=== PATIENT | female | born 1980 | race Caucasian/White ===

== ENCOUNTER 2022-05-17 13:57 | Outpatient (CLI) | payer OTHER, SELFPAY ==
--- OUTSIDE RECORDS SUMMARY | 2022-05-17 14:00 | XMS_ITS | Encounter Summary ---
:1980 Author Organization [facility] Address [address] [place] [address] Care Team Providers Name Role Phone Elsewhere, Pcp Primary Care Provider Unavailable Encounter Details Date Type Department Care Team Description 07/21/2020 Admin Visit Department of Family Medicine, [facility] [place] in [place], [place] [address] [place] [phone] Social History Tobacco Use Types Packs/Day Years Used Date Smoking Tobacco: Some Days Cigarettes 0.5 E-cigarettes Smokeless Tobacco: Never Alcohol Use Standard Drinks/Week Comments Not Currently 0 (1 standard drink = 0.6 oz pure alcoho l) Sex Assigned at Date Recorded Not on file documented as of this encounter Plan of Treatment Not on filedocumented as of this encounter Visit Diagnoses Not on filedocumented in this encounter Additional Health Concerns Infection Onset Date Last Indicated Resolved Time COVID19 Pending 07/21/2020 07/21/2020 07/21/2020 3:39 PM 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
--- OUTSIDE RECORDS SUMMARY | 2022-05-17 14:00 | XMS_ITS | Encounter Summary ---
:[address] [facility] Address [address] [place] [address] Care Team Providers Name Role Phone Elsewhere, Pcp Primary Care Provider Unavailable Reason for Visit Reason Onset Date Comments Outpatient COVID-19 Testing 07/21/2020 Encounter Details Date Type Department Care Team Description 07/21/2020 External Outreach Department of [facility] Destinee Celis Infection Upper Medicine, [place] Is[facility] Harvey Respiratory (Primary Clinic, in [place], [address]) [place], [place] [address] [place] [place] [address] [place], [place] [phone] (Work) [phone] Social History Tobacco Use Types Packs/Day Years Used Date Smoking Tobacco: Some Days Cigarettes 0.5 E-cigarettes Smokeless Tobacco: Never Alcohol Use Standard Drinks/Week Comments Not Currently 0 (1 standard drink = 0.6 oz pure alcoho l) Sex Assigned at Date Recorded Not on file documented as of this encounter Progress Notes Marie Esquivel RMarianne. - 07/21/2020 7:16 AM CST Encounter created for the drive-through COVID-19 testing. A ACCOUNT EXECUTIVE documented in this encounter Plan of Treatment Not on filedocumented as of this encounter Procedures Procedure Name Priority Date/Time Associated Comments Diagnosis SARS CORONAVIRUS 2 Routine 07/21/2020 8:02 AM Res ults for this PCR DETECT, V MEDIA ACCOUNT EXECUTIVE procedure are in the results section. documented in this encounter Results SARS Coronavirus 2 RNA Detection (07/21/2020 8:02 AM MEDIA ACCOUNT EXECUTIVE) [facility] Method Time Signature SARS-CoV-2 Nasopharynx 07/22/2020 [facility] Specimen 6:53 AM MEDIA ACCOUNT EXECUTIVE Source SARS-CoV-2 Undetected Undetected 07/22/2020 [facility] RNA by PCR 6:53 AM MEDIA ACCOUNT EXECUTIVE Comment: SARS-CoV-2 RNA absent. This result does not rule out COVID-19 in the patient, as the sensitivity of the test depends o n the timing of the specimen collection and the quality of the specim en. Result should be correlated with patient's history and clinical presentat ion. ----ADDITIONAL INFORMATION---- This PCR test was performed using the Refund Exchange SARS-CoV-2 assay ([employer] on the inessa Choozle0 System under emergency use authorization (EUA) by the U.S. Food and Drug Administ ration. Fact sheets for this assay can be found at the following links: For Healthcare Providers: https://www.[employer] a.gov/media/204864/download For Patients: https://www.fda.gov/media/ 860729/download Specimen Anatomical Collection Method Collection Time Receive d Time (Source) Location / / Volume Laterality Varies 07/21/2020 8:02 AM 0 3:39 MEDIA ACCOUNT EXECUTIVE PM MEDIA ACCOUNT EXECUTIVE Narrative [facility] - 07/22/2020 6:53 AM MEDIA ACCOUNT EXECUTIVE Specimen Information: Specimen ID: [id number] Specimen Type: Varies Specimen Collection Start Date: 020 ??8:02 AM Specimen Received Date: 07/21/2020 ??3: 39 PM Specimen ID: [id number] Specimen Type: Varies Specimen Collection Start Date: 020 ??8:02 AM Specimen Received Date: 07/21/2020 11:1 5 PM Dmitry Celis P.A.-C. LAB MICROBIOLOGY - GENERAL O RDERABLES Performing Organization Address City/State/ZIP Code Phon e Number [facility] [address] [place], [place] [address] [place] [address] Laboratory Medicine and Pathology [address] [place] [address] Dr. GRIFFITH documented in this encounter Visit Diagnoses Diagnosis Infection Upper Respiratory - Primary documented in this encounter Additional Health Concerns Infection Onset Date Last Indicated Resolved Time COVID19 Pending 07/21/2020 07/21/2020 07/21/2020 3:39 PM MEDIA ACCOUNT EXECUTIVE Assessment Noted Time PHQ-9 Depression Total Score: 16 11/25/2012 12:45 PM C DT documented as of this encounter Care Teams Video Rental Clerk Relationship Specialty Start Date End Date Elsewhere, Pcp PCP - General 09/28/19 documented as of this encounter
--- OUTSIDE RECORDS SUMMARY | 2022-05-17 14:00 | XMS_ITS | Encounter Summary ---
:1980 Author Organization [facility] Address [address] [place] [address] Care Team Providers Name Role Phone Elsewhere, Pcp Primary Care Provider Unavailable Reason for Visit Reason Onset Date Comments Outpatient COVID-19 Testing 07/29/2020 Encounter Details Date Type Department Care Team Description 07/29/2020 External Outreach Department of [facility] Destinee Celis Infection Upper Medicine, [place] [facility] Respiratory (Primary Clinic, in [place], [address] [facility] [address] [place], [place] [address] [facility] [address] [place], [place] [phone] [address] (Work) [phone] Social History Tobacco Use Types Packs/Day Years Used Date Smoking Tobacco: Some Days Cigarettes 0.5 E-cigarettes Smokeless Tobacco: Never Alcohol Use Standard Drinks/Week Comments Not Currently 0 (1 standard drink = 0.6 oz pure alcoho l) Sex Assigned at Date Recorded Not on file documented as of this encounter Progress Notes Nancy Mcnamara - 07/29/2020 12:48 PM CST Encounter created for the drive-through COVID-19 testing. OME HOSTESS documented in this encounter Miscellaneous Notes Result Encounter Note - Jayesh Smith M.D. - 07/31/2020 3:59 PM WELCOME HOSTESS PCR positive for SARS-CoV-2, the virus that causes COVID-19 infection. Based on chart review patientdoes not have high risk factors for complications. Will not be enrolled in CFCT. CFCT MAA, please send CFCTLOWRISKLETTER and portal message (if patient has the portal). Please also alert the patient's [facility] PCP (if applicable). You recently tested positive for SARS-CoV-2 by nasopharyngeal PCR, the gold standard test for diagnosing COVID-19 infection. This letter contains clinical and isolation recommendations for patients with COVID-19. If you have questions about the recommendations, please contact your local primary care physician or local health department. If you have a serious underlying medical condition (such as heart disease, lung disease or decreased functioning of your immune system) please respond to us so that we can assess your risk of COVID complications. If you have upcoming on-campus appointments, we recommend delaying non-urgent appointments until youhave recovered from your COVID infection. Our team will reach out to the area you are scheduled to be seen in. Please do not come to campus until given the ok to do so by a [facility] personal banking representative. Please continue to monitor your symptoms. If you develop any of the following symptoms, please call your primary care physician or go to the Emergency Department for evaluation Worsened shortness of breath New or worsening cough New productive cough or cough with blood New chest pain or pain with breathing Fevers, chills, sweats Vomiting or diarrhea Lightheadedness New temperature > 38.3 ??C Fast heart rate Fast breathing rate If you need to go into the Emergency Room or other healthcare facility, please: Inform EMS of positive COVID result and wear a mask prior to EMS arrival if available. If well enough to transport yourself to the emergency room, you should use a private vehicle (not use taxi, ride-share or public transport). We strongly recommend continuing self-isolation until the following criteria are met and you are released by your local public health department if applicable: Minimum of 10 days since onset of symptoms OR from positive PCR test if asymptomatic AND At least 3 days (72 hours) have passed since recovery defined as resolution of fever without the useof fever-reducing medications AND Improvement in symptoms (e.g., cough, shortness of breath, diarrhea) The above isolation recommendation may need to be adjusted based on the clinical course. Https://www.[employer].com/watch?time_continue=6&v=DqDL1uKlQXx&feature=emb_logo Testing prior to release from isolation is NOT recommended by CDC or [facility] Infection Prevention and Control for clinical purposes except in extremely rare cases. The patient was also advised to follow final recommendations as per local public health department/occupational health if relevant. Please contact your employer's occupational health division to notify them of positive test If the patient and/or their employer have questions about return to work best practices, they shouldcontact [facility] Occupational Medicine at [email or web address]. The patient should receive approval from their employer's occupational health division before returning to work. Recommend self isolation for all household members/close contacts. If any of these individuals are immunocompromised or have serious chronic medical conditions, pleasehave them contact their primary care physician to let them know they have been exposed to close contact with COVID-19 If unwell, recommend contacting their health care provider. Presenting directly to of the ED can be considered in the case of severe symptoms. These individuals should call ahead to minimize wait times. The [facility] COVID Triage Line can bereached at [phone]. COVID-19 is a notifiable disease and you will be contacted by public health for contact tracing. Please review the links below for additional education. [facility] recommendations on isolation https://www.[facility].org/patient-education?VID=VID-51337314 Additional information about COVID-19 https://www.cdc.gov/coronavirus/2019-ncov/ Cognitive Behavior Therapy-Insomnia to help improve sleep https://[facility]/PatientEducation/PatientLearning/index.html#/ Building Resiliency During the COVID-19 Pandemic https://[facility]/2020/PatientEducation/content/index.html#/ Consider donating convalescent plasma once you have recovered from your illness (14 days after symptoms have resolved) Survey to assess eligibility: https://redcap2.[place].edu/redcap/surveys/?s=9FBA2CXH5V and/ or contact guillermo garg@[place] More information is available at https://www.uscovidplasma.org/ https://ccpp19.org/ https://covidplasma.org/ COVID-19 Frontline Care Team [facility] OME HOSTESS documented in this encounter Plan of Treatment Not on filedocumented as of this encounter Procedures Procedure Name Priority Date/Time Associated Diagnosis Comme nts SARS CORONAVIRUS-2 Routine 07/30/2020 7:31 AM Infection Upper Results for this RNA, V WELCOME HOSTESS Respiratory procedure are i n the results section. documented in this encounter Results (ABNORMAL) SARS Coronavirus-2 RNA, V Symptomatic (07/30/2020 7:31 AM WELCOME HOSTESS) [facility] Method Time Signature SARS-CoV-2 Swab, 07/31/2020 [facility] Specimen Nasopharynx 3:03 PM WELCOME HOSTESS Source SARS CoV-2 Detected (C) Undetected 07/31/2020 [facility] RNA, TMA 3:03 PM WELCOME HOSTESS Comment: SARS-CoV-2 RNA present. ----ADDITIONAL INFORMATION---- This test is performed using the Aptima SARS-CoV-2 assay ([employer] which has received Emergency Use Authori zation (EUA) by the U.S. Food and Drug Administration. Fact sheets for this Emergency Use Autho rization (EUA) assay can be found at the following links: For Healthcare Providers: https://www.fd a.gov/media/082912/download For Patients: https://www.fda.gov/media/ 479494/download Specimen Anatomical Collection Method Collection Time Receive d Time (Source) Location / / Volume Laterality Varies 07/30/2020 7:31 AM 0 4:45 (Nasopharynx) WELCOME HOSTESS PM WELCOME HOSTESS Dmitry Celis P.A.-C. LAB MICROBIOLOGY - GENERAL O RDERABLES Performing Organization Address City/State/ZIP Code Phon e Number [facility]- [address] [place] [address] [phone] [facility] [place] [address] System [address] documented in this encounter Visit Diagnoses Diagnosis Infection Upper Respiratory - Primary documented in this encounter Additional Health Concerns Infection Onset Date Last Indicated Resolved Time COVID19 Pending 07/29/2020 07/30/2020 07/31/2020 3:03 PM WELCOME HOSTESS Assessment Noted Time PHQ-9 Depression Total Score: 16 11/25/2012 12:45 PM C DT documented as of this encounter Care Teams Restaurant Shift Leader Relationship Specialty Start Date End Date Elsewhere, Pcp PCP - General 09/28/19 documented as of this encounter
--- OUTSIDE RECORDS SUMMARY | 2022-05-17 14:00 | XMS_ITS | Encounter Summary ---
:1980 Author Organization [facility] Address [address] [place] [address] Care Team Providers Name Role Phone Elsewhere, Pcp Primary Care Provider Unavailable Reason for Visit Reason Comments Communication triage-ORS Encounter Details Date Type Department Care Team Description 08/07/2021 Clinical Communication Department of Soraya Christine Orthopedic Surgery Erwin Potter (triage-ORS) in [place], [facility] [address] [facility] [address] [place] [phone] Social History Tobacco Use Types Packs/Day Years Used Date Smoking Tobacco: Some Days Cigarettes 0.5 E-cigarettes Smokeless Tobacco: Never Alcohol Use Standard Drinks/Week Comments Not Currently 0 (1 standard drink = 0.6 oz pure alcoho l) Sex Assigned at Date Recorded Not on file documented as of this encounter Miscellaneous Notes Telephone Encounter - Soraya Christine RInessa - 08/07/2021 10:38 AM CST Specialty Surgical Services Triage Call Reason for call/visit Carpal tunnel consult request Right wrist Call Note: Assessment Patient request to have appointment with Dr. Salinas. She states that she had carpal tunnel surgery about 8 years ago and at the time only had 1 side done, did not want to miss too much work so did not do the right side. She states that in the last couple weeks the right side has been bad with flare ups, being numb/tingly, red, swollen and painful. Intervention Patient was offered apt with Dr. Salinas team tomorrow. Warm transfer to [facility] was completed. Has patient called or presented with the same symptom previously yes - 8 years ago, carpal tunnel Is patient experiencing other symptoms: no The following references were used: nursing clinical judgement Education provided: patient/caller able to teach back Disposition/Recommendation: as above Caller agreeable to plan of care: yes The following individuals participated in today???s interaction: patient Diabetes Specialist used: no Additional concerns addressed: none ATIENT PSYCHIATRIST documented in this encounter Plan of Treatment Not on filedocumented as of this encounter Visit Diagnoses Not on filedocumented in this encounter Additional Health Concerns Assessment Noted Time PHQ-9 Depression Total Score: 16 11/25/2012 12:45 PM C DT documented as of this encounter Care Teams Cleaning Machine Operator Relationship Specialty Start Date End Date Elsewhere, Pcp PCP - General 09/28/19 documented as of this encounter
--- OUTSIDE RECORDS SUMMARY | 2022-05-17 14:00 | XMS_ITS | Encounter Summary ---
:1980 Author Organization [facility] Address [address] [place] [address] Care Team Providers Name Role Phone Elsewhere, Pcp Primary Care Provider Unavailable Reason for Referral Outpatient (Routine) - Authorized Specialty Diagnoses / Procedures Referred By Contact Refer red To Contact Diagnoses Drug Screen Inés Honeycutt M.D. [facility] Procedures OCC Drug screening [address] [place] [phone] Referral ID Status Reason Start Date Expiration Date Visits V isits Requested Authorized [id number] Authorized 02/09/2022 02/09/2023 1 1 Reason for Visit Reason Comments Pre-placement Drug Screen SB Foot Encounter Details Date Type Department Care Team Description 02/09/2022 Clinical Support Department of Inés Honeycutt Drug Scre en (Primary Occupational Medicine Mikey Alexander Dx) in [facility] [address] [facility] [address] [place] [phone] Social History Tobacco Use Types Packs/Day Years Used Date Smoking Tobacco: Some Days Cigarettes 0.5 E-cigarettes Smokeless Tobacco: Never Alcohol Use Standard Drinks/Week Comments Not Currently 0 (1 standard drink = 0.6 oz pure alcoho l) Sex Assigned at Date Recorded Not on file documented as of this encounter Progress Notes Rubi Quarles - 02/09/2022 8:15 AM CDT Pre employment UDS for SB Foot, uneventful collection documented in this encounter Plan of Treatment Scheduled Orders Name Type Priority Associated Diagnoses Order S chedule [facility] Drug screening Procedures Routine Drug Screen Ordered: 02/09/2022 documented as of this encounter Visit Diagnoses Diagnosis Drug Screen - Primary documented in this encounter Additional Health Concerns Assessment Noted Time PHQ-9 Depression Total Score: 16 11/25/2012 12:45 PM C DT documented as of this encounter Care Teams Picker Packer Relationship Specialty Start Date End Date Elsewhere, Pcp PCP - General 09/28/19 documented as of this encounter
--- OUTSIDE RECORDS SUMMARY | 2022-05-17 14:00 | XMS_ITS | Encounter Summary ---
:1980 Author Organization [facility] Address [address] [place] [address] Care Team Providers Name Role Phone Elsewhere, Pcp Primary Care Provider Unavailable Encounter Details Date Type Department Care Team Description 08/03/2020 Hospital Encounter Department of Laboratory Dmitry Celis, Medicine in [place], P.A.-[address] [phone] (Wo rk) Social History Tobacco Use Types Packs/Day Years Used Date Smoking Tobacco: Some Days Cigarettes 0.5 E-cigarettes Smokeless Tobacco: Never Alcohol Use Standard Drinks/Week Comments Not Currently 0 (1 standard drink = 0.6 oz pure alcoho l) Sex Assigned at Date Recorded Not on file documented as of this encounter Medications at Time of Discharge Medication Sig Dispensed Refills Start Date End Date acetaminophen (TYLENOL) 500 Take 1,000 mg by 0 mg tablet mouth every 6 (six) hours as needed for pain. aspirin 81 mg chewable Chew 1 tablet (81 mg 90 tablet 0 tablet total) daily. atorvastatin (LIPITOR) 40 Take 1 tablet (40 mg 90 tablet 0 06/29/2018 mg tablet total) by mouth at bedtime. ibuprofen (ADVIL,MOTRIN) Take 600 mg by mouth 0 200 mg capsule every 6 (six) hours as needed for pain. documented as of this encounter Plan of Treatment Not on filedocumented as of this encounter Visit Diagnoses Not on filedocumented in this encounter Additional Health Concerns Infection Onset Date Last Indicated Resolved Time COVID19 07/30/2020 08/03/2020 08/23/2020 4:45 AM SENIOR ELECTRICAL DESIGNER Assessment Noted Time PHQ-9 Depression Total Score: 16 11/25/2012 12:45 PM C DT documented as of this encounter Care Teams Lead Radiation Therapist Relationship Specialty Start Date End Date Elsewhere, Pcp PCP - General 09/28/19 documented as of this encounter
--- OUTSIDE RECORDS SUMMARY | 2022-05-17 14:00 | XMS_ITS | Encounter Summary ---
:1980 Author Organization [facility] Address [address] [place] [address] Care Team Providers Name Role Phone Elsewhere, Pcp Primary Care Provider Unavailable Encounter Details Date Type Department Care Team Description 08/03/2020 Admin Visit Department of Family Medicine, [facility] [place] in [place], [place] [address] [place] [phone] Social History Tobacco Use Types Packs/Day [...] Time COVID19 07/30/2020 08/03/2020 08/23/2020 4:45 AM CYLINDER DYER Assessment Noted Time PHQ-9 Depression Total Score: 16 11/25/2012 12:45 PM C DT documented as of this encounter Care Teams Wash Crew Person Relationship Specialty Start Date End Date Elsewhere, Pcp PCP - General 09/28/19 documented as of this encounter
--- OUTSIDE RECORDS SUMMARY | 2022-05-17 14:00 | XMS_ITS | Encounter Summary ---
:1980 Author Organization [facility] Address [address] [place] [address] Care Team Providers Name Role Phone Elsewhere, Pcp Primary Care Provider Unavailable Encounter Details Date Type Department Care Team Description 07/30/2020 Hospital Encounter Department of Laboratory Dmitry Celis, Medicine in [place], P.A.-[address] [phone] (Wo rk) Social History Tobacco Use Types [...] COVID19 Pending 07/29/2020 07/30/2020 07/31/2020 3:03 PM COW TESTER Assessment Noted Time PHQ-9 Depression Total Score: 16 11/25/2012 12:45 PM C DT documented as of this encounter Care Teams Business Control Specialist Relationship Specialty Start Date End Date Elsewhere, Pcp PCP - General 09/28/19 documented as of this encounter
--- OUTSIDE RECORDS SUMMARY | 2022-05-17 14:00 | XMS_ITS | Clinical Summary ---
:1980 Author Organization [facility] Address [address] [place] [address] Care Team Providers Name Role Phone Elsewhere, Pcp Primary Care Provider Unavailable Source Comments Patient records contain information from all sites at [facility]. For routine questions regarding patient records, call [phone] during business hours, M-F 8:00 AM - 5:00 PM Central Time. Record requests for emergency care only can be directed to [phone] at any time.[facility] Allergies Active Allergy Reactions Severity Noted Date Comments Sulfamethoxazole-Trimethopr Hives Medium 01/10/2017 morbilliform, macular, im papular eruptio n Medications Medication Sig Dispensed Refills Start Date End Date Status acetaminophen (TYLENOL) Take 1,000 mg by 0 Active 500 mg tablet mouth every 6 (six) hours as needed for pain. atorvastatin (LIPITOR) Take 1 tablet 90 tablet 0 06/29/2018 Active 40 mg tablet (40 mg total) by mouth at bedtime. aspirin 81 mg chewable Chew 1 tablet 90 tablet 0 06/30/2018 Active tablet (81 mg total) daily. Additional Information Patient not taking. Reported on 04/13/2022 ibuprofen (ADVIL,MOTRIN) 200 mg Take 600 mg by mouth 0 Active capsule every 6 (six) hours as needed for pain. lisinopril-hydroCHLOROthiazide 0 2 Active (PRINZIDE,ZESTORETIC) 10-12.5 mg per tablet triamcinolone (KENALOG) 0.1 % Apply 1 application 30 g 0 02/27/2022 Active cream topically 2 (two) times a day for 10 days. Apply to affected areas of skin BID. hydroCHLOROthiazide (HYDRODIURIL) 0 2021 Active 12.5 mg tablet lisinopriL (PRINIVIL,ZESTRIL) 10 0 022 Active mg tablet ofloxacin (OCUFLOX) 0.3 % Administer 1 drop into 5 mL 0 0 04/10/2022 Active ophthalmic solution both eyes 4 (four) times a day. 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 06/29/2018 Slurred Speech 06/27/2018 Tobacco Use 01/22/2018 Gastroesophageal Reflux Disease 01/20/2018 Colic Biliary 01/06/2018 Overview: Added automatically from request for blanca thao [id number] Pain Right Upper Quadrant 12/31/2017 Overview: Added automatically from request for blanca thao [id number] Dysthymia 11/05/2011 Overview: Dysthymic Disorder Migraine Headache 11/05/2011 Dependence Polysubstance 10/13/2010 Overview: Polysubstance dependence, unspecified Major Depressive Disorder Single Episode Unspecified 0 04/28/2008 Supervision Of Other High Risk Pregnancies Unspecified Trimester 11/18/2007 Encounters Date Type Specialty Care Team Description 04/20/2022 Office Visit Occupational Danii Huber Leg (Prima ry Dx) Medicine Annamaria Adams APRN 04/13/2022 Comprehensive Visit Occupational Danii Huber Leg (Primary Dx) Medicine Annamaria Adams APRN 04/10/2022 Emergency Emergency Medicine Danii Rushing (Colleen shields Dx) Jamari Cordon, P.A.-C. 03/13/2022 Emergency Emergency Medicine Devante Coon Acute AUREA Christianson, Bilateral (Colleen shields C.N.P. Dx) 02/27/2022 Emergency Emergency Medicine Kateryna Calderon Dermatiti s Contact A, P.A.-C., (Primary Dx) M.S. from Last 3 Months Immunizations Name Administration Dates Next Due Tdap 02/22/2010 Family History Medical History Relation Name Comments Hypertension Brother Heart disease Father Hypertension Father Diabetes Maternal Grandfather Relation Name Status Comments Brother Father Maternal Grandfather Social History Tobacco Use Types Packs/Day Years Used Date Smoking Tobacco: Some Days Cigarettes 0.5 E-cigarettes Smokeless Tobacco: Never Tobacco Cessation: Ready to Quit: Not As ked; Counseling Given: Not Answered Alcohol Use Standard Drinks/Week Comments Not Currently 0 (1 standard drink = 0.6 oz pure alcoho l) Sex Assigned at Date Recorded Not on file Last Filed Vital Signs Vital Sign Reading Time Taken Comments Blood Pressure 118/70 04/20/2022 1:22 PM CDT Pulse 105 04/20/2022 1:22 PM CDT Temperature 36.7 ??C (98.1 ??F) 04/20/2022 1:22 PM CDT Respiratory Rate 18 04/13/2022 2:39 PM CDT Oxygen Saturation 98% 04/10/2022 7:15 PM CDT Inhaled Oxygen Concentration - - Weight 98.6 kg (217 lb 6 oz) 04/13/2022 2:39 PM CDT Height 160 cm (5' 2.99) 04/13/2022 2:39 PM CDT Body Mass Index 38.52 04/13/2022 2:39 PM CDT Plan of Treatment Health Maintenance Due Date Last Done Comments Depression Monitoring (PHQ-9) 1980 HIV Screening 1980 Hepatitis B Vaccines (1 of 3 - 1980 3-dose series) Hepatitis C Screening 1982 COVID-19 Vaccine (#1) 01/11/1983 Pneumococcal vaccine (0-64 years) 1988 (1 - PCV) Tobacco Cessation counseling 12/31/2018 12/31/2017 DTaP,Tdap,and Td Vaccines (2 - Td 02/23/2020 02/22/2010 or Tdap) Creatinine Level 12/28/2020 12/29/2019, 06/28/2018, 06/27/2018, Additional history exists Potassium Level 12/28/2020 12/29/2019, 06/28/2018, 06/27/2018, Additional history exists Sodium Level 12/28/2020 12/29/2019, 06/28/2018, 06/27/2018, Additional history exists Influenza Vaccine (#1) 2022 Office Visit for Blood Pressure 04/20/2023 04/20/2022 Check / Re-check Lipid (Cholesterol) Screening 12/28/2024 12/29/2019, 2017, 06/28/2018, Additional history exists Insurance Payer Benefit Plan / Subscriber ID Effective Phone Address T ype Group Dates SENTRY SENTRY 2022-Pre [address] Indemnity [place] [address] [facility] [id number] 2020-Pres [address] [place] Medicaid [facility] ent [address] GAYLE [address] [place] [id number] Advance Directives For more information, please contact: [phone] Latest Code Status on File Code Status Date Activated Date Inactivated Comments Full Code 06/27/2018 8:51 PM 06/30/2018 4:46 PM Full Code: Not Discussed Due to: Patient not available Full Code 01/01/2018 2:30 PM 01/01/2018 4:37 PM Full Code: Discussed Care Teams Rib Knitter Relationship Specialty Start Date End Date Elsewhere, Pcp PCP - General 09/28/19
--- OUTSIDE RECORDS SUMMARY | 2022-05-17 14:00 | XMS_ITS | Encounter Summary ---
:1980 Author Organization [facility] Address [address] [place] [address] Care Team Providers Name Role Phone Elsewhere, Pcp Primary Care Provider Unavailable Reason for Visit Reason Comments Earache Encounter Details Date Type Department Care Team Description 02/16/2020 Emergency [facility] Lucia Stone Otitis Externa Acute Department Blank SERRATO M.D. Bilateral (Primary Dx) [id number] [place] [phone] (Wo rk) Social History Tobacco Use Types Packs/Day Years Used Date Smoking Tobacco: Some Days Cigarettes 0.5 E-cigarettes Smokeless Tobacco: Never Alcohol Use Standard Drinks/Week Comments Not Currently 0 (1 standard drink = 0.6 oz pure alcoho l) Sex Assigned at Date Recorded Not on file documented as of this encounter Last Filed Vital Signs Vital Sign Reading Time Taken Comments Blood Pressure 133/90 02/16/2020 5:00 PM CDT Pulse 76 02/16/2020 5:07 PM CDT Temperature 36.9 ??C (98.4 ??F) 02/16/2020 5:07 PM CDT Respiratory Rate 18 02/16/2020 5:07 PM CDT Oxygen Saturation 95% 02/16/2020 5:07 PM CDT Inhaled Oxygen Concentration - - Weight 92.4 kg (203 lb 11.3 oz) 02/16/2020 4:38 PM CDT Height - - Body Mass Index 37.26 06/27/2018 8:39 PM CDT documented in this encounter Discharge Instructions AttachmentsThe following attachments cannot be sent through Care Everywhere. Acute Otitis Externa (Swimmer???s Ear) (Congolese)documented in this encounter Medications at Time of Discharge Medication Sig Dispensed Refills Start Date End Date acetaminophen (TYLENOL) Take 1,000 mg by 0 500 mg tablet mouth every 6 (six) hours as needed for pain. aspirin 81 mg chewable Chew 1 tablet (81 mg 90 tablet 0 tablet total) daily. atorvastatin (LIPITOR) Take 1 tablet (40 mg 90 tablet 0 40 mg tablet total) by mouth at bedtime. ibuprofen (ADVIL,MOTRIN) Take 600 mg by mouth 0 200 mg capsule every 6 (six) hours as needed for pain. ciprofloxacin-dexamethas Administer 4 drops 7.5 mL 0 05/202002/26/2020 one (CIPRODEX) 0.3-0.1 % into each ear 2 (two) otic suspension times a day for 10 days. documented as of this encounter ED Notes Maria Isabel Morris R.N. - 02/16/2020 5:02 PM CDT Pt stated she was playing with her kids yesterday [place], did not hit her head. This am she noticed her ear felt plugged and when she put a q-tipp in there she noticed blood on 5 q-tips. rating pain 10/10 without medication. Maria Isabel Morris R.N. 02/16/20 1705 Peter Stone III, M.D. - 02/16/2020 5:00 PM CDT SUBJECTIVE CHIEF COMPLAINT/REASON FOR VISIT Earache HISTORY OF PRESENT ILLNESS History provided by: Patient Earache Location: Left Behind ear: No abnormality Quality: Aching and burning Severity: Moderate Onset quality: Sudden Timing: Constant Progression: Unchanged Chronicity: New Context: water in ear (The patient was swimming yesterday.) Relieved by: Nothing Worsened by: Palpation Ineffective treatments: OTC medications Associated symptoms: no fever Associated symptoms comment: Blood on Q-tip when placed in the left ear by patient at home. REVIEW OF SYSTEMS Constitutional: Negative. Negative for chills and fever. HENT: Positive for ear pain. Respiratory: Negative. Cardiovascular: Negative. All other systems reviewed and are negative. OBJECTIVE Initial Vitals Temperature Pulse Heart Rate Resp Rate Blood Pressure SpO2 02/16/20 1637 -- 02/16/20 1637 02/16/20 1637 02/16/20 1637 02/16/20 1637 36.9 ??C 80 18 (!) 162/99 95 % Pain Score 02/16/20 1638 7 PHYSICAL EXAMINATION Constitutional: Nursing note and vitals reviewed. HENT: Right Ear: Hearing and tympanic membrane normal. There is tenderness. No drainage or swelling. No mastoid tenderness. Left Ear: Hearing and tympanic membrane normal. There is tenderness. No drainage or swelling. No mastoid tenderness. No middle ear effusion. Abrasions present left external ear canal. Bilateral external ear canal erythema. Neck: Normal range of motion. Neck supple. Cardiovascular: Normal rate, regular rhythm, S1 normal, S2 normal and normal heart sounds. Pulses are strong and palpable. Capillary refill: takes less than 3 seconds, Pulmonary/Chest: Effort normal and breath sounds normal. There is normal air entry. ASSESSMENT/PLAN Impression and Plan Probable swimmer's ear. Given a history of prediabetes the patient was given Ciprodex 2 drops each ear twice daily. Reasons return to the emergency department discussed. Recommend follow-up with primary medical provider if not improving within the next 3-5 days. Differential Diagnoses Differential diagnosis includes otitis externa, otitis media, tympanic membrane rupture, cerumen impaction, eustachian tube dysfunction or foreign object. I reviewed previous medical records including lab results and documentation from previous visits. Final Diagnoses: as of Feb 15 1700 Otitis Externa Acute Bilateral Peter Stone III, M.D. 02/16/20 1857 documented in this encounter Plan of Treatment Not on filedocumented as of this encounter Visit Diagnoses Diagnosis Otitis Externa Acute Bilateral - Primary documented in this encounter Additional Health Concerns Assessment Noted Time PHQ-9 Depression Total Score: 16 11/25/2012 12:45 PM C DT documented as of this encounter Care Teams Hearing Instrument Specialist Relationship Specialty Start Date End Date Elsewhere, Pcp PCP - General 09/28/19 documented as of this encounter
--- OUTSIDE RECORDS SUMMARY | 2022-05-17 14:00 | XMS_ITS | Encounter Summary ---
:1980 Author Organization [facility] Address [address] [place] [address] Care Team Providers Name Role Phone Elsewhere, Pcp Primary Care Provider Unavailable Reason for Referral Outpatient (Routine) - Authorized Specialty Diagnoses / Procedures Referred By Contact Refer red To Contact Diagnoses Preplacement Exam Inés Honeycutt M.D. [facility] Procedures PVM OCC Hearing screen [address] [place] [phone] Referral ID Status Reason Start Date Expiration Date Visits V isits Requested Authorized [id number] Authorized 02/09/2022 02/09/2023 1 1 Reason for Visit Reason Comments Pre-placement [employer] Encounter Details Date Type Department Care Team Description 02/09/2022 Comprehensive Visit Department of Inés Honeycutt Prepla cement Exam Clarke Alexander M.D. (Primary Dx) Medicine in [facility] [address] [place] [phone] Social History Tobacco Use Types Packs/Day Years Used Date Smoking Tobacco: Some Days Cigarettes 0.5 E-cigarettes Smokeless Tobacco: Never Alcohol Use Standard Drinks/Week Comments Not Currently 0 (1 standard drink = 0.6 oz pure alcoho l) Sex Assigned at Date Recorded Not on file documented as of this encounter Last Filed Vital Signs Vital Sign Reading Time Taken Comments Blood Pressure 140/84 02/09/2022 8:24 AM CDT Pulse 110 02/09/2022 8:24 AM CDT Temperature 36.2 ??C (97.2 ??F) 02/09/2022 8:24 AM CDT Respiratory Rate - - Oxygen Saturation - - Inhaled Oxygen Concentration - - Weight 103 kg (226 lb 3.1 oz) 02/09/2022 8:24 AM CDT Height 160.1 cm (5' 3.03) 02/09/2022 8:24 AM CDT Body Mass Index 40.03 02/09/2022 8:24 AM CDT documented in this encounter Progress Notes Andreas Daniels L.P.N. - 02/09/2022 8:45 AM CDT Pre employment physical, vision, audiogram for [employer]. See scanned results. Inés Honeycutt M.D., M.P.H. 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 female presenting today for a pre-placement physical. She has not established with a local primary care provider. The patient does not have any current complaints. H/o rain bleed 3 years with no functional deficit.No residual symptoms. Now taking BP pills and cholesterol pills. No symptoms reported. Patient completed Pre-Employment History Evaluation Questionnaire, this is reviewed in detail. The following portions of the patient's medical history were reviewed and updated as appropriate: allergies, current medications, medical history, social history, surgical history and problem list Review of Systems ROS negative, as documented on the Pre-Employment History Evaluation Questionnaire completed on 02/09/22 Vitals: 02/09/22 0824 BP: 140/84 Pulse: 110 Temp: 36.2 ??C GENERAL: Alert, relaxed female, under no acute distress. NEUROLOGICAL: Thought processes coherent, oriented to person, place and time. SKIN: Warm, moist, no lesions or ecchymosis. HEENT: Normocephalic, atraumatic. PERRLA. EOMs intact. HEART: S1, S2. Regular rate and rhythm. No murmurs, gallops or rubs. LUNGS: Clear to auscultation bilaterally. ABDOMEN: Soft, non tender to palpation. No hepatosplenomegaly. EXTREMITIES: Warm and well perfused, no joint pain or deformities. GENITALIA: Not examined ASSESSMENT / PLAN Encounter Diagnosis Name Primary? Preplacement Exam Yes The job description, Pre-Employment Questionnaire, and diagnostic testing have been reviewed. May proceed with employment without restrictions. Appropriate forms filled out for the employer, see scanned documents for details. Thank you for letting me be involved in your care. documented in this encounter Plan of Treatment Scheduled Orders Name Type Priority Associated Diagnoses Order S chedule PVM OCC Hearing screen Procedures Routine Preplacement Exam Ordered: 02/09/2022 documented as of this encounter Visit Diagnoses Diagnosis Preplacement Exam - Primary documented in this encounter Additional Health Concerns Assessment Noted Time PHQ-9 Depression Total Score: 16 11/25/2012 12:45 PM C DT documented as of this encounter Care Teams Building Maintenance Custodian Relationship Specialty Start Date End Date Elsewhere, Pcp PCP - General 09/28/19 documented as of this encounter
--- OUTSIDE RECORDS SUMMARY | 2022-05-17 14:00 | XMS_ITS | Encounter Summary ---
:1980 Author Organization [facility] Address [address] [place] [address] Care Team Providers Name Role Phone Elsewhere, Pcp Primary Care Provider Unavailable Reason for Referral Outpatient (Routine) - Closed Specialty Diagnoses / Procedures Referred By Contact Refer red To Contact Diagnoses [facility]aresthesias Hand [facility] Procedures EMG C.N.P., D.N.P. [address] [place] [phone] Referral ID Status Reason Start Date Expiration Date Visits Requ ested Visits Authorized [id number] Closed 08/08/2021 08/08/2022 1 1 GOODS INSPECTOR Reason for Visit Outpatient (Routine) - Closed Specialty Diagnoses / Procedures Referred By Contact Refer red To Contact Diagnoses Paresthesias Hand [facility] Procedures EMG C.N.P., D.N.P. [address] [place] [phone] Referral ID Status Reason Start Date Expiration Date Visits Requ ested Visits Authorized [id number] Closed 08/08/2021 08/08/2022 1 1 Encounter Details Date Type Department Care Team Description 10/20/2021 Hospital Encounter Department of Soraya Toney Hand Neurology renetta Benjamin APRN, C.N.PChristian, [place], [place] D.N.P. [address] [facility] [address] [place] [phone] Social History Tobacco Use Types Packs/Day Years [...] Name Priority Date/Time Associated Diagnosis Comme nts EMG Routine 10/20/2021 9:01 AM Paresthesias Hand Resu lts for this DRY GOODS INSPECTOR procedure are i n the results section . documented in this encounter Results EMG (10/20/2021 9:01 AM DRY GOODS INSPECTOR) Specimen (Source) Anatomical Collection Method Collection Time Re ceived Time Location / / Volume Laterality 10/20/2021 9:15 AM DRY GOODS INSPECTOR Narrative EMG - 10/20/2021 10:20 AM DRY GOODS INSPECTOR 20-Oct-2021 ? Electromyography ? Final Report Study Number: 1 EMG Mortgage Protection Specialist: Navneet Keys 127 or [phone] Referred by: SORAYA TONEY () Referred for: Referral Code: ?037 RX: 211 SUMMARY: Prior to starting the procedure , the patient's identity was verified, pertinent available records were reviewed, the nature of the procedure was explained, the appropriate sites of the exam were confirmed directly with the pa tient, and a pre-procedure pause was performed for final verification of all of the above. ??Nerv e conduction study showed a prolonged right median sensory distal latency that was 0.8 milliseconds longer than the right ulnar sensory distal latency conducted over the same distance. ??The rest of the nerve conduction studies were normal. ??Needle examination of the right upper limb was normal. 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 ??These find ings are in keeping with clinical diagnosis of carpal tunnel syndrome. ??This study shows no e vidence of a right cervical radiculopathy. Wilmar Keys (127 or [phone])/[facility] NERVE CONDUCTIONS ??Record Rep ?? Normal ??Normal Distal Normal F-Wave F-Wave Temp Nerve Type Site Stim Side Amp Amp CV CV Lat Lat Lat Est (??C) Median Motor APB ??R 9.1 (> 4.0) 54 (> 4 8) 3.8 (< 4.5) ?? 32.2 Ulnar Motor ADM ??R 11.6 (> 6.0) 68 (> 5 1) 2.2 (< 3.6) ?? 32.7 Median Sensory Wrist ??L 157 (> 50.0) ?? (> 56) 1.9 (< 2.3) ?? 32.3 Median Sensory Wrist ??R 113 (> 50.0) 65 (> 56) 2.3 (< 2.3) ?? 32.3 Ulnar Sensory Wrist ??L 50 (> 15.0) ??(> 55) 1.6 (< 2.3) ?? 32.0 Ulnar Sensory Wrist ??R 48 (> 15.0) 67 ( > 55) 1.5 (< 2.3) ?? 32.1 NEEDLE EMG ??Ins Spont ??MUP ??Recruitment ??Durat ion ??Amplitude ??Phases ?? Muscle Side Act Fib Fasc Normal Activ Re duced Rapid Long Short High Low % Turns Abductor pollicis brevis R NL 0 0 NL ? First dorsal interosseous R NL 0 0 NL - - - - - - - - - Pronator teres R NL 0 0 NL ? Biceps brachii R NL 0 0 NL ? Triceps brachii R NL 0 0 NL ? This interpretation has been electron ically signed: Navneet Keys MD at 10/20/2021 10:18:45 AM DRY GOODS INSPECTOR Procedure Note Wilmar Keys M.D. - 10/20/2021Form atting of this note is different from the original. 20-Oct-2021 Electromyography Final Repor t Study Number: 1 EMG Mortgage Protection Specialist: Navneet Keys 127 or [phone] Referred by: SORAYA TONEY () Referred for: Referral Code: 037 RX: 211 SUMMARY: Prior to starting the procedure , the patient's identity was verified, pertinent available records were reviewed, the nature of the procedure was explained, the appropriate sites of the exam were confirmed directly with the pa tient, and a pre-procedure pause was performed for final verification of all of the above. Nerve conduction study showed a prolonged right median sensory distal latency that was 0.8 milliseconds longer than the right ulnar sensory distal latency conducted over the same distance. The re st of the nerve conduction studies were normal. Needle examination of the right upper limb was normal. 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 These findin gs are in keeping with clinical diagnosis of carpal tunnel syndrome. This study shows no nori dence of a right cervical radiculopathy. Wilmar Keys (127 or [phone])/[facility] NERVE CONDUCTIONS Record Rep Normal Normal Distal Normal F-Wave F-Wave Temp Nerve Type Site Stim Side Amp Amp CV CV Lat Lat Lat Est (??C) Median Motor APB R 9.1 (> 4.0) 54 (> 48) 3.8 (< 4.5) 32.2 Ulnar Motor ADM R 11.6 (> 6.0) 68 (> 51) 2.2 (< 3.6) 32.7 Median Sensory Wrist L 157 (> 50.0) (> 5 6) 1.9 (< 2.3) 32.3 Median Sensory Wrist R 113 (> 50.0) 65 ( > 56) 2.3 (< 2.3) 32.3 Ulnar Sensory Wrist L 50 (> 15.0) (> 55) 1.6 (< 2.3) 32.0 Ulnar Sensory Wrist R 48 (> 15.0) 67 (> 55) 1.5 (< 2.3) 32.1 NEEDLE EMG Ins Spont MUP Recruitment Duration Ampl itude Phases Muscle Side Act Fib Fasc Normal Activ Re duced Rapid Long Short High Low % Turns Abductor pollicis brevis R NL 0 0 NL First dorsal interosseous R NL 0 0 NL - - - - - - - - - Pronator teres R NL 0 0 NL Biceps brachii R NL 0 0 NL Triceps brachii R NL 0 0 NL This interpretation has been electron ically signed: Navneet Keys MD at 10/20/2021 10:18:45 AM DRY GOODS INSPECTOR Soraya Toney APRN, C.N.P., D.N.P. NEUROLOGY ORDERAB LES Performing Organization Address City/State/ZIP Code Phon e Number [facility] documented in this encounter Visit Diagnoses Diagnosis Paresthesias Hand documented in this encounter Additional Health Concerns Assessment Noted Time PHQ-9 Depression Total Score: 16 11/25/2012 12:45 PM C DT documented as of this encounter Care Teams Biology Professor Relationship Specialty Start Date End Date Elsewhere, Pcp PCP - General 09/28/19 documented as of this encounter
--- OUTSIDE RECORDS SUMMARY | 2022-05-17 14:00 | XMS_ITS | Encounter Summary ---
:1980 Author Organization [facility] Address [address] [place] [address] Care Team Providers Name Role Phone Elsewhere, Pcp Primary Care Provider Unavailable Reason for Visit Reason Comments Danii NewburgWing Petersen doi 04/12/22 Encounter Details Date Type Department Care Team Description 04/13/2022 Comprehensive Visit Department of Danii Huber (Primary Occupational Medicine Angie Mendez PRN Dx) in [address] [id number] Social History Tobacco Use Types Packs/Day Years [...] Sign Reading Time Taken Comments Blood Pressure 136/86 04/13/2022 2:39 PM CDT Pulse 112 04/13/2022 2:39 PM CDT Temperature 36.8 ??C (98.2 ??F) 04/13/2022 2:39 PM CDT Respiratory Rate 18 04/13/2022 2:39 PM CDT Oxygen Saturation - - Inhaled Oxygen Concentration - - Weight 98.6 kg (217 lb 6 oz) 04/13/2022 2:39 PM CDT Height 160 cm (5' 2.99) 04/13/2022 2:39 PM CDT Body Mass Index 38.52 04/13/2022 2:39 PM CDT documented in this encounter Consult Notes Annamaria Huber, HIGH LIGHTER - 04/13/2022 3:00 PM CDT DATE OF VISIT: 04/13/22 EMPLOYER: [employer] DATE OF INJURY/ILLESS/EXPOSURE: 04/10/2022 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 female who presents today for evaluation of a rash on her bilateral lower extremities. Onset was noted 04/10/22. While working, she felt a burning discomfort in her legs, she pulled up her pants legs and pulled down her long socks and noted a circumferential red rash. It caused burning discomfort but no pruritis. She sought ED evaluation, and they prescribed oral prednisone. She is on day 3 of a 5 day course and does note improvement. She was also advised to remain off of work. Today, she does feel it is starting to improve. Burning quality is gone. It has remained without pruritis. She is tolerating the prednisone. This rash has occurred once before, roughly 1 week into her current job; it was the same distribution, but she feels it was not as severe. She sought ED evaluation at that time; it is noted in her record that she had just worn a new pair of work boots the day that the rash initially began. Appearance of the rash at that time was reportedly most congruent with contact dermatitis. Oral prednisone was prescribed and she had gradual resolution of symptoms. Shruthi has worked for this employer since February 20, 2022. There are two areas of the plant that she has worked in; most commonly, she is in the upper plant. This is where she was working when this rash was noted now on both instances. She reports that her lower extremities are fully covered while atwork; she wears work boots, with long socks underneath. Her pant legs come to boot level, and she pulls the socks up over the pant leg. She has had no rash on any exposed skin, chest, arms or face. Emerald had a conjunctival issue while employed here as well; noted sudden onset drainage and redness when she entered the lower part of the facility. She had been treating this will OTC lubricating eyesdrop and ocular antihistamine; feels the symptoms quickly resolved when she began the oral prednisone two days ago. Of note, she does struggle with peripheral edema; is on hydrochlorothiazide. 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 Would often use compression stockings to knee level to combat edema. Social and Occupational History: See above Constitutional: - Negative for fatigue, fever and night sweats. Skin: Positive for skin rash. Eyes: - Negative for visual problems. ENT: - Negative for sinus congestion. Respiratory: - Negative for dry cough and shortness of breath. Cardiovascular: - Negative for chest pain, pressure or tightness. The following portions of the patient's history were reviewed and updated as appropriate: allergies,current medications, medical history, social history, surgical history, and problem list BP 136/86 (BP Location: Right arm) Pulse (!) 112 Temp 36.8 ??C Resp 18 Ht 160 cm Wt 98.6 kg BMI 38.52 kg/m?? Vitals reviewed. Constitutional General: She is not in acute distress. Cardiovascular Rate and Rhythm: Normal rate and regular rhythm. Pulmonary Effort: Pulmonary effort is normal. Skin General: Skin is warm and dry. Findings: Rash present. Rash is macular. Rash is not nodular, papular, pustular, scaling, urticarial or vesicular. Comments: Bilateral lower extremities with macular erythematous linear lesion. Borders are sharply demarcated. On the RLE, it is circumferential, distributed almost in a horizontal ring-like pattern. The LLE rash sits at a nearly symmetric level, anteriorly based only. It is less erythematous. Bothareas jon with pressure. Neurological Mental Status: She is alert and oriented to person, place, and time. Psychiatric Behavior: Behavior normal. Thought Content: Thought content normal. ASSESSMENT / PLAN 1. Rash Leg MMI: no PPD: undetermined Work Related: Yes - probable Rash on the lower extremities, it is non papular, non raised. It is very linear and well demarcated.It is occurring on an area of the body that is covered while working. This doesn't fit the picture of a contact dermatitis, despite her and her supervisors initial thoughts. Differential include an allergic dermatitis or a vasculitis. The rash does appear to sit just above the level of her work boots,and from pictures, it does look like she develops some pitting edema just above the boots. Advise she complete the steroid. 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 Recheck next week, sooner if concerns arise. Discussed worsening symptoms that will bring the patient back sooner for further evaluation. Work status: modified duty with restrictions as follows:no work in areas of the production setting where leather, chemicals or wet solutions handled . See attached Report of Injury and Illness for full details. The patient indicates understanding of these issues and agrees with the plan. Patient has been instructed to discuss their work status with their compensation supervisor. 48 total face to face, plus non face to face time, spent today reviewing medical history, performingevaluation, discussing the plan, coordinating future care, and explaining return to work procedures.Spent an additional 5 minutes spent completing documentation for the medical record. Thank you for letting me be involved in your care. documented in this encounter Plan of Treatment Not on filedocumented as of this encounter Visit Diagnoses Diagnosis Rash Leg - Primary documented in this encounter Additional Health Concerns Assessment Noted Time PHQ-9 Depression Total Score: 16 11/25/2012 12:45 PM C DT documented as of this encounter Care Teams Exhibit Carpenter Relationship Specialty Start Date End Date Elsewhere, Pcp PCP - General 09/28/19 documented as of this encounter
--- OUTSIDE RECORDS SUMMARY | 2022-05-17 14:00 | XMS_ITS | Encounter Summary ---
:1980 Author Organization [facility] Address [address] [place] [address] Care Team Providers Name Role Phone Elsewhere, Pcp Primary Care Provider Unavailable Reason for Visit Reason Comments Rash Encounter Details Date Type Department Care Team Description 02/27/2022 Emergency [facility] Kateryna Calderon Dermat itis Contact Department PMarni., M.S. (Primary Dx) [address] [place] [address] [place], [place] [phone] Social History Tobacco Use Types Packs/Day Years Used Date Smoking Tobacco: Some Days Cigarettes 0.5 E-cigarettes Smokeless Tobacco: Never Alcohol Use Standard Drinks/Week Comments Not Currently 0 (1 standard drink = 0.6 oz pure alcoho l) Sex Assigned at Date Recorded Not on file documented as of this encounter Last Filed Vital Signs Vital Sign Reading Time Taken Comments Blood Pressure 132/82 02/27/2022 2:02 PM CDT Pulse 107 02/27/2022 2:02 PM CDT Temperature 36.9 ??C (98.5 ??F) 02/27/2022 2:02 PM CDT Respiratory Rate 16 02/27/2022 2:02 PM CDT Oxygen Saturation 99% 02/27/2022 2:02 PM CDT Inhaled Oxygen Concentration - - Weight 99.8 kg (220 lb) 02/27/2022 2:05 PM CDT Height 158.8 cm (5' 2.5) 02/27/2022 2:05 PM CDT Body Mass Index 39.6 02/27/2022 2:05 PM CDT documented in this encounter Discharge Instructions AttachmentsThe following attachments cannot be sent through Care Everywhere. Contact Dermatitis (Citizen Of [place])documented in this encounter Medications at Time of [...] 6 (six) hours as needed for pain. lisinopril-hydroCHLOROth 0 02/02/2022 iazide (PRINZIDE,ZESTORETIC) 10-12.5 mg per tablet triamcinolone (KENALOG) Apply 1 application 30 g 0 0.1 % cream topically 2 (two) times a day for 10 days. Apply to affected areas of skin BID. predniSONE (DELTASONE) Take 2 tablets (40 mg 10 tablet 0 03/04/2022 20 mg tablet total) by mouth daily for 5 days. documented as of this encounter ED Notes Kateryna Calderon P.A.-C., M.S. - 02/27/2022 2:40 PM CDT SUBJECTIVE CHIEF COMPLAINT/REASON FOR VISIT Rash HISTORY OF PRESENT ILLNESS Shruthi Jones is a 41 y.o. female presenting for evaluation of a rash to bilateral lower legs.Patient notes that earlier today while at work she noticed some aching in her lower legs. She lookedand noticed a rash to bilateral lower legs. She denies any significant pain or itching. She denies any fever or chills. She does note that she started a new job recently where she is exposed to animal hides and leather, but she is exposed on her arms as well and there is no rash in her arms. She denies any recent travel. She denies any tick bites or exposures. She does note that she is wearing new boots today. She denies any new medications, lotions, soaps, or detergents. REVIEW OF SYSTEMS Constitutional: Negative for fever. Cardiovascular: Negative for leg swelling. Musculoskeletal: Positive for extremity pain (Aching in bilateral lower legs). Skin: Positive for rash ( to bilateral lower legs). Negative for itching. OBJECTIVE Initial Vitals [02/27/22 1402] Temperature Pulse Rate Heart Rate Resp Rate Blood Pressure SpO2 36.9 ??C 107 -- 16 132/82 99 % Pain Score -- PHYSICAL EXAMINATION Constitutional: No distress. HENT: Head: Normocephalic and atraumatic. Eyes: Conjunctivae are normal. Cardiovascular: Normal rate and regular rhythm. Pulmonary/Chest: Effort normal and breath sounds normal. No respiratory distress. Musculoskeletal: General: No deformity. Normal range of motion. Cervical back: Normal range of motion. Neurological: Alert and oriented to person, place, and time. Normal speech. Skin: Skin is warm and dry. Rash noted. She is not diaphoretic. Erythematous maculopapular rash to bilateral lower legs to the ankles. No urticaria. No nodules noted. No obvious petechiae or purpura. Psychiatric: She has a normal mood and affect. Behavior is normal. ASSESSMENT/PLAN Differential diagnosis includes allergic reaction, contact dermatitis, less likely vasculitis or erythema nodosum. 41-year-old female presenting with rash to bilateral lower legs. She is afebrile and well appearing on arrival. This rash does appear most likely to be a contact dermatitis. This does not appear to be consistent with a vasculitis or erythema nodosum. This is not appear to be cellulitis or soft tissue infection. At this point I think it is reasonable to treat her with triamcinolone cream and oral prednisone. She was instructed to follow up with primary care if not improving. Instructed to return to the emergency department for any new or worsening symptoms, including worsening rash, increased pain, or other concerning symptoms. Final Diagnoses: as of 02/27/222026 Dermatitis Contact Kateryna Calderon P.A.-C., M.S. 02/27/222027 Nelda Grant R.N. - 02/27/2022 2:03 PM CDT Pt states her legs were aching; she looked down and noted rash on lower legs. Josefs was concerned pt has leather rash on legs. Pt unsure what was on the hides she has been moving. Pt denies pain or itchon lower legs. Nelda Grant R.N. 02/27/22 1406 documented in this encounter Plan of Treatment Not on filedocumented as of this encounter Visit Diagnoses Diagnosis Dermatitis Contact - Primary documented in this encounter Additional Health Concerns Assessment Noted Time PHQ-9 Depression Total Score: 16 11/25/2012 12:45 PM C DT documented as of this encounter Care Teams Wet Sander Relationship Specialty Start Date End Date Elsewhere, Pcp PCP - General 09/28/19 documented as of this encounter
--- OUTSIDE RECORDS SUMMARY | 2022-05-17 14:00 | XMS_ITS | Encounter Summary ---
:1980 Author Organization [facility] Address [address] [place] [address] Care Team Providers Name Role Phone Elsewhere, Pcp Primary Care Provider Unavailable Reason for Visit Reason Comments Outpatient COVID-19 Testing Needs Covid test prior to residential booking Encounter Details Date Type Department Care Team Description 03/19/2021 Emergency [place] [facility] Bang Campos, Admin istrative Purpose Department M.D. Exam (Primary Dx) [address] [facility] [address] [place] [phone] Social History Tobacco Use Types Packs/Day Years Used Date Smoking Tobacco: Some Days Cigarettes 0.5 E-cigarettes Smokeless Tobacco: Never Alcohol Use Standard Drinks/Week Comments Not Currently 0 (1 standard drink = 0.6 oz pure alcoho l) Sex Assigned at Date Recorded Not on file documented as of this encounter Last Filed Vital Signs Vital Sign Reading Time Taken Comments Blood Pressure 123/81 03/19/2021 5:30 PM CDT Pulse 116 03/19/2021 5:30 PM CDT Temperature 36.7 ??C (98.1 ??F) 03/19/2021 5:15 PM CDT Respiratory Rate - - Oxygen Saturation 100% 03/19/2021 5:30 PM CDT Inhaled Oxygen Concentration - - Weight - - Height - - Body Mass Index - - documented in this encounter Discharge Instructions Discharge InstructionsBang Campos M.D. - 03/19/2021 5:50 PM CDT COVID testing is negative. Patient is cleared for incarceration. Follow-up as needed. documented in this encounter Medications at Time of [...] for pain. documented as of this encounter ED Notes Bang Campos M.D. 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 Upon being taken into residential she stated that she had COVID therefore is here for testing. However here she denies a cough and no fever or chills reports she has been having right upper quadrant and epigastric discomfort for the last week. She has not sought out medical treatment for this. She did have 1 episodeof emesis that resulted in a trace of bright red blood consistent with Bryanna-Cross. Otherwise no change in bowel habits. She appears in no acute distress REVIEW OF SYSTEMS Constitutional: Negative for chills and fever. HENT: Negative for congestion, rhinorrhea and sore throat. Eyes: Negative for discharge and redness. Respiratory: Negative for cough and shortness of breath. Cardiovascular: Negative for chest pain, palpitations and leg swelling. Gastrointestinal: Positive for abdominal pain (Epigastric and right upper quadrant), nausea and vomiting. Genitourinary: Negative. Musculoskeletal: Negative. Skin: Negative for color change and rash. Allergic/Immunologic: Negative. Neurological: Negative. Hematological: Negative. Psychiatric/Behavioral: Negative. OBJECTIVE Initial Vitals [03/19/21 1715] Temperature Pulse Rate Heart Rate Resp Blood Pressure SpO2 36.7 ??C (!) 112 -- -- (!) 133/91 98 % Pain Score -- PHYSICAL EXAMINATION Constitutional: Nursing note and vitals reviewed. She appears not lethargic. No distress. HENT: Head: Normocephalic and atraumatic. Mouth/Throat: Mucous membranes are moist. Eyes: Conjunctivae and EOM are normal. Pupils are equal, round, and reactive to light. Neck: Neck supple. Cardiovascular: Normal rate, regular rhythm, S1 normal, S2 normal and normal heart sounds. Pulmonary/Chest: Effort normal and breath sounds normal. There is normal air entry. Abdominal: Soft. Bowel sounds are normal. There is no hepatosplenomegaly. There is abdominal tenderness (Epigastric). There is no rebound and no guarding. Musculoskeletal: General: No tenderness, deformity or edema. Normal range of motion. Cervical back: Normal range of motion and neck supple. Neurological: Alert and oriented to person, place, and time. Skin: Skin is warm, dry and normal color. She is not diaphoretic. Psychiatric: She has a normal mood and affect. Behavior is normal. ASSESSMENT/PLAN IMPRESSION AND PLAN Patient presents for COVID testing prior to incarceration as above. At test is negative. She did endorse that she has been experiencing epigastric and right upper quadrant pain last week has not soughtany medical treatment for this. Did have discussion with officer at this time will hold her to take her onto residential and have the nurses there continue to observe for any side as she might need to return.Therefore she is cleared for incarceration ED Course as of Mar 19 1753 [place] Mar 19, 2021 1744 SARS CoV-2, PCR, Rapid, V: Undetected Final Diagnoses: as of Mar 19 1753 Administrative Purpose Exam Bang Campos M.D. 03/19/211752 documented in this encounter Plan of Treatment Not on filedocumented as of this encounter Procedures Procedure Name Priority Date/Time Associated Comments Diagnosis SARS CORONAVIRUS 2, STAT 03/19/2021 5:17 PM Re sults for this PCR RAPID, V CDT procedure are i n the results section. documented in this encounter Results SARS Coronavirus 2, PCR Rapid, V Symptomatic (03/19/2021 5:17 PM CDT) [facility] Method Time Signature SARS CoV-2, Undetected Undetected 03/19/2021 [facility] PCR, Rapid, V 5:43 PM CDT Comment: ----ADDITIONAL INFORMATION---- This RT-PCR test was performed using the Maykel SARS-CoV-2 and Influenza A/B Reagent assay from [employer], which has received Emergency Use Authori zation(EUA) by the U.S. Food and Drug Administration . Fact sheets for this Emergency Use Autho rization (EUA) assay can be found at the following link s: For Healthcare Providers: https://www.fda.gov/media/818677/downloa d For Patients: https://www.fda.gov/media/590003/downloa d SARS Coronavirus 2, Source, Rapid Swab, Nasopharynx 03/19/2021 5:20 PM CDT [facility] Specimen Anatomical Collection Method Collection Time Receive d Time (Source) Location / / Volume Laterality Varies 03/19/2021 5:17 PM 5:20 (Nasopharynx) CDT PM CDT Bang Campos M.D. LAB MICROBIOLOGY - GENERAL O RDERABLES Performing Organization Address City/State/ZIP Code Phon e Number [facility]- [address] [place] [phone] [place] [address] System in [address] documented in this encounter Visit Diagnoses Diagnosis Administrative Purpose Exam - Primary documented in this encounter Additional Health Concerns Infection Onset Date Last Indicated Resolved Time COVID19 Pending 03/19/2021 03/19/2021 03/19/2021 5:44 PM CDT Assessment Noted Time PHQ-9 Depression Total Score: 16 11/25/2012 12:45 PM C DT documented as of this encounter Care Teams Garland Maker Relationship Specialty Start Date End Date Elsewhere, Pcp PCP - General 09/28/19 documented as of this encounter
--- OUTSIDE RECORDS SUMMARY | 2022-05-17 14:00 | XMS_ITS | Encounter Summary ---
:1980 Author Organization [facility] Address [address] [place] [id number] Care Team Providers Name Role Phone Unassigned, Pcp Primary Care Provider Unavailable Reason for Visit Reason Comments Post hosp f/u 06/27 Appointment Request (Routine) - Closed Specialty Diagnoses / Procedures Referred By Contact Refer red To Contact Family Medicine Referral ID Status Reason Start Date Expiration Date Visits Requ ested Visits Authorized [id number] Closed 06/30/2018 06/30/2019 1 1 Encounter Details Date Type Department Care Team Description 07/02/2018 Office Visit Department of Family Magda Sandoval 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 Slurred Speech; [facility] [address] Dependence Polysubstance (HCC) [facility] [id number] [place] [address] [place], [place] (Work) [phone] Social History Tobacco Use Types Packs/Day Years Used Date Smoking Tobacco: Some Days Cigarettes E-cigarettes Smokeless Tobacco: Never Alcohol Use Standard Drinks/Week Comments Yes 0 (1 standard drink = 0.6 oz pure alcoho l) Sex Assigned at Date Recorded Not on file documented as of this encounter Last Filed Vital Signs Vital Sign Reading Time Taken Comments Blood Pressure 145/97 07/02/2018 10:12 AM CDT Pulse 110 07/02/2018 10:12 AM CDT Temperature - - Respiratory Rate 20 07/02/2018 10:09 AM CDT Oxygen Saturation 100% 07/02/2018 10:09 AM CDT Inhaled Oxygen Concentration - - Weight - - Height - - Body Mass Index - - documented in this encounter Progress Notes Magda Sandoval P.A.-C. - 07/02/2018 10:15 AM CDT SUBJECTIVE CHIEF COMPLAINT / REASON FOR VISIT Shruthi Jones is a 37 y.o. female who presents for evaluation of Post hosp f/u (06/27 ). HISTORY OF PRESENT ILLNESS Shruthi is a 37-year-old female who presents today for follow-up from hospitalization. The patient wasadmitted on 06/27/2018 for evaluation of slurred speech and stroke. The patient has a known history of polysubstance abuse including methamphetamine. She presented to the ER with confusion and right fac ial droop as well as difficulty finding words and slurred speech. Her symptoms were starting to resolve when she arrived at the ER. Patient was started on aspirin and it was recommended she start physical therapy, speech therapy and occupational therapy. MRI of the brain showed ischemic stroke of leftcaudate nucleus. Patient was started on atorvastatin 40 mg daily as well as aspirin. The patient smokes 2 cigarettes daily. She has not been drinking any alcohol since discharge; she notes she used to drink 1-2 drinks several times a week. The patient notes she has had chemical dependence treatment about 12 years ago. The patient is currently living in [place] with her parents. She has been more stressed recently as she is going through a divorce. She is unable to to see her children; she has 3 kids 17, 13 and 10 years old. The following portions of the patient's history were reviewed and updated as appropriate: allergies,current medications, medical history, social history and problem list. Brief Review of Systems: A brief review of systems was negative except for that mentioned in the history of present of illness. Current Outpatient Medications Medication Sig ??? acetaminophen (TYLENOL) 500 mg tablet Take 1,000 mg by mouth every 6 (six) hours as needed for pain. ??? aspirin 81 mg chewable tablet Chew 1 tablet (81 mg total) daily. ??? atorvastatin (LIPITOR) 40 mg tablet Take 1 tablet (40 mg total) by mouth at bedtime. Allergies Allergen Reactions ??? Sulfamethoxazole-Trimethoprim Hives morbilliform, macular, papular eruption OBJECTIVE PHYSICAL EXAM BP (!) 145/97 (BP Location: Left arm, Cuff Size: Large) Pulse 110 Resp 20 SpO2 100% GENERAL: Patient is in no distress. HEENT: Normocephalic. NEURO: Alert and nonfocal, moving all 4 extremities. Mild weakness in the cranial nerves on the right side. Weakness with smile, puffing out cheeks and raising eyebrows. 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 Speech therapywas ordered for patient to help her recover from the stroke. I discussed with her at length the importance of getting into a substance abuse program. The patienthas looked into this and would like to move forward with outpatient treatment at [facility] in [place]. We did contact [facility] and the patient was given information on how to present to the hospital for admissions screening. She has been through treatment before. The patient is also looking in to AA and NA meetings. Currently she is staying with her parents however she does not have reliable transportation as her soon to be ex- has taken the car. She is hoping to get the car back soon. #2 Slurred Speech As noted above. #3 Dependence Polysubstance (HCC) As noted above. Magda Sandoval P.A.-C. documented in this encounter Plan of Treatment Not on filedocumented as of this encounter Visit Diagnoses Diagnosis Cerebral Infarction Due To Thrombosis Ri ght Middle Cerebral Artery (HCC) Slurred Speech Dependence Polysubstance (HCC) documented in this encounter Additional Health Concerns Assessment Noted Time PHQ-9 Depression Total Score: 16 11/25/2012 12:45 PM C DT documented as of this encounter Care Teams Principal Military Analyst Relationship Specialty Start Date End Date Unassigned, Pcp PCP - General Family Medicine 01/06/18 09/27/19 documented as of this encounter
--- OUTSIDE RECORDS SUMMARY | 2022-05-17 14:00 | XMS_ITS | Encounter Summary ---
:1980 Author Organization [facility] Address [address] [place] [id number] Care Team Providers Name Role Phone Elsewhere, Pcp Primary Care Provider Unavailable Reason for Visit Reason Comments Rash Eye Problem Encounter Details Date Type Department Care Team Description 04/10/2022 Emergency [place] [facility] Jamari Rushing Rash (Primary Dx) Department P.A.-C. [address] [place] [phone] (Wo rk) Social History Tobacco Use Types Packs/Day Years Used Date Smoking Tobacco: Some Days Cigarettes 0.5 E-cigarettes Smokeless Tobacco: Never Alcohol Use Standard Drinks/Week Comments Not Currently 0 (1 standard drink = 0.6 oz pure alcoho l) Sex Assigned at Date Recorded Not on file documented as of this encounter Last Filed Vital Signs Vital Sign Reading Time Taken Comments Blood Pressure 138/81 04/10/2022 7:15 PM CDT Pulse 110 04/10/2022 7:15 PM CDT Temperature 36.2 ??C (97.2 ??F) 04/10/2022 7:15 PM CDT Respiratory Rate 18 04/10/2022 7:15 PM CDT Oxygen Saturation 98% 04/10/2022 7:15 PM CDT Inhaled Oxygen Concentration - - Weight 99.8 kg (220 lb 0.3 oz) 04/10/2022 7:15 PM CDT Height - - Body Mass Index 39.6 02/27/2022 2:05 PM CDT documented in this encounter Discharge Instructions AttachmentsThe following attachments cannot be sent through Care Everywhere. Contact Dermatitis ([place])documented in this encounter Medications at Time of Discharge Medication Sig Dispensed Refills Start Date End Date acetaminophen (TYLENOL) 500 Take 1,000 mg by 0 mg tablet mouth every 6 (six) hours as needed for pain. aspirin 81 mg chewable Chew 1 tablet (81 90 tablet 0 2017 tablet mg total) daily. atorvastatin (LIPITOR) 40 Take 1 tablet (40 90 tablet 0 mg tablet mg total) by mouth at bedtime. hydroCHLOROthiazide 0 03/13/2022 (HYDRODIURIL) 12.5 mg tablet ibuprofen (ADVIL,MOTRIN) Take 600 mg by 0 200 mg capsule mouth every 6 (six) hours as needed for pain. lisinopriL 0 03/13/2022 (PRINIVIL,ZESTRIL) 10 mg tablet lisinopril-hydroCHLOROthiaz 0 02/03/20 22 chandler (PRINZIDE,ZESTORETIC) 10-12.5 mg per tablet ofloxacin (OCUFLOX) 0.3 % Administer 1 drop 5 mL 0 10/2021 ophthalmic solution into both eyes 4 (four) times a day. triamcinolone (KENALOG) 0.1 Apply 1 30 g 0 02/28/20 22 % cream application topically 2 (two) times a day for 10 days. Apply to affected areas of skin BID. predniSONE (DELTASONE) 20 Take 2 tablets (40 10 tablet 0 04/15/2022 mg tablet mg total) by mouth daily for 5 days. documented as of this encounter ED Notes Jamari Rushing P.A.-C. - 04/10/2022 7:43 PM CDT Images from the original note were not included. SUBJECTIVE CHIEF COMPLAINT/REASON FOR VISIT Rash and Eye Problem HISTORY OF PRESENT ILLNESS 41-year-old female presents ER with complaints of rash to her bilateral lower extremities that beganwhile she was at work. She states that she has experienced the same rash at work previously and was told she had contact dermatitis at that time. She denies new or changes symptoms compared to previousepisodes. She denies shortness of breath, oropharyngeal swelling or symptoms, or cough. She states that prednisone quite helpful for her rash last time and request prescription for the same. REVIEW OF SYSTEMS Skin: Positive for rash. OBJECTIVE Initial Vitals Temperature Pulse Rate Heart Rate Resp Rate Blood Pressure SpO2 04/10/22191404/10/221914 -- 04/10/22191404/10/22191404/10/221914 36.2 ??C 110 18 138/81 98 % Pain Score 04/10/221918 0 - No pain PHYSICAL EXAMINATION Constitutional: Nursing note and vitals reviewed. HENT: Head: Normocephalic and atraumatic. Nose: Nose normal. Mouth/Throat: Oropharynx is clear and moist. Mucous membranes are moist. Neck: Neck supple. Cardiovascular: Normal rate, regular rhythm, S1 normal, S2 normal and normal heart sounds. Pulmonary/Chest: Effort normal and breath sounds normal. Abdominal: Soft. Bowel sounds are normal. There is no abdominal tenderness. Musculoskeletal: Cervical back: Neck supple. Neurological: Alert and oriented to person, place, and time. Skin: Skin is warm. ASSESSMENT/PLAN IMPRESSION AND PLAN Patient appears well. The rash seems to be isolated to her bilateral lower extremities along the distribution of her sock line. No apparent airway involvement. Patient states that prednisone has been helpful before she request prescription for the same. Based on history and physical exam I do not suspect anaphylaxis. She is well established with PCP and should follow up with the same for further investigation. Return ER warnings given. Patient discharged good condition. I reviewed previous medical records including documentation from previous visits. Final Diagnoses: as of 04/11/222136 Rash Jamari Rushing, Tana. 04/11/222136 Makenna Galvan RChristianN. - 04/10/2022 7:20 PM CDT Pt presents to ED with c/o bilateral leg rash that started at work this evening. Pt works in a building with no air conditioning. Describes rash as burning. Pt reports a similar incident 1 month ago. Pt also requesting steroid or antibiotic drops for her left eye. Pt was seen for this but unfortunately lost her eyedrops she was prescribed. She has been using over the counter drops but they are minimally effective. Makenna Galvan R.N. 04/10/221921 documented in this encounter Plan of Treatment Not on filedocumented as of this encounter Visit Diagnoses Diagnosis Rash - Primary documented in this encounter Additional Health Concerns Assessment Noted Time PHQ-9 Depression Total Score: 16 11/25/2012 12:45 PM C DT documented as of this encounter Care Teams Pst Supervisor Relationship Specialty Start Date End Date Elsewhere, Pcp PCP - General 09/28/19 documented as of this encounter
--- OUTSIDE RECORDS SUMMARY | 2022-05-17 14:00 | XMS_ITS | Encounter Summary ---
:1980 Author Organization [facility] Address [address] [place] [id number] Care Team Providers Name Role Phone Elsewhere, Pcp Primary Care Provider Unavailable Reason for Visit Reason Comments Eye Pain Encounter Details Date Type Department Care Team Description 03/13/2022 Emergency [place] Meghan Coon Conjunctivi tis Acute Emergency Department CONSUMER STUDIES PROFESSOR, C.N.P. Bilateral (Primary Dx) [id number] [place], [place] [phone] (Wo rk) Social History Tobacco Use Types Packs/Day Years Used Date Smoking Tobacco: Some Days Cigarettes 0.5 E-cigarettes Smokeless Tobacco: Never Alcohol Use Standard Drinks/Week Comments Not Currently 0 (1 standard drink = 0.6 oz pure alcoho l) Sex Assigned at Date Recorded Not on file documented as of this encounter Last Filed Vital Signs Vital Sign Reading Time Taken Comments Blood Pressure 131/71 03/13/2022 7:49 PM CDT Pulse 112 03/13/2022 7:49 PM CDT Temperature 36.7 ??C (98.1 ??F) 03/13/2022 7:49 PM CDT Respiratory Rate - - Oxygen Saturation 95% 03/13/2022 7:49 PM CDT Inhaled Oxygen Concentration - - Weight 99.8 kg (220 lb 0.3 oz) 03/13/2022 7:57 PM CDT Height - - Body Mass Index 39.6 02/27/2022 2:05 PM CDT documented in this encounter Discharge Instructions AttachmentsThe following attachments cannot be sent through Care Everywhere. Bacterial Conjunctivitis Adult Dkeu-ae-Modm ([place])documented in this encounter Medications at Time of [...] 22 chandler (PRINZIDE,ZESTORETIC) 10-12.5 mg per tablet triamcinolone (KENALOG) 0.1 Apply 1 30 g 0 02/28/20 22 % cream application topically 2 (two) times a day for 10 days. Apply to affected areas of skin BID. ofloxacin (OCUFLOX) 0.3 % Administer 1 drop 5 mL 0 01/202203/20/2022 ophthalmic solution into both eyes 4 (four) times a day for 7 days. documented as of this encounter ED Notes Meghan Coon APRN, C.N.P. - 03/13/2022 7:57 PM CDT SUBJECTIVE: CHIEF COMPLAINT/REASON FOR VISIT: Eye Pain HISTORY OF PRESENT ILLNESS: This is a well appearing 41 year old female who presents with concerns of left eye redness and drainage. 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 She wears goggles but thinks they do not fit well. She notes some redness and discomfort as well. She denies any vision change. She denies fever or chills. She denies touching the leather and rubbing her eyes. She did wash her eyes out this evening in the shower but noted someyellow discharge from the eyes and is concerned with infection. The left eye is worse but she has noted some discharge from the right eye as well. She denies history of eye surgery. She does not wear contacts or glasses. REVIEW OF SYSTEMS: All other systems reviewed and are negative. ALLERGIES/MEDICATIONS: Reviewed in medical record PAST MEDICAL/FAMILY/SOCIAL HISTORY: Medical History: Past Medical History: Diagnosis Date ??? Abuse Substance Episodic ([facility]) ??? Gastroesophageal Reflux Disease NOS ??? Pain Abdominal NOS ??? Sickness Motion Personal History Patient Active Problem List Diagnosis Date Noted ??? Anxiety Disorder Unspecified 12/23/2019 ??? Hyperlipidemia Mixed 12/23/2019 ??? Hypertension Essential Primary 12/23/2019 ??? Headache Unspecified 05/11/2019 ??? 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 Other Symptoms And Signs Involving The Musculoskeletal System 05/11/2019 ??? Cerebral Infarction Due To Thrombosis Right Middle Cerebral Artery ([facility]) 06/29/2018 ??? Slurred Speech 06/27/2018 ??? Tobacco Use 01/22/2018 ??? Gastroesophageal Reflux Disease 01/20/2018 ??? Colic Biliary 01/06/2018 ??? Pain Right Upper Quadrant 12/31/2017 ??? Dysthymia 11/05/2011 ??? Migraine Headache 11/05/2011 ??? Dependence Polysubstance ([facility]) 10/13/2010 ??? Major Depressive Disorder Single Episode Unspecified 04/28/2008 ??? Supervision Of Other High Risk Pregnancies Unspecified Trimester ([facility]) 11/18/2007 Surgical History: Past Surgical History: Procedure Laterality Date ??? APPENDECTOMY N/A Appendectomy;.. ??? DECOMPRESSION OF MEDIAN NERVE N/A 06/17/2012 Carpal tunnel release ??? DENTAL SURGERY 2010 all teeth removed ??? ESOPHAGOGASTRODUODENOSCOPY N/A 01/01/2018 Procedure: ESOPHAGOGASTRODUODENOSCOPY; Surgeon: Compa Urbina M.D.; Location: [facility] ??? EXPLORATORY LAPAROTOMY 01/06/2015 ??? HYSTERECTOMY 12/31/2014 ??? MYOMECTOMY N/A 10/15/2011 >1. Operative laparoscopy. 2. Myomectomy. ??? OTHER SURGICAL HISTORY N/A 10/13/2011 Myomectomy, excision of fibroid tumor(s) of uterus, 1 to 4 intramural myoma(s) with total weight of250 g or less and/or removal of surface myomas; abdominal approach.. Family History: Reviewed in chart Social History: Social History Socioeconomic History ??? Marital status: Tobacco Use ??? Smoking status: Current Some Day Smoker Packs/day: 0.50 Types: Cigarettes, E-cigarettes ??? Smokeless tobacco: Never Used Vaping Use ??? Vaping Use: current every day use Substance and Sexual Activity ??? Alcohol use: Not Currently ??? Drug use: No ??? Sexual activity: Defer Social History Substance and Sexual Activity Alcohol Use Not Currently Social History Substance and Sexual Activity Drug Use No OBJECTIVE: INITIAL VITAL SIGNS: Initial Vitals Temperature Pulse Rate Heart Rate Resp Blood Pressure SpO2 03/13/22194803/13/221948 -- -- 03/13/22194803/13/221948 36.7 ??C (!) 112 131/71 95 % Pain Score 03/13/22 1950 6 PHYSICAL EXAMINATION: Constitutional: Nursing note and vitals reviewed. She appears not lethargic. No distress. HENT: Head: Normocephalic and atraumatic. No signs of injury. Right Ear: Tympanic membrane normal. Left Ear: Tympanic membrane normal. Nose: Nose normal. Mouth/Throat: Oropharynx is clear and moist. Mucous membranes are moist. Dental: Good dentition. Eyes: EOM are normal. Pupils are equal, round, and reactive to light. Right eye exhibits discharge. Left eye exhibits discharge. Bilateral conjunctiva with mild erythema. There is some yellow discharge noted in the corner of the left eye. Some watery yellow discharge in the right eye. No surrounding swelling. No tenderness of the orbit. Neck: Neck supple. No JVD present. Cardiovascular: Tachycardia present. Pulses are palpable. Capillary refill: takes less than 3 seconds, Pulse rechecked after patient sitting and is 88 beats per minute. Pulmonary/Chest: Effort normal and breath sounds normal. There is normal air entry. Abdominal: Soft. Musculoskeletal: General: No tenderness, deformity or edema. Normal range of motion. Cervical back: Normal range of motion and neck supple. Neurological: Alert and oriented to person, place, and time. Skin: Skin is warm, dry, intact and normal color. She is not diaphoretic. Psychiatric: She has a normal mood and affect. Behavior is normal. Judgment and thought content normal. ED COURSE: Final Diagnoses: as of 03/13/222048 Conjunctivitis Acute Bilateral ASSESSMENT AND PLAN: The patient has conjunctivitis of both eyes. I suspect she may have irritation from some work exposure, however this could also be viral or bacterial. Will treat with antibiotics, and have also advisedher to wash her eyes out 4X a day while at work and see occupational health to have her fit with goggles that are better secured to her face. She needs to be see an eye care provider in 2 days if her symptoms are not improved for a more thorough exam. The patient should return to the ED if she notes sudden change in vision, significant increase in drainage, swelling around the eye, severe headache, or other acute concerns. The patient verbalizes understanding of the plan and has no further questionsor concerns. DIAGNOSIS: Final diagnoses: [H10.33] Conjunctivitis Acute Bilateral ED DISCHARGE MEDS: ED Prescriptions Medication Sig Dispense Start Date End Date Auth. Provider ofloxacin (OCUFLOX) 0.3 % ophthalmic solution Administer 1 drop into both eyes 4 (four) times a dayfor 7 days. 5 mL 03/13/2022 03/20/2022 Meghan Coon APRN, C.N.P. DISPOSITION: Home or Self Skilled Nursing or Self Care FOLLOW UP: Eye care provider if not improved in 2 days. Return to ED if symptoms worsen as discussed above. Meghan Coon [facility] Emergency Medicine Meghan Coon APRN, C.N.P. 03/13/222049 documented in this encounter Plan of Treatment Not on filedocumented as of this encounter Visit Diagnoses Diagnosis Conjunctivitis Acute Bilateral - Primary documented in this encounter Additional Health Concerns Assessment Noted Time PHQ-9 Depression Total Score: 16 11/25/2012 12:45 PM C DT documented as of this encounter Care Teams Lpc Relationship Specialty Start Date End Date Elsewhere, Pcp PCP - General 09/28/19 documented as of this encounter
--- OUTSIDE RECORDS SUMMARY | 2022-05-17 14:00 | XMS_ITS | Encounter Summary ---
:1980 Author Organization [facility] Address [address] [place] [address] Care Team Providers Name Role Phone Elsewhere, Pcp Primary Care Provider Unavailable Reason for Visit Reason Onset Date Comments Outpatient COVID-19 Testing 08/02/2020 Encounter Details Date Type Department Care Team Description 08/02/2020 External Outreach Department of [facility] Destinee Celis Infection Upper Medicine, [place] [facility] (Primary Clinic, in [place], [address] [place] [address] Dx) [place], [place] [address] [facility] [address] [place], [place] [phone] (Work) [phone] Social History Tobacco Use Types Packs/Day Years Used Date Smoking Tobacco: Some Days Cigarettes 0.5 E-cigarettes Smokeless Tobacco: Never Alcohol Use Standard Drinks/Week Comments Not Currently 0 (1 standard drink = 0.6 oz pure alcoho l) Sex Assigned at Date Recorded Not on file documented as of this encounter Progress Notes Nancy Mcnamara R.N. - 08/02/2020 4:23 PM CST Encounter created for the drive-through COVID-19 testing. ORK CABLE INSTALLER documented in this encounter Miscellaneous Notes Result Encounter Note - Wander Manzano M.B.B.S., MMelodie - 08/04/2020 9:36 AM CST PCR positive for SARS-CoV-2, the virus that causes COVID-19 infection. Based on chart review, patient does not have high risk factors for complications/severe COVID disease. Portal message and letter sent on isolation and car e instructions. CFCT MAA: please send [email or web address] by portal and mail. Please cc [place] PCP as available. ORK CABLE INSTALLER documented in this encounter Plan of Treatment Not on filedocumented as of this encounter Procedures Procedure Name Priority Date/Time Associated Comments Diagnosis SARS CORONAVIRUS 2 Routine 08/03/2020 7:17 AM Res ults for this PCR DETECT, V NETWORK CABLE INSTALLER procedure are in the results section. documented in this encounter Results (ABNORMAL) SARS Coronavirus 2 RNA Detection (08/03/2020 7:17 AM NETWORK CABLE INSTALLER) [facility] Method Time Signature SARS-CoV-2 Nasopharynx 08/04/2020 [facility] Specimen 4:46 AM NETWORK CABLE INSTALLER Source SARS-CoV-2 Detected (C) Undetected 08/04/2020 [facility] RNA by PCR 4:46 AM NETWORK CABLE INSTALLER Comment: SARS-CoV-2 RNA present. ----ADDITIONAL INFORMATION---- This PCR test was performed using the co [employer] SARS-CoV-2 assay ([employer] on the inessa 6800 System under emergency use authorization (EUA) by the U.S. Food and Drug Administ ration. Fact sheets for this assay can be found at the following links: For Healthcare Providers: https://www.fd a.gov/media/923799/download For Patients: https://www.fda.gov/media/ 493865/download Specimen (Source) Anatomical Collection Method Collection Time Re ceived Time Location / / Volume Laterality Varies 08/03/2020 7:17 AM NETWORK CABLE INSTALLER Narrative [facility] SUPPORT KIM R - 08/04/2020 4:46 AM NETWORK CABLE INSTALLER Specimen Information: Specimen ID: [id number] Specimen Type: Varies Specimen Collection Start Date: ??7:17 AM Specimen ID: [id number] Specimen Type: Varies Specimen Collection Start Date: 020 ??7:17 AM Specimen Received Date: 08/03/2020 ??9: 48 PM Dmitry T Vimal P.A.-C. LAB MICROBIOLOGY - GENERAL O RDERABLES Performing Organization Address City/State/ZIP Code Phon e Number [facility] [address] [place] [address] [place] [address] Laboratory Medicine and Pathology [address] [place] documented in this encounter Visit Diagnoses Diagnosis Infection Upper Respiratory - Primary documented in this encounter Additional Health Concerns Infection Onset Date Last Indicated Resolved Time COVID19 07/30/2020 08/03/2020 08/23/2020 4:45 AM NETWORK CABLE INSTALLER Assessment Noted Time PHQ-9 Depression Total Score: 16 11/25/2012 12:45 PM C DT documented as of this encounter Care Teams Supervisor Coffee Relationship Specialty Start Date End Date Elsewhere, Pcp PCP - General 09/28/19 documented as of this encounter
--- OUTSIDE RECORDS SUMMARY | 2022-05-17 14:00 | XMS_ITS | Encounter Summary ---
:1980 Author Organization [facility] Address [address] [place] [address] Care Team Providers Name Role Phone Elsewhere, Pcp Primary Care Provider Unavailable Encounter Details Date Type Department Care Team Description 07/30/2020 Admin Visit Department of Family Medicine, 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
--- OUTSIDE RECORDS SUMMARY | 2022-05-17 14:00 | XMS_ITS | Encounter Summary ---
:[address] [facility] Address [address] [place] [address] Care Team Providers Name Role Phone Elsewhere, Pcp Primary Care Provider Unavailable Encounter Details Date Type Department Care Team Description 01/03/2021 Orders Only [facility] PCP [facility] Sa all Rangel M.D. 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
--- OUTSIDE RECORDS SUMMARY | 2022-05-17 14:00 | XMS_ITS | Encounter Summary ---
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 An appointment will be scheduled for you. More information i s listed below. Reason for Visit Auth/Cert Specialty Diagnoses / Procedures Referred By Contact Refer red To Contact Diagnoses Slurred Speech right facial droop/speech difficulty Procedures x Referral ID Status Reason Start Date Expiration Date Visits Requ ested Visits Authorized [id number] 1 1 Encounter Details Date Type Department Care Team Description 06/27/2018 - Hospital Encounter [facility] Gareth Garcia M.B.BChristianSChristian Slurred Speech (Primary Dx); 06/30/2018 [facility] Arsalan Hutton M.D. [address] [place] [id number] Cerebral Infarction Due To Thrombosis Ri ght Middle Cerebral Artery (HCC); [facility], [facility] Dependence Polysubstance (HCC) Floor [address] [place] [address] Social History Tobacco Use Types Packs/Day Years Used Date Smoking Tobacco: Some Days Cigarettes E-cigarettes Smokeless Tobacco: Never Alcohol Use Standard Drinks/Week Comments Yes 0 (1 standard drink = 0.6 oz pure alcoho l) Sex Assigned at Date Recorded Not on file documented as of this encounter Last Filed Vital Signs Vital Sign Reading Time Taken Comments Blood Pressure 133/89 06/30/2018 11:09 AM CDT Pulse 83 06/30/2018 11:09 AM CDT Temperature 36.8 ??C (98.2 ??F) 06/30/2018 11:09 AM CDT Respiratory Rate 16 06/30/2018 11:09 AM CDT Oxygen Saturation 97% 06/30/2018 11:09 AM CDT Inhaled Oxygen Concentration - - Weight 83.3 kg (183 lb 10.3 oz) 06/27/2018 8:39 PM CDT Height 157.5 cm (5' 2) 06/27/2018 8:39 PM CDT Body Mass Index 33.59 06/27/2018 8:39 PM CDT documented in this encounter Discharge Summaries Arsalan Hutton M.D. - 06/30/2018 11:09 AM CDT Date of Admission: 06/27/2018 Date of Discharge: 06/30/2018 Primary care Physician: Primary Care Physician Discharge Diagnosis 1. Large acute ischemic stroke involving the posterior outer left basal ganglia 2. Polysubstance abuse, methamphetamine, consumption 2 days back, strongly advised about substance rehabilitation, necessary resource information was provided by the CD consult 3 gastroesophageal reflux disease Follow-up with Primary Care Physician One week Patient is advised to schedule appointment with [facility] for financial assistance for substance abuse rehabilitation Consults: Neurology Chemical dependency Disposition: home Discharge Condition Improving Medications Discharge Medications TAKE these medications acetaminophen 500 mg tablet Commonly known as: TYLENOL Take 1,000 mg by mouth every 6 (six) hours as needed for pain. aspirin 81 mg chewable tablet Chew 1 tablet (81 mg total) daily. atorvastatin 40 mg tablet Commonly known as: LIPITOR Take 1 tablet (40 mg total) by mouth at bedtime. raNITIdine 75 mg tablet Commonly known as: ZANTAC Take 75 mg by mouth daily. Hospital Course 37-year-old female with known history of polysubstance abuse, recent times abusing methamphetamine, consumed methamphetamine 2 days before hospitalization presented with confusion, right facial droop, confabulation, difficulty in finding words and slurred speech. CT scan of the head without contrast was negative for any acute intracranial pathology. Her symptoms were resolving when she arrived to theemergency department. Telestroke was performed and did not recommend tPA. Patient was started on aspirin. Speech therapy, physical therapy, occupation therapy consultations were obtained. Her facial deviation has significantly improved speech has returned to baseline. Neurology consultation was obtained. Patient underwent MRI of the brain along with MRA of the brain and neck which revealed ischemic stroke in the left caudate nucleus explaining her symptoms. She also had LDL elevated up to 120 and requires atorvastatin 40 mg daily. She is not willing to take high-dose atorvastatin. Aspirin will be used for antiplatelet activity. Her ischemic event is clearly triggered by the patient drug abuse. We discussed in length with her about quitting her habit. She has achieved good functional recovery but to continue to have a good recovery and to prevent further attacks she should stop abusing drugs. CD c onsultation was obtained. Information about all the resources for effective drug rehabilitation is provided to her by the social media manager. Patient is willing to undergo CD treatment in future. Imaging: MR Neck Angiogram without and with IV Contrast Final Result IMPRESSION: Within normal limits. MR Brain without IV Contrast Final Result IMPRESSION: 1.3 cm focus of acute ischemia, posterior outer left basal ganglion. Echo Transthoracic (TTE) (Results Pending) Labs Results from last 7 days Lab Units 06/28/18 0739 06/27/18 1629 WBC x10(9)/L 5.5 8.8 HEMOGLOBIN g/dL 13.7 15.0 HEMATOCRIT % 40.1 42.3 PLATELETS AUTO x10(9)/L 268 314 Results from last 7 days Lab Units 06/27/18 1629 APTT sec 25.2 INR 1.0 Results from last 7 days Lab Units 06/28/18 0739 06/27/18 1629 SODIUM P mmol/L -- 142 SODIUM mmol/L 141 -- POTASSIUM P mmol/L -- 3.8 POTASSIUM mmol/L 3.9 -- CHLORIDE P mmol/L -- 103 CHLORIDE mmol/L 107 -- BUN P mg/dL -- 18 BUN mg/dL 12 -- CREATININE mg/dL 0.68 -- CREATININE P mg/dL -- 0.68 CALCIUM mg/dL 8.4* 9.4 ALBUMIN P g/dL -- 4.1 PROTEIN TOTAL P g/dL -- 6.9 BILIRUBIN TOTAL P mg/dL -- 0.3 ALK PHOS P U/L -- 89 ALT P U/L -- 60* AST P U/L -- 33 Vitals BP 127/81 (BP Location: Left arm, Patient Position: Lying) Pulse 83 Temp 36 ??C (Temporal) Resp 16 Ht 157.5 cm Wt 83.3 kg SpO2 99% BMI 33.59 kg/m?? Physical Exam Gen - alert and oriented, no acute distress Neck- No swelling noted Cardiovascular - normal S1/S2, no murmurs Lungs - Clear to auscultation bilaterally Abdomen - Soft, NT, ND, +BS, Extremities - No BLE edema, Neurological - Grossly intact Arsalan Hutton M.D. Discharge plan and workup done in the hospital discussed in detail with the patient, all the questions and concerns were addressed. Total time spent 30 minutes, 20 minutes of that was spent in counseling and coordination of the care. documented in this encounter Discharge Instructions AttachmentsThe following attachments cannot be sent through Care Everywhere. Stroke (Guyanese)The Disease of Addiction: Self-Care in Recovery (Guyanese) documented in this encounter Medications at Time [...] tablet mg total) by mouth at bedtime. raNITIdine (ZANTAC) 75 mg Take 75 mg by mouth 0 07/02/2018 tablet daily. documented as of this encounter Progress Notes Cheyenne Marie, [facility] [employer] - 06/30/2018 1:45 PM CDT Patient was followed by speech therapy during hospital stay. A bedside swallow evaluation was completed on 10/20 with recommendations of regular textures and thin liquids. Patient continues to present with facial weakness and dysarthric speech. Plan is for patient to discharge today. Recommend outpatient speech therapy to address the aforementioned areas. Arsalan Hutton M.D. - 06/29/2018 10:56 AM CDT Internal Medicine Progress Note Date of Admission: 06/27/2018 Subjective She is admitted last night with complaints of a right-sided facial droop and right pronator drift difficulty in swallowing with features concerning for acute ischemic stroke. CT of the head negative for intracranial hemorrhage. Patient was tested positive for amphetamines in the urine drug screen. Shereports that she did not use amphetamines until very recently about 1 week ago precipitated by homelessness. She claims that she did not use drugs for more than 1 year. Slurred speech recovering. Facial droop improving. Objective BP (!) 142/92 (BP Location: Right arm;Upper) Pulse 82 Temp 36.3 ??C (Temporal) Resp 16 Ht 157.5 cm Wt 83.3 kg SpO2 97% BMI 33.59 kg/m?? PHYSICAL EXAM GENERAL: Alert awake oriented to time place and person.Does not appear to be in acute distress HEENT: Right sided facial droop is better. Tongue still deviated mildly towards left.NECK: Supple topalpation, no thyromegaly no jugular venous distention. CHEST: Clear to auscultation bilaterally. No wheezing, no crackles. CARDIOVASCULAR: Regular rate and rhythm, no murmurs rubs or gallops. ABDOMEN: Soft, nontender, nondistended. Bowel sounds are normally present. EXTREMITIES: No pedal edema. Intake/Output Summary (Last 24 hours) at 06/29/18 1056 Last data filed at 06/29/18 0458 Gross per 24 hour Intake 560 ml Output 0 ml Net 560 ml Labs and Imaging Results: Results from last 7 days Lab Units 06/28/18 0739 06/27/18 1629 WBC x10(9)/L 5.5 8.8 HEMOGLOBIN g/dL 13.7 15.0 HEMATOCRIT % 40.1 42.3 PLATELETS AUTO x10(9)/L 268 314 Results from last 7 days Lab Units 06/28/18 0739 06/27/18 1629 SODIUM P mmol/L -- 142 SODIUM mmol/L 141 -- POTASSIUM P mmol/L -- 3.8 POTASSIUM mmol/L 3.9 -- CHLORIDE P mmol/L -- 103 CHLORIDE mmol/L 107 -- BUN P mg/dL -- 18 BUN mg/dL 12 -- CREATININE mg/dL 0.68 -- CREATININE P mg/dL -- 0.68 CALCIUM mg/dL 8.4* 9.4 Results from last 7 days Lab Units 06/27/18 1629 INR 1.0 Results from last 7 days Lab Units 06/27/18 1629 ALBUMIN P g/dL 4.1 PROTEIN TOTAL P g/dL 6.9 AST P U/L 33 ALT P U/L 60* ALK PHOS P U/L 89 BILIRUBIN TOTAL P mg/dL 0.3 Micro: Radio: MR Neck Angiogram without and with IV Contrast Final Result IMPRESSION: Within normal limits. MR Brain without IV Contrast Final Result IMPRESSION: 1.3 cm focus of acute ischemia, posterior outer left basal ganglion. Echo Transthoracic (TTE) (Results Pending) Medications: Scheduled Meds: aspirin 81 mg oral Daily atorvastatin 40 mg oral At bedtime heparin (porcine) 5,000 Units subcutaneous Q8H DENISE sodium chloride 3 mL intravenous Q12H DENISE Continuous Infusions: PRN Meds: ??? acetaminophen ??? albuterol ??? calcium carbonate ??? ondansetron ??? polyethylene glycol ??? sodium chloride ??? sodium chloride Assessment and Plan: Shruthi Jones is a 37 y.o. female 1. Large acute ischemic stroke involving posterior outer left basal ganglion 2. Polysubstance abuse, last use of methamphetamine 2 days ago 3. Gastroesophageal reflux disease Physical therapy occupation therapy sleep the he consultations were placed. Neurology consultation is obtained. MRI of the brain has revealed new 1.3 cm large acute ischemic stroke involving the posterior outer left basal ganglia explaining her symptoms. She has passed swallow evaluation by speech therapy and is cleared for regular consistency food withthin liquids but suggested to have upright sitting position while eating. Cardiovascular diet is started. Aspirin 81 mg will continue. CD consultation is requested. She would benefit from drug rehabilitation program. construction project coordinator consultation is placed. Echocardiogram with sent studies ordered for Saturday. Telemetry will be continued to capture for any cardiac arrhythmias specially atrial fibrillation. # Code status: Full code # Anticipated discharge: tomorrow T Kourtney Meek M.D., Ph.D. - 06/29/2018 10:51 AM CDT SUBJECTIVE Interval History: none I have reviewed the current medication list. OBJECTIVE VITAL SIGNS Temperature: [36.2 ??C-36.5 ??C] 36.3 ??C Heart Rate: [80-92] 92 Resp Rate: [16] 16 Blood Pressure: (134-150)/(91-103) 142/92 SpO2: [97 %-99 %] 97 % Pulse Rate: [73-90] 82 NIH Stroke Scale Level of Consciousness (1a.): Alert, keenly responsive LOC Questions (1b.): Answers both questions correctly LOC Commands (1c.): Performs both tasks correctly Best Gaze (2.): Normal Visual (3.): No visual loss Facial Palsy (4.): Minor paralysis Motor Arm, Left (5a.): No drift Motor Arm, Right (5b.): Drift Motor Leg, Left (6a.): No drift Motor Leg, Right (6b.): No drift Limb Ataxia (7.): Absent Sensory (8.): Normal, no sensory loss Best Language (9.): No aphasia Dysarthria (10.): [id number]-ja-[id number] dysarthria, patient slurs at least some words and, at worst, can be understood with some difficulty Extinction and Inattention (11.) (Formerly Neglect): No abnormality NIHSS Total: 3 I/O 06/27 0701 - 06/28 0700 06/28 07 - 06/29 0700 06/29 07 - 06/30 0700 P.O. 560 Maintenance IV 1014.6 Total Intake(mL/kg) 1014.6 (12.2) 560 (6.7) Net +1014.6 +560 Unmeasured Urine Occurrence 1 x 5 x 1 x PHYSICAL EXAM For details of the neurologic examination, please see the neurologic examination form. The patient speech is much clearer today. She still has a pretty significant right pronator drift however her strength in the right upper extremity appears to be improving. The right facial weakness is stable. DIAGNOSTICS No new results found. ASSESSMENT / PLAN #1 Slurred Speech #2 Ischemic stroke The ischemic event in this case was clearly triggered by the patient drug abuse. That has been discussed at length with her by my colleagues and she is fully aware of what she is supposed to be doing. I would anticipate she will have a good functional recovery but obviously we will need to make sure that she does not continue on her habits. Discharge Information: Expected Discharge Date: 06/30/2018 .NIH Stroke Scale Level of Consciousness (1a.): Alert, keenly responsive LOC Questions (1b.): Answers both questions correctly LOC Commands (1c.): Performs both tasks correctly Best Gaze (2.): Normal Visual (3.): No visual loss Facial Palsy (4.): Minor paralysis Motor Arm, Left (5a.): No drift Motor Arm, Right (5b.): Drift Motor Leg, Left (6a.): No drift Motor Leg, Right (6b.): No drift Limb Ataxia (7.): Absent Sensory (8.): Normal, no sensory loss Best Language (9.): No aphasia Dysarthria (10.): [id number] dysarthria, patient slurs at least some words and, at worst, can be understood with some difficulty Extinction and Inattention (11.) (Formerly Neglect): No abnormality NIHSS Total: 3 Sheila Tam O.T. - 06/28/2018 3:39 PM CDT Spoke with pt in room. Pt and family state that she has been ambulating in room independently and completing ADLs. Pt plans to dc to parents home initially until she feels back to baseline to return home independently. OT screen. Trinidad Balderas PTolu., D.P.T. - 06/28/2018 3:30 PM CDT PT order received, screen completed. Per OT, patient is up in her room independently. She has no acute PT needs at this time and PT will sign off. She is will DC home with her parents once medically stable. Arsalan Hutton M.D. - 06/28/2018 11:47 AM CDT Internal Medicine Progress Note Date of Admission: 06/27/2018 Subjective She is admitted last night with complaints of a right-sided facial droop and right pronator drift difficulty in swallowing with features concerning for acute ischemic stroke. CT of the head negative for intracranial hemorrhage. Patient was tested positive for amphetamines in the urine drug screen. Shereports that she did not use amphetamines until very recently about 1 week ago precipitated by homelessness. She claims that she did not use drugs for more than 1 year. Objective BP (!) 158/114 (BP Location: Right arm;Upper) Pulse 98 Temp 36.5 ??C (Temporal) Resp 18 Ht 157.5 cm Wt 83.3 kg SpO2 99% BMI 33.59 kg/m?? PHYSICAL EXAM GENERAL: Alert awake oriented to time place and person.Does not appear to be in acute distress HEENT: PERRLA, mucous membranes moist. NECK: Supple to palpation, no thyromegaly no jugular venous distention. CHEST: Clear to auscultation bilaterally. No wheezing, no crackles. CARDIOVASCULAR: Regular rate and rhythm, no murmurs rubs or gallops. ABDOMEN: Soft, nontender, nondistended. Bowel sounds are normally present. EXTREMITIES: No pedal edema. Intake/Output Summary (Last 24 hours) at 06/28/18 1147 Last data filed at 06/28/18 0600 Gross per 24 hour Intake 1014.58 ml Output 0 ml Net 1014.58 ml Labs and Imaging Results: Results from last 7 days Lab Units 06/28/18 0739 06/27/18 1629 WBC x10(9)/L 5.5 8.8 HEMOGLOBIN g/dL 13.7 15.0 HEMATOCRIT % 40.1 42.3 PLATELETS AUTO x10(9)/L 268 314 Results from last 7 days Lab Units 06/28/18 0739 06/27/18 1629 SODIUM P mmol/L -- 142 SODIUM mmol/L 141 -- POTASSIUM P mmol/L -- 3.8 POTASSIUM mmol/L 3.9 -- CHLORIDE P mmol/L -- 103 CHLORIDE mmol/L 107 -- BUN P mg/dL -- 18 BUN mg/dL 12 -- CREATININE mg/dL 0.68 -- CREATININE P mg/dL -- 0.68 CALCIUM mg/dL 8.4* 9.4 Results from last 7 days Lab Units 06/27/18 1629 INR 1.0 Results from last 7 days Lab Units 06/27/18 1629 ALBUMIN P g/dL 4.1 PROTEIN TOTAL P g/dL 6.9 AST P U/L 33 ALT P U/L 60* ALK PHOS P U/L 89 BILIRUBIN TOTAL P mg/dL 0.3 Micro: Radio: MR Neck Angiogram without and with IV Contrast Final Result IMPRESSION: Within normal limits. MR Brain without IV Contrast Final Result IMPRESSION: 1.3 cm focus of acute ischemia, posterior outer left basal ganglion. Medications: Scheduled Meds: heparin (porcine) 5,000 Units subcutaneous Q8H DENISE sodium chloride 3 mL intravenous Q12H DENISE Continuous Infusions: NaCl 0.9% infusion 125 mL/hr Last Rate: 125 mL/hr (06/28/18 1005) PRN Meds: ??? acetaminophen ??? albuterol ??? calcium carbonate ??? ondansetron ??? polyethylene glycol ??? sodium chloride ??? sodium chloride Assessment and Plan: Shruthi Jones is a 37 y.o. female 1. Large acute ischemic stroke involving posterior outer left basal ganglion 2. Polysubstance abuse, last use of methamphetamine 2 days ago 3. Gastroesophageal reflux disease Physical therapy occupation therapy sleep the he consultations were placed. Neurology consultation is obtained. MRI of the brain has revealed new 1.3 cm large acute ischemic stroke involving the posterior outer left basal ganglia explaining her symptoms. She has passed swallow evaluation by speech therapy and is cleared for regular consistency food with thin liquids but suggested to have upright sitting position while eating. Cardiovascular diet is started. Fasting liver panel is ordered for the morning. Aspirin 81 mg will continue. Patient was very emotional and does not want to talk about her substance use today. Once she settles down I would talk to her in length about her substance use and impo rtance of getting over her habit. CD consultation is requested. She would benefit from drug rehabilitation program. I assume she would the qualify for acute neurologic rehabilitation. construction project coordinator consultation is placed. Echocardiogram with sent studies ordered for Saturday. Telemetry will be continued to capture for any cardiac arrhythmias specially atrial fibrillation. # Code status: Full code # Anticipated discharge: 2-3 days. documented in this encounter H&P Notes Camille Gan M.D. - 06/27/2018 10:07 PM CDT PRIMARY CARE PHYSICIAN: Primary Care Physician SUBJECTIVE CHIEF COMPLAINT/REASON FOR ADMISSION Slurred speech HISTORY OF PRESENT ILLNESS Shruthi Jones is a 37 y.o. year old female with a history of polysubstance abuse, last use of methamphetamine of days ago who presents with slurred speech. Patient reports at around 2:00 a.m. she developed slurred speech. 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 She later noticed when she tried texting she had difficulty using her right arm. She went to bed and woke around 1:00 p.m. and continued to notice the same. She also developed headache which she describes as throbbing at the back of her head. She decided to come into the ED. Inthe ED her U tox was positive from amphetamine, her CT head was negative. She was noted to have mild right tongue deviation mild right-sided facial droop and right pronator drift she was thus transferred to [place]. She reports to me her symptoms have remained about the same she felt a little bit better earlier but still feels like her speech is slurred and that her arms are heavy. She denies having s imilar symptoms before. She reports she has been sober but had a relapse a couple of days ago with methamphetamine. She otherwise denies any vision changes, trouble swallowing, chest pain, palpitation,nausea, vomiting, abdominal pain, dysuria, hematuria, blood in stool, diarrhea, constipation. She denies any tinnitus. She has been under some undue stress, she reports she is undergoing divorce at the moment and was quite tearful talking about this. MEDICAL HISTORY Past Medical History: Diagnosis Date ??? Abuse Substance Episodic (HCC) ??? Gastroesophageal Reflux Disease NOS ??? Pain Abdominal NOS ??? Sickness Motion Personal History SURGICAL HISTORY Past Surgical History: Procedure Laterality Date ??? APPENDECTOMY N/A Appendectomy;.. ??? DECOMPRESSION OF MEDIAN NERVE N/A 06/17/2012 Carpal tunnel release ??? DENTAL SURGERY 2010 all teeth removed ??? ESOPHAGOGASTRODUODENOSCOPY N/A 01/01/2018 Procedure: ESOPHAGOGASTRODUODENOSCOPY; Surgeon: Compa Urbina M.D.; Location: [facility] ??? EXPLORATORY LAPAROTOMY 01/06/2015 ??? HYSTERECTOMY 12/31/2014 ??? MYOMECTOMY N/A 10/15/2011 >1. Operative laparoscopy. 2. Myomectomy. ??? OTHER SURGICAL HISTORY N/A 10/13/2011 Myomectomy, excision of fibroid tumor(s) of uterus, 1 to 4 intramural myoma(s) with total weight of250 g or less and/or removal of surface myomas; abdominal approach.. ALLERGIES / CONTRAINDICATIONS Allergies Allergen Reactions ??? Sulfamethoxazole-Trimethoprim Hives morbilliform, macular, papular eruption OUTPATIENT MEDICATIONS Medications the Patient Reported Taking ibuprofen (ADVIL,MOTRIN) 200 mg tablet acetaminophen (TYLENOL) 500 mg tablet raNITIdine (ZANTAC) 75 mg tablet SOCIAL HISTORY Social History Social History ??? Marital status: Spouse name: N/A ??? Number of children: N/A ??? Years of education: N/A Social History Main Topics ??? Smoking status: Current Some Day Smoker Types: Cigarettes, E-cigarettes ??? Smokeless tobacco: Never Used ??? Alcohol use Yes ??? Drug use: No ??? Sexual activity: Defer Other Topics Concern ??? None Social History Narrative ??? None FAMILY HISTORY Family History Problem Relation Age of Onset ??? Heart disease Father ??? Hypertension Father ??? Hypertension Brother ??? Diabetes Maternal Grandfather REVIEW OF SYSTEMS REVIEW OF SYSTEMS As noted in HPI OBJECTIVE VITAL SIGNS Temperature: [36.4 ??C-37.3 ??C] 36.5 ??C Heart Rate: [78-114] 88 Resp Rate: [8-22] 16 Blood Pressure: (136-175)/(80-107) 143/97 SpO2: [96 %-100 %] 100 % Height: [157.5 cm-162.6 cm] 157.5 cm Weight: [83.3 kg-83.6 kg] 83.3 kg BSA (Calculated - sq m): [1.91 sq meters-1.94 sq meters] 1.91 sq meters BMI (Calculated): [31.6 kg/m??-33.6 kg/m??] 33.6 kg/m?? Pulse Rate: [79-115] 95 PHYSICAL EXAMINATION Constitutional: She is oriented to person, place, and time. She appears well- nourished. She appears distressed. HENT: Head: Normocephalic and atraumatic. Eyes: Pupils are equal, round, and reactive to light. No scleral icterus. Patient was having a difficult time keeping her eyes open, she with some redirection she was able tofollow my finger and appears her extraocular movement is intact Neck: Neck supple. Cardiovascular: Normal rate and regular rhythm. She exhibits no edema. No murmur heard. Pulmonary/Chest: Breath sounds normal. No respiratory distress. She has no wheezes. She has no rales. Abdominal: Soft. Bowel sounds are normal. She exhibits no distension. There is no tenderness. There is no guarding. Lymphadenopathy: She has no cervical adenopathy. Neurological: She is alert and oriented to person, place, and time. She does have a mild deviated smile, slight deviation of her tongue to the right. I did not notice aright-sided pronator drift. Her squeeze on her upper extremity as well as her flexion and extension appeared to be symmetric. Skin: Skin is warm and dry. Capillary refill takes 2 to 3 seconds. She is not diaphoretic. No erythema. DIAGNOSTIC DATA LABORATORY DATA: Recent Results (from the past 24 hour(s)) CBC with Differential Collection Time: 06/27/18 4:29 PM Result Value Hemoglobin 15.0 Hematocrit 42.3 Erythrocytes 4.83 MCV 87.6 RBC Distrib Width 12.6 Platelet Count 314 Leukocytes 8.8 Neutrophils 5.23 Lymphocytes 2.57 Monocytes 0.88 (H) Eosinophils 0.12 Basophils 0.03 Comprehensive Metabolic Panel Collection Time: 06/27/18 4:29 PM Result Value Potassium, P 3.8 Sodium, P 142 Chloride, P 103 Bicarbonate, P 22 Anion Gap, P 17 (H) BUN, P 18 Creatinine, P 0.68 eGFR Black >90 eGFR Non-Black >90 Calcium, Total 9.4 Glucose, P 105 Protein, Total, P 6.9 Albumin, P 4.1 Aspartate Aminotransferase (AST), P 33 Alkaline Phosphatase, P 89 Alanine Aminotransferase (ALT), P 60 (H) Bilirubin, Total, P 0.3 Ethanol Level, Serum Collection Time: 06/27/18 4:29 PM Result Value Ethanol, S <10 PT (Prothrombin Time) with INR Collection Time: 06/27/18 4:29 PM Result Value Prothrombin Time, P 9.8 INR 1.0 APTT (Activated Partial Thromboplastin Time) Collection Time: 06/27/18 4:29 PM Result Value APTT, P 25.2 Glucose, POCT Collection Time: 06/27/18 4:35 PM Result Value Glucose, POCT, B 100 Drug Screen Urine Collection Time: 06/27/18 4:50 PM Result Value Amphetamines, Screen, U Unconfirmed Positive (A) Barbiturates Negative Benzodiazepines Negative Buprenorphine Negative Cocaine U Negative Methadone Negative Methamphetamines Negative Opiates Negative Oxycodone Negative Phencyclidine Negative Propoxyphene, U Negative Tetrahydrocannabinol, Screen, U Negative Tricyclic Antidepressants, U Negative Test, POCT, Urine (lab) Collection Time: 06/27/18 4:50 PM Result Value Test, POCT, U Negative Urinalysis with Microscopic (catheter) Collection Time: 06/27/18 4:50 PM Result Value Source Midstream Clarity Turbid (A) Color Yellow Blood Large (A) Nitrite Negative Leukocyte Esterase Moderate (A) Protein Trace Glucose Negative Ketones, QI(U) Negative Bilirubin Negative pH 5.5 Specific [place] >=1.030 Urobilinogen 0.2 White Blood Cells >100 (A) Red Blood Cells >100 (A) Dysmorphic Red Blood Cells <=25 Crystals Amorphous (A) Squamous Cells Occ-3 Bacteria Present (A) IMAGING DATA: Ct Head Without Iv Contrast Result Date: 06/27/2018 Impression: IMPRESSION: Normal noncontrast CT scan of the brain. ASSESSMENT / PLAN Shruthi Jones is a 37 y.o. female with history of substance abuse presents with slurred speech and R sided weakness #1 Slurred Speech She noted to have somewhat mumbling speech, and R tongue deviation, with mild facial droop noted with smile. On my exam she did not have R pronator drift but this was noted in outside ED. Her CT head is normal. -neuro check q4h -swallow eval -MRI brain and neck angio ordered -neurology consult in the AM 2. Substance use SW consult placed Fluids: NS 125ml/hr Nutrition: NPO until swallow eval Consults: Neurology Deep vein thrombosis prophylaxis: heparin Code status: Full code Anticipated discharge date and Disposition:likely in the next 1-2 days ADMINISTRATIVE BILLING Total time spent 50 minutes, 35 minutes spent in counseling and coordination of care. documented in this encounter Consult Notes Stephanie Schmid L.S.W. - 06/29/2018 1:53 PM CDTAssociated Order(s): IP CONSULT TO CARE MANAGEMENT SUBJECTIVE Care Management received a consult for Substance Abuse and Coping and Adjustment. This worker approached the patient in her room to complete an assessment. Patient was noted to be lying in bed in a dark room. This worker shared with the patient that I have been asked to speak to her about her drug use. This worker shared that I am not a licensed during and alcohol counselor so am not here to make recommendations regarding how to address her use, rather I am here to provide any education or resourcesshe may need. Patient declined to speak with this worker about her use stating that she had one relapse in the last year. Patient denies the need for any education or resources. This worker did leave with the patient the educational brochure, Understanding Substance Addiction and Substance Abuse. This worker shared with the patient that I also noticed that she had been living in a hotel and inquired if she has any needs or concerns in regards to her housing. Patient states that she has been living in a hotel as she goes thorough a divorce. She reports that she plans to stay with her parents following her hospitalization. Patient denies any need for housing resources for this worker. OBJECTIVE Shruthi Jones is a 37 year old female admitted due to Slurred Speech [R47.81]. ASSESSMENT / PLAN ASSESSMENT Patient offered very little conversation to this worker. She lay in bed with her eyes closed throughout the majority of my time in the room. Patient appeared alert and orientated during our limited interaction. PLAN Patient declines the need for social work support and resources in regards to substance use and housing. Social work will continue to follow and assist as needed or requested. Dorian Olivo 06/29/2018 Ara Cheney, AL-SUPERVISOR [employer]ER - 06/28/2018 11:41 AM CDT Speech Pathology Clinical Swallow Evaluation Plan of Care note certification: Physician cosignature of note indicates agreement with therapy planof care. Session Type: Evaluation SUBJECTIVE Reason for consult: The following portions of the patient's history were reviewed: medical history and surgical history OBJECTIVE Baseline Dysphagia: Within Normal Limits (WNL) Patient Positioning: Upright in bed Volitional Swallow: Within Normal Limits (WNL) Pain Pain Assessment Pain Score: 0 - No pain Oral / Motor Labial ROM: Impaired Labial Retraction Left: Within Normal Limits (WNL) Labial Retraction Right: Mild Labial Symmetry: Right, Mild Labial Strength: Impaired Labial Strength Left: Within Normal Limits (WNL) Labial Strength Right: Mild Lingual ROM: Impaired Lingual Lateralization Right: (-1) Mild Facial Symmetry: (-1) Mild Facial Sensation: Numbness per patient Speaking Valve Motor Speech Dysphagia: Within Normal Limits (WNL) Cognition Arousal/Alertness: Appropriate responses to stimuli Measures - Tools Assessment POSITIONING & CONSISTENCIES: Patient was given thin liquids via spoon, cup and straw, pudding and jello via spoon, and a bite size piece of a Delbert cracker. ORAL STAGE: Within functional limits. Appropriate anticipation of all presentations. Lip seal was adequate with the ability to drink from the cup and clear the spoon. No anterior spillage was observed.Manipulation and anterior- posterior movement was appropriate. Oral stage swallow trigger was timely. Mastication was functional. No oral residue remained after the swallows. PHARYNGEAL STAGE: Within functional limits. The pharyngeal swallow trigger appeared timely. Laryngeal elevation was judged to be adequate. There were no signs or symptoms of aspiration. IMPRESSIONS: Patient presents with functional oral and pharyngeal stages of the swallow within functional limits. RECOMMENDATIONS: Regular diet with thin liquids. GOALS: Patient will maintain optimal nutrition with no signs or symptoms of aspiration on any consistency. Consistencies Assessed Thin Presentation: Cup Oral: Within Normal Limits (WNL) Pharyngeal: Within Normal Limits (WNL) Puree Presentation: Spoon Oral: WIthin Normal Limits (WNL) Pharyngeal: Within Normal Limits (WNL) Solid Presentation: Self Fed Oral: Within Normal Limits (WNL) Pharyngeal: Within Normal Limits (WNL) Impressions Impression: Patient presents with functional oral and pharyngeal swallow phases. Dysphagia impairment characterized by: Within Normal Limits (WNL) Plan Follow up treatment plan: Diet tolerance monitoring Diet Solids Recommendations: Regular Diet Liquids Recommendations: Thin Positioning Recommendations: Upright as possible for all oral intake Dysphagia Haunted History Tour Guide Goal 1: To eat and drink safely. Length of session: 20 minutes Time Spent with Patient Functional G-code Worksheet Functional Limitations: Swallowing Swallow Current Status (G8996): 0 percent impaired, limited or restricted Swallow Goal Status (G8997): 0 percent impaired, limited or restricted Swallow Discharge Status (G8998): 0 percent impaired, limited or restricted Kourtney Meek M.D., Ph.D. - 06/28/2018 9:29 AM CDT SUBJECTIVE Consults REASON FOR CONSULT Shruthi Jones is a 37 y.o. female who presents with slurred speech. Consult requested by Dr. Hutton HISTORY OF PRESENT ILLNESS I reviewed the admission note and visited with the patient as well. Briefly the patient is a 37-year-old lady with history significant for polysubstance abuse and recent use of methamphetamine who presents with slurring of her speech. The onset was around to in the morning and as noted in the admission note she reported being unable to speak clearly to her friend. Later she also noticed difficulty using the right arm and reported development of a headache. In the emergency department CT scan was negative but the drug screen was positive for amphetamines. She was noted at the local hospital to have right pronator drift and question of facial droop and was transferred to [place]. This morning the patient reports also difficulty with balance. She denies any other inter current symptoms or illness, sensory changes, involuntary movement or else. The following portions of the patient's history were reviewed and updated as appropriate: allergies,current medications, family history, medical history, social history, surgical history and problem list. Prescriptions Prior to Admission Medication Sig Last Dose ??? acetaminophen (TYLENOL) 500 mg tablet Take 1,000 mg by mouth every 6 (six) hours as needed for pain. Past Week at Unknown time ??? ibuprofen (ADVIL,MOTRIN) 200 mg tablet Take 5 tablets by mouth every 6 (six) hours. 06/26/2018 at Unknown time ??? raNITIdine (ZANTAC) 75 mg tablet Take 75 mg by mouth daily. Past Week at Unknown time Medications Scheduled Medication Dose/Rate, Route, Frequency Last Action heparin (porcine) injection 5,000 Units 5,000 Units, SC, Q8H DENISE Given: 06/28 0600 sodium chloride injection 3 mL 3 mL, IV, Q12H DENISE Ordered Continuous Medication Dose/Rate, Route, Frequency Last Action NaCl 0.9% infusion 0 mL/hr, IV, Continuous Stopped: 06/28 0847 PRN Medication Dose/Rate, Route, Frequency Last Action acetaminophen tablet 500 mg (TYLENOL) 500 mg, oral, Q6H PRN Ordered albuterol nebulizer solution 2.5 mg (ACCUNEB) 2.5 mg, nebu, Q6H PRN Ordered calcium carbonate chewable tablet 400 mg of calcium (TUMS) 400 mg of calcium, oral, Q2H PRN Ordered gadobutrol injection 10 mL (GADAVIST) 10 mL, IV, Once in imaging Ordered ondansetron (PF) injection 4 mg (ZOFRAN) 4 mg, IV, Q6H PRN Ordered polyethylene glycol powder packet 1 packet (MIRALAX) 1 packet, oral, Daily PRN Ordered sodium chloride injection 10 mL 10 mL, IV, PRN Ordered sodium chloride injection 3 mL 3 mL, IV, PRN Ordered REVIEW OF SYSTEMS Pertinent items are noted in HPI; all other review of systems was negative. OBJECTIVE VITAL SIGNS Temperature: [36.3 ??C-37.3 ??C] 36.3 ??C Heart Rate: [78-114] 98 Resp Rate: [8-22] 18 Blood Pressure: (135-175)/(80-107) 135/88 SpO2: [96 %-100 %] 98 % Height: [157.5 cm-162.6 cm] 157.5 cm Weight: [83.3 kg-83.6 kg] 83.3 kg BSA (Calculated - sq m): [1.91 sq meters-1.94 sq meters] 1.91 sq meters BMI (Calculated): [31.6 kg/m??-33.6 kg/m??] 33.6 kg/m?? Pulse Rate: [76-115] 76 NIH Stroke Scale Level of Consciousness (1a.): Not alert, but arousable by minor stimulation to obey, answer, or respond LOC Questions (1b.): Answers both questions correctly LOC Commands (1c.): Performs both tasks correctly Best Gaze (2.): Normal Visual (3.): No visual loss Facial Palsy (4.): Normal symmetrical movements Motor Arm, Left (5a.): No drift Motor Arm, Right (5b.): No drift Motor Leg, Left (6a.): No drift Motor Leg, Right (6b.): No drift Limb Ataxia (7.): Absent Sensory (8.): Normal, no sensory loss Best Language (9.): No aphasia Dysarthria (10.): [id number] dysarthria, patient slurs at least some words and, at worst, can be understood with some difficulty Extinction and Inattention (11.) (Formerly Neglect): No abnormality NIHSS Total: 2 PHYSICAL EXAM Neuro Exam: The patient was quite sleepy when I examine her but she appeared overall cooperative. She had a right-sided facial weakness in the lower motor neuron distribution to degree of -2 there wereno other cranial nerve findings that I could detect. On focal motor testing there were some inconsistencies but she appeared to have a slight weakness of the right upper extremity with a very mild pronator drift and a -1 weakness in an upper motor neuron distribution. I found no deficits in the lower extremity, no sensory deficits and no asymmetry is in reflexes however. DIAGNOSTICS MRI is pending ASSESSMENT / PLAN #1 Slurred Speech Although the CT was negative I really need to see the MRI. The patient has some inconsistency on exam but she definitely has weakness on the right side of the face although the pattern would be more consistent with a peripheral nerve facial palsy rather than a central process. However there were some i nconsistency on exam and I cannot really exclude that there is also a little bit of the right upper extremity weakness. Considering her polysubstance abuse she is definitely at risk of ischemic event and that will need to see what the MRI shows. Thank you for the opportunity to participate in the care for this patient Indeed the patient just completed the MRI which showed an infarction in the left basal ganglia whichcan explain her deficits. I see that my colleagues have already outlined a management plan for this lady. It will be obviously critical for her to discontinue her substance abuse to minimize the risk of additional events in the future. Today, I personally spent 45 minutes with the patient, of which greater than 50% of the time was spent in patient education, counseling, and coordination of care as described above. documented in this encounter Nursing Notes Arlene Dockery R.N. - 06/30/2018 2:41 PM CDT Goals: Stable neuro checks. Complete Echo. Identify possible barriers to meeting goals/advancing plan of care: none Stability of the patient: Moderately Stable - Low risk of patient condition declining or worsening End of Shift Summary: Neuro checks remain the same. Echo completed this shift. OK to DC home per . Will review Echo results at f/u appt with PCP in [place]. Arlene Dockery R.N. - 06/30/2018 2:41 PM CDT INPATIENT DISCHARGE SUMMARY Discharge Provider: Dr. Hutton Admission Date: 06/27/2018 Discharge Date: 06/30/2018 DISCHARGE DISPOSITION Home/Self Care CONDITION AT DISCHARGE stable TREATMENTS None DEVICES/EQUIPMENT None PROFESSIONAL SKILLED SERVICES Speech/Language Pathology MODE OF DISCHARGE Wheelchair TRANSPORTATION Private Vehicle ACCOMPANIED BY BASKET FILLER and Family: mom All belongings sent home with patient. Kaylin Gonzales R.N. - 06/30/2018 4:55 AM CDT Goals: Clinical Goals for the Shift: Pt will rest comfortably through the night. Monitor neurological status. Identify possible barriers to meeting goals/advancing plan of care: None noted Stability of the patient: Moderately Stable - Low risk of patient condition declining or worsening End of Shift Summary: Pt continues to have slurred speech, right facial droop and right upper extremity drift with neuro checks. Pt irritable with vital sign and neuro checks. Plan is for pt to have TTE completed today. Continue to monitor. Kiara Cobian R.N. - 06/29/2018 9:46 PM CDT Goals: Clinical Goals for the Shift: Pt will rest comfortably through the night. Monitor neurological status. Identify possible barriers to meeting goals/advancing plan of care: Stability of the patient: Moderately Stable - Low risk of patient condition declining or worsening End of Shift Summary: Neurologic status unchanged. Denies pain. Arlene Dockery R.N. - 06/29/2018 2:29 PM CDT Goals: Stable neuro checks Identify possible barriers to meeting goals/advancing plan of care: none Stability of the patient: Moderately Stable - Low risk of patient condition declining or worsening End of Shift Summary: Pt slept most of the day. Easily arousable. Continues to have right sided facial droop, slurred speech, and occasional drift of right upper extremity. Jenny Quarles RChristianNChristian - 06/29/2018 7:00 AM CDT Goals: Clinical Goals for the Shift: Pt will rest comfortably through the night. Monitor neurological status. Identify possible barriers to meeting goals/advancing plan of care: acuity of illness (ischemic stroke) Stability of the patient: Moderately Stable - Low risk of patient condition declining or worsening End of Shift Summary: Pt was a little bit drowsy and slept most of through the night. No new changesin her neurological status. Still has mild slurred speech and right facial droop. Pt denies any pain. Bed alarm is activated for safety. T Arlene Dockery R.N. - 06/28/2018 6:59 PM CDT Goals: Stable neuro checks. Identify possible barriers to meeting goals/advancing plan of care: none Stability of the patient: Moderately Stable - Low risk of patient condition declining or worsening End of Shift Summary: Pt continues to have slightly weaker left hand grasp. Rt sided facial droop present with right sided tongue deviation and mildly slurred speech. This afternoon pt had mild right arm drift. Reports that bottom lip is numb on right side and tingly on the left. Pt has been very emotional this shift. Ambulating with SBA. Megan Faustin R.N. - 06/28/2018 6:21 AM CDT Goals: Identify possible barriers to meeting goals/advancing plan of care: Stability of the patient: Moderately Stable - Low risk of patient condition declining or worsening End of Shift Summary: pt drowsy throughout the shift. arouses easily and is able to carry on a conversation with nurse appropriately. Pt is A&O. Slight weakness remains to left hand and arm. Petar lower extremities are equal. Pt irritable with assessments and questions. T Thu Connelly R.N. - 06/27/2018 10:56 PM CDT Goals: Patient will use call light for help, free of pain/incident, and symptoms resolve Identify possible barriers to meeting goals/advancing plan of care: Stability of the patient: Moderately Unstable - Medium risk of patient condition declining or worsening End of Shift Summary: Patient admitted for r/o stroke d/t R sided weakness, slurred speech, facial droop and tongue deviation. VS stable. Did not pass bedside swallow at this time. Placed bed alarm on for pt safety. Very drowsy since admission. Denies pain. Placed on telemetry. Started IV fluids NS at125. Patient tearful when talking about kids being worried about her. Did admit to relapse with meth a few days ago. She states she is currently homeless living in a motel. 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 ADULT OXYGEN Routine 06/29/2018 8:00 THERAPY AM CDT LIPID PANEL, S Routine 06/29/2018 6:40 Results fo r this AM CDT procedure are i n the results section. ADULT OXYGEN Routine 06/28/2018 8:00 THERAPY PM CDT MR NECK ANGIOGRAM RAD - Routine 06/28/2018 10:00 Resul ts for this WITHOUT AND WITH (most inpatients AM CDT procedu re are in IV CONTRAST and all the results outpatients) section. MR BRAIN WITHOUT RAD - Routine 06/28/2018 9:28 Results for this IV CONTRAST (most inpatients AM CDT procedure a re in and all the results outpatients) section. ADULT OXYGEN Routine 06/28/2018 8:00 THERAPY AM CDT LIPID PANEL, S Routine 06/28/2018 7:39 Results fo r this AM CDT procedure are i n the results section. CBC WITH Routine 06/28/2018 7:39 Results for this DIFFERENTIAL, B AM CDT procedure ar e in the results section. HEMOGLOBIN A1C, B Routine 06/28/2018 7:39 Results for this AM CDT procedure are i n the results section. BASIC METABOLIC Routine 06/28/2018 7:39 Results f or this PANEL, S/P AM CDT procedure are i n the results section. ADULT OXYGEN Routine 06/27/2018 8:51 THERAPY PM CDT ADULT OXYGEN Routine 06/27/2018 8:51 THERAPY PM CDT ADULT OXYGEN Routine 06/27/2018 8:51 THERAPY PM CDT documented in this encounter Results (TTE) 2D ECHO DOPPLER COLOR AND CONTRAST (06/30/2018 2:03 PM CDT) [facility] Method Time Signature Ejection Fraction 60 MC CV EIMS Mid-Ascending Aorta 30 MC CV EIMS LV Mass Index 105 MC CV EIMS LV End-Diastolic 41 MC CV EIMS Diameter LV End-Systolic 26 MC CV EIMS Diameter MV E Velocity 0.5 MC CV EIMS MV A Velocity 0.6 MC CV EIMS MV E/A 0.83 MC CV EIMS MV e' Velocity 0.08 MC CV EIMS Medial MV e' Velocity 0.12 MC CV EIMS Lateral MV E/e' Medial 6.3 MC CV EIMS MV E/e' Lateral 4.2 MC CV EIMS Left ventricular 41 MC CV EIMS stroke volume index Cardiac Output 5.24 MC CV EIMS Cardiac Index 2.85 MC CV EIMS LV Interventricular 13 MC CV EIMS Septal Wall Thickness LV Posterior Wall 13 MC CV EIMS Thickness LV Relative Wall 63 MC CV EIMS Thickness RV 4-Chamber Basal 24 MC CV EIMS Diameter RV 4-Chamber Mid 21 MC CV EIMS Diameter RV 4-Chamber Length 68 MC CV EIMS TAPSE 21 MC CV EIMS Tricuspid Annular S? 0.14 MC CV EIMS RA Pressure 5 MC CV EIMS AV mean gradient 2 MC CV EIMS Aortic valve area 3.78 MC CV EIMS Aortic Valve 0.91 MC CV EIMS Dimensionless Index LA Volume Index 24 MC CV EIMS Anatomical Region Laterality Modality Echocardiography Specimen (Source) Anatomical Collection Method Collection Time Re ceived Time Location / / Volume Laterality 06/30/2018 11:30 AM CDT Narrative 06/30/2018 2:38 PM CDT This result has an attachment that is no t available. See PDF For Result Procedure Note Emanuel Bellamy M.D. - 06/30/2018For matting of this note might be different from the original. See PDF For Result Arsalan Hutton M.D. CV ECHO PROCEDURES Lipid Panel (06/29/2018 6:40 AM CDT) P athologist Signature Cholesterol, 192 mg/dL 06/29/2018 [facility] Total 7:30 AM CDT [facility] Comment: ----REFERENCE VALUE---- Desirable: < 200 Borderline high: 200 - 239 High: > or = 240 Triglycerides 130 mg/dL 06/29/2018 7:30 AM CDT [facility] Comment: ----REFERENCE VALUE---- Normal: <150 Borderline high: 150-199 High: 200-499 Very high: > or =500 Cholesterol, HDL, S 50 >=50 mg/dL 06/29/2018 7:30 AM CDT [facility] Calculated LDL 116 mg/dL 06/29/2018 7:30 AM CDT [facility] Comment: ----REFERENCE VALUE---- Desirable: <100 Above Desirable: 100-129 Borderline high: 130-159 High: 160-189 Very high: > or =190 Cholesterol, Non-HDL, 142 mg/dL 06/29/2018 7:30 AM CDT [facility] Comment: ----REFERENCE VALUE---- Desirable: <130 Above Desirable: 130-159 Borderline high: 160-189 High: 190-219 Very high: > or =220 Specimen Anatomical Collection Method Collection Time Receive d Time (Source) Location / / Volume Laterality Blood (Blood, 06/29/2018 6:40 AM 06/29/20 18 6:44 Venous) CDT AM CDT Arsalan Hutton M.D. LAB BLOOD ADD-ON Performing Organization Address City/State/ZIP Code Phon e Number [facility] [address] [place] [address] LAB MR Neck Angiogram without and with IV Contrast (06/28/2018 10:00 AM CDT) Anatomical Region Laterality Modality Neck, Neuroradiology RST LOS, Neuroradiology ARZ LOS, N/A Magnetic Resonance Neuroradiology FLA LOS Specimen (Source) Anatomical Collection Method Collection Time Re ceived Time Location / / Volume Laterality 06/28/2018 11:13 AM CDT Impressions 06/28/2018 11:15 AM CDT IMPRESSION: Within normal limits. Narrative 06/28/2018 11:15 AM CDT EXAM: MR NECK ANGIOGRAM WITHOUT AND WITH IV CONTRAST COMPARISON:None FINDINGS: The carotid bifurcations are n ormal in appearance bilaterally. 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 There are no aneurysms or significant strictures. Procedure Note Roc Salas M.D. - 06/28/2018Format ting of this note might be different from the original. EXAM: MR NECK ANGIOGRAM WITHOUT AND WITH IV CONTRAST COMPARISON:None FINDINGS: The carotid bifurcations are n ormal in appearance bilaterally. 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 There are no aneurysms or significant strictures. IMPRESSION: Within normal limits. Camille HERNANDEZ MRI PROCEDURES MR Brain without IV Contrast (06/28/2018 9:28 AM CDT) Anatomical Region Laterality Modality Head, Brain, Neuroradiology RST LOS, Neuroradiology ARZ N/A Magnetic Resonance LOS, Neuroradiology FLA LOS Specimen (Source) Anatomical Collection Method Collection Time Re ceived Time Location / / Volume Laterality 06/28/2018 9:46 AM CDT Impressions 06/28/2018 9:48 AM CDT IMPRESSION: 1.3 cm focus of acute ischemia, posterio r outer left basal ganglion. Narrative 06/28/2018 9:48 AM CDT EXAM: MR BRAIN WITHOUT IV CONTRAST COMPARISON: Head CT performed yesterday FINDINGS: There is a focus of abnormal i ncreased signal intensity involving the posterior outer left basal ganglia, diff usion-weighted images, with associated decreased signal intensity involving thi s area on ADP map images, consistent with an acute infarct, measuring 1.3 cm in greatest diameter. There are no additional areas of acute ischemia. Ther e is no associated hemorrhage. The ventricles are normal in size, shape and position for the patient's age, with no midline shift or other mass effe ct. There are normal flow-voids within the internal carotid and vertebrobasilar arterial systems bilaterally. The visualized aspects of the orbits appear normal. Procedure Note Roc Salas M.D. - 06/28/2018Format ting of this note might be different from the original. EXAM: MR BRAIN WITHOUT IV CONTRAST COMPARISON: Head CT performed yesterday FINDINGS: There is a focus of abnormal i ncreased signal intensity involving the posterior outer left basal ganglia, diff usion-weighted images, with associated decreased signal intensity involving thi s area on ADP map images, consistent with an acute infarct, measuring 1.3 cm in greatest diameter. There are no additional areas of acute ischemia. Ther e is no associated hemorrhage. The ventricles are normal in size, shape and position for the patient's age, with no midline shift or other mass effe ct. There are normal flow-voids within the internal carotid and vertebrobasilar arterial systems bilaterally. The visualized aspects of the orbits appear normal. IMPRESSION: 1.3 cm focus of acute ischemia, posterio r outer left basal ganglion. Camille Gan M.D. IMG MRI PROCEDURES Hemoglobin A1c (06/28/2018 7:39 AM CDT) athologist Signature Hemoglobin A1c, 4.7 4.2 - 5.6 06/28/2018 [facility] B % 8:05 AM CDT [facility] LAB Specimen Anatomical Collection Method Collection Time Receive d Time (Source) Location / / Volume Laterality Blood (Blood, 06/28/2018 7:39 AM 06/28/20 18 7:44 Venous) CDT AM CDT Camille Gan M.D. LAB BLOOD ADD-ON Performing Organization Address City/State/ZIP Code Phon e Number [place] [id number] [place] [address] LAB (ABNORMAL) Lipid Panel (06/28/2018 7:39 AM CDT) athologist Signature Cholesterol, 171 mg/dL 06/28/2018 [facility] Total 8:46 AM CDT [facility] LAB Comment: ----REFERENCE VALUE---- Desirable: < 200 Borderline high: 200 - 239 High: > or = 240 Triglycerides 145 mg/dL 06/28/2018 8:46 AM CDT [facility] LAB Comment: ----REFERENCE VALUE---- Normal: <150 Borderline high: 150-199 High: 200-499 Very high: > or =500 Cholesterol, HDL, S 40 (L) >=50 mg/dL 06/28/2018 8:46 AM CDT [facility] LAB Calculated LDL 102 mg/dL 06/28/2018 8:46 AM CDT [facility] LAB Comment: ----REFERENCE VALUE---- Desirable: <100 Above Desirable: 100-129 Borderline high: 130-159 High: 160-189 Very high: > or =190 Cholesterol, Non-HDL, 131 mg/dL 06/28/2018 8:46 AM CDT [facility] LAB Comment: ----REFERENCE VALUE---- Desirable: <130 Above Desirable: 130-159 Borderline high: 160-189 High: 190-219 Very high: > or =220 Specimen Anatomical Collection Method Collection Time Receive d Time (Source) Location / / Volume Laterality Blood (Blood, 06/28/2018 7:39 AM 06/28/20 18 7:44 Venous) CDT AM CDT Camille Gan M.D. LAB BLOOD ADD-ON Performing Organization Address City/State/ZIP Code Phon e Number [place] [id number] [place] [address] LAB CBC with Differential (06/28/2018 7:39 AM CDT) P athologist Signature Hemoglobin 13.7 11.6 - 06/28/2018 [facility] 15.0 g/dL 7:49 AM CDT [facility] Hematocrit 40.1 35.5 - 06/28/2018 [facility] 44.9 % 7:49 AM T [facility] Erythrocytes 4.52 3.92 - 06/28/2018 [facility] 5.13 7:49 AM CDT HEALTH x10(12)/L [facility] LAB MCV 88.7 78.2 - 06/28/2018 [facility] 97.9 fL 7:49 AM CDT [facility] RBC Distrib Width 12.6 12.2 - 06/28/2018 [facility] 16.1 % 7:49 AM T [facility] Platelet Count 268 157 - 371 06/28/2018 [facility] x10(9)/L 7:49 AM CDT [facility] Leukocytes 5.5 3.4 - 9.6 06/28/2018 [facility] x10(9)/L 7:49 AM CDT [facility] Neutrophils 2.76 1.56 - 06/28/2018 [facility] 6.45 7:49 AM CDT HEALTH x10(9)/L [facility] LAB Lymphocytes 2.24 0.95 - 06/28/2018 [facility] 3.07 7:49 AM CDT HEALTH x10(9)/L [facility] Monocytes 0.36 0.26 - 06/28/2018 [facility] 0.81 7:49 AM CDT HEALTH x10(9)/L [facility] LAB Eosinophils 0.14 0.03 - 06/28/2018 [facility] 0.48 7:49 AM CDT HEALTH x10(9)/L [facility] LAB Basophils 0.02 0.01 - 06/28/2018 [facility] 0.08 7:49 AM CDT [facility] x10(9)/L [facility] LAB Specimen Anatomical Collection Method Collection Time Receive d Time (Source) Location / / Volume Laterality Blood (Blood, 06/28/2018 7:39 AM 06/28/20 18 7:44 Venous) CDT AM CDT Camille Gan M.D. LAB BLOOD ADD-ON Performing Organization Address City/State/ZIP Code Phon e Number [facility] [address] [place] [address] LAB (ABNORMAL) BMP (Basic Metabolic Panel) (06/28/2018 7:39 AM CDT) P athologist Signature Potassium, S 3.9 3.6 - 5.2 06/28/2018 [facility] mmol/L 8:46 AM CDT [facility] Sodium, S 141 135 - 145 06/28/2018 [facility] mmol/L 8:46 AM CDT [facility] Chloride, S 107 98 - 107 06/28/2018 [facility] mmol/L 8:46 AM CDT [facility] Bicarbonate, S 26 22 - 29 06/28/2018 [facility] mmol/L 8:46 AM [facility] Anion Gap 8 7 - 15 06/28/2018 [facility] 8:46 AM [facility] LAB BUN (Blood Urea 12 6 - 21 06/28/2018 [facility] Nitrogen), S mg/dL 8:46 AM [facility] LAB Creatinine 0.68 0.59 - 06/28/2018 [facility] 1.04 mg/dL 8:46 AM [facility] LAB eGFR-Non >90 >=60 06/28/2018 [facility] Black/ mL/min/BSA 8:46 AM [facility] LAB Comment: ----ADDITIONAL INFORMATION---- Estimated GFR calculated using the 2009 CKD_EPI creatinine equation. eGFR-Black/ >90 >=60 mL/min/BSA 2017 8:46 AM [facility] LAB Comment: ----ADDITIONAL INFORMATION---- Estimated GFR calculated using the 2009 CKD_EPI creatinine equation. Calcium, Total, S 8.4 (L) 8.6 - 10.0 mg/dL 06/28/2018 8 :46 AM [facility] Glucose, S 91 70 - 140 mg/dL 06/28/2018 8:46 AM [facility] Specimen Anatomical Collection Method Collection Time Receive d Time (Source) Location / / Volume Laterality Blood (Blood, 06/28/2018 7:39 AM 06/28/20 18 7:44 Venous) CDT AM CDT Camille Gan M.D. 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 Polysubstance (HCC) documented in this encounter Admitting Diagnoses Diagnosis Slurred Speech documented in this encounter Administered Medications Inactive Administered Medications - up to 3 most recent administrations Medication Order MAR Action Action Date Dose Rate Site acetaminophen tablet 500 mg (TYLENOL) 500 mg, oral, Every 6 hours PRN, mild pain or score 1- 3 of 10, Starting on Sat06/27/18 at 2051 albuterol nebulizer solution 2.5 mg (ACC UNEB) 2.5 mg, nebulization, Every 6 hours PRN, wheezing, shortness of breath, Starting on Sat06/27/18 at 2050 aspirin chewable tablet 81 mg Given 06/30/2018 9:00 AM CDT 81 mg 81 mg, oral, Daily, First dose on 06/29/18 at 0900 Given 06/29/2018 9:16 AM CDT 81 mg aspirin suppository 300 mg Given 06/28/2018 8:44 AM CDT 300 mg 300 mg, rectal, Once, On 06/28/18 at 0730, For 1 dose atorvastatin tablet 40 mg (LIPITOR) Given 06/29/2018 9:35 PM CDT 40 mg 40 mg, oral, Daily at bedtime, First dose on 06/28/18 at 2100 Given 06/28/2018 10:13 PM CDT 40 mg calcium carbonate chewable tablet 400 mg of calcium (TUMS) 400 mg of calcium, oral, Every 2 hour IA N, heartburn, indigestion, Starting on Sat06/27/18 at 2050, Doses listed are in mg of elemental calcium. Take with food. 500 mg calcium carbonate contains 200 mg of elemental calc ium. gadobutrol injection 10 mL (GADAVIST) Given 06/28/2018 9:46 AM CDT 10 mL Left Hand 10 mL, intravenous, Once in imaging, contrast, Starting on 06/28/18 at 0917, For 1 dose heparin (porcine) Given 06/30/2018 6:17 AM CDT 5,000 Units Left Lower Abdomen injection 5,000 Units 5,000 Units, subcutaneous, Every 8 hours scheduled, First dose on Sat06/27/18 at 2200 Given 06/29/2018 9:35 PM CDT 5,000 Units Left Lower Abdomen Given 06/29/2018 1:29 PM CDT 5,000 Units Left Lower Abdomen NaCl 0.9% infusion Restarted 06/28/2018 10:05 AM CDT 125 mL/hr 125 mL/hr 125 mL/hr, intravenous, Continuous, Starting on Sat06/27/18 at 2100 Rate/Dose Verify 06/28/2018 6:00 AM CDT 125 mL/hr 125 mL/hr New Bag 06/28/2018 3:56 AM CDT 125 mL/hr 125 mL/hr ondansetron (PF) injection 4 mg (ZOFRAN) 4 mg, intravenous, Every 6 hours PRN, na usea, vomiting, Starting on Sat06/27/18 at 2050 polyethylene glycol powder packet 1 pack et (MIRALAX) 1 packet, oral, Daily PRN, constipation, Starting on Sat06/27/18 at 2050, Ordered sequence of administration: polyethylene glycol, then bisacodyl until BM achieved. Avoid mixing with starch-based thickened liquids. sodium chloride injection 10 mL 10 mL, intravenous, As needed, line care, Starting on Sat06/27/18 at 0, Peripheral Intravenous Catheter and Rapid Infusion Cat heter, prior to blood sampling, post blood transfusion or post blood samplin g sodium chloride injection 3 mL 3 mL, intravenous, As needed, line care, Starting on Sat06/27/18 at 0, Prior to and following infusion and between multi ple consecutive infusions: sodium chloride 0.9 % injection sodium chloride injection 3 mL Given 06/30/2018 9:00 AM CDT 3 mL 3 mL, intravenous, Every 12 hours scheduled, First dose on Sat06/27/18 at 2100, Peripheral Intravenous Catheter and Rapid Infusion Catheter, when no infusion to maintain patency Given 06/29/2018 9:35 PM CDT 3 mL Given 06/29/2018 9:18 AM CDT 3 mL documented in this encounter Active and Recently Administered Medications Times are shown in CDT. Scheduled Medication Order 06/28/2018 06/29/2018 06/30/2018 aspirin chewable tablet 81 mg 0916 (Given - Prov ider: Arlene Dockery R.N.) 0900 (Given - Provider: Arlene Dockery R.N.) 81 mg, oral, Daily, First dose on 06/29/18 at 0900 aspirin suppository 300 mg (COMPLETED) 0844 (Given - P rovider: Arlene Dockery RInessa) 300 mg, rectal, Once, 06/28/18 at 0730, For 1 dose atorvastatin tablet 40 mg (LIPITOR) 2210 (Given - Prov ider: Kala Rivero R.N.) 2133 (Given - Provider: Kiara Cobian RChristianNChristian) 40 mg, oral, Daily at bedtime, First dose on 06/28/18 at 210 0 heparin (porcine) injection 5,000 Units 0600 (Given - Provider: Megan Faustin R.N.)1444 (Given - Provider: Arlene Dockery R.N.)2213 (Given - Provider: Kala Rivero R.N.) 0508 (Given - Provider: Jenny Quarles R.NChristian)1329 (Given - Provider: Liliya VelazcoNChristian)2135 (Given - Provider: Kiara Cobian R.NChristian) 0617 (Given - Provider: Kaylin hough R.NChristian)1400 (Due) 5,000 Units, subcutaneous, Every 8 hours scheduled, First dose on Sat06/27/18 at 2200 sodium chloride injection 3 mL 1005 (Given - Provider: Arlene Dockery R.N.)2214 (Given - Provider: Kala Rivero R.N.) 0918 (Given - Provider: Arlene Dockery R.N.)2135 (Given - Provider: Kiara Cobian RChristianNChristian) 0900 (Given - Provider: Arlene Dockery R.N.) 3 mL, intravenous, Every 12 hours schedu led, First dose on Sat06/27/18 at 2100, Peripheral Intravenous Catheter and Rapid Infusion Catheter, when no infusion to maintain patency Continuous Medication Order 06/28/2018 06/29/2018 06/30/2018 NaCl 0.9% infusion (CANCELED) 0356 (New Bag - Provider : Megan Faustin R.N.)0600 (Rate/Dose Verify - Provider: Megan Faustin R.N.)0847 (Stopped - Provider: Arlene Dockery R.N.)1005 (Restarted - Provider: Arlene Dockery R.N.) 125 mL/hr, intravenous, at 125 mL/hr, Continuous, Star ting Sat06/27/18 at 2100 1334 (Stopped - Provider: Arlene Dockery R.N.) PRN Medication Order 06/28/2018 06/29/2018 06/30/2018 acetaminophen tablet 500 mg (TYLENOL) 500 mg, oral, Every 6 hours PRN, mild pa in or score 1-3 of 10, Starting Sat06/27/18 at 2050 albuterol nebulizer solution 2.5 mg (ACCUNEB) 2.5 mg, nebulization, Every 6 hours PRN, wheezing, shortness of breath, Starting Sat06/27/18 at 2049 calcium carbonate chewable tablet 400 mg of calcium (TUMS) 400 mg of calcium, oral, Every 2 hour IA N, heartburn, indigestion, Starting Sat06/27/18 at 2050, Doses listed are in mg of elemental calcium. Take with food. 500 mg calcium carbonate contains 200 mg of elemental calcium. gadobutrol injection 10 mL (GADAVIST) (COMPLETED) 09 (Given - Provider: Lupe Fernandez(R), Lupe(R)(MR)) 10 mL, intravenous, Once in imaging, con trast, Starting 06/28/18 at 0917, For 1 dose ondansetron (PF) injection 4 mg (ZOFRAN) 4 mg, intravenous, Every 6 hours PRN, na usea, vomiting, Starting Sat06/27/18 at 2050 polyethylene glycol powder packet 1 packet (MIRALAX) 1 packet, oral, Daily PRN, constipation, Starting Sat06/27/18 at 2050, Ordered sequence of administration: polyethylene glycol, then bisacodyl until BM achieved. Avoid mixing with starch-based thickened liquids. sodium chloride injection 10 mL 10 mL, intravenous, As needed, line care , Starting Sat06/27/18 at 2049, Peripheral Intravenous Catheter and Rapid Infusion Catheter, prior to blood sampling, post blood transfusion or post blood sampling sodium chloride injection 3 mL 3 mL, intravenous, As needed, line care, Starting Sat06/27/18 at 2049, Prior to and following infusion and between multiple consecutive infusions: sodium chloride 0.9 % injection documented in this encounter Additional Health Concerns Assessment Noted Time PHQ-9 Depression Total Score: 16 11/25/2012 12:45 PM C DT documented as of this encounter Care Teams Mushroom Picker Relationship Specialty Start Date End Date Unassigned, Pcp PCP - General Family Medicine 01/06/18 09/27/19 documented as of this encounter
--- OUTSIDE RECORDS SUMMARY | 2022-05-17 14:00 | XMS_ITS | Encounter Summary ---
:1980 Author Organization [facility] Address [address] [place] [id number] Care Team Providers Name Role Phone Elsewhere, Pcp Primary Care Provider Unavailable Reason for Referral Outpatient (Routine) - Closed Specialty Diagnoses / Procedures Referred By Contact Refer red To Contact Orthopedic Surgery Soraya Toney APRN, [facility] Region C.N.P., D.N.P. [address] [place] [address] Referral ID Status Reason Start Date Expiration Date Visits Requ ested Visits Authorized [id number] Closed 08/08/2021 08/08/2022 1 1 utpatient (Routine) - Closed Specialty Diagnoses / Procedures Referred By Contact Refer red To Contact Diagnoses [facility]aresthesias [facility] Procedures EMG C.N.P., D.N.P. [address] [place] [address] Referral ID Status Reason Start Date Expiration Date Visits Requ ested Visits Authorized [id number] Closed 08/08/2021 08/08/2022 1 1 AL CHIEF EXPERIENCE OFFICER Reason for Visit Appointment Request (Routine) - Closed Specialty Diagnoses / Procedures Referred By Contact Refer red To Contact Orthopedic Surgery Referral ID Status Reason Start Date Expiration Date Visits Requ ested Visits Authorized [id number] Closed 08/07/2021 08/07/2022 1 1 Encounter Details Date Type Department Care Team Description 08/08/2021 Office Visit Department of Soraya Toney Paresthes ias Hand Orthopedic Surgery in [place], (Prim gia Dx) [facility] D.N.P. [address] [place] [phone] Social History Tobacco Use Types Packs/Day Years Used Date Smoking Tobacco: Some Days Cigarettes 0.5 E-cigarettes Smokeless Tobacco: Never Alcohol Use Standard Drinks/Week Comments Not Currently 0 (1 standard drink = 0.6 oz pure alcoho l) Sex Assigned at Date Recorded Not on file documented as of this encounter Progress Notes Soraya Toney, [place], D.N.P. - 08/08/2021 2:00 PM CST SUBJECTIVE CHIEF COMPLAINT / REASON FOR VISIT Shruthi Jones is a 41 y.o. female who presents for evaluation of No chief complaint on file.. HISTORY OF PRESENT ILLNESS Shruthi is a 41 y.o. female who presents to the clinic today for evaluation of right hand numbness. She is status post left carpal tunnel release several years ago so does not recall initial symptoms. She reports pain around her thumb as well as numbness in her whole hand that will radiate up to her shoulder. She reports that when driving, her hands will fall asleep. 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 She has tried [id number] analgesics as well as night splints for the past couple days. She denies any significant improvement using these remedies. OBJECTIVE PHYSICAL EXAMINATION General: Patient is in no distress. Capable of full communication without difficulty. Patient is polite and cooperative. Extremities: Focused exam, no significant swelling or obvious deformity noted in the right hand or wrist. She is exquisitely tender to palpation at the base of her right thumb, soft tissue only. No increased redness, warmth, or puncture sites noted. No catching/popping/locking appreciated with movement. Compressive Phalen's test inconclusive. Neuro: Alert and oriented x3. DIAGNOSTICS EMG ordered. ASSESSMENT / PLAN #1 Paresthesias Hand Shruthi is a 41-year-old female who is here today for evaluation of her right hand. We discussed carpal tunnel syndrome as a possible cause to her thumb pain and hand numbness however her symptoms involve a few different nerve distributions. Because of this, we discussed obtaining an EMG for further diag nostic clarity. We also discussed the possibility of trigger thumb, for which we could consider a diagnostic injection at some point in the future. She will obtain an EMG and plan to see is back to discuss results and next steps. All questions were answered. Electronically signed by Soraya Toney, ANALYST COMP[employer]ITIVE INTELLIGENCE, C.N.P., D.N.P. at 08/08/2021 3:59 PM GLOBAL CHIEF EXPERIENCE OFFICER documented in this encounter Plan of Treatment Scheduled Referrals Name Type Priority Associated Order Schedule Diagnoses Orthopedic Surgery Outpatient Referral Routine Ex pected: office visit 08/08/2021 (clinic) (Approximate), Expires: 11/06/2022 documented as of this encounter Results EMG (10/20/2021 9:01 AM GLOBAL CHIEF EXPERIENCE OFFICER) Specimen (Source) Anatomical Collection Method Collection Time Re ceived Time Location / / Volume Laterality 10/20/2021 9:15 AM GLOBAL CHIEF EXPERIENCE OFFICER Narrative [facility] - 10/20/2021 10:20 AM GLOBAL CHIEF EXPERIENCE OFFICER 20-Oct-2021 ? Electromyography ? Final Report Study Number: 1 EMG Lead Trainer: Navneet Keys 127 or [phone] Referred by: SORAYA TONEY () Referred for: Referral Code: ?037 RX: 211 SUMMARY: Prior to starting the procedure , the patient's identity was verified, pertinent available records were reviewed, the nature of the procedure was explained, the appropriate sites of the exam were confirmed directly with the susan tienata, and a pre-procedure pause was performed for [...] right cervical radiculopathy. Wilmar Keys (127 or [phone])/[facility] NERVE CONDUCTIONS ??Record Rep ?? Normal ??Normal [...] Navneet Keys MD at 10/20/2021 10:18:45 AM GLOBAL CHIEF EXPERIENCE OFFICER Procedure Note Wilmar Keys M.D. - 10/20/2021Form atting of this note is different from the original. 20-Oct-2021 Electromyography Final Repor t Study Number: 1 EMG Lead Trainer: Navneet Keys 127 or [phone] Referred by: SORAYA TONEY () Referred for: [...] right cervical radiculopathy. Wilmar Keys (127 or [phone])/[facility] NERVE CONDUCTIONS Record Rep Normal [...] Navneet Keys MD at 10/20/2021 10:18:45 AM GLOBAL CHIEF EXPERIENCE OFFICER Soraya Toney APRN, C.N.P., D.N.P. NEUROLOGY ORDERAB LES Performing Organization Address City/State/ZIP Code Phon e Number [facility] documented in this encounter Visit Diagnoses Diagnosis Paresthesias Hand - Primary Paresthesias Hand documented in this encounter Additional Health Concerns Assessment Noted Time PHQ-9 Depression Total Score: 16 11/25/2012 12:45 PM C DT documented as of this encounter Care Teams Assistant Tennis Coach Relationship Specialty Start Date End Date Elsewhere, Pcp PCP - General 09/28/19 documented as of this encounter
--- OUTSIDE RECORDS SUMMARY | 2022-05-17 14:00 | XMS_ITS | Encounter Summary ---
:1980 Author Organization [facility] Address [address] [place] [address] Care Team Providers Name Role Phone Elsewhere, Pcp Primary Care Provider Unavailable Reason for Visit Reason Onset Date Comments Outpatient COVID-19 Testing 06/25/2020 Encounter Details Date Type Department Care Team Description 06/25/2020 External Outreach Department of [facility] Destinee Celis Infection Upper Medicine, [place] [facility] (Primary Clinic, in [place], [address]) [place], [place] [address] [place] [address] [place], [place] [phone] (Work) [phone] Social History Tobacco Use Types Packs/Day Years Used Date Smoking Tobacco: Some Days Cigarettes 0.5 E-cigarettes Smokeless Tobacco: Never Alcohol Use Standard Drinks/Week Comments Not Currently 0 (1 standard drink = 0.6 oz pure alcoho l) Sex Assigned at Date Recorded Not on file documented as of this encounter Progress Notes Corin Cool, L.P.N. - 06/25/2020 11:25 AM CDT Encounter created for the drive-through COVID-19 testing. documented in this encounter Plan of Treatment Not on filedocumented as of this encounter Procedures Procedure Name Priority Date/Time Associated Diagnosis Comme nts SARS CORONAVIRUS-2 Routine 06/25/2020 11:26 AM Infection Upper Results for this RNA, V CDT Respiratory procedure are i n the results section. documented in this encounter Results SARS Coronavirus-2 RNA, V Symptomatic (06/25/2020 11:26 AM CDT) [facility] Method Time Signature SARS-CoV-2 Swab, 06/26/2020 ECLR Specimen Nasopharynx 1:12 AM CDT Source SARS CoV-2 Undetected Undetected 06/26/2020 ECLR RNA, TMA 1:12 AM CDT Comment: SARS-CoV-2 RNA absent. This result does not rule out COVID-19 in the patient, as the sensitivity of the test depends o n the timing of the specimen collection and the quality of the specim en. Result should be correlated with patient's history and clinical presentat ion. ----ADDITIONAL INFORMATION---- This test is performed using the Aptima SARS-CoV-2 assay ([employer] which has received Emergency Use Authori zation (EUA) by the U.S. Food and Drug Administration. Fact sheets for this Emergency Use Autho rization (EUA) assay can be found at the following links: For Healthcare Providers: https://www.fd a.gov/media/509054/download For Patients: https://www.fda.gov/media/ 951078/download Specimen Anatomical Collection Method Collection Time Receive d Time (Source) Location / / Volume Laterality Varies 06/25/2020 11:26 06/25/2020 3:11 (Nasopharynx) AM CDT PM CDT Dmitry Celis P.A.-C. LAB MICROBIOLOGY - GENERAL O EVANS Performing Organization Address City/State/ZIP Code Phon e Number [facility] [address] [place] [phone] [facility] [place] [address] [address] documented in this encounter Visit Diagnoses Diagnosis Infection Upper Respiratory - Primary documented in this encounter Additional Health Concerns Infection Onset Date Last Indicated Resolved Time COVID19 Pending 06/25/2020 06/25/2020 06/26/2020 1:12 AM CDT Assessment Noted Time PHQ-9 Depression Total Score: 16 11/25/2012 12:45 PM C DT documented as of this encounter Care Teams Manager Maritime Relationship Specialty Start Date End Date Elsewhere, Pcp PCP - General 09/28/19 documented as of this encounter
--- OUTSIDE RECORDS SUMMARY | 2022-05-17 14:00 | XMS_ITS | Encounter Summary ---
:1980 Author Organization [facility] Address [address] [place] [address] Care Team Providers Name Role Phone Elsewhere, Pcp Primary Care Provider Unavailable Reason for Visit Reason Comments Work Related Injury [place] [employer] Appointment Request (Routine) - Closed Specialty Diagnoses / Procedures Referred By Contact Refer red To Contact Family Medicine Annamaria Huber A PRElina [address] [place] [address] Referral ID Status Reason Start Date Expiration Date Visits Requ ested Visits Authorized [id number] Closed 04/13/2022 04/13/2023 1 Encounter Details Date Type Department Care Team Description 04/20/2022 Office Visit Department of Annamaria Huber Leg (P rimary Dx) Occupational Medicine AUREA [facility] in [facility] ta [address] [facility] [address] [place] [phone] Social History Tobacco Use Types Packs/Day Years [...] ??F) 04/20/2022 1:22 PM CDT Respiratory Rate - - Oxygen Saturation - - Inhaled Oxygen Concentration - - Weight - - Height - - Body Mass Index - - documented in this encounter Progress Notes CecileAnnamaria, CHAIN MAKER - 04/20/2022 1:30 PM CDT EMPLOYER: ASAEL Dodd DATE OF INJURY/ILLESS/EXPOSURE: 04/10/2022 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 female who [...] sought ED evaluation, and they prescribed oral prednisone and advised she remain off of work. She experienced a rash similar to this about 1.5 months ago, same distribution, 1 week in to her new job but it was reportedly less severe. It was assumed that she may be allergic to something in the facility. At her initial consultation here 1 week ago, her symptoms were quickly responding to the oral steroid and time-off of work. Interestingly, she had been dealing with eye redness and discharge that also responded quickly to the oral steroid. Upon further interview, it was noted that she does deal with lower extremity edema, and does develop worsened edema at the level of the rash, just above the line of her work boots. Also noted was that her work boots were brand new on the date she first developed skin rash. Today, she reports complete resolution of both her rash as well as any discomfort or localized edema. She did have an evaluation with her PCP yesterday, and it sounds like there was higher suspicion that the rash may be more related to edema/fluid stasis, such as a stasis dermatitis. She is having further work-up through her PCP due to the fluid retention. She has not donned her work boots in the past week. She also reports today that her left eye injection and chemosis has returned, despite not being at the workplace. She did use her eye-makeup yesterday for the first time in several days. Wonders if sheshould've discarded the make-up after the first diagnosis of conjunctivitis. The following portions of the patient's history were reviewed and updated as appropriate: allergies,current medications, medical history, social history, surgical history, and problem list Vitals: 04/20/22 1322 BP: 118/70 Pulse: 105 Temp: 36.7 ??C Vitals reviewed. Constitutional General: She is not in acute distress. Eyes General: Left eye: Discharge (watery chemosis) present. Conjunctiva/sclera: Left eye: Left conjunctiva is injected. Pupils: Pupils are equal, round, and reactive to light. Cardiovascular Rate and Rhythm: Normal rate and regular rhythm. Pulmonary Effort: Pulmonary effort is normal. Skin General: Skin is warm and dry. Comments: Small area of hyperpigmentation on the right lower extremity, overlying a portion of the skin that was previously affected by the rash of concern Neurological Mental Status: She is alert and oriented to person, place, and time. Psychiatric Behavior: Behavior normal. Thought Content: Thought content normal. ASSESSMENT / PLAN 1. Rash Leg MMI: no PPD: undetermined Work Related: Unknown Shruthi developed a rash on her bilateral lower extremities, in a linear and symmetric distribution that raises concern for a contact dermatitis or possibly rash due to localized edema. The area of concern is superior to the top of her work-boots. The skin is not typically directly in contact with her new footwear, but did begin the day she donned these work-boots for the first time. She does struggle with dependent edema and these boots are much tighter than any footwear she has worn in the recent past. Given the distribution of the rash, it seems most likely this is a stasis dermatitis. She has already started discussing evaluation and treatment of the lower extremity edema with her PCP. Advised she plan to utilize compression stockings on the lower extremities, knee high, when she return to work. This will add an extra barrier as well, if this does happen to be a contact dermatitis. Remain in her home-base of the facility for now. If rash remains absent for the next month, she can be re-introduced to the lower plan as well, if needed. Discussed worsening symptoms that will bring the patient back sooner for further evaluation. Work status: full duty. See attached Report of Injury and Illness for full details. The patient indicates understanding of these issues and agrees with the plan. 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 No orders of the defined types were placed in this encounter. 36 total face to face, plus non face to face time, spent today reviewing medical history, performingevaluation, discussing the plan, coordinating future care, and explaining return to work procedures.Spent an additional 5 minutes completing documentation for the medical record. Thank [...] documented as of this encounter Care Teams Rim Roller Operator Relationship Specialty Start Date End Date Elsewhere, Pcp PCP - General 09/28/19 documented as of this encounter
--- OUTSIDE RECORDS SUMMARY | 2022-05-17 14:01 | XMS_ITS | Encounter Summary ---
:1980 Author Organization [facility] Address [address] [place] [address] Care Team Providers Name Role Phone Unavailable Primary Care Provider Unavailable Encounter Details Date Type Department Care Team Description 09/27/2014 Hospital Encounter HX RST EMERGENCY Provider, Historic al TRAUMA UNI Social History Tobacco Use Types Packs/Day Years Used Date Smoking Tobacco: Never Assessed Sex Assigned at Date Recorded Not on file documented as of this encounter Last Filed Vital Signs Vital Sign Reading Time Taken Comments Blood Pressure 151/92 09/27/2014 10:42 AM LEAN MANAGER Vital sign result from Clinical Notes. Pulse 102 09/27/2014 10:42 AM LEAN MANAGER Vital sign result from Clinical Notes. Temperature - - Respiratory Rate 16 09/27/2014 10:42 AM LEAN MANAGER Yun l sign result from Clinical Notes. Oxygen Saturation - - Inhaled Oxygen Concentration - - Weight - - Height - - Body Mass Index - - documented in this encounter Plan of Treatment Not on filedocumented as of this encounter Procedures Procedure Name Priority Date/Time Associated Comments Diagnosis ETHANOL, S Routine 09/27/2014 11:34 Results for this AM LEAN MANAGER procedure are i n the results section. CBC WITH DIFFERENTIAL, Routine 09/27/2014 11:34 R esults for this B AM LEAN MANAGER procedure are i n the results section. TEST (HCG), Routine 09/27/2014 11:34 Re sults for this S AM LEAN MANAGER procedure are i n the results section. THYROID-STIMULATING Routine 09/27/2014 11:34 Resu lts for this HORMONE-SENSITIVE AM LEAN MANAGER procedure are in (S-TSH) the results section. ACETAMINOPHEN LEVEL, S Routine 09/27/2014 11:34 R esults for this AM LEAN MANAGER procedure are i n the results section. SALICYLATE LEVEL, S Routine 09/27/2014 11:34 Resu lts for this AM LEAN MANAGER procedure are i n the results section. BASIC METABOLIC PANEL, Routine 09/27/2014 11:34 R esults for this S/P AM LEAN MANAGER procedure are i n the results section. GLUCOSE POCT, B Routine 09/27/2014 11:32 Results for this AM LEAN MANAGER procedure are i n the results section. documented in this encounter Results Acetaminophen Level (09/27/2014 11:34 AM LEAN MANAGER) athologist Signature Acetaminophen, <10 <50 (Toxic [facility] S >=120) LABORATORIES - MCG/ML [facility] Specimen Anatomical Collection Method Collection Time Receive d Time (Source) Location / / Volume Laterality 09/27/2014 11:34 09/27/2014 AM LEAN MANAGER 11:34 AM LEAN MANAGER Candido Brandon M.D. LAB BLOOD ADD-ON Performing Organization Address City/State/ZIP Code Phon e Number [facility] LABORATORIES - [address] [place], [place] [address] [facility] BMP (Basic Metabolic Panel) (09/27/2014 11:34 AM LEAN MANAGER) Analysis Performed At Patho logist Time Signature Sodium, P 138 135 - 145 [facility] MMOL/L LABORATORIES - [facility] Potassium, P 3.7 3.6 - 5.2 [facility] MMOL/L LABORATORIES - [facility] BUN (Blood Urea 11 6 - 21 [facility] Nitrogen), S MG/DL LABORATORIES - [facility] HX Bicarbonate, 26 22 - 29 [facility] P/S MMOL/L LABORATORIES - [facility] Chloride, S 103 98 - 107 [facility] MMOL/L LABORATORIES - [facility] Creatinine 0.7 0.6 - 1.1 [facility] MG/DL LABORATORIES - [facility] eGFR >60 >60 [facility] Non-Black/Afric ML/MIN/BSA LABORATORIES - an Lithuanian [facility] eGFR-Black/Afri >60 >60 [facility] can Lithuanian ML/MIN/BSA LABORATORIES - [facility] Glucose, S 103 70 - 140 [facility] MG/DL LABORATORIES - [facility] Anion Gap 9 7 - 15 [facility] LABORATORIES - [facility] Specimen Anatomical Collection Method Collection Time Receive d Time (Source) Location / / Volume Laterality 09/27/2014 11:34 09/27/2014 AM LEAN MANAGER 11:34 AM LEAN MANAGER Candido Brandon M.D. LAB BLOOD ADD-ON Performing Organization Address City/State/ZIP Code Phon e Number [facility] LABORATORIES - [address] [place] [address] [facility] Test, Qualitative (09/27/2014 11:34 AM LEAN MANAGER) [facility] Time Signature Negative [facility] Test, S LABORATORIES - [facility] Specimen Anatomical Collection Method Collection Time Receive d Time (Source) Location / / Volume Laterality 09/27/2014 11:34 09/27/2014 AM LEAN MANAGER 11:34 AM LEAN MANAGER Candido Brandon M.D. LAB BLOOD ADD-ON Performing Organization Address City/State/ZIP Code Phon e Number [facility] LABORATORIES - [address] [place] [address] [facility] Ethanol Level, Serum (09/27/2014 11:34 AM LEAN MANAGER) [facility] Signature Ethanol, S Negative Not applicable [facility] MG/DL [facility] - [facility] Specimen Anatomical Collection Method Collection Time Receive d Time (Source) Location / / Volume Laterality 09/27/2014 11:34 09/27/2014 AM LEAN MANAGER 11:34 AM LEAN MANAGER Candido Brandon M.D. LAB BLOOD NON ADD-ON Performing Organization Address City/State/ZIP Code Phon e Number [facility] LABORATORIES - [address] S-TSH (Thyroid-Stimulating Hormone - Sensitive) (09/27/2014 11:34 AM LEAN MANAGER) P athologist Signature TSH, Sensitive 1.3 0.3 - 4.2 [facility] MIU/L [facility] Specimen Anatomical Collection Method Collection Time Receive d Time (Source) Location / / Volume Laterality 09/27/2014 11:34 09/27/2014 AM LEAN MANAGER 11:34 AM LEAN MANAGER Candido Brandon M.D. LAB BLOOD ADD-ON Performing Organization Address City/[facility]/ZIP Code Phon e Number [facility] LABORATORIES - [address] CBC with Differential (09/27/2014 11:34 AM LEAN MANAGER) [facility] Method Time Signature Hemoglobin 14.6 12.0 - [facility] 15.5 G/DL [facility] Hematocrit 41.2 34.9 - [facility] 44.5 % [facility] RBC Distrib Width 12.8 11.9 - [facility] 15.5 % LABORATORIES - [facility] Platelet Count 317 150 - 450 [facility] X10(9)/L LABORATORIES - [facility] Lymphocytes 2.29 0.90 - [facility] 2.90 LABORATORIES - X10(9)/L [facility] Monocytes 0.61 0.30 - [facility] 0.90 LABORATORIES - X10(9)/L [facility] Erythrocytes 4.97 3.90 - [facility] 5.03 LABORATORIES - X10(12)/L [facility] MCV 82.9 81.6 - [facility] 98.3 FL LABORATORIES - [facility] Leukocytes 8.1 3.5 - [facility] 10.5 LABORATORIES - X10(9)/L [facility] Neutrophils 5.11 1.70 - [facility] 7.00 LABORATORIES - X10(9)/L [facility] Eosinophils 0.06 0.05 - [facility] 0.50 LABORATORIES - X10(9)/L [facility] Basophils 0.03 0.00 - [facility] 0.30 LABORATORIES - X10(9)/L [facility] Specimen Anatomical Collection Method Collection Time Receive d Time (Source) Location / / Volume Laterality 09/27/2014 11:34 09/27/2014 AM LEAN MANAGER 11:34 AM LEAN MANAGER Candido Brandon M.D. LAB BLOOD ADD-ON Performing Organization Address City/State/ZIP Code Phon e Number [facility] LABORATORIES - [address] [place], [place] [address] [facility] Salicylate Level (09/27/2014 11:34 AM LEAN MANAGER) [facility] Method Time Signature Salicylate, S <5.0 SeeComment [facility] MG/DL LABORATORIES - [facility] Comment: ? REFERENCE VALUE------ ? 2 - 20 (Adult therapeutic concentration) , > or = 50 ? (Toxic concentration) ? Specimen Anatomical Collection Method Collection Time Receive d Time (Source) Location / / Volume Laterality 09/27/2014 11:34 09/27/2014 AM LEAN MANAGER 11:34 AM LEAN MANAGER Candido Brandon M.D. LAB BLOOD ADD-ON Performing Organization Address City/State/ZIP Code Phon e Number [facility] LABORATORIES - [address] [place], [place] [address] [facility] Glucose, POCT (09/27/2014 11:32 AM LEAN MANAGER) [facility] gist Method Time Signature Glucose, POCT, 100 70 - 140 [facility] B MG/DL LABORATORIES - [facility] Sample Site, Venstick [facility] Blood Gas, LABORATORIES - POCT [facility] Specimen Anatomical Collection Method Collection Time Receive d Time (Source) Location / / Volume Laterality 09/27/2014 11:32 09/27/2014 AM LEAN MANAGER 11:32 AM LEAN MANAGER Historical Provider LAB POCT ORDERABLES-MANUAL Performing Organization Address City/State/ZIP Code Phon e Number [facility] LABORATORIES - [address] [place], [place] [address] [facility] documented in this encounter Visit Diagnoses Not on filedocumented in this encounter Additional Health Concerns Assessment Noted Time PHQ-9 Depression Total Score: 16 11/25/2012 12:45 PM C DT documented as of this encounter
--- OUTSIDE RECORDS SUMMARY | 2022-05-17 14:01 | XMS_ITS | Encounter Summary ---
:1980 Author Organization [facility] Address [address] [place] [address] Care Team Providers Name Role Phone Unassigned, Pcp Primary Care Provider Unavailable Reason for Visit Auth/Cert Specialty Diagnoses / Procedures Referred By Contact Refer red To Contact Diagnoses Pain Right Upper Quadrant R10.11 Procedures ME EGD TRANSORAL DX ESOPHAGOGASTRODUODENOSCOPY Referral ID Status Reason Start Date Expiration Date Visits Requ ested Visits Authorized [id number] 1 1 Encounter Details Date Type Department Care Team Description 01/28/2018 Hospital Encounter Department of [facility] Obstruction [address] [place] [phone] Social History Tobacco Use Types Packs/Day Years [...] 6 (six) hours as needed for pain. ibuprofen (ADVIL,MOTRIN) Take 5 tablets by 0 05/0 12/201606/30/2018 200 mg tablet mouth every 6 (six) hours. raNITIdine (ZANTAC) 75 mg Take 75 mg by mouth 0 07/02/2018 tablet daily. documented as of this encounter Plan of Treatment Not on filedocumented as of this encounter Visit Diagnoses Diagnosis Cholelithiasis Acute Cholecystitis Obstr uction documented in this encounter Additional Health Concerns Assessment Noted Time PHQ-9 Depression Total Score: 16 11/25/2012 12:45 PM C DT documented as of this encounter Care Teams Integrity Assessor Relationship Specialty Start Date End Date Unassigned, Pcp PCP - General Family Medicine 01/06/18 09/27/19 documented as of this encounter
--- OUTSIDE RECORDS SUMMARY | 2022-05-17 14:01 | XMS_ITS | Encounter Summary ---
:1980 Author Organization [facility] Address [address] [place] [address] Care Team Providers Name Role Phone Unavailable Primary Care Provider Unavailable Encounter Details Date Type Department Care Team Description 02/17/2013 Hospital Encounter HX [facility] OBGYN Ann Vargas, L.P.N. [address] [place], [place] [phone] Social History Tobacco Use Types Packs/Day Years Used Date Smoking Tobacco: Never Assessed Sex Assigned at Date Recorded Not on file documented as of this encounter Miscellaneous Notes Miscellaneous - Mary Vargas, L.P.N. - 02/17/2013 12:00 AM CDT [id number] [address] [place] [address] SURGERY SCHEDULING CHECKLIST - UNIT SUPERVISOR* Patient Name: Shruthi Diop Date of : 1980 Gender: female Patient Phone numbers: [phone] (home) Best Phone # to be contacted at: [phone]. BMI: Estimated Body mass index is 28.06 kg/(m Height as of 03/17/02: 5' 3.5(1.613 m). Weight as of an earlier encounter on 02/17/13: 160 lb 14.4 oz(72.984 kg). SURGERY DATE: Cancelled due to no insurance. JF 02/24/13 Surgeon: Other - Dr Ahuja Anesthesia: General Procedure as on Consent: laparoscopic assisted vaginal hysterectomy, possible laparotomy with total abdominal hysterectomy PROCEDURE: LAVH, possible laparotomy KARIME Surgeon Time: 2 1/2 hours Diagnosis: leimyomotous uterus, pelvic pain Pre-Op MD: Dr Dillard Latex Allergy: No Work Comp: NO SPECIAL EQUIPMENT/SPECIAL INSTRUCTION Special Equipment needed: none Special Instructions/Prep: none Rn Transfer Needed: MD Only Laparoscopic Cases: Mao needed: Yes Surgery Brochure given: No Patient needs a 30 minute appt for paperwork: Yes Post-Op appointment (Length & # of days) 1 week Clinic section complete - Please send this to the appropriate group(s). 30 minutes paperwork appt made: {YES NO:[id number]} Duralumin Mechanic requested: {HOSPITAL SECRETARY YES/NO:070631} DISCHARGE PLANNING ASSESSMENT: Plan after Discharge: {[facility] DISCHARGE PLAN:883142} How are you getting home upon discharge from medical center? Social Service concerns: {Yes /No default.:107208::No} PATIENT NAME: Shruthi Diop DATE: February 17, 2013 DATE OF :1980 BMI: Estimated Body mass index is 28.06 kg/(mr on 02/17/13: 160 lb 14.4 oz(72.984 kg). ANESTHESIA Any possibility you could be ? {YES NO:367066} LMP: Do you have a diagnosis of sleep apnea?{YES NO:222333} If yes, do you use a CPAP or BiPAP machine? {YES NO:367476} Do you have a history of snoring? {YES NO:672836} Do you have a history of ceasing breathing while sleeping? {YES NO:411481} Have you been told that it is difficult to place a breathing tube in your airway (intubate)? { PATNEVER HAD SURGERY:796266} Do you or a family member have a history of high fever after anesthesia (malignant hyperthermia)? {RW PAT NEVER HAD SURGERY:456458} Do you have a history of severe nausea and vomiting after anesthesia? {RW PAT NEVER HAD SURGERY:405093} Do you have motion sickness? {YES NO:722492} Do you have a history of severe reaction to anesthesia? {RW PAT NEVER HAD SURGERY:275295} Do you have druze or other objections to blood transfusion? {YES NO PAT:106778} {Press delete if not required - [facility] LIST:353767} Completed by: [facility] Document Id: [id number] Electronically signed by Elsy [facility] [employer] Manager [id number] at 02/04/2017 6:03 PM CDT documented in this encounter Plan of Treatment Not on filedocumented as of this encounter Visit Diagnoses Not on filedocumented in this encounter Additional Health Concerns Assessment Noted Time PHQ-9 Depression Total Score: 16 11/25/2012 12:45 PM C DT documented as of this encounter
--- OUTSIDE RECORDS SUMMARY | 2022-05-17 14:01 | XMS_ITS | Encounter Summary ---
:1980 Author Organization [facility] Address [address] [place] [address] Care Team Providers Name Role Phone Unassigned, Pcp Primary Care Provider Unavailable Reason for Referral Outpatient (Routine) - Closed Specialty Diagnoses / Procedures Referred By Contact Refer ramon To Contact Diagnoses Colic Biliary par review Compa Urbina M.D. [facility] [place] [facility] Procedures KILLIAN CONS NURSE [address] [place] [address] Referral ID Status Reason Start Date Expiration Date Visits Requ ested Visits Authorized [id number] Closed 01/06/2018 07/05/2018 1 1 utpatient (Routine) - Closed Specialty Diagnoses / Procedures Referred By Contact Daniel ugarte To Contact Family Medicine Diagnoses Colic Biliary Colic Biliary Compa Urbina M.D. [facility] [place] [facility] Procedures FAM KILLIAN [address] [place] [address] Referral ID Status Reason Start Date Expiration Date Visits Requ ested Visits Authorized [id number] Closed 01/06/2018 07/05/2018 1 1 Reason for Visit Reason Comments Results EGD Outpatient (Routine) - Closed Specialty Diagnoses / Procedures Referred By Contact Daniel ugarte To Contact General Surgery Diagnoses par review Compa Urbina M.D. [facility] [place] [facility] Procedures GNS EST [address] [place] [address] Referral ID Status Reason Start Date Expiration Date Visits Requ ested Visits Authorized [id number] Closed 12/31/2017 06/29/2018 1 1 Encounter Details Date Type Department Care Team Description 01/06/2018 Office Visit Department of General Compa Urbina Col ic Biliary (Primary Surgery in Ramon [place] M.D. Dx) [address] [place], [place] [phone] Social History Tobacco Use Types Packs/Day Years Used Date Smoking Tobacco: Some Days Cigarettes E-cigarettes Smokeless Tobacco: Never Alcohol Use Standard Drinks/Week Comments Yes 0 (1 standard drink = 0.6 oz pure alcoho l) Sex Assigned at Date Recorded Not on file documented as of this encounter Last Filed Vital Signs Vital Sign Reading Time Taken Comments Blood Pressure 132/88 01/06/2018 9:25 AM CDT Pulse 98 01/06/2018 9:23 AM CDT Temperature 36.5 ??C (97.7 ??F) 01/06/2018 9:23 AM CDT Respiratory Rate - - Oxygen Saturation - - Inhaled Oxygen Concentration - - Weight - - Height - - Body Mass Index - - documented in this encounter Progress Notes Compa Urbina M.D. - 01/06/2018 9:30 AM CDT SUBJECTIVE Ms. Shruthi Jones is a 37 y.o. female who presents with Chief Complaint Patient presents with ??? Results EGD this patient reports no new issues after her EGD. She reports she is doing better from the standpoint of upper abdominal pain. She is working on avoiding E cigarettes. She is aware that alcohol an anti-inflammatory medications may have led to some of the gastritis seen on imaging. She is interested in proceeding laparoscopic cholecystectomy at this time. No family history on file. Social History Social History ??? Marital status: Spouse name: N/A ??? Number of children: N/A ??? Years of education: N/A Social History Main Topics ??? Smoking status: Current Some Day Smoker Types: Cigarettes, E-cigarettes ??? Smokeless tobacco: Never Used ??? Alcohol use Yes ??? Drug use: No ??? Sexual activity: Not Asked Other Topics Concern ??? None Social History Narrative ??? None Past Medical History: Diagnosis Date ??? Pain Abdominal NOS Past Surgical History: Procedure Laterality Date ??? APPENDECTOMY N/A Appendectomy;.. ??? DECOMPRESSION OF MEDIAN NERVE N/A 06/17/2012 Carpal tunnel release ??? ESOPHAGOGASTRODUODENOSCOPY N/A 01/01/2018 Procedure: ESOPHAGOGASTRODUODENOSCOPY; Surgeon: Compa Urbina M.D.; Location: [facility] GI LAB ??? OTHER CONVERTED SHX (SEE COMMENT) N/A 10/15/2011 >1. Operative laparoscopy. 2. Myomectomy. ??? OTHER SURGICAL HISTORY N/A 10/13/2011 Myomectomy, excision of fibroid tumor(s) of uterus, 1 to 4 intramural myoma(s) with total weight of250 g or less and/or removal of surface myomas; abdominal approach.. Allergies Allergen Reactions ??? Sulfamethoxazole-Trimethoprim Hives morbilliform, macular, papular eruption Prior to Admission medications Medication Sig Start Date End Date Taking? Authorizing Provider acetaminophen (TYLENOL) 500 mg tablet Take 1,000 mg by mouth every 6 (six) hours as needed for pain.Yes Historical ProviderMikey ibuprofen (ADVIL,MOTRIN) 200 mg tablet Take 5 tablets by mouth every 6 (six) hours. 01/10/17 Yes Historical ProviderMikey raNITIdine (ZANTAC) 75 mg tablet Take 75 mg by mouth daily. Yes Historical ProviderMikey Review of Systems Review of systems negative except as listed in HPI OBJECTIVE Vital Signs Temperature: [36.5 ??C] 36.5 ??C Blood Pressure: (132-149)/(88-94) 132/88 Pulse Rate: [98] 98 Physical Exam BP 132/88 Pulse 98 Temp 36.5 ??C (Temporal) General: NAD, conversant Eyes: Anicteric sclerae, moist conjunctiva;no lid-lag; PERRLA HENT: Atraumatic; oropharynx clear with moist mucous membranes; no mucosal ulcerations Neck: Trachea midline; grossly normal range of motion, supple, no thyromegaly or lymphadenopathy Lungs: CTA, with normal respiratory effort and no intercostal retractions CV: RRR, no murmurs, rubs, nor gallops Abd: Soft, non-tender; no masses or HSM Ext: No peripheral edema or extremity lymphadenopathy Skin: Normal temperature, turgor and texture; no rash, ulcers or subcutaneous nodules Psych: Appropriate affect, alert and oriented to person, place and time Assessment/Plan #1 Colic Biliary We are still awaiting the previous reports so as to allow us to summarize those concerning previous experience with ???infection?? in the abdomen among others. She evidently was in the ICU for number of days would like to understand with that was all about so we can properly characterize her risks. However at this time with what I believed to be the case we are confident with at least going over the plan for surgery. We are planning laparoscopic cholecystectomy. I do believe I can enter the left upper quadrant Veress needle technique. I explained this is higher risk given her previous infection and there are potential he is in this area this could not go away we want in terms of a vascular or intestinal issue or injury. Regardless of were able to enter safely we will plan a a total 5 trocar laparoscopic cholecystectomy. I explained to her risk of bile duct injury and particular has could be higher is result of her previous surgery how we would try to perform a cholangiogram and that occasion that fails and even then bile duct injury risk can occur. Other risks of surgery including bleeding scarring pain infection and hernia were discussed. Bile leak was discussed. Hepaticojejunostomy reconstructive techniques were also discussed which expect there. She is aware she is at higher her risk as result of this previous s urgical difficulties encountered. She did note that she classically is a difficult patient in this regard. I did discuss with her our pain management strategy including a transverse abdominis plane block, schedule Tylenol, scheduled Aleve, Ultram. I explained narcotics would not be given at time of surgery. She is aware and will proceed accordingly. documented in this encounter Plan of Treatment Scheduled Referrals Name Type Priority Associated Order Schedule Diagnoses Primary Care - KILLIAN Outpatient Referral Routine Colic Biliary E xpected: consult (clinic) 01/19/2018 (Approximate), Expires: 01/06/2021 Pre Operative Outpatient Referral Routine Colic Biliary Expect ed: Evaluation KILLIAN nurse 018 consult (clinic) (Approximat e), Expires: 01/06/2021 documented as of this encounter Visit Diagnoses Diagnosis Colic Biliary - Primary documented in this encounter Additional Health Concerns Assessment Noted Time PHQ-9 Depression Total Score: 16 11/25/2012 12:45 PM C DT documented as of this encounter Care Teams Final Armature Tester Relationship Specialty Start Date End Date Unassigned, Pcp PCP - General Family Medicine 01/06/18 09/27/19 documented as of this encounter
--- OUTSIDE RECORDS SUMMARY | 2022-05-17 14:01 | XMS_ITS | Encounter Summary ---
:1980 Author Organization [facility] Address [address] [place] [address] Care Team Providers Name Role Phone Unassigned, Pcp Primary Care Provider Unavailable Encounter Details Date Type Department Care Team Description 01/23/2018 Abstract Department of Family Medicine, Provider, [facility], in [place], [place] [address] [place] [address] Social History Tobacco Use Types Packs/Day Years [...] Name Priority Date/Time Associated Diagnosis Comme nts CBC WITH DIFFERENTIAL, Routine 12/19/2017 Resul ts for this B procedure are i n the results section . HEPATIC FUNCTION PANEL Routine 12/19/2017 Resul ts for this procedure are i n the results section . documented in this encounter Results (ABNORMAL) Hepatic function panel (12/19/2017) Patholo gist Method Time Signature Alkaline 81 25 - 125 EXTERNAL Phosphatase, S NON-INTERFACE D LAB Alanine 39 (A) 7 - 35 EXTERNAL Amniotransferase, LD NON-INTER FACE D LAB Aspartate 29 13 - 35 EXTERNAL Aminotransferase NON-INTERFACE (AST), S D LAB Specimen (Source) Anatomical Location Collection Method / Collectio n Time Received Time / Laterality Volume Blood (Blood, Venous) Ordering Provider External M.D. LAB BLOOD ADD-ON Performing Organization Address City/State/ZIP Code Phon e Number EXTERNAL NON-INTERFACED LAB [address] [place], [place] [address] CBC with Differential, Blood (12/19/2017) P athologist Signature Hemoglobin 13.8 12.0 - EXTERNAL 16.0 NON-INTERFACED LAB Hematocrit 40 36 - 46 % EXTERNAL NON-INTERFACED LAB Platelet Count 321 150 - 399 EXTERNAL NON-INTERFACED LAB Specimen (Source) Anatomical Location Collection Method / Collectio n Time Received Time / Laterality Volume Blood (Blood, Venous) Ordering Provider External M.D. LAB BLOOD ADD-ON Performing Organization Address City/State/ZIP Code Phon e Number EXTERNAL NON-INTERFACED LAB [address] [place], [place] [address] documented in this encounter Visit Diagnoses Not on filedocumented in this encounter Additional Health Concerns Assessment Noted Time PHQ-9 Depression Total Score: 16 11/25/2012 12:45 PM C DT documented as of this encounter Care Teams Landfill Gas Technician Relationship Specialty Start Date End Date Unassigned, Pcp PCP - General Family Medicine 01/06/18 09/27/19 documented as of this encounter
--- OUTSIDE RECORDS SUMMARY | 2022-05-17 14:01 | XMS_ITS | Encounter Summary ---
:1980 Author Organization [facility] Address [address] [place] [address] Care Team Providers Name Role Phone Unavailable Primary Care Provider Unavailable Encounter Details Date Type Department Care Team Description 02/11/2013 Hospital Encounter HX NO MAPPING Neil Barrett M.D. [address] [phone] (Wo rk) Social History Tobacco Use Types [...]
--- OUTSIDE RECORDS SUMMARY | 2022-05-17 14:01 | XMS_ITS | Encounter Summary ---
:1980 Author Organization [facility] Address [address] [place] [address] Care Team Providers Name Role Phone Unavailable Primary Care Provider Unavailable Encounter Details Date Type Department Care Team Description 02/11/2013 Hospital Encounter HX NO MAPPING Neil Barrett M.D. [address] [phone] (Wo rk) Social History Tobacco Use Types [...]
--- OUTSIDE RECORDS SUMMARY | 2022-05-17 14:01 | XMS_ITS | Encounter Summary ---
:1980 Author Organization [facility] Address [address] [place] [address] Care Team Providers Name Role Phone Unavailable Primary Care Provider Unavailable Encounter Details Date Type Department Care Team Description 01/10/2017 - Hospital Encounter HX RST Don Garber, 01/12/[address] [place] [phone] Social History Tobacco Use Types Packs/Day Years Used Date Smoking Tobacco: Every Day Sex Assigned at Date Recorded Not on file documented as of this encounter Last Filed Vital Signs Vital Sign Reading Time Taken Comments Blood Pressure 115/75 01/12/2017 12:03 NIBP - Value fr om PM CDT Chart[facility]. Pulse 83 01/12/2017 12:03 Value from Nicoel tplus. PM CDT Temperature - - Respiratory Rate 128 01/12/2017 9:10 AM Value from Valeria bal. CDT Oxygen Saturation - - Inhaled Oxygen - - Concentration Weight 79.3 kg (174 lb 13.2 01/10/2017 5:41 PM oz) CDT Height 160 cm (5' 2.99) 01/10/2017 5:41 PM CDT Body Mass Index 30.98 01/10/2017 5:41 PM CDT documented in this encounter Medications at Time of Discharge Medication Sig Dispensed Refills Start Date End Date ibuprofen (ADVIL,MOTRIN) Take 5 tablets by 0 12/201606/30/2018 200 mg tablet mouth every 6 (six) hours. documented as of this encounter Plan of Treatment Not on filedocumented as of this encounter Procedures Procedure Name Priority Date/Time Associated Comments Diagnosis ELPN WITH CREATININE Routine 01/12/2017 5:33 Resu lts for this DMITRI, P AM CDT procedure are i n the results section. CBC WITH DIFFERENTIAL, B Routine 01/12/2017 5:33 Results for this AM CDT procedure are i n the results section. ALANINE AMINOTRANSFERASE Routine 01/12/2017 5:33 Results for this (ALT), S/P AM CDT procedure are i n the results section. ASPARTATE Routine 01/12/2017 5:33 Results for this AMINOTRANSFERASE (AST), AM CDT proc edure are in S/P the results section. DERMATOPATHOLOGY Routine 01/11/2017 12:51 Results for this PM CDT procedure are i n the results section. ELPN WITH CREATININE Routine 01/11/2017 10:50 Res ults for this DMITRI, P AM CDT procedure are i n the results section. CBC WITH DIFFERENTIAL, B Routine 01/11/2017 10:50 Results for this AM CDT procedure are i n the results section. documented in this encounter Results Electrolyte Panel with Creatinine Dmitri (01/12/2017 5:33 AM CDT) athologist Signature Sodium, P 141 135 - 145 [facility] MMOL/L LABORATORIES - [facility] Potassium, P 4.3 3.6 - 5.2 [facility] MMOL/L LABORATORIES - [facility] HX 23 22 - 29 [facility] Bicarbonate, MMOL/L LABORATORIES - P/S [facility] Creatinine, 0.5 0.5 - 0.9 [facility] Dmitri MG/DL [facility] - [facility] Chloride, S 107 98 - 107 [facility] MMOL/L LABORATORIES - [facility] BUN (Blood 11 6 - 21 [facility] Urea MG/DL LABORATORIES - Nitrogen), S [facility] Glucose, S 98 70 - 140 [facility] MG/DL LABORATORIES - [facility] Anion Gap 11 7 - 15 [facility] LABORATORIES - [facility] Specimen Anatomical Collection Method Collection Time Receive d Time (Source) Location / / Volume Laterality 01/12/2017 5:33 AM 7 5:33 CDT AM CDT Chrissy Castro M.D. LAB BLOOD ADD-ON Performing Organization Address City/State/ZIP Code Phon e Number [facility] LABORATORIES - [address] [place], [place] [address] [facility] (ABNORMAL) ALT (Alanine Aminotransferase) (01/12/2017 5:33 AM CDT) [facility] gist Method Time Signature Alanine 86 (H) 7 - 45 [facility] Aminotransferase U/L LABORATORIES - (ALT), S [facility] Specimen Anatomical Collection Method Collection Time Receive d Time (Source) Location / / Volume Laterality 01/12/2017 5:33 AM 7 5:33 CDT AM CDT Chrissy Castro M.D. LAB BLOOD ADD-ON Performing Organization Address City/State/[facility] Code Phon e Number [facility] LABORATORIES - [address] [place], [place] [address] [facility] (ABNORMAL) CBC with Differential (01/12/2017 5:33 AM CDT) [facility] Method Time Signature Hemoglobin 12.6 12.0 - [facility] 15.5 G/DL LABORATORIES [facility] Hematocrit 36.2 34.9 - [facility] 44.5 % LABORATORIES [facility] RBC Distrib 13.2 11.9 - [facility] Width 15.5 % LABORATORIES - [facility] Platelet Count 135 (L) 150 - 450 [facility] X10(9)/L LABORATORIES [facility] Leukocytes 5.3 3.5 - [facility] 10.5 LABORATORIES - X10(9)/L [facility] Neutrophils 3.39 1.70 - [facility] 7.00 LABORATORIES - X10(9)/L [facility] Lymphocytes 1.46 0.90 - [facility] 2.90 LABORATORIES - X10(9)/L [facility] Monocytes 0.26 (L) 0.30 - [facility] 0.90 LABORATORIES - X10(9)/L [facility] Eosinophils 0.16 0.05 - [facility] 0.50 LABORATORIES - X10(9)/L [facility] Basophils 0.02 0.00 - [facility] 0.30 LABORATORIES - X10(9)/L [facility] Erythrocytes 4.31 3.90 - [facility] 5.03 LABORATORIES - X10(12)/L [facility] MCV 84.0 81.6 - [facility] 98.3 [place] LABORATORIES - [facility] Specimen Anatomical Collection Method Collection Time Receive d Time (Source) Location / / Volume Laterality 01/12/2017 5:33 AM 7 5:33 CDT AM CDT Chrissy Castro M.D. LAB BLOOD ADD-ON Performing Organization Address City/State/[facility] Code Phon e Number [facility]ORATORIES - [address] [place], [place] [address] [facility] (ABNORMAL) AST (Aspartate Aminotransferase) (01/12/2017 5:33 AM CDT) Analysis Performed At Patho logist Time Signature AST, Total, S 55 (H) 8 - 43 U/L [facility] Specimen Anatomical Collection Method Collection Time Receive d Time (Source) Location / / Volume Laterality 01/12/2017 5:33 AM 7 5:33 CDT AM CDT Chrissy Castro M.D. LAB BLOOD ADD-ON Performing Organization Address City/State/ZIP Code Phon e Number [facility] - [address] [place], [place] [address] [facility] Dermatopathology (01/11/2017 12:51 PM CDT) Specimen Anatomical Collection Method Collection Time Receive d Time (Source) Location / / Volume Laterality 01/11/2017 12:51 01/11/2017 PM CDT 12:51 PM CDT Narrative [facility] - 01/11/2017 12:51 PM CDT ??01/11/2017 Dermatopathology Report (D [id number]) ? Requested By:Sultan Sakshi Mann M.D. ??[phone] ?DIAGNOSIS: A. ??Right flank, Skin punch biopsy: ?? Vacuolar interface dermatitis with scattered dyskeratotic keratinocyt es, consistent with the clinical impression of drug reaction ?? Comment: ??Clinical photos and clinical notes reviewed. ? 01/14/2017 11:30 ??Interpreted by: Bridget Orellana [id number] Report electronically signed by Bridget Orellana M.D. Transcribed by: [email or web address] 01/11/2017 15:30:32 ?? SPECIMEN DESCRIPTION: ?A. ??Received in formalin label ed with the patient's name and and la beled as right flank is a 0.5 cm in average diameter pale alvarez ski n punch biopsy excised to a depth of 0.5 cm. No discrete lesion is grossly identified on the skin surface. ??The specimen is bisecte d and submitted entirely in cassette A1. ?? TISSUE DESCRIPTION: ?? [id number] ??A1 ? Procedure Note 11/30/2017 01/11/2017 Dermatopathology Report ([id number]) Requested By:Sultan Sakshi Mann M.D. [id number] DIAGNOSIS: A. Right flank, Skin punch biopsy: Vacu olar interface dermatitis with scattered dyskeratotic keratinocyt es, consistent with the clinical impression of drug reaction Comment: Clinical photos and clinical n otes reviewed. 01/14/2017 11:30 Interpreted by: Bridget Orellana [id number] Report electronically signed by Bridget Orellana M.D. Transcribed by: [email or web address] 01/11/2017 15:30:32 SPECIMEN DESCRIPTION: A. Received in formalin labeled with th e patient's name and and la beled as right flank is a 0.5 cm in average diameter pale alvarez ski n punch biopsy excised to a depth of 0.5 cm. No discrete lesion is grossly identified on the skin surface. The specimen is bisected and submitted entirely in cassette A1. TISSUE DESCRIPTION: [id number] A1 Sultan Angie Mann M.D. LAB PATH DERM ORDERABLES Performing Organization Address City/State/ZIP Code Phon e Number [facility] LABORATORIES - [address] [place] [address] [facility] Electrolyte Panel with Creatinine Dmitri (01/11/2017 10:50 AM CDT) P athologist Signature Sodium, P 142 135 - 145 [facility] MMOL/L LABORATORIES - [facility] Potassium, P 4.2 3.6 - 5.2 [facility] MMOL/L LABORATORIES - [facility] HX 23 22 - 29 [facility] Bicarbonate, MMOL/L LABORATORIES - P/S [facility] Creatinine, 0.5 0.5 - 0.9 [facility] Dmitri MG/DL LABORATORIES - [facility] Chloride, S 107 98 - 107 [facility] MMOL/L LABORATORIES - [facility] BUN (Blood 8 6 - 21 [facility] Urea MG/DL LABORATORIES - Nitrogen), S [facility] Glucose, S 125 70 - 140 [facility] MG/DL LAB[facility]ATORIES - [facility] Anion Gap 12 7 - 15 [facility] LABORATORIES - [facility] Specimen Anatomical Collection Method Collection Time Receive d Time (Source) Location / / Volume Laterality 01/11/2017 10:50 01/11/2017 AM CDT 10:50 AM CDT Kedar España M.D. LAB BLOOD ADD-ON Performing Organization Address City/State/ZIP Code Phon e Number [facility] LABORATORIES - [address] [place], [place] [address] [facility] (ABNORMAL) CBC with Differential (01/11/2017 10:50 AM CDT) [facility] gist Method Time Signature Erythrocytes 4.38 3.90 - [facility] 5.03 LABORATORIES - X10(12)/L [facility] MCV 83.6 81.6 - [facility] 98.3 [place] LABORATORIES - [facility] RBC Distrib 13.1 11.9 - [facility] Width 15.5 % LABORATORIES - [facility] Platelet Count 111 (L) 150 - 450 [facility] X10(9)/L LABORATORIES [facility] Leukocytes 5.3 3.5 - [facility] 10.5 LABORATORIES - X10(9)/L [facility] Neutrophils 4.72 1.70 - [facility] 7.00 LABORATORIES - X10(9)/L [facility] Lymphocytes 0.44 (L) 0.90 - [facility] 2.90 LABORATORIES - X10(9)/L [facility] Monocytes 0.13 (L) 0.30 - [facility] 0.90 LABORATORIES - X10(9)/L [facility] Eosinophils 0.00 (L) 0.05 - [facility] 0.50 LABORATORIES - X10(9)/L [facility] Basophils 0.01 0.00 - [facility] 0.30 LABORATORIES - X10(9)/L [facility] Hemoglobin 13.1 12.0 - [facility] 15.5 G/DL LABORATORIES - [facility] Hematocrit 36.6 34.9 - [facility] 44.5 % LABORATORIES - [facility] Specimen Anatomical Collection Method Collection Time Receive d Time (Source) Location / / Volume Laterality 01/11/2017 10:50 01/11/2017 AM CDT 10:50 AM CDT Kedar España M.D. LAB BLOOD ADD-ON Performing Organization Address City/State/ZIP Code Phon e Number [facility] LAB[facility]ATORIES - [address] [place], [place] [address] [facility] documented in this encounter Visit Diagnoses Not on filedocumented in this encounter Additional Health Concerns Assessment Noted Time PHQ-9 Depression Total Score: 16 11/25/2012 12:45 PM C DT documented as of this encounter
--- OUTSIDE RECORDS SUMMARY | 2022-05-17 14:01 | XMS_ITS | Encounter Summary ---
:1980 Author Organization [facility] Address [address] [place] [address] Care Team Providers Name Role Phone Unassigned, Pcp Primary Care Provider Unavailable Reason for Visit Reason Comments Pre-op Exam DOS 01-28-18 / Laproscopic Ch olecystectomy/ Dr Urbina Outpatient (Routine) - Closed Specialty Diagnoses / Procedures Referred By Contact Refer red To Contact Family Medicine Diagnoses Colic Biliary Colic Biliary Compa rUbina M.D. [facility] Region Procedures FAM [facility] [address] [place] [phone] Referral ID Status Reason Start Date Expiration Date Visits Requ ested Visits Authorized [id number] Closed 01/06/2018 07/05/2018 1 1 Encounter Details Date Type Department Care Team Description 01/20/2018 Office Visit Department of Family Carlitos, Eve Alexander M.D. [address] [place] [phone] Preoperative Exam (Primary Dx); Medicine, [place] Dmitry Diggs M.D. [address] [place] [phone] Colic Biliary; Clinic, in [place], [facility] sophageal Reflux Disease [address] [phone] Social History Tobacco Use Types Packs/Day Years Used Date Smoking Tobacco: Some Days Cigarettes E-cigarettes Smokeless Tobacco: Never Alcohol Use Standard Drinks/Week Comments Yes 0 (1 standard drink = 0.6 oz pure alcoho l) Sex Assigned at Date Recorded Not on file documented as of this encounter Last Filed Vital Signs Vital Sign Reading Time Taken Comments Blood Pressure 136/90 01/20/2018 2:16 PM CDT Pulse 96 01/20/2018 2:16 PM CDT Temperature 36.7 ??C (98.1 ??F) 01/20/2018 2:16 PM CDT Respiratory Rate - - Oxygen Saturation - - Inhaled Oxygen Concentration - - Weight 80.5 kg (177 lb 7.5 oz) 01/20/2018 2:16 PM CDT Height 156 cm (5' 1.42) 01/20/2018 2:16 PM CDT Body Mass Index 33.08 01/20/2018 2:16 PM CDT documented in this encounter H&P Notes Dmitry Diggs M.D. - 01/20/2018 2:30 PM CDT FAMILY MEDICINE PREOPERATIVE EXAM: DATE OF SERVICE: 01/20/2018 CHIEF COMPLAINT/REASON FOR VISIT Preoperative exam Chief Complaint Patient presents with ??? Pre-op Exam DOS 01-28-18 / Laproscopic Cholecystectomy/ Dr Urbina HISTORY OF PRESENT ILLNESS Date of Surgery: 01/28/2018 Type of Anticipated Surgery: Lap cholecystectomy Reason for Surgery: cholelithiasis Consulting Surgeon: Dr. Urbina, General Surgery. Type of Anesthesia Anticipated: Choice This patient will be undergoing the above surgery. The consulting surgeon requests pre-anesthesia evaluation because of the following complicating medical problem(s): Patient presents for discussion of GERD of moderate severity for many years. Patient describes the symptoms as still having symptoms of reflux. Symptoms are not worsening. Patient denies any other aggravating or alleviating factors or associated symptoms. Treatments used so far include: omeprazole andZantac. She reports some infection after her hysterectomy 3 years ago at [facility] in [place], [place]. She spent2 weeks in the ICU afterward. She has a remote history of substance abuse, but states she is sober for at least the past 6-8 years. Latex allergy: no Personal or family history of difficulty with anesthesia: no Family History of bleeding disorders: no Personal history of bleeding disorders or thrombotic events: yes. Mother had a DVT. Patient denies any personal history of DVT. risk: no. Prior hysterectomy. Oral steroid use in the past year: No. Known sleep apnea or at risk for sleep apnea: no Current tobacco use: Yes. Current physical activities include: She is able to walk up 2 flights of stairs. Current Outpatient Prescriptions Medication Sig Dispense Refill ??? acetaminophen (TYLENOL) 500 mg tablet Take 1,000 mg by mouth every 6 (six) hours as needed for pain. ??? ibuprofen (ADVIL,MOTRIN) 200 mg tablet Take 5 tablets by mouth every 6 (six) hours. ??? raNITIdine (ZANTAC) 75 mg tablet Take 75 mg by mouth daily. No current facility-administered medications for this visit. Allergies Allergen Reactions ??? Sulfamethoxazole-Trimethoprim Hives morbilliform, macular, papular eruption Patient Active Problem List Diagnosis ??? Dysthymia ??? Dependence Polysubstance (HCC) ??? Pain Right Upper Quadrant ??? Colic Biliary Past Surgical History: Procedure Laterality Date ??? [...] removal of surface myomas; abdominal approach.. Family History Problem Relation Age of Onset ??? Heart disease Father ??? Hypertension Father ??? Hypertension Brother ??? Diabetes Maternal Grandfather Social History Social History ??? Marital status: Spouse name: N/A ??? Number of children: N/A ??? Years of education: N/A Social History Main Topics ??? Smoking status: Current Some Day Smoker Types: Cigarettes, E-cigarettes ??? Smokeless tobacco: Never Used ??? Alcohol use Yes ??? Drug use: No ??? Sexual activity: Defer Other Topics Concern ??? None Social History Narrative ??? None She is with 3 kids. SYSTEMS REVIEW A comprehensive review of systems is negative except for those items stated within the content of the HPI. Blood pressure 136/90, pulse 96, temperature 36.7 ??C, temperature source Temporal, height 156 cm, weight 80.5 kg. Body mass index is 33.08 kg/m??. PHYSICAL EXAMINATION GENERAL: Well-nourished, well-developed 37 y.o. year old in no apparent distress. Awake, alert, age appropriate. HEENT: Head is normocephalic, atraumatic. Bilateral pupils are equal, reactive to light, and accommodation. EOMs intact. Conjunctivae and sclera are clear. Bilateral external ears nontender to manipulation with clear canals. Bilateral TMs normal. Hearing is grossly normal. Nares patent with normal mucosa. Oropharynx pink and moist without exudate or erythema. NECK: Neck is supple. Thyroid is normal size and shape. Trachea is midline. CARDIOVASCULAR: Regular rate and rhythm. S1, S2 without murmurs. No rubs or gallops. No Lower extremity edema LUNGS: Clear to auscultation in bilateral anterior and posterior chest with easy respirations. ABDOMEN: Bowel sounds present throughout. Rounded, soft, without tenderness to palpation with no organomegaly. SKIN: Warm, pink, and dry. No rashes, excoriations, open areas. MUSCULOSKELETAL: normal musculature, and joint structure, Normal range of motion in all extremities.5/5 strength in bilateral upper and lower extremities with full ROM. LYLMPHATIC: No cervical, submandibular, supraclavicular adenopathy. NEUROLOGIC: Alert and oriented x 3. CN II-XII grossly intact. Bilateral brachioradialis, patellar, and Achilles tendon DTRs 2+/4+ bilaterally. Strength and tone normal in upper and lower extremities. Reflexes are symmetric DIAGNOSTICS: Results for orders placed or performed in visit on 01/20/18 CBC without Differential Result Value Ref Range Hemoglobin 15.1 (H) 11.6 - 15.0 g/dL Hematocrit 43.0 35.5 - 44.9 % Erythrocytes 5.04 3.92 - 5.13 x10(12)/L MCV 85.3 78.2 - 97.9 fL RBC Distrib Width 12.4 12.2 - 16.1 % Platelet Count 302 157 - 371 x10(9)/L Leukocytes 9.8 (H) 3.4 - 9.6 x10(9)/L EKG not needed. IMPRESSION/REPORT/PLAN Shruthi Jones presented today for preoperative examination for the planned procedure noted above. The patient has a good cardiopulmonary functional capacity and no further testing is indicated based on symptoms and examination today. Perioperative recommendations are as follows: Perioperative Recommendations: -Patient may proceed with planned procedure. -Patient requires no further testing prior to surgery. -Patient may take essential meds on the morning of surgery with small glass of water -Medication adjustments in preparation for surgery have been discussed with the patient. - stop aspirin and all NSAID use 10 days prior to surgery - tylenol can be used for pain management up until surgery - smoking increases risk for pulmonary complications, especially pneumonia - however stopping smoking within 6 wks of surgery increases risk further - recommend NOT stopping smoking at this time - smoking cessation recommended for correction health AFTER surgery - nicotine patch can be offered if patient - aspiration precautions, keep head of bed elevated 1. Colic Biliary - This will be addressed by the planned procedure. - Primary Care - [facility] consult (clinic) - CBC without Differential 2. Preoperative Exam - See above. - CBC without Differential 3. Gastroesophageal Reflux Disease - Stable on Zantac and omeprazole. Dmitry Diggs M.D. documented in this encounter Plan of Treatment Not on filedocumented as of this encounter Procedures Procedure Name Priority Date/Time Associated Diagnosis Comme nts CBC WITHOUT Routine 01/20/2018 2:45 PM Colic Biliary Results for this DIFFERENTIAL, B CDT Preoperative Exam procedu re are in the results section. documented in this encounter Results (ABNORMAL) CBC without Differential (01/20/2018 2:45 PM CDT) [facility] Method Time Signature Hemoglobin 15.1 (H) 11.6 - 01/20/2018 [facility] 15.0 g/dL 2:52 PM CDT [facility] Hematocrit 43.0 35.5 - 01/20/2018 [facility] 44.9 % 2:52 PM CDT [facility] Erythrocytes 5.04 3.92 - 01/20/2018 [facility] 5.13 2:52 PM CDT HEALTH x10(12)/L [facility] MCV 85.3 78.2 - 01/20/2018 [facility] 97.9 fL 2:52 PM CDT [facility] RBC Distrib Width 12.4 12.2 - 01/20/2018 [facility] 16.1 % 2:52 PM CDT [facility] Platelet Count 302 157 - 371 01/20/2018 [facility] x10(9)/L 2:52 PM CDT [facility] Leukocytes 9.8 (H) 3.4 - 9.6 01/20/2018 [facility] x10(9)/L 2:52 PM CDT [facility] Specimen Anatomical Collection Method Collection Time Receive d Time (Source) Location / / Volume Laterality Blood (Blood, 01/20/2018 2:45 PM 01/21/20 18 2:48 Venous) CDT PM CDT Dmitry Diggs M.D. LAB BLOOD ADD-ON Performing Organization Address City/State/ZIP Code Phon e Number [facility] [address] [place] [address] [facility] documented in this encounter Visit Diagnoses Diagnosis Preoperative Exam - Primary Colic Biliary Gastroesophageal Reflux Disease documented in this encounter Additional Health Concerns Assessment Noted Time PHQ-9 Depression Total Score: 16 11/25/2012 12:45 PM C DT documented as of this encounter Care Teams Fugitive Detective Relationship Specialty Start Date End Date Unassigned, Pcp PCP - General Family Medicine 01/06/18 09/27/19 documented as of this encounter
--- OUTSIDE RECORDS SUMMARY | 2022-05-17 14:01 | XMS_ITS | Encounter Summary ---
:1980 Author Organization [facility] Address [address] [place] [address] Care Team Providers Name Role Phone Unavailable Primary Care Provider Unavailable Encounter Details Date Type Department Care Team Description 12/24/2017 Hospital Encounter Department of Beth Burr [facility] [place] [address] [address] [place], [place] [phone] (Work) [phone] Social History Tobacco Use Types Packs/Day Years Used Date Smoking Tobacco: Former Sex Assigned at Date Recorded Not on [...] Procedure Name Priority Date/Time Associated Comments Diagnosis US ABDOMEN RAD - Routine 12/24/2017 2:49 Pain Right Upper Results for this COMPLETE (most inpatients PM CDT Quadrant procedure a re in and all the results outpatients) section. documented in this encounter Results US Abdomen Complete (12/24/2017 2:49 PM CDT) Anatomical Region Laterality Modality Abdomen, Ultrasound RST LOS N/A Ultrasound Specimen (Source) Anatomical Collection Method Collection Time Re ceived Time Location / / Volume Laterality 12/24/2017 2:49 PM CDT Impressions 12/24/2017 2:58 PM CDT IMPRESSION: 1. Cholelithiasis. 2. Hepatic steatosis. Narrative 12/24/2017 2:58 PM CDT EXAM: US ABDOMEN COMPLETE COMPARISON: Correlation is made with 02/11 CT FINDINGS: Liver: Increased echogenicity. Gallbladder: Shadowing gallstone. No wal l thickening. No pericholecystic fluid. Negative sonographic Henderson sign, per so nographer. Intrahepatic ducts: Not dilated Common duct: Mildly prominent measuring 6 mm. Pancreas: Unremarkable where seen Right kidney: Length of 11.2 cm. No hydr onephrosis. 1.2 cm cyst. Left kidney: Length of 11.9 cm. No hydro nephrosis Aorta: Normal caliber. IVC: Normal where seen. Spleen: 9.3 Other: No ascites. Procedure Note Jamari Tam M.D. - 12/24/2017Formatt ing of this note might be different from the original. EXAM: US ABDOMEN COMPLETE COMPARISON: Correlation is made with 02/11 CT FINDINGS: Liver: Increased echogenicity. Gallbladder: Shadowing gallstone. No wal l thickening. No pericholecystic fluid. Negative sonographic Henderson sign, per so nographer. Intrahepatic ducts: Not dilated Common duct: Mildly prominent measuring 6 mm. Pancreas: Unremarkable where seen Right kidney: Length of 11.2 cm. No hydr onephrosis. 1.2 cm cyst. Left kidney: Length of 11.9 cm. No hydro nephrosis Aorta: Normal caliber. IVC: Normal where seen. Spleen: 9.3 Other: No ascites. IMPRESSION: 1. Cholelithiasis. 2. Hepatic steatosis. Beth HERNANDEZ US PROCEDURES documented in this encounter Visit Diagnoses Diagnosis Pain Right Upper Quadrant documented in this encounter Additional Health Concerns Assessment Noted Time PHQ-9 Depression Total Score: 16 11/25/2012 12:45 PM C DT documented as of this encounter
--- OUTSIDE RECORDS SUMMARY | 2022-05-17 14:01 | XMS_ITS | Encounter Summary ---
:1980 Author Organization [facility] Address [address] [place] [address] Care Team Providers Name Role Phone Unassigned, Pcp Primary Care Provider Unavailable Reason for Referral Outpatient (Routine) - Closed Specialty Diagnoses / Procedures Referred By Contact Refer red To Contact General Surgery Diagnoses par review Compa Urbina M.D. [facility] Procedures GNS EST [address] [place] [address] Referral ID Status Reason Start Date Expiration Date Visits Requ ested Visits Authorized [id number] Closed 12/31/2017 06/29/2018 1 1 Reason for Visit Reason Comments Consult right upper quadrant pain/ g allbladder Outpatient (Routine) - Closed Specialty Diagnoses / Procedures Referred By Contact Refer red To Contact General Surgery Diagnoses Pain Right Upper Quadrant Beth Burr [facility] C.N[facility] [address] [place], [place] [address] Referral ID Status Reason Start Date Expiration Date Visits V isits Requested Authorized [id number] Closed Specialty 12/31/2017 06/29/2018 1 1 Services Required Encounter Details Date Type Department Care Team Description 12/31/2017 Comprehensive Visit Department of Lew Burr, C.N.P. [address] [place] [address] Pain Right Upper General Surgery in Compa Urbina M.D. [address] [place] [address] [facility] Ramon Chowdhury [place] [address] [place] [phone] Social History Tobacco Use Types Packs/Day Years Used Date Smoking Tobacco: Some Days Cigarettes E-cigarettes Smokeless Tobacco: Never Tobacco Cessation: Ready to Quit: No; Co unseling Given: Yes Sex Assigned at Date Recorded Not on file documented as of this encounter Last Filed Vital Signs Vital Sign Reading Time Taken Comments Blood Pressure 151/100 12/31/2017 1:47 PM CDT Pulse 98 12/31/2017 1:47 PM CDT Temperature 36.6 ??C (97.9 ??F) 12/31/2017 1:41 PM CDT Respiratory Rate - - Oxygen Saturation - - Inhaled Oxygen Concentration - - Weight - - Height - - Body Mass Index - - documented in this encounter H&P Notes Compa Urbina M.D. - 12/31/2017 1:30 PM CDT SUBJECTIVE Chief Complaint Chief Complaint Patient presents with ??? Consult right upper quadrant pain/ gallbladder History of Present Illness Ms. Shruthi Jones is a 37 y.o. female who presents with a history of right upper quadrant abdominal pain going back approximately 2 months now but also previous episodes in the past. She does report pain in the epigastrium. Occasionally this does radiate to the back. Seemingly is worsened by meals including larger meals. She reports no fever sweats or chills. No jaundice is noted. She reports she did have previous evaluation for gallstones which was negative. She thought she might have undergone a HIDA scan which was also negative. She presents today for consideration of surgical treatment. It seems also she has endorsed feeling clammy when she has the pain it lasts about 15 minutes in some cases up to 1-2 hours however does seem to present about 2 hours after eating Of note she reports a history to me of previous hysterectomy with significant complication. She tells me that she had purulence that was throughout the abdomen and she was in the ICU for number of daysand at 1 point it was unclear if she would survive. No family history on file. Social History Social History ??? Marital status: Spouse name: N/A ??? Number of children: N/A ??? Years of education: N/A Social History Main Topics ??? Smoking status: Current Some Day Smoker Types: Cigarettes, E-cigarettes ??? Smokeless tobacco: Never Used ??? Alcohol use Yes ??? Drug use: No ??? Sexual activity: Not on file Other Topics Concern ??? Not on file Social History Narrative ??? No narrative on file Past Medical History: Diagnosis Date ??? Pain Abdominal NOS Past Surgical History: Procedure Laterality Date ??? APPENDECTOMY N/A Appendectomy;.. ??? DECOMPRESSION OF MEDIAN NERVE N/A 06/17/2012 Carpal tunnel release ??? ESOPHAGOGASTRODUODENOSCOPY N/A 01/01/2018 Procedure: ESOPHAGOGASTRODUODENOSCOPY; Surgeon: Compa Urbina M.D.; Location: [facility] ??? OTHER CONVERTED [...] daily. Yes Historical ProviderMikey Review of Systems 14 point review of systems negative except as listed in HPI but including abdominal pain heartburn and swelling of feet and hands tingling sensation headaches and back pain OBJECTIVE Vital Signs Physical Exam BP (!) 151/100 (BP Location: Right arm, Patient Position: Sitting, Cuff Size: Regular) Pulse 98 Temp 36.6 ??C (Temporal) General: NAD, conversant Eyes: Anicteric [...] and oriented to person, place and time Diagnostics Reviewed current laboratory and imaging results including: Ultrasonographic examination which demonstrates cholelithiasis that out gallbladder wall thickening or pericholecystic fluid Laboratory Studies No results for input(s): NA, K, CL, CO2, MG, CALCIUM, GLUCOSE, HGBA1C, BUN, CREATININE, ALBUMIN, PREALBUMIN, SEDRATE, CRP in the last 24 hours. No results for input(s): WBC, HGB, HCT, PLT, INR, PT, APTT in the last 24 hours. Laboratory studies from the [facility] including light CBC liver enzymes and amylase were reviewed which were essentially normal Imaging Results, Last 2 Days - Impression and Addendum Only No results found. Assessment/Plan #1 Pain Right Upper Quadrant I do suspect the patient is symptomatic from cholelithiasis. I am likely going to recommend a cholecystectomy. However given this relatively impressive history with respect the intra-abdominal process after hysterectomy think it is important to understand precisely would happen in order to help her understand what her risks are with surgery. She is agreeable to allow us to obtain the above records. Given the above I think would be helpful to rule out less typical causes such as peptic ulcer disease. I therefore ordered an EGD in evaluation above. This is particularly true because the patient has been using a fair amount of ibuprofen. She does carry elevated risks for this EGD as well as for lap choly if recommended in terms of tobacco abuse. I have asked her to try to reduce and ideally eliminate the above use Once the above is done we will likely schedule her surgery. However again I do want to see her records prior to performing a 2nd best explained risks to her. Basic risks were discussed with her including potential for visceral injury entry injury risks and also potential bile duct injury risks among others and she does wish to proceed at this time but againis agreeable to allow me to review the records I can't give her better risk estimates. documented in this encounter Plan of Treatment Scheduled Referrals Name Type Priority Associated Diagnoses Order [facility] General Surgery Outpatient Referral Routine Expec iris: office visit 12/31/2017 (clinic) (Approximate), Expires: 12/31/2020 documented as of this encounter Visit Diagnoses Diagnosis Pain Right Upper Quadrant documented in this encounter Additional Health Concerns Assessment Noted Time PHQ-9 Depression Total Score: 16 11/25/2012 12:45 PM C DT documented as of this encounter Care Teams Patient Observer Relationship Specialty Start Date End Date Unassigned, Pcp PCP - General Family Medicine 01/06/18 09/27/19 documented as of this encounter
--- OUTSIDE RECORDS SUMMARY | 2022-05-17 14:01 | XMS_ITS | Encounter Summary ---
:1980 Author Organization [facility] Address [address] [place] [address] Care Team Providers Name Role Phone Unassigned, Pcp Primary Care Provider Unavailable Reason for Visit Outpatient (Routine) - Closed Specialty Diagnoses / Procedures Referred By Contact Refer red To Contact Diagnoses Colic Biliary par review Compa Urbina M.D. [facility] Procedures KILLIAN CONS NURSE [address] [place] [phone] Referral ID Status Reason Start Date Expiration Date Visits Requ ested Visits Authorized [id number] Closed 01/06/2018 07/05/2018 1 1 Encounter Details Date Type Department Care Team Description 01/27/2018 Telemedicine Department of General Compa Urbina, Pre anesthetic Medical Exam (Primary Dx); Surgery in Ramon Chowdhury M.D. Colic Biliary [address] [phone] Social History Tobacco Use Types Packs/Day Years Used Date Smoking Tobacco: Some Days Cigarettes E-cigarettes Smokeless Tobacco: Never Alcohol Use Standard Drinks/Week Comments Yes 0 (1 standard drink = 0.6 oz pure alcoho l) Sex Assigned at Date Recorded Not on file documented as of this encounter Progress Notes Rocio Taylor R.N. - 01/27/2018 3:45 PM CDT Surgical Nurse Oil Burner Technician Skin Alert Assessment: Complete this section only if the patient is greater than or equal to 18 y/o BMI <19 or >40: no Documented risk factors that indicate higher risk for pressure ulcer? no Do you have impaired sensation? no Is patient chair-bound or unable to reposition themselves? no Anesthesia Risk Assessment: Do you have an implanted cardiac device? no. Do you have difficulties lying flat? no Comment: Do you have any samaritan or other objection to having a blood transfusion? no Teaching: Preoperative education was done with (x) patient () parent () other. It was confirmed the patient/family member had received the following preoperative education sheets:Checklist For Surgical Patients ([id number]),???Surgical Site Infections ([id number]), Speak Up: Antibiotics ([id number]), ???Smoke Free, Advice for patients and visitors?? ([id number]), ???Your Guide to Pain Management ([id number]), Managing Your Pain After Surgery ([id number]) with the ???[employer]?? pamphlet ([id number]), and ???Appointments Required Before Your Surgery?? ([facility]4 [id number]). These were reviewed in detail. Patient/Parent is ready to learn, no apparent learning barriers were identified. Reviewed diagnosis and treatment plan; patient/parent verbalized understanding through teach back. All questions were answered. Patient/Parent has contact information and understands the need to call with any questions orconcerns. Post op appointments: 1st po with surgeon or physician surveyor instrument assistant: (x) made ()TBD documented in this encounter Plan of Treatment Not on filedocumented as of this encounter Visit Diagnoses Diagnosis Preanesthetic Medical Exam - Primary Colic Biliary documented in this encounter Additional Health Concerns Assessment Noted Time PHQ-9 Depression Total Score: 16 11/25/2012 12:45 PM C DT documented as of this encounter Care Teams Fur Vault Attendant Relationship Specialty Start Date End Date Unassigned, Pcp PCP - General Family Medicine 01/06/18 09/27/19 documented as of this encounter
--- OUTSIDE RECORDS SUMMARY | 2022-05-17 14:01 | XMS_ITS | Encounter Summary ---
:1980 Author Organization [facility] Address [address] [place] [address] Care Team Providers Name Role Phone Unavailable Primary Care Provider Unavailable Encounter Details Date Type Department Care Team Description 02/13/2013 Hospital Encounter [facility]X [facility] OBGYN Provider, Histor ical Social History Tobacco Use Types Packs/Day Years Used Date Smoking Tobacco: Never Assessed Sex Assigned at Date Recorded Not on file documented as of this encounter Progress Notes Conversion, Historical Provider Ser - 02/13/2013 1:15 PM CDT [id number] 32 y/o see referral note: Date Ordering/Authorizing Department 02/13/2013 Yoni Ahuja MD Thermal Engineer Order Providers Authorizing Provider Encounter Provider Yoni Ahuja MD Richards, Todd A, MD Comments Your provider has referred you to: Emmett Bruno [facility]. 32 year old last 5 yearsago now with new partner and desires fertility. History of multiple leiomyomatosis uterus with laparoscopic/robotic myomectomy where 250mg of tissue was removed. Us 02/11/13: 02/11/2013 Result Narrative ULTRASOUND, PELVIS, WITH DOPPLER 02/11/2013 2:21 PM HISTORY: History of myomectomy, severe pelvic pain. TECHNIQUE: Transabdominal complemented with endovaginal scanning to better evaluate adnexal structures. Color Doppler imaging also performed. COMPARISON: None. FINDINGS: Uterus: Measures 14.5 x 9.1 x 7.3cm. The endometrium is 4 mm. Large submucosal leiomyoma involving nearly the entire uterus and measures 11.9 x 9.1 x 7.3 cm. Intrauterine device is not seen. Uterus is anteverted. Adnexa: Right ovariandimensions: 3.5 x 3.4 1.6 cm. Left ovarian dimensions: 2.4 x 2.6 x 1.5 cm. Color Doppler spectral analysis demonstrates normal vascular flow bilateral ovaries . Cul-de-sac fluid: Small measuring 2 x 3.5 x 1.3. Result Impression IMPRESSION: 1. Enlarged uterus containing large submucosal leiomyoma. 2. Small pelvic fluid. She was hospitalized for severe acute pain and requiring IV and now strong PO painmeds (suspect infarction of leiomyoma). Per Dr. Emanuel Bruno recommended to evaluateand treat. Please be aware that coverage of these services is subject to the terms and limitations of your health insurance plan. Call member services at your health plan with any benefit or coverage questions. Please bring the following to your appointment: >> Any x-rays, CTs or MRIs which havebeen performed. Contact the facility where they were done to arrange for vegetable picker prior to your scheduled appointment. Any new CT, MRI or other procedures ordered by your specialist must be performed [facility] or coordinated by your clinic's referral office. >> List of current medications >> This referral request >> Any documents/labs given to you for this referral Associated Diagnoses Intramural leiomyoma of uterus - Primary Pelvic pain Just released from [facility] where she was hospitalized for the past 2 days for acute onset severe pain that is suspected to be an infarcting fibroid. She was referred her for evaluation and treatment, however, desires future fertility. See US report above. She has a Mirena IUD in place and is remarkable amenorrheic. She has no abnormal vaginal discharge. She was essentially unaware of the recurrence of the fibroid until the has this acute episode. She has had an appendectomy. 10 point ROS of systems including Constitutional, Eyes, Respiratory, Cardiovascular, Gastroenterology, Genitourinary, Integumentary, Musculoskeletal, Psychiatric were all negative except for pertinent positives noted in my HPI. Allergies: KNDA MEDS:percocet and flagyl (d/c meds from the hospital). Flonase. 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 OXYCODONE HCL PO Take by mouth. levonorgestrel (MIRENA) 20 MCG/24HR IUD 1 each by Intrauterine route once. fluticasone (FLONASE) 50 MCG/ACT nasal spray Bigfoot 2 sprays into both nostrils daily. 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 Alcohol Use: No Drug Use: Yes Meth, is currently going through treatment Sexually Active: Yes -- Male partner(s) Control/ Protection: Pill Other Topics Concern Blood Transfusions No Caffeine Concern Yes 4 sodas q day Sleep Concern No Stress Concern Yes Going through drug treatment. Weight Concern No Special Diet No Exercise Yes 3-4 times per week, lifts weights and uses exercise machines. Seat Belt Yes Self-Exams No Social History Narrative No narrative on file Family History Problem Relation Age of Onset GI Mother ulcers Diabetes Maternal Grandfather Diabetes Paternal Uncle Heart Paternal Grandfather heart attack Hypertension Father Cancer Paternal Grandfather ? Kind Congenital Brother Microcephalic EXAM Moderate distress from pain AB: generally tender, ND Gyne Exam: Lymph: no enlarged groin nodes External genitalia: deferred EXTREMITIES: Normal. NEUROLOGIC: Normal. LABS from hospitalization for the most part normal ASSESSMENT: 1. recurrent leiomyomatosis uterus with acute pain and probable infarction of 11cm fibroid and acuteabdominal pain. Desires future fertility. Referral to Fly Bruno at [facility] Total visit 70 min's of which 60 min's spent in counseling and coordination of care. Source: [facility] [id number] Document Id: [id number] documented in this encounter Plan of Treatment Not on filedocumented as of this encounter Visit Diagnoses Not on filedocumented in this encounter Additional Health Concerns Assessment Noted Time PHQ-9 Depression Total Score: 16 11/25/2012 12:45 PM C DT documented as of this encounter
--- OUTSIDE RECORDS SUMMARY | 2022-05-17 14:01 | XMS_ITS | Encounter Summary ---
:1980 [facility] Organization [facility] Address [address] [place] [address] Care Team Providers Name Role Phone Unavailable Primary Care Provider Unavailable Encounter Details Date Type Department Care Team Description 02/17/2013 Hospital Encounter HX [facility] OBGYN Provider, Histor ical Social History Tobacco Use Types Packs/Day Years Used Date Smoking Tobacco: Never Assessed Sex Assigned at Date Recorded Not on file documented as of this encounter Progress Notes Conversion, Historical Provider Ser - 02/17/2013 11:00 AM CDT [id number] 32 y/o see referral note: Date Ordering/Authorizing Department 02/13/2013 Yoni Ahuja MD Band Instrument Repairer Order Providers Authorizing Provider Encounter Provider Yoni Ahuja MD Richards, Todd A, MD Comments Your provider has referred you to: Emmett Bruno [facility]. 32 year old last 5 yearsago now [...] where they were done to arrange for belt picker prior to your scheduled appointment. Any new CT, MRI or other procedures ordered by your specialist must be performed ke[facility] or coordinated by your clinic's referral office. >> List of current medications >> This referral request >> Any documents/labs given to you for this referral Associated Diagnoses Intramural leiomyoma of uterus - Primary Pelvic pain Just released from [facility] where she was hospitalized for the past [...] once. fluticasone (FLONASE) 50 MCG/ACT nasal spray [place] 2 sprays into both nostrils daily. No [...] future fertility. Referral to Fly Bruno at [facility] Total visit 70 min's of which 60 min's spent in counseling and coordination of care. 32 y/o see referral note: Date Ordering/Authorizing Department 02/13/2013 Yoni Ahuja MD Rw Band Instrument Repairer Order Providers Authorizing Provider Encounter Provider Yoni Ahuja MD Richards, Todd A, MD Comments Your provider has referred you to: Emmett Bruno [facility]. 32 year old last 5 yearsago now [...] where they were done to arrange for belt picker prior to your scheduled appointment. Any new CT, MRI or other procedures ordered by your specialist must be performed keven [facility] or coordinated by your clinic's referral office. >> List of current medications >> This referral request >> Any documents/labs given to you for this referral Associated Diagnoses Intramural leiomyoma of uterus - Primary Pelvic pain Just released from [facility] where she was hospitalized for the past [...] once. fluticasone (FLONASE) 50 MCG/ACT nasal spray [place] 2 sprays into both nostrils daily. No [...] future fertility. Referral to Fly Bruno at [facility] Total visit 70 min's of which 60 min's spent in counseling and coordination of care. 32 y/o see referral note: Date Ordering/Authorizing Department 02/13/2013 Yoni Ahuja MD Rw Band Instrument Repairer Order Providers Authorizing Provider Encounter Provider Yoni Ahuja MD Richards, Todd A, MD Comments Your provider has referred you to: Emmett Bruno [facility]. 32 year old last 5 yearsago now [...] where they were done to arrange for belt picker prior to your scheduled appointment. Any new CT, MRI or other procedures ordered by your specialist must be performed keven [facility] or coordinated by your clinic's referral office. >> List of current medications >> This referral request >> Any documents/labs given to you for this referral Associated Diagnoses Intramural leiomyoma of uterus - Primary Pelvic pain Just released from [facility] where she was hospitalized for the past [...] once. fluticasone (FLONASE) 50 MCG/ACT nasal spray [place] 2 sprays into both nostrils daily. No [...] future fertility. Referral to Fly Bruno at [facility] Total visit 70 min's of which 60 min's spent in counseling and coordination of care. See previous note from last week. Ms. Diop suffers from recurrent leiomyomatous uterus and has had a previous myomectomy of 250g of tissue 2011 at [facility]. She now has another 11 cm full thickness fibroid. See report: ULTRASOUND, PELVIS, WITH DOPPLER 02/11/2013 2:21 PM HISTORY: History of myomectomy, severe pelvic pain. TECHNIQUE: Transabdominal complemented with endovaginal scanning to better evaluate adnexal structures. Color Doppler imaging also performed. COMPARISON: None. FINDINGS: Uterus: Measures 14.5 x 9.1 x 7.3 cm. The endometrium is 4 mm. Large submucosal leiomyoma involving nearly the entire uterus and measures 11.9 x 9.1 x 7.3 cm. Intrauterine device is not seen. Uterus is anteverted. Adnexa: Right ovarian dimensions: 3.5 x 3.4 1.6 cm. Left ovarian dimensions: 2.4 x 2.6 x 1.5 cm. Color Doppler spectral analysis demonstrates normal vascular flow bilateral ovaries . Cul-de-sac fluid: Small measuring 2 x 3.5 x 1.3. She desired future fertility with her new partner and [facility]. She has now come to realization that attempting this could be life threatening and she does not want to take that chance. I spent 30mins with her and her significant other in counseling and coordination of care she desires to proceed with a hysterectomy. We will have her return in one week for an endometrial biopsy and preop physical. I discussed the surgery and the risk at length today and answered all of her questions. Source: [facility] [id number] Document Id: [id number] documented in this encounter Plan of Treatment Not on filedocumented as of this encounter Visit Diagnoses Not on filedocumented in this encounter Additional Health Concerns Assessment Noted Time PHQ-9 Depression Total Score: 16 11/25/2012 12:45 PM C DT documented as of this encounter
--- OUTSIDE RECORDS SUMMARY | 2022-05-17 14:01 | XMS_ITS | Encounter Summary ---
:1980 Author Organization [facility] Address [address] [place] [address] Care Team Providers Name Role Phone Unassigned, Pcp Primary Care Provider Unavailable Reason for Visit Reason Comments Communication Encounter Details Date Type Department Care Team Description 01/06/2018 Clinical Communication Department of Macrina Lechuga General Surgery [place] [address] [facility] [address] [place] [phone] Social History Tobacco Use Types Packs/Day Years Used Date Smoking Tobacco: Some Days Cigarettes E-cigarettes Smokeless Tobacco: Never Alcohol Use Standard Drinks/Week Comments Yes 0 (1 standard drink = 0.6 oz pure alcoho l) Sex Assigned at Date Recorded Not on file documented as of this encounter Miscellaneous Notes Telephone Encounter - Macrina Hare L.P.N. - 01/06/2018 9:55 AM CDT Scheduled Laparoscopic cholecystectomy interoperative cholangiogram on 01/28/18 to be performed by Dr. Urbina. documented in this encounter Plan of Treatment Not on filedocumented as of this encounter Visit Diagnoses Not on filedocumented in this encounter Additional Health Concerns Assessment Noted Time PHQ-9 Depression Total Score: 16 11/25/2012 12:45 PM C DT documented as of this encounter Care Teams Scenic Arts Supervisor Relationship Specialty Start Date End Date Unassigned, Pcp PCP - General Family Medicine 01/06/18 09/27/19 documented as of this encounter
--- OUTSIDE RECORDS SUMMARY | 2022-05-17 14:01 | XMS_ITS | Encounter Summary ---
:1980 Author Organization [facility] Address [address] [place] [address] Care Team Providers Name Role Phone Unassigned, Pcp Primary Care Provider Unavailable Reason for Visit Auth/Cert Specialty Diagnoses / Procedures Referred By Contact Refer red To Contact Diagnoses Pain Right Upper Quadrant R10.11 Procedures NE EGD TRANSORAL DX ESOPHAGOGASTRODUODENOSCOPY Referral ID Status Reason Start Date Expiration Date Visits Requ ested Visits Authorized [id number] 1 1 Encounter Details Date Type Department Care Team Description 01/28/2018 Hospital Encounter [facility] MAIN OR [facility] [address] [place] [phone] [address]aver[address] [phone] [place] [phone] (Wo rk) Social History Tobacco Use Types Packs/Day Years Used Date Smoking Tobacco: Some Days Cigarettes E-cigarettes Smokeless Tobacco: Never Alcohol Use Standard Drinks/Week Comments Yes 0 (1 standard drink = 0.6 oz pure alcoho l) Sex Assigned at Date Recorded Not on file documented as of this encounter Last Filed Vital Signs Vital Sign Reading Time Taken Comments Blood Pressure 126/86 01/28/2018 9:50 AM CDT Pulse - - Temperature 36.8 ??C (98.2 ??F) 01/28/2018 9:50 AM CDT Respiratory Rate 16 01/28/2018 9:50 AM CDT Oxygen Saturation 97% 01/28/2018 9:50 AM CDT Inhaled Oxygen Concentration - - Weight 80.5 kg (177 lb 7.5 oz) 01/28/2018 9:50 AM CDT Height 156 cm (5' 1.42) 01/20/2018 2:16 PM CDT Body Mass Index 33.08 01/20/2018 2:16 PM CDT documented in this encounter Medications [...] documented as of this encounter Progress Notes Compa Urbina M.D. - 01/28/2018 10:16 AM CDT I met with this patient and her mother today in the preoperative very discussed risks and benefits of this procedure. As noted my previous notation, I was awaiting her operative note from her previous laparotomy, lengthy ICU stay and trying to discern exactly what had happened intra-abdominally. In reviewing the notes, it seems that she had at a minimum and diffuse intra- abdominal abscess aftersurgery which extended throughout much of the abdomen from what I can see. With that in mind, this was kind of the worsen area that I had in vision, and I felt as discussed previously we did discuss that. Toxic and I discussed the fact that I felt the likelihood of this remaining a laparoscopic operationwas much lower than would otherwise be the case. I described the left upper quadrant entry techniquewhich may or may not have risk of injury associated with the, the probably roughly 10 per times overnormal risk, just arthrotomy number. She voiced to me that her is still in the hospital of which I was not aware. Furthermore sheis concerned that she often times has ???bad luck?? and is feeling well at this time and therefore not interested in proceeding surgically. I think this is reasonable. I do think we need to continue to follow because she may have symptoms again and I did think that her symptoms were probably biliary colic. However she certainly is at higher risk for complication as result of this and I would imagine even from standpoint with her 'srecent hospitalization that the timing is very poor. We will meet again in the clinic accordingly to discuss options in the near future documented in this encounter Nursing Notes Maria Isabel Mcnamara R.N. - 01/28/2018 10:26 AM CDT Patient left [facility] to join her who is inpatient on [facility]. Patient wanted Dr. Urbina to speak withgayatrhi and was told by MD to come see him in clinic. MD unable to go to patient's on [facility] orcall husbands room phone number due to going into another surgery. Patient did not want to wait for appointment to be scheduled. did not speak to MD at this time. Maria Isabel Mcnamara R.N. - 01/28/2018 10:16 AM CDT Surgery was canceled by MD documented in this encounter Plan of Treatment Not on filedocumented as of this encounter Visit Diagnoses Diagnosis Colic Biliary - Primary documented in this encounter Admitting Diagnoses Diagnosis Colic Biliary documented in this encounter Administered Medications Inactive Administered Medications - up to 3 most recent administrations Medication Order MAR Action Action Date Dose Rate Site metoprolol tablet 12.5 mg (LOPRESSOR) 12.5 mg, oral, Once as needed, if patien t did not take their last scheduled dose of beta kathy prior to arrival, Starting on Sat01/28/18 at 0938, For 1 dose, Pre-Op, Do not give if patient does not take scheduled beta bl ockers, if patient is receiving intravenous vasopressors or inotropes, if he art rate is less than 50 beats per minute, if systolic blood pres sure is less than 90 mmHg or if diastolic blood pressure is less than 40 mmHg, or if patient has an allergy to metoprolol. documented in this encounter Active and Recently Administered Medications Times are shown in CDT. Scheduled Medication Order 01/26/2018 01/27/2018 01/28/2018 acetaminophen tablet 1,000 mg (TYLENOL) 0945 (Due) 1,000 mg, oral, Once, Sat01/28/18 at 094 5, For 1 dose, Pre-Op, Block Cleaner, PreOp with sips albuterol nebulizer solution 2.5 mg (ACCUNEB) 0945 (Due) 2.5 mg, nebulization, Once, 01/28/18 at 0945, For 1 dose, Pre -Op ceFAZolin in dextrose (iso-osm) IVPB 2 g (ANCEF) 0945 (Due) 2 g, intravenous, at 100 mL/hr, Administ er over 30 Minutes, Once, 01/28/18 at 0945, For 1 dose, Intra-Op, Preoperatively within 1 hour prior to surgical incision premix bag, Drug Monitoring Program: Pharmacist to adjust medication order ba sed on comorbities and indication., Indications: Prophylaxis, Surgical celecoxib capsule 400 mg (CeleBREX) 0945 (Due) 400 mg, oral, Once, 01/28/18 at 0945, For 1 dose, Pre-Op, Block Cleaner, PreOp ciprofloxacin in D5W IVPB 400 mg (CIPRO) 0945 (Due) 400 mg, intravenous, at 200 mL/hr, Admin ister over 60 Minutes, Once, 01/28/18 at 0945, For 1 dose, Intra-Op, Preoperatively within 2 hours prior to surgical incision. premix bag, Drug Monitoring Prog betina: Pharmacist to adjust medication ord er based on comorbities and indication., Indications: Prophylaxis, Surgical clindamycin in D5W IVPB 600 mg (CLEOCIN) 0945 (Due) 600 mg, intravenous, at 100 mL/hr, Admin ister over 30 Minutes, Once, 01/28/18 at 0945, For 1 dose, Intra-Op, Preoperatively within 1 hour prior to surgical incision. premix bag, Indications: Prophylaxis, Surgical gabapentin tablet 600 mg (NEURONTIN) 0945 (Due) 600 mg, oral, Once, e 01/28/18 at 0945, For 1 dose, Pre-Op, Block Cleaner, PreOp , Drug Monitoring Program: Pharmacist to adjust medication order based on comorbities and indication. lidocaine 10 mg/mL (1 %) injection 0.1 mL (XYLOCAINE) 0945 (Due) 0.1 mL, intradermal, Once, 01/28/18 a t 0945, For 1 dose, Pre-Op, For IV Placement, Block Cleaner, PreOp lidocaine 10 mg/mL (1 %) injection 1 mL (XYLOCAINE) 0945 (Due) 1 mL, infiltration, Once, Sat01/28/18 at 0945, For 1 dose, Pre-Op, May admin up to 1 mL at the site of IV site if not allergic to lidocaine sodium chloride injection 10 mL 10 mL, intravenous, Every 8 hours schedu led (RT), First dose on Sat01/28/18 at 1500, Pre-Op, Peripheral Intravenous Catheter and Rapid Infusion Catheter, prior to blood sampling, post blood transfusion or post blood sampling sodium chloride injection 3 mL 3 mL, intravenous, Every 12 hours schedu led, First dose on Sat01/28/18 at 2100, Pre-Op, Peripheral Intravenous Catheter and Rapid Infusion Catheter, when no infusion to maintain patency Continuous Medication Order 01/26/2018 01/27/2018 01/28/2018 lactated ringers 0945 (Due) 20 mL/hr, intravenous, at 20 mL/hr, Cont inuous, Starting Sat01/28/18 at 0945, Pre-Op PRN Medication Order 01/26/2018 01/27/2018 01/28/2018 metoprolol tablet 12.5 mg (LOPRESSOR) 12.5 mg, oral, Once as needed, if patien t did not take their last scheduled dose of beta kathy prior to arrival, Starting Sat01/28/18 at 0938, For 1 dose, Pre- Op, Do not give if patient does not take scheduled beta blockers, if patient is r eceiving intravenous vasopressors or inotropes, if heart rate is less than 50 beats per minute, if systolic blood pressure is less than 90 mmHg or if diastolic bl ood pressure is less than 40 mmHg, or if patient has an yuni rgy to metoprolol. documented in this encounter Additional Health Concerns Assessment Noted Time PHQ-9 Depression Total Score: 16 11/25/2012 12:45 PM C DT documented as of this encounter Care Teams Mine Geologist Relationship Specialty Start Date End Date Unassigned, Pcp PCP - General Family Medicine 01/06/18 09/27/19 documented as of this encounter
--- OUTSIDE RECORDS SUMMARY | 2022-05-17 14:01 | XMS_ITS | Encounter Summary ---
:1980 Author Organization [facility] Address [address] [place] [address] Care Team Providers Name Role Phone Unassigned, Pcp Primary Care Provider Unavailable Reason for Visit Auth/Cert Specialty Diagnoses / Procedures Referred By Contact Refer red To Contact Diagnoses Pain Right Upper Quadrant R10.11 Procedures DE EGD TRANSORAL DX ESOPHAGOGASTRODUODENOSCOPY Referral ID Status Reason Start Date Expiration Date Visits Requ ested Visits Authorized [id number] 1 1 Encounter Details Date Type Department Care Team Description 01/28/2018 Surgery [facility] MAIN OR Compa Urbina, Not Performed Luis1 CAITY PAL M.D. LAPAROSCOPIC MARLENA CASTANO CHOLECYSTECTOMY WITH [phone] Ramon Chowdhury [place] CHOLANGIOGRAM [phone] Social History Tobacco Use Types Packs/Day [...] documented in this encounter Nursing Notes Maria Isaebl Mcnamara R.N. - 01/28/2018 10:26 AM CDT Patient left [facility] to join her who is inpatient on [facility]. [facility] and was told by MD to come see him in clinic. MD unable to go to patient's on [facility] orcall husbands room phone number [...] Visit Diagnoses Diagnosis Colic Biliary - Primary Colic Biliary documented in this encounter Admitting Diagnoses Diagnosis [...] at 094 5, For 1 dose, Pre-Op, Slasher Tender, PreOp with sips albuterol nebulizer solution 2.5 mg (ACCUNEB) 0945 (Due) 2.5 mg, nebulization, Once, e 01/28/18 at 0945, For 1 dose, Pre -Op ceFAZolin in dextrose (iso-osm) IVPB 2 g (ANCEF) 0945 (Due) 2 g, intravenous, at 100 mL/hr, Administ er over 30 Minutes, Once, e 01/28/18 at 0945, For 1 dose, Intra-Op, Preoperatively within 1 hour prior to surgical incision premix bag, Drug Monitoring Program: Pharmacist to adjust medication order ba sed on comorbities and indication., Indications: Prophylaxis, Surgical celecoxib capsule 400 mg (CeleBREX) 0945 (Due) 400 mg, oral, Once, e 01/28/18 at 0945, For 1 dose, Pre-Op, Slasher Tender, PreOp ciprofloxacin in D5W IVPB 400 mg (CIPRO) 0945 (Due) 400 mg, intravenous, at 200 mL/hr, Admin ister over 60 Minutes, Once, e 01/28/18 at 0945, For 1 dose, Intra-Op, Preoperatively within 2 hours prior to surgical incision. premix bag, Drug Monitoring Prog betina: Pharmacist to adjust medication ord er based on comorbities and indication., Indications: Prophylaxis, Surgical clindamycin in D5W IVPB 600 mg (CLEOCIN) 0945 (Due) 600 mg, intravenous, at 100 mL/hr, Admin ister over 30 Minutes, Once, e 01/28/18 at 0945, For 1 dose, Intra-Op, Preoperatively within 1 hour prior to surgical incision. premix bag, Indications: Prophylaxis, Surgical gabapentin tablet 600 mg (NEURONTIN) 0945 (Due) 600 mg, oral, Once, e 01/28/18 at 0945, For 1 dose, Pre-Op, Slasher Tender, PreOp , Drug Monitoring Program: Pharmacist to adjust medication order based on comorbities and indication. lidocaine 10 mg/mL (1 %) injection 0.1 mL (XYLOCAINE) 0945 (Due) 0.1 mL, intradermal, Once, 01/28/18 a t 0945, For 1 dose, Pre-Op, For IV Placement, Slasher Tender, PreOp lidocaine 10 mg/mL (1 %) injection [...] documented as of this encounter Care Teams Hand Folder Relationship Specialty Start Date End Date Unassigned, Pcp PCP - General Family Medicine 01/06/18 09/27/19 documented as of this encounter
--- OUTSIDE RECORDS SUMMARY | 2022-05-17 14:01 | XMS_ITS | Encounter Summary ---
:1980 Author Organization [facility] Address [address] [place] [address] Care Team Providers Name Role Phone Unavailable Primary Care Provider Unavailable Encounter Details Date Type Department Care Team Description 12/14/2015 Hospital Encounter [facility]X [facility] MRI Camille North M.D. [address] [place] [address] (Wo rk) Social History Tobacco Use Types Packs/Day Years Used Date Smoking Tobacco: Never Assessed Sex Assigned at Date Recorded Not on file documented as of this encounter Last Filed Vital Signs Vital Sign Reading Time Taken Comments Blood Pressure - - Pulse - - Temperature - - Respiratory Rate - - Oxygen Saturation - - Inhaled Oxygen Concentration - - Weight - - Height 157 cm (5' 1.81) 12/14/2015 2:38 PM CDT Body Mass Index - - documented in this encounter Miscellaneous Notes Miscellaneous - Conversion, Historical Provider Ser - 12/14/2015 11:59 PM CDT Coding Summary-Paper Based CODING DATE: 12/20/2015 FINAL [facility] STATUS: * Discharged to Home or Self Care PAYOR: Blue Dowell ADMIT DX: REASON FOR VISIT DX: FINAL DX: PRINCIPAL: M54.2 Cervicalgia SECONDARY: M79.603 Pain in arm, unspecified PROCEDURES DOCTOR NAME DATE NOTE: The code number assigned matches the documented diagnosis and / or procedure in the patient's chart. However, the narrative phrase printed from the coding software may appear abbreviated, or result in slightly different terminology. Coded By: JEFRY ROSSI Date Saved: 12/20/2015 10:53 am Source: [facility] [employer] Document Id: [id number] documented in this encounter Plan of Treatment Not on filedocumented as of this encounter Visit Diagnoses Not on filedocumented in this encounter Additional Health Concerns Assessment Noted Time PHQ-9 Depression Total Score: 16 11/25/2012 12:45 PM C DT documented as of this encounter
--- OUTSIDE RECORDS SUMMARY | 2022-05-17 14:01 | XMS_ITS | Encounter Summary ---
:1980 Author Organization [facility] Address [address] [place] [address] Care Team Providers Name Role Phone Unavailable Primary Care Provider Unavailable Encounter Details Date Type Department Care Team Description 01/10/2017 Hospital Encounter HX [facility] ED Bahman Stiles M.D. [address] [place], [place] [phone] (Wo rk) Social History Tobacco Use Types Packs/Day Years Used Date Smoking Tobacco: Every Day Sex Assigned at Date Recorded Not on file documented as of this encounter Last Filed Vital Signs Vital Sign Reading Time Taken Comments Blood Pressure 105/48 01/10/2017 2:53 PM CDT Pulse 88 01/10/2017 2:53 PM CDT Temperature - - Respiratory Rate 16 01/10/2017 2:53 PM CDT Oxygen Saturation - - Inhaled Oxygen Concentration - - Weight 80.3 kg (177 lb 0.5 oz) 01/10/2017 12:47 PM CDT Height - - Body Mass Index 32.58 12/14/2015 2:38 PM CDT documented in this encounter Discharge Summaries Sana Rg RChristianN. - 01/10/2017 3:48 PM CDT ED Discharge Instructions [address] [address] Name: SHRUTHI JONES Date of : 1980 12:00 AM Visit Date: 01/10/2017 12:37 PM [facility] Number: [phone] Address: [address] [place] [phone] Primary Care Provider: PCP, ELSEWHERE IMPORTANT: [facility] in [place] would like to thank you for allowing us to assist you with your healthcare needs. The following includes patient education materials and informationregarding your injury/illness. Diagnosis: Follow-Up Instructions: Your Upcoming Appointments: Date Time Location Provider No Appointments found Patient Education Materials: Consider Using Patient Online Services Patient Online Services is a secure online and Mobile application that lets you: ?? View lab and test results ?? View portions of your medical record including clinical notes, immunizations and discharge summaries ?? Request an appointment or medication refill ?? Review your appointment schedule ?? Send secure messages to your care team Its easy to create an account if you dont have one. Go to [email or web address] and click on Create Your Account. Then, follow the directions to complete the online form. Youll be asked for your [facility] number which you can find at the top of this document. ED Tests and Procedures: Order Status CBC (includes Auto Differential) Completed Comprehensive Metabolic Panel Completed C-Reactive Protein Completed Lactic Acid Completed Sedimentation Rate Completed Culture Blood x 2 Ordered Culture Blood Ordered Automated Diff-5 Part Completed Culture Blood Ordered Urinalysis with Culture if Indicated Ordered Discharge Prescriptions & Home Medications: Medication/Strength Dose Route Frequency Indications/Special Instructions/Comments/Notes ibuprofen (ibuprofen 200 mg oral tablet) 1,000 mg Oral every 6 hours diphenhydrAMINE (Benadryl) 50 mg Oral once a day sulfamethoxazole-trimethoprim (Bactrim DS 800 mg-160 mg oral tablet) 1 tab(s) Oral two times a day *misoprostol (misoprostol 100 mcg oral tablet) See Instructions Take 3 tablets by mouth the morning before your procedure and 3 tablets by mouth the evening before your procedure *Misc Prescription (FLAGYL PO) See Instructions Take by mouth. *oxyCODONE (oxyCODONE) See Instructions Take by mouth. *levonorgestrel (levonorgestrel 52 mg intrauteral device) 1 each Intrauterine once *fluticasone nasal (fluticasone 50 mcg/inh nasal spray) 2 spray(s) Nostrils(Both) once a day *acetaminophen-codeine (Tylenol with Codeine #2 oral tablet) *fluticasone nasal (Flonase 50 mcg/inh nasal spray) 1 spray(s) Nostrils(Both) once a day *levonorgestrel (Mirena) 1 each once * You have let us know that you are not taking this medication as listed. Please talk with your primary care provider or the health care provider who prescribed the medication as soon as possible. Comment: Attention: If you have any medications at home not on this list, DO NOT take them until you contact your provider for clarification. Give a copy of your medication list to your primary care provider. Update your medication list any time medications or doses are changed and carry your medication list at all times in case of emergency. IMPORTANT: We examined and treated you today on an emergency basis only. This was not a substitute for, or an effort to provide, complete medical care. In most cases, you must let your doctor check youagain. Tell your doctor about any new or lasting problems. We cannot recognize and treat all injuries or illnesses in one Emergency Department visit. If you had special tests, such as EKG's or X- rays, we will review them again within 24 hours. We will call you if there are any new suggestions. Please follow the instructions above carefully. If you are being transferred to another facility your followup plan of care will be determined by the receiving facility. If you are a patient that is being discharged from the Emergency Department after receiving narcotics or other medications that may impair your judgment you may be a risk to yourself or others if you operate a motor vehicle. We recommend that you arrange a ride home with a responsible constitution party. DAVID Hoyt TASHA MARIE , or responsible constitution party have received this information and my questions have been answered. I have discussed any challenges I see with this plan with the nurse or physician. Patient Signature or Responsible Democrat/Relationship Date Time Provider Signature Date Time IMPORTANT: We examined and treated you today on an emergency basis only. This was not a substitute for, or an effort to provide, complete medical care. In most cases, you must let your doctor check youagain. Tell your doctor about any new or lasting problems. We cannot recognize and treat all injuries or illnesses in one Emergency Department visit. If you had special tests, such as EKG's or X- rays, we will review them again within 24 hours. We will call you if there are any new suggestions. Please follow the instructions above carefully. If you are being transferred to another facility your followup plan of care will be determined by the receiving facility. If you are a patient that is being discharged from the Emergency Department after receiving narcotics or other medications that may impair your judgment you may be a risk to yourself or others if you operate a motor vehicle. We recommend that you arrange a ride home with a responsible constitution party. I, SHRUTHI JONES BABITA , or responsible constitution party have received this information and my questions have been answered. I have discussed any challenges I see with this plan with the nurse or physician. Patient Signature or Responsible Democrat/Relationship Date Time Provider Signature Date Time Source: [facility] POWERCHART Document Id: [id number] Sana Rg R.N. - 01/10/2017 3:48 PM CDT ED Depart Summary [facility] Emergency Department Clinical Discharge Summary PERSON INFORMATION Name SHRUTHI JONES Age 36 Years 1980 12:00 AM Sex Female Language German PCP PCP, ELSEWHERE Marital Status Visit Id Visit Reason Fever; Skin rash; Fever Specialty Enc Type Emergency Med Service Emergency Medicine Referred by Track Group [facility] ED Discharge 01/10/2017 3:00 PM Tracking Id [id number] Checkout 01/10/2017 3:00 PM Checkin 01/10/2017 12:37 PM Acuity 2 -Emergent Dispo Type Disch/Trans ShortTerm Gen Hosp-Inpt Care Arrival 01/10/2017 12:37 PM Reg Status Complete LOS 000 02:23 Address: [address] [place] [phone] Comment: PROVIDER INFORMATION Provider Role Provider Contact Time SANA RG RN ED Nurse 01/10/17 12:58 GERSON STILES MD ED Provider 01/10/17 13:02 DIAGNOSIS Comment: PATIENT EDUCATION INFORMATION Instructions: Follow up: Source: [facility] [employer] Document Id: [id number] documented in this encounter Medications at Time of Discharge Medication Sig Dispensed Refills Start Date End Date ibuprofen (ADVIL,MOTRIN) Take 5 tablets by 0 12/201606/30/2018 200 mg tablet mouth every 6 (six) hours. documented as of this encounter ED Notes Sana Rg RChristianNChristian - 01/10/2017 3:44 PM CDT ED Pain Assessment ED Pain Assessment Entered On: 01/10/2017 15:44 CDT Performed On: 01/10/2017 15:44 CDT by SANA RG RN Pain Assessment Pain Symptoms : Yes SANA RG RN - 01/10/2017 15:44 CDT Pain Scale Pain Scale Verbal 0-10 : Open SANA RG RN - 01/10/2017 15:44 CDT Pain Pain Assessment Grid Pain 1 Location : Generalized Intensity : 10 SANA RG RN - 01/10/2017 15:44 CDT [facility] Document Id: [id number] CDT!10 Sana Rg R.N. - 01/10/2017 2:25 PM CDT ED Nurse Reassess ED Nurse Reassess Entered On: 01/10/2017 14:26 CDT Performed On: 01/10/2017 14:25 CDT by SANA RG RN Pain Assessment Pain Symptoms : Yes SANA RG RN - 01/10/2017 14:25 CDT Pain Scale Pain Scale Verbal 0-10 : Open SANA RG RN - 01/10/2017 14:25 CDT Pain Pain Assessment Grid Pain 1 Location : Generalized Intensity : 8 SANA RG RN - 01/10/2017 14:25 CDT Source: [employer] Document Id: [id number] CDT!10 Sana Rg R.N. - 01/10/2017 2:07 PM CDT ED Nurse Reassess ED Nurse Reassess Entered On: 01/10/2017 14:07 CDT Performed On: 01/10/2017 14:07 CDT by SANA RG RN Pain Assessment Pain Symptoms : Yes SANA RG RN - 01/10/2017 14:07 CDT Pain Scale Pain Scale Verbal 0-10 : Open SANA RG RN - 01/10/2017 14:07 CDT Pain Pain Assessment Grid Pain 1 Location : Generalized Intensity : 10 SANA RG RN - 01/10/2017 14:07 CDT Source: [employer] Document Id: [id number] CDT!10 Gerson Stiles M.D. - 01/10/2017 1:04 PM CDT Skin rash, Fever Patient: SHRUTHI JONES Age: 36 years Sex: Female : 1980 Author: GERSON STILES MD Attachments: None Associated Diagnosis: Reaction Drug Adverse Initial; Fever NOS; Rash Multiple Site Basic Information Additional information: Chief Complaint from Nursing Triage Note : Chief Complaint Description 01/10/2017 12:52 CDT Chief Complaint Description see triage note 01/10/2017 12:47 CDT Chief Complaint Description 36 year old female admitted to ER wtih fever, rash was seen in another clinic and was curently taking Bactrim DS for stafph infection from boils in arm pits . History of Present Illness Patient comes with mother, sent over by her primary care physician at [place]. I do not have access to those records, reviewed available electronic records within our system. But a week ago she developed some axillary cyst and was started on Bactrim. She missed a day or 2 and then restarted it yesterday and then started developing a rash last evening and then but this morning it was generalized the painful and she started feel febrile. She was seen and there was worry for Hansen-Anders syndrome so she sent here. She says the axilla feels much better. No other skin problems including in the groin. She is very upset and tearful saying she feels just like she did when she had sepsis some years ago after a hysterectomy. Other than the occasional skin abscesses in the hysterectomy problem she is otherwise healthy deniesother health problems denies other allergies.. Review of Systems Constitutional symptoms: Fever, chills and weakness. Skin symptoms: Negative except as documented in HPI. Eye symptoms: Vision unchanged, but no blurred vision. ENMT symptoms: Denies sore throat or oral lesions., but no sore throat. Respiratory symptoms: Negative except as documented in HPI. Cardiovascular symptoms: Negative except as documented in HPI. Gastrointestinal symptoms: No abdominal pain, no nausea, no vomiting or no diarrhea. Genitourinary symptoms: No dysuria or no hematuria. Musculoskeletal symptoms: Joint pain, but no Muscle pain. Neurologic symptoms: No headache or no dizziness. Psychiatric symptoms: No anxiety or no sleeping problems. Endocrine symptoms: No polyuria or no polydipsia. Hematologic/Lymphatic symptoms: Bleeding tendency negative or no swollen nodes. Health Status Allergies: Allergic Reactions (Selected) NKA. Past Medical/ Family/ Social History Medical history: No active or resolved past medical history items have been selected or recorded.. Surgical history: Carpal tunnel release ([id number]) on 06/17/2012 at 31 Years. Comments: 06/17/2012 11:15 - DAVID HARRELL RN left wrist Abdomen ([id number]) on 10/15/2011 at 31 Years. Comments: 11/05/2011 13:03 - LULA PIMENTEL LPN left quad mass removed Myomectomy, excision of fibroid tumor(s) of uterus, 1 to 4 intramural myoma(s) with total weight of 250 g or less and/or removal of surface myomas; abdominal approach ([id number]) on 10/13/2011 at 31 Years. Pap smear ([id number]) on 09/23/2009 at 29 Years. C FULL ROUT OBSTE CARE,VAGINAL DELIV - 02/07/05 - girl on 02/07/2005 at 24 Years. C APPENDECTOMY - 06/09/92 on 06/09/1992 at 11 Years. Appendectomy; ([id number]). Comments: 10/13/2010 11:32 - PAOLO MARTINEZ RN date unknown. Family history: History is unknown.. Physical Examination Vital Signs: Vital Signs 01/10/2017 12:47 CDT Temperature Core 38.6 DegC HI Peripheral Pulse Rate 113 /min HI Respiratory Rate 18 /min SpO2 100 % Systolic Blood Pressure 121 mmHg Diastolic Blood Pressure 75 mmHg Mean Arterial Pressure 90 mmHg BP Location Left upper . General: Mild distress and Tearful and upset in complaining of pain on her skin.. Skin: She has a patchy confluent fine rash most marked over her back and chest but also extending onto extremities but sparing her palms and soles. I do not see any areas of bull eye or skin breakdown.and No infection in her axilla or significant lymphadenopathy now. Head: Normocephalic. Eye: Redness injection of the conjunctiva bilaterally, mild. Ears, nose, mouth and throat: Oral mucosa moist and no pharyngeal erythema or exudate. Cardiovascular: Regular rate and rhythm. Respiratory: Lungs are clear to auscultation. Chest wall: No tenderness. Gastrointestinal: Soft and Nontender. Neurological: Alert and oriented to person, place, time, and situation. Lymphatics: No lymphadenopathy. Psychiatric: Tearful and upset but cooperative. Medical Decision Making Differential Diagnosis:Fever, viral syndrome, allergic drug eruption. Rationale:Will start fluids at station pain control laboratories see how she responds. Concern is that she is febrile so this is very significant reaction or uncontrolled infection. Documents reviewed:None available. OrdersLaunch Orders Laboratory: Sed Rate (Order Processing): Stat, 01/10/2017 13:11 CDT, Once Lactic Acid (Order Processing): Stat, 01/10/2017 13:11 CDT, Once CRP (Order Processing): Stat, 01/10/2017 13:11 CDT, Once Comprehensive Metabolic Panel (Order Processing): Stat, 01/10/2017 13:11 CDT, Once CBC (includes Auto Differential) (Order Processing): Stat, 01/10/2017 13:11 CDT, Once Pharmacy: Sodium Chloride 0.9% 1000 mL (Order Processing): 150 mL/hr, IV Saline bolus (Order Processing): 500 mL, IVPB, Once, Launch Orders Laboratory: Blood Culture x 2 (Order Processing) Culture Blood (Order Processing): Stat, 01/10/2017 13:13 CDT Culture Blood (Order Processing): Stat, 01/10/2017 13:13 CDT, Launch Orders Laboratory: UA with Culture if Indicated (Order Processing): Routine, 01/10/2017 13:54 CDT, Once, Urine, Clean Void (Midstream) Pharmacy: Benadryl (Order Processing): 25 mg, IV Push, Once, Launch Orders Pharmacy: Saline bolus (Order Processing): 1,000 mL, IVPB, Once, Launch Orders Pharmacy: fentaNYL (Order Processing): 50 mcg, IV Push, Once, Launch Orders Patient Care: Transfer Patient Externally-ED (Order Processing): 01/10/2017 16:05 CDT. Results review:Lab results : Lab View 01/10/2017 13:20 CDT Hgb 14.1 g/dL Hct 39.8 % WBC 4.6 x10(9)/L RBC 4.77 x10(12)/L MCV 83.4 fL RDW 12.5 % Platelet 120 x10(9)/L LOW Neutro Absolute 4.09 10(9)/L Lymph Absolute 0.24 x10(9)/L LOW [place] Absolute 0.18 x10(9)/L LOW Eos Absolute 0.14 x10(9)/L Baso Absolute 0.00 x10(9)/L Sed Rate 11 mm/hr Sodium Lvl 131 mmol/L LOW Potassium Lvl 4.3 mmol/L Chloride 94 mmol/L LOW CO2 24 mmol/L AGAP 13 mmol/L Alkaline Phosphatase 87 U/L Glucose Lvl 97 mg/dL Creatinine 0.77 mg/dL EGFR (MDRD) >60 mL/min/1.73m2 EGFR (MDRD) >60 mL/min/1.73m2 BUN 12 mg/dL Calcium Lvl 8.4 mg/dL LOW Protein Total 6.4 g/dL Albumin Lvl 3.7 g/dL AST 55 U/L HI ALT 47 U/L HI Bili Total 0.3 mg/dL CRP 59.9 mg/L HI Lactic Acid Lvl 0.9 mmol/L . Reexamination/ Reevaluation Remains febrile, pulse slightly over 100 but no hypertension at this time. Noted some slightly increased liver function tests lowish white count and continued fever. I cannot make the diagnosis of Hansen-Anders at this time because there is no loss of skin. However it is worrisome. She needs specialty care not available here being she might benefit from a dermatology consultation possible biopsy tounderstand the diagnosis. Given IV Benadryl. Discussed with the [facility] Emergency pharmacist and Dr. Bloom, medical review specialist the day regarding use of steroids and antibiotics and since we cannot documented definite infection will want and withhold antibiotics at this time. She will be transferredby ambulance with continued fluid resuscitation planning a direct possible admission to medical service symptom by Dr. Bloom. Should she become hypotensive or tachycardic in route despite fluids than she will need emergency department evaluation. EMS will give detailed report prior to arrival. Impression and Plan Diagnosis Reaction Drug Adverse Initial (Discharge, Emergency medicine, Medical) Fever NOS (Discharge, Emergency medicine, Medical) Rash Multiple Site (Discharge, Emergency medicine, Medical) Electronically Signed By: GERSON STILES MD On: 01/10/2017 04:05 PM Modified by and Electronically Signed by: GERSON STILES MD On: 01/10/2017 01:54 PM Source: [facility] POWERCHART Document Id: [id number]} Sana Rg R.N. 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 ) Name of Problem: Amphetamine or Related Acting Sympathomimetic Abuse, in Remission ; Onset Date: 12/01/2004 ; Confirmation: Confirmed ; Classification: UPDATE NEEDED ; Code: 305.73 ; Contributor System: [facility]_HX_PR_UPLOAD ; Last Updated: 12/05/2013 21:33 CDT ; Life Cycle Status: Active ; Vocabulary: ICD-9-CM ; Comments: - Nondependent amphetamine or related acting sympathomimetic abuse, in remission Dysthymic Disorder (ICD-9-CM :300.4 ) Name of Problem: Dysthymic Disorder ; Onset Date: 11/05/2011 ;Recorder: LAKHWINDER JULIO APRN, DNP, CNP; Confirmation: Confirmed ; Classification: Medical ; Code: 300.4 ; Last 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: 11/05/2011 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 ; Life Cycle Status: Active ; Responsible Provider: LAKHWINDER JULIO APRN, DNP, CNP; Vocabulary: ICD-9-CM Headache Migraine (ICD-9-CM :346.90 ) Name of Problem: Headache Migraine ; Onset Date: 11/05/2011 ; Recorder: LAKHWINDER JULIO APRN, DNP, CNP; Confirmation: Confirmed ; Classification: Medical ; Code: 346.90 ; Last Updated: 11/05/2011 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 ; Life Cycle Status: Active ; Responsible Provider: LAKHWINDER JULIO APRN, DNP, CNP; Vocabulary: ICD-9-CM Nonspecific Abnormal Results of Function Study of Liver (ICD-9-CM :794.8 ) Name of Problem: Nonspecific Abnormal Results of Function Study of Liver ; Onset Date: 03/17/2002 ; Confirmation: Confirmed ; Classification: Medical ; Code: 794.8 ; Contributor System: [facility]_HX_PR_UPLOAD ; Last Updated: 12/05/2013 21:33 CDT ; Life Cycle Status: Active ; Vocabulary: ICD-9-CM ; Comments: - Nonspecific abnormal results of liver function study Polysubstance dependence, unspecified (ICD-9-CM :304.80 ) Name of Problem: Polysubstance dependence,unspecified ; Onset Date: 12/08/2006 ; Recorder: PAOLO MARTINEZ RN; Confirmation: Confirmed ; Classification: Nursing ; Code: 304.80 ; Contributor System: [employer] ; Last Updated: 10/13/2010 11:27CST ; Life Cycle Date: 10/13/2010 ; Life Cycle Status: Active ; Responsible Provider: PAOLO MARTINEZ RN; Vocabulary: ICD-9-CM Supervision of Other Normal (ICD-9-CM :V22.1 ) Name of Problem: Supervision of Other Normal ; Onset Date: 10/30/2004 ; Confirmation: Confirmed ; Classification: Medical ; Code: V22.1 ; Contributor System: [facility]_HX_PR_UPLOAD ; Last Updated: 12/05/2013 21:33 CDT ; Life Cycle Status: Ac tive ; Vocabulary: ICD-9-CM ; Comments: - Supervision of other normal Diagnoses(Active) Fever Date: 01/10/2017 ; Diagnosis Type: Reason For Visit ; Confirmation: Complaint of ; Clinical Dx: Fever ; Classification: Medical ; Clinical Service: Emergency medicine ; Code: PNED ; Probability: 0 ; Diagnosis Code: [id number] Skin rash Date: 01/10/2017 ; Diagnosis Type: Reason For Visit ; Confirmation: Complaint of ; Clinical Dx: Skin rash ; Classification: Medical ; Clinical Service: Emergency medicine ; Code: PNED ; Probability: 0 ; Diagnosis Code: [id number] Triage Chief Complaint Description : see triage note Mode of Arrival ED : Private vehicle Track : Medical Languages : German Treatments Prior to Arrival : None Are you ? : No Is Patient Female and 13-50 no hysterectomy : Yes Status : Patient denies SANA RG RN - 01/10/2017 12:52 CDT Pain Assessment Pain Symptoms : Yes SANA RG RN - 01/10/2017 12:52 CDT Respiratory Airway : Patent Respirations : Unlabored Respiratory Pattern : Regular SANA RG RN - 01/10/2017 12:52 CDT Cardiovascular Heart Rhythm : Regular Skin Color : Normal for ethnicity Skin Description : Dry Skin Temperature : Warm SANA RG RN - 01/10/2017 12:52 CDT Neurological Last Well Time Known : Not applicable Level of Consciousness : Alert Orientation : Oriented x 3 Characteristics of Speech : Appropriate for age Neuro Patient Stated Symptoms : Dizziness, Headache, Numbness, Tingling SANA RG RN - 01/10/2017 12:52 CDT ED Psychosocial Affect/Behavior : Calm Domestic Abuse Concerns : None Behavioral Health Screen/Safety Assmt : No SANA RG RN - 01/10/2017 12:52 CDT Gastrointestinal Nutrition ED : Inadequate SANA RG RN - 01/10/2017 12:52 CDT Musculoskeletal Fall Prevention Education Provided : SANA MAHMOOD RN - 01/10/2017 12:52 CDT Social Habits Exposure to Tobacco Smoke : Patient smokes Smoking Status : Current every day smoker Tobacco 2A : Yes Tobacco Use/Currently Using : Yes Tobacco Use/Last 30 Days : Yes Tobacco Use/Last 12 months : Yes Type : Other: e cig SANA RG RN - 01/10/2017 12:52 CDT Alcohol Use Grid Alcohol Use : No SANA RG RN - 01/10/2017 12:52 CDT Recreational Drug Use Grid Drug Use : None SANA RG RN - 01/10/2017 12:52 CDT Source: [facility] [employer] Document Id: [id number]!49 Sana Rg RInessa - 01/10/2017 12:47 PM CDT ED Triage Assessment Document Has Been Updated ED Triage Assessment Entered On: 01/10/2017 12:52 CDT Performed On: 01/10/2017 12:47 CDT by SANA RG RN Reason For Visit (As Of: 01/10/2017 12:52:27 CDT) Problems(Active) Amphetamine or Related Acting Sympathomimetic Abuse, in Remission (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 ) Name of Problem: Amphetamine or Related Acting Sympathomimetic Abuse, in Remission ; Onset Date: 12/01/2004 ; Confirmation: Confirmed ; Classification: UPDATE NEEDED ; Code: 305.73 ; Contributor System: [facility]_HX_PR_UPLOAD ; Last Updated: 12/05/2013 21:33 CDT ; Life Cycle Status: Active ; Vocabulary: ICD-9-CM ; Comments: - Nondependent amphetamine or related acting sympathomimetic abuse, in remission Dysthymic Disorder (ICD-9-CM :300.4 ) Name of Problem: Dysthymic Disorder ; Onset Date: 11/05/2011 ;Recorder: LAKHWINDER JULIO APRN, DNP, CNP; Confirmation: Confirmed ; Classification: Medical ; Code: 300.4 ; Last Updated: 11/05/2011 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 ; Life Cycle Status: Active ; Responsible Provider: LAKHWINDER JULIO APRN, DNP, CNP; Vocabulary: ICD-9-CM Headache Migraine (ICD-9-CM :346.90 ) Name of Problem: Headache Migraine ; Onset Date: 11/05/2011 ; Recorder: LAKHWINDER JULIO APRN, DNP, CNP; Confirmation: Confirmed ; Classification: Medical ; Code: 346.90 ; Last Updated: 11/05/2011 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 ; Life Cycle Status: Active ; Responsible Provider: LAKHWINDER JULIO APRN, DNP, CNP; Vocabulary: ICD-9-CM Nonspecific Abnormal Results of Function Study of Liver (ICD-9-CM :794.8 ) Name of Problem: Nonspecific Abnormal Results of Function Study of Liver ; Onset Date: 03/17/2002 ; Confirmation: Confirmed ; Classification: Medical ; Code: 794.8 ; Contributor System: [facility]_HX_PR_UPLOAD ; Last Updated: 12/05/2013 21:33 CDT ; Life Cycle Status: Active ; Vocabulary: ICD-9-CM ; Comments: - Nonspecific abnormal results of liver function study Polysubstance dependence, unspecified (ICD-9-CM :304.80 ) Name of Problem: Polysubstance dependence,unspecified ; Onset Date: 12/08/2006 ; Recorder: PAOLO MARTINEZ RN; Confirmation: Confirmed ; Classification: Nursing ; Code: 304.80 ; Contributor System: [employer] ; Last Updated: 10/13/2010 11:27CST ; Life Cycle Date: 10/13/2010 ; Life Cycle Status: Active ; Responsible Provider: POALO MARTINEZ RN; Vocabulary: ICD-9-CM Supervision of Other Normal (ICD-9-CM :V22.1 ) Name of Problem: Supervision of Other Normal ; Onset Date: 10/30/2004 ; Confirmation: Confirmed ; Classification: Medical ; Code: V22.1 ; Contributor System: [facility]_HX_PR_UPLOAD ; Last Updated: 12/05/2013 21:33 CDT ; Life Cycle Status: Ac tive ; Vocabulary: ICD-9-CM ; Comments: - Supervision of other normal Diagnoses(Active) Fever Date: 01/10/2017 ; Diagnosis Type: Reason For Visit ; Confirmation: Complaint of ; Clinical Dx: Fever ; Classification: Medical ; Clinical Service: Emergency medicine ; Code: PNED ; Probability: 0 ; Diagnosis Code: [id number] Skin rash Date: 01/10/2017 ; Diagnosis Type: Reason For Visit ; Confirmation: Complaint of ; Clinical Dx: Skin rash ; Classification: Medical ; Clinical Service: Emergency medicine ; Code: PNED ; Probability: 0 ; Diagnosis Code: [id number] Triage Chief Complaint Description : 36 year old female admitted to ER wtih fever, rash was seen in anotherclinic and was curently taking Bactrim DS for stafph infection from boils in arm pits Information Given By : Patient Present in Room During Exam/Procedure : Mother Mode of Arrival ED : Private vehicle Track : Medical Languages : German Vital Signs Assessed : Yes Treatments Prior to Arrival : None Are you ? : No Is Patient Female and 13-50 no hysterectomy : Yes Status : Patient denies SANA RG RN - 01/10/2017 12:47 CDT Vital Signs Temperature Core : 38.6 DegC(Converted to: 101.5 DegF) (HI) Peripheral Pulse Rate : 113 /min (HI) Respiratory Rate : 18 /min Systolic Blood Pressure : 121 mmHg Diastolic Blood Pressure : 75 mmHg NIBP Mean : 90 mmHg BP Location : Left upper extremity SpO2 : 100 % Oxygen Therapy : Room air Actual Weight : 80.3 kg Actual Weight Conversion to Pounds : 176.66 lb SANA RG RN - 01/10/2017 12:47 CDT Pain Assessment Pain Symptoms : Yes SANA RG RN - 01/10/2017 12:47 CDT Pain Scale Pain Scale Verbal 0-10 : Open SANA RG RN - 01/10/2017 12:47 CDT Pain Pain Assessment Grid Pain 1 Location : Generalized Intensity : 10 SANA RG RN - 01/10/2017 12:47 CDT ED Physician Notification Time ED Physician Notification Time : 01/10/2017 12:51 CDT SANA RG RN - 01/10/2017 12:47 CDT FAINA FAINA Level 1 : No FAINA Level 2 : No FAINA Level 3 : Many Vital Signs FAINA : Danger zone (HR > 100, RR > 20, SaO2 < 92%) SANA RG RN - 01/10/2017 12:47 CDT DCP GENERIC CODE Tracking Acuity : 2 -Emergent Tracking Group : [facility] ED SANA RG RN - 01/10/2017 12:47 CDT Allergy (As Of: 01/10/2017 12:52:27 CDT) Allergies (Active) NKA Estimated Onset Date: Unspecified ; Created By: PAOLO MARTINEZ RN; Reaction Status: Active ; Category: Drug ; Substance: NKA ; Type: Allergy ; Updated By: PAOLO MARTINEZ RN; Reviewed Date: 01/10/2017 12:52 CDT ID Screen Drug Resistant Organism : No Travel Within Last 21 Days : No Contact with someone with Ebola : No SANA RG RN - 01/10/2017 12:47 CDT Immunizations Last Tetanus : < 5 years Pneumovac : None Influenza : None SANA RG RN - 01/10/2017 12:47 CDT Source: [facility] [employer] Document Id: [id number] CDT!52 documented in this encounter Miscellaneous Notes Transfer of Care - Sana Rg R.N. - 01/10/2017 3:44 PM CDT Patient Transfer Patient Transfer Entered On: 01/10/2017 15:47 CDT Performed On: 01/10/2017 15:44 CDT by SANA RG RN Patient Condition and Reason for Transfer Reason for Transfer : Medically indicated transfer SANA RG RN - 01/10/2017 15:44 CDT Transfer Requirements Transfer Requirements Met : Patient has received a medical screening, Patient will be transferred byqualified personnel and transportation equipment as required, including the use of necessary appropriate life support measures, Receiving facility has agreed to accept transfer and to provide appropriate medical treatments, Receiving facility has available space and qualified personnel for the treatment of the patient, Risks and benefits of transfer explained to patient Transferring Physician : GERSON STILES MD Receiving Facility Accepting Transfer : [facility]er of receiving facility accepting patient : [facility] Date/Time Transfer Accepted : 01/10/2017 14:30 CDT Accepting Physician : sandra Date/Time Physician Accepted Patient : 01/10/2017 14:30 CDT Nurse Receiving Report : robin Date/Time Nurse Received Report : 01/10/2017 15:25 CDT SANA RG RN - 01/10/2017 15:44 CDT Details of Transfer Mode of Transfer : Ground ambulance Data Sent with Patient : Chart copy, Face Sheet (patient demographics), History and Physical, Emergency Department Notes, Laboratory reports, Nursing database, medication records, progress notes, Advance Directives copy, Discharge Summary (if available), Physician Certification for Transfer form completed (keep original - send copy), Patient Consent for Transfer signed (keep original - send copy), Ambulance specific Physician Certification Statement completed if going by ambulance, Interinstitutional Transfer orders Required Personnel for Transfer : EMT, Farm Equipment Engine Mechanic SANA RG RN - 01/10/2017 15:44 CDT Valuables/Belongings Belongings Sent Home With : daughter SANA RG RN - 01/10/2017 15:44 CDT Source: [facility] [employer] Document Id: [id number] CDT!19 Miscellaneous - Sana Rg R.N. - 01/10/2017 3:44 PM CDT Valuables/Belongings Valuables/Belongings Entered On: 01/10/2017 15:44 CDT Performed On: 01/10/2017 15:44 CDT by SANA RG RN Valuables/Belongings Belongings Sent Home With : daughter SANA RG RN - 01/10/2017 15:44 CDT [facility] Document Id: [id number] CDT!3 Miscellaneous - Conversion, Historical Provider Ser - 01/10/2017 3:00 PM CDT Coding Summary-Paper Based CODING DATE: 01/16/[address] [facility] STATUS: Disch/Trans ShortTerm Gen Hosp-Inpt Care PAYOR: [facility] ADMIT DX: R21 Rash and other nonspecific skin eruption REASON FOR VISIT DX: R21 Rash and other nonspecific skin eruption FINAL DX: PRINCIPAL: R21 Rash and other nonspecific skin eruption SECONDARY: R50.9 Fever, unspecified R53.1 Weakness T37.0X5A Adverse effect of sulfonamides, initial encounter F17.210 Nicotine dependence, cigarettes, uncomplicated Y92.[address] as the place of occurrence of the external cause PROCEDURES DOCTOR NAME DATE NOTE: The code number assigned matches the documented diagnosis and / or procedure in the patient's chart. However, the narrative phrase printed from the coding software may appear abbreviated, or result in slightly different terminology. Coded By: SHABNAM CAPPS Date Saved: 01/16/2017 10:07 am Source: [employer] Document Id: [id number] Miscellaneous - Sana Rg, R.N. - 01/10/2017 12:37 PM CDT Facility Charge Ticket 2.0 11.0 DX Facility Charge Ticket 2.0 11.0 DX Entered On: 01/10/2017 15:44 CDT Performed On: 01/10/2017 12:37 CDT by SANA RG RN Facility Charge Ticket 2.0 11.0 DX ED Other Charges : Standard ED Encounter TVL Level Translated RTF : Skin rash, Fever TVL:3 TVL Level for Facility Charge Ticket : Level 3 Arrival Mode Calc : 1 Mode of Arrival ED : Private vehicle [facility] Mode of Arrival Interpreted : Standard [facility] Process Management : None Order Management RTF : Laboratory CBC (includes Auto Differential),01/10/17 13:11,GERSON STILES MD Completed Comprehensive Metabolic Panel,01/10/17 13:11,GERSON STILES MD Completed CRP,01/10/17 13:11,GERSON STILES MD Completed Lactic Acid,01/10/17 13:11,GERSON STILES MD Completed Sed Rate,01/10/17 13:11,GERSON STILES MD Completed Automated Diff-5 Part,01/10/17 13:23,GERSON STILES MD Completed Blood Culture x 2,01/10/17 13:12,GERSON STILES MD Ordered Culture Blood,01/10/17 13:13,GERSON STILES MD Ordered Culture Blood,01/10/17 13:13,GERSON STILES MD Ordered UA with Culture if Indicated,01/10/17 13:54,GERSON STILES MD Ordered [facility] Order Management : Lab tests 30 Minutes Critical Care : No Nursing Notes RTF : Triage Forms ED Triage Assessment,01/10/17 12:47,SANA RG RN Nursing Notes ED Primary Assessment,01/10/17 12:52,SANA RG RN ED Nurse Reassess,01/10/17 14:25,SANA RG ORE CRUSHING DUST COLLECTOR Nurse Reassess,01/10/17 14:07,SANA RG RN ED Pain Assessment,01/10/17 15:44,SANA RG RN [facility] Nursing Assessment : Triage and 3-5 nursing assessments [facility] Disposition : Transfer/Return to Hospital/SNF [facility] Total Points with Diagnosis Control : 11 [facility] Visit Level : 25398 Level 4 Treatments Prior to Arrival : None SANA RG RN - 01/10/2017 15:44 CDT Source: [employer] Document Id: [id number] CDT!18 documented in this encounter Plan of Treatment Not on filedocumented as of this encounter Procedures Procedure Name Priority Date/Time Associated Comments Diagnosis BACTERIAL CULTURE, Routine 01/10/2017 2:07 PM Res ults for this BLOOD CDT procedure are i n the results section. BACTERIAL CULTURE, Routine 01/10/2017 1:36 PM Res ults for this BLOOD CDT procedure are i n the results section. AUTOMATED Routine 01/10/2017 1:20 PM Results f or this DIFFERENTIAL, B CDT procedure ar e in the results section. SEDIMENTATION RATE, B Routine 01/10/2017 1:20 PM Results for this CDT procedure are i n the results section. CBC WITH DIFFERENTIAL, Routine 01/10/2017 1:20 PM Results for this B CDT procedure are i n the results section. C-REACTIVE PROTEIN Routine 01/10/2017 1:20 PM Res ults for this (CRP), S/P CDT procedure are i n the results section. LACTATE, B/P Routine 01/10/2017 1:20 PM Results f or this CDT procedure are i n the results section. COMPREHENSIVE Routine 01/10/2017 1:20 PM Results for this METABOLIC PANEL, S/P CDT procedu re are in the results section. documented in this encounter Results Bacterial Culture, Blood (01/10/2017 2:07 PM CDT) [facility] [employer] Method Time Signature Bacteria/Rhoda POWERCHART da Culture, Blood HXPre No growth POWERCHART at 24 hours. HXPre No growth POWERCHART at 48 hours. HXPre No growth POWERCHART at 3 days. HXPre No growth POWERCHART at 4 days. HXFinal No growth POWERCHART at 5 days. Specimen (Source) Anatomical Collection Method Collection Time Re ceived Time Location / / Volume Laterality Blood 01/10/2017 2:07 PM CDT Gerson Stiles M.D. LAB MICROBIOLOGY - GENERAL O RDERABLES Performing Organization Address City/State/ZIP Code Phon e Number POWERCHART Bacterial Culture, Blood (01/10/2017 1:36 PM CDT) [facility] [employer] Method Time Signature Bacteria/Rhoda POWERCHART da Culture, Blood HXPre No growth POWERCHART at 24 hours. HXPre No growth POWERCHART at 48 hours. HXPre No growth POWERCHART at 3 days. HXPre No growth POWERCHART at 4 days. HXFinal No growth POWERCHART at 5 days. Specimen (Source) Anatomical Collection Method Collection Time Re ceived Time Location / / Volume Laterality Blood (Arm, 01/10/2017 1:36 PM Right) CDT Gerson Stiles M.D. LAB MICROBIOLOGY - GENERAL O RDERABLES Performing Organization Address City/[facility]/ZIP Code Phon e Number POWERCHART (ABNORMAL) Automated Differential (01/10/2017 1:20 PM CDT) Patholo gist Method Time Signature Absolute 4.09 1.70 - POWERCHART Neutrophils 7.00 109L Lymphocytes 0.24 (L) 0.90 - POWERCHART 2.90 X109L Monocytes 0.18 (L) 0.30 - POWERCHART 0.90 X109L Eosinophils 0.14 0.05 - POWERCHART 0.50 X109L Absolute 0.00 0.00 - POWERCHART Basophil 0.30 X109L Specimen Anatomical Collection Method Collection Time Receive d Time (Source) Location / / Volume Laterality Blood 01/10/2017 1:20 PM 7 1:20 CDT PM CDT Gerson Stiles M.D. LAB BLOOD ADD-ON Performing Organization Address City/[facility] Phon e Number POWERCHART Sedimentation Rate (01/10/2017 1:20 PM CDT) Analysis Performed At Patho logist Time Signature Sedimentation 11 0 - 30 POWERCHART Rate, B MMHR Specimen (Source) Anatomical Collection Method Collection Time Re ceived Time Location / / Volume Laterality Blood 01/10/2017 1:20 PM CDT Gerson Stiles M.D. LAB BLOOD ADD-ON Performing Organization Address City/[facility] Phon e Number POWERCHART (ABNORMAL) CBC with Differential (01/10/2017 1:20 PM CDT) P athologist Signature Leukocytes 4.6 3.4 - 10.5 POWERCHART X109L Erythrocytes 4.77 3.90 - POWERCHART 5.03 [id number] Hemoglobin 14.1 12.0 - POWERCHART 15.5 GDL Hematocrit 39.8 34.9 - POWERCHART 44.5 MCV 83.4 81.6 - POWERCHART 98.3 FL HX RDW 12.5 11.9 - POWERCHART 15.5 Platelet Count 120 (L) 150 - 450 POWERCHART X109L Specimen (Source) Anatomical Collection Method Collection Time Re ceived Time Location / / Volume Laterality Blood 01/10/2017 1:20 PM CDT Gerson Stiles M.D. LAB BLOOD ADD-ON Performing Organization Address City/[facility] Code Phon e Number POWERCHART Lactate (01/10/2017 1:20 PM CDT) P athologist Signature Lactate, P 0.9 0.5 - 2.2 POWERCHART MMOLL Specimen (Source) Anatomical Collection Method Collection Time Re ceived Time Location / / Volume Laterality Blood 01/10/2017 1:20 PM CDT Gerson Stiles M.D. LAB BLOOD NON ADD-ON Performing Organization Address City/[facility] Phon e Number POWERCHART (ABNORMAL) CRP (C-Reactive Protein) (01/10/2017 1:20 PM CDT) P athologist Signature C-Reactive 59.9 (H) <=5.0 MGL POWERCHART Protein (CRP), S Specimen (Source) Anatomical Collection Method Collection Time Re ceived Time Location / / Volume Laterality Blood 01/10/2017 1:20 PM CDT Gerson Stiles M.D. LAB BLOOD ADD-ON Performing Organization Address [facility] Phon e Number POWERCHART (ABNORMAL) CMP (Comprehensive Metabolic Panel) (01/10/2017 1:20 PM CDT) Patholo gist Method Time Signature Alanine 47 (H) 7 - 45 UL POWERCHART Amniotransferase, LD Albumin, S 3.7 3.5 - 5.0 POWERCHART GDL Alkaline 87 37 - 98 POWERCHART Phosphatase, S UL Aspartate 55 (H) 8 - 43 UL POWERCHART Aminotransferase (AST), S Sodium, S 131 (L) 135 - 145 POWERCHART MMOLL Potassium, S 4.3 3.5 - 5.1 POWERCHART MMOLL Chloride, S 94 (L) 98 - 107 POWERCHART MMOLL CO2 Total 24 22 - 29 POWERCHART MMOLL BUN (Blood Urea 12 6 - 21 POWERCHART Nitrogen), S MGDL Creatinine 0.77 0.59 - POWERCHART 1.04 MGDL Calcium, Total, S 8.4 (L) 8.6 - POWERCHART 10.3 MGDL Anion Gap 13 10 - 20 POWERCHART MMOLL HXeGFR (MDRD) >60 >=60 POWERCHART [id number] 2 eGFR Black/ >60 >=60 POWERCHART Filipino [id number] 2 Bilirubin, Total, S 0.3 <=1.2 POWERCHART MGDL Total Protein, S 6.4 6.3 - 7.9 POWERCHART GDL Glucose 97 70 - 139 POWERCHART MGDL Specimen (Source) Anatomical Collection Method Collection Time Re ceived Time Location / / Volume Laterality Blood 01/10/2017 1:20 PM CDT Gerson Stiles M.D. LAB BLOOD ADD-ON Performing Organization Address City/State/ZIP Code Phon e Number POWERCHART documented in this encounter Visit Diagnoses Not on filedocumented in this encounter Additional Health Concerns Assessment Noted Time PHQ-9 Depression Total Score: 16 11/25/2012 12:45 PM C DT documented as of this encounter
--- OUTSIDE RECORDS SUMMARY | 2022-05-17 14:01 | XMS_ITS | Encounter Summary ---
:1980 Author Organization [facility] Address [address] [place] [address] Care Team Providers Name Role Phone Unavailable Primary Care Provider Unavailable Encounter Details Date Type Department Care Team Description 01/01/2018 Ancillary Procedure Department of Gastroenterology Social History Tobacco Use Types Packs/Day Years [...] Procedure Name Priority Date/Time Associated Comments Diagnosis GASTROENTEROLOGY IMAGE Routine 01/01/2018 1:15 Re sults for this EXAM PM CDT procedure are i n the results section. documented in this encounter Results GASTROENTEROLOGY IMAGE EXAM (01/01/2018 1:15 PM CDT) Specimen (Source) Anatomical Collection Method Collection Time Re ceived Time Location / / Volume Laterality 01/01/2018 1:11 PM CDT Narrative I[facility] - 01/01/2018 1:44 PM CDT This order has been created and auto-finalized to support the import of images acquired without order. The clini fritz documentation to support these images can be found on the encounter ted t produced images. Provider Not In System IMG NON RAD IMAGING PROCEDUR ES Performing Organization Address City/State/ZIP Code Phon e Number IIMS IIMS NA documented in this encounter Visit Diagnoses Not on filedocumented in this encounter Additional Health Concerns Assessment Noted Time PHQ-9 Depression Total Score: 16 11/25/2012 12:45 PM C DT documented as of this encounter
--- OUTSIDE RECORDS SUMMARY | 2022-05-17 14:01 | XMS_ITS | Encounter Summary ---
:1980 Author Organization [facility] Address [address] [place] [address] Care Team Providers Name Role Phone Unavailable Primary Care Provider Unavailable Encounter Details Date Type Department Care Team Description 01/10/2017 Hospital Encounter HX RST EMERGENCY Provider, Historic [...]
--- OUTSIDE RECORDS SUMMARY | 2022-05-17 14:01 | XMS_ITS | Encounter Summary ---
:1980 Author Organization [facility] Address [address] [place] [address] Care Team Providers Name Role Phone Unassigned, Pcp Primary Care Provider Unavailable Reason for Referral Outpatient (Routine) - Closed Specialty Diagnoses / Procedures Referred By Contact Refer red To Contact General Surgery Diagnoses Pain Right Upper Quadrant Beth Burr, [facility] [address] [place], [place] [address] Referral ID Status Reason Start Date Expiration Date Visits V isits Requested Authorized [id number] Closed Specialty 12/31/2017 06/29/2018 1 1 Services Required Scheduling Instructions Please call the patient to schedule. The re is openings on January 08 if that works for her. Encounter Details Date Type Department Care Team Description 12/31/2017 Orders Only Department of Beth Burr Pain R ight Upper Orthopedic Surgery in [place] Quad[place] (Primary Dx) [place], [address] [place] [address] [address] [place], [place] [phone] (W ork) [id number] [phone] Social History Tobacco Use Types Packs/Day Years Used Date Smoking Tobacco: Some Days Cigarettes E-cigarettes Smokeless Tobacco: Never Sex Assigned at Date Recorded Not on file documented as of this encounter Plan of Treatment Scheduled Referrals Name Type Priority Associated Diagnoses Order S chedule General Surgery - Outpatient Referral Routine Pain Right Upper Expected: General consult Quadrant 12/31/2017 (clinic) (Approximate), Expires: 12/31/2020 documented as of this encounter Visit Diagnoses Diagnosis Pain Right Upper Quadrant - Primary documented in this encounter Additional Health Concerns Assessment Noted Time PHQ-9 Depression Total Score: 16 11/25/2012 12:45 PM C DT documented as of this encounter Care Teams Bill Poster Installer Relationship Specialty Start Date End Date Unassigned, Pcp PCP - General Family Medicine 01/06/18 09/27/19 documented as of this encounter
--- OUTSIDE RECORDS SUMMARY | 2022-05-17 14:01 | XMS_ITS | Encounter Summary ---
:1980 Author Organization [facility] Address [address] [place] [address] Care Team Providers Name Role Phone Unavailable Primary Care Provider Unavailable Reason for Visit Auth/Cert Specialty Diagnoses / Procedures Referred By Contact Refer red To Contact Diagnoses Pain Right Upper Quadrant Procedures CT EGD TRANSORAL DX ESOPHAGOGASTRODUODENOSCOPY Referral ID Status Reason Start Date Expiration Date Visits Requ ested Visits Authorized [id number] 1 1 Encounter Details Date Type Department Care Team Description 01/01/2018 Hospital Encounter Department of Compa Blank, Gastroenterology in [address] [id number] [phone] Social History Tobacco Use Types Packs/Day Years Used Date Smoking Tobacco: Some Days Cigarettes E-cigarettes Smokeless Tobacco: Never Alcohol Use Standard Drinks/Week Comments Yes 0 (1 standard drink = 0.6 oz pure alcoho l) Sex Assigned at Date Recorded Not on file documented as of this encounter Last Filed Vital Signs Vital Sign Reading Time Taken Comments Blood Pressure 132/98 01/01/2018 2:15 PM CDT Pulse 70 01/01/2018 2:15 PM CDT Temperature 36.6 ??C (97.9 ??F) 01/01/2018 1:02 PM CDT Respiratory Rate 17 01/01/2018 1:30 PM CDT Oxygen Saturation 100% 01/01/2018 2:15 PM CDT Inhaled Oxygen Concentration - - Weight 77.1 kg (170 lb) 01/01/2018 1:02 PM CDT Height 157.5 cm (5' 2) 01/01/2018 1:02 PM CDT Body Mass Index 31.09 01/01/2018 1:02 PM CDT documented in this encounter Medications [...] tablet daily. documented as of this encounter H&P Notes Compa Blank M.D. - 01/01/2018 1:10 PM CDT [facility] DEPARTMENT OF GASTROENTEROLOGY IN [place], [place] Rosana Jones [phone] Reason for Exam: #1 Pain Right Upper Quadrant History reviewed. No pertinent family history. Social History Social History ??? Marital status: [...] NERVE N/A 06/17/2012 Carpal tunnel release ??? OTHER CONVERTED SHX (SEE COMMENT) N/A [...] Start Date End Date Taking? Authorizing Provider raNITIdine (ZANTAC) 75 mg tablet Take 75 mg by mouth daily. Yes Historical Provider, M.D. acetaminophen (TYLENOL) 500 mg tablet Take 1,000 mg by mouth every 6 (six) hours as needed for pain.Angelica Michaud M.D. ibuprofen (ADVIL,MOTRIN) 200 mg tablet Take 5 tablets by mouth every 6 (six) hours. 01/10/17 Angelica Michaud M.D. OBJECTIVE Vital Signs BP 129/89 (BP Location: Left arm) Pulse 85 Temp 36.6 ??C (Temporal) Resp 16 Ht 157.5 cm Wt77.1 kg SpO2 99% BMI 31.09 kg/m?? Consents Obtained: verbal The following portions of the patient's history were reviewed and updated as appropriate: allergies,current medications, family history, medical history, social history and problem list. yes Review of systems: pertinent ROS negative Mallampati: II Heart: normal Lung: normal ASA physical exam: class 2 Sedation plan: moderate sedation Patient seen, evaluated and approved for sedation documented in this encounter Procedure Notes Compa Blank M.D. - 01/01/2018 1:11 PM CDTAssociated Order(s): UPPER GI ENDOSCOPY [facility] [place] [facility] Patient Name: Rosana Jones Procedure Date: 01/01/2018 1:11 PM Date of : 1980 Age: 37 Gender: Female Procedure: Upper GI endoscopy Providers: Compa Blank MD, Compa Blank MD (Ordering Provider) Referring Provider: Compa Blank MD Pre-op Diagnoses: Epigastric abdominal pain, Abdominal pain in the right upper quadrant Post-op Diagnoses: - Normal examined duodenum. - Chronic gastritis. Biopsied. - Z-line regular, 36 cm from the incisors. - Small hiatal hernia. - The examination was otherwise normal. Recommendation: - Await pathology results. - Keep appointment with me for Saturday Findings: The examined duodenum was normal. Diffuse mild inflammation characterized by congestion (edema) and erythema was found in the stomach. Biopsies were taken with a cold forceps for histology. The Z-line was regular and was found 36 cm from the incisors. A small hiatal hernia was present. The exam was otherwise without abnormality. Medicines: Midazolam 4 mg IV, Fentanyl 100 micrograms IV, Lidocaine spray Complications: No immediate complications. Procedure Details: The patient was seen, evaluated, and history reviewed. Airway and heart and lung exams were performed and were satisfactory for planned sedation care. The risks, benefits and alternatives for the procedure and sedation were discussed and informed consent was obtained. A procedural pause was conducted in the presence of assisting personnel to verify the correct patient identity and procedure to be performed. Throughout the procedure, the patient's blood pressure, pulse, and oxygen saturations were monitored continuously. The Endoscope was introduced under direct vision through the mouth, and advanced to the second part of duodenum. The upper GI endoscopy was accomplished without difficulty. The patient tolerated the procedure well. Sedation: Moderate (conscious) sedation was administered by the endoscopy nurse and supervised by the endoscopist. The following parameters were monitored: oxygen saturation, heart rate, blood pressure, and response to care. Total physician intraservice time was 7 minutes. Compa Blank MD 01/01/2018 1:35:57 PM This report has been signed electronically. Number of Addenda: 0 Note Initiated On: 01/01/2018 1:11 PM documented in this encounter Plan of Treatment Not on filedocumented as of this encounter Procedures Procedure Name Priority Date/Time Associated Comments Diagnosis PATHOLOGY SERVICES Routine 01/01/2018 1:29 Result s for this PM CDT procedure are i n the results section. ESOPHAGOGASTRODUODENOSCOPY 01/01/2018 1:19 Pain Right Upper PM CDT Quadrant UPPER GI ENDOSCOPY 01/01/2018 1:11 Result s for this PM CDT procedure are i n the results section. documented in this encounter Results Pathology Services (01/01/2018 1:29 PM CDT) Component Value Ref Test Analysis Performed At [facility] Range Method Time Signature PATHOLOGY Patient Name: ROSANA JONES [facility] MR#: [id number] [facility] Submitting Physician: COMPA BLANK MD [id number] Specimen #[id number] Performing Lab: ??[facility] ? [address], [place] [address] Source: Stomach antrum polyp Clinical History/Pre-Op Right upper quadrant pain (R10.11) Gross Description Received in a container joya Adams-stomach antrum polyp are three, 0.3-0.5 cm in greatest dimensions portions of tissue. ?? The entire specimen is submitted in one cassette. KP/tc ?? Diagnosis Stomach, antrum, biopsy: MILD CHRONIC GASTRITIS. ??NEGATIVE FOR INTESTINA L METAPLASIA. ?? NEGATIVE FOR HELICOBACTER PYLORI (IMMUNOSTAIN). Electronically Signed By POPEYE KRISHNAN MD - 01/02/2018 tc/01/02/2018 Specimen (Source) Anatomical Collection Method Collection Time Re ceived Time Location / / Volume Laterality Polyp (Stomach) 01/01/2018 1:29 PM CDT Compa Blank M.D. LAB SURG PATH ORDERABLES Performing Organization Address City/State/ZIP Code Phon e Number [facility] [address] [address] UPPER GI ENDOSCOPY (01/01/2018 1:11 PM CDT) Specimen (Source) Anatomical Location Collection Method / Collectio n Time Received Time / Laterality Volume Narrative This result has an attachment that is no t available. Procedure Note Compa Blank M.D. - 01/01/2018 1:11 P M CDT [facility] [place] [facility] Patient Name: Rosana Jones Procedure Date: 01/01/2018 1:11 PM Date of : 1980 Age: 37 Gender: Female Procedure: Upper GI endoscopy Providers: Compa Blank MD, Compa Balnk MD (Ordering Provider) Referring Provider: Compa Blank MD Pre-op Diagnoses: Epigastric abdominal p ain, Abdominal pain in the right upper quadrant Post-op Diagnoses: - Normal examined duodenum. - Chronic gastritis. Biopsied. - Z-line regular, 36 cm from the inciso rs. - Small hiatal hernia. - The examination was otherwise normal. Recommendation: - Await pathology results. - Keep appointment with me for Saturday Findings: The examined duodenum was normal. Diffuse mild inflammation characterized by congestion (edema) and erythema was found in the stomach. Biop sies were taken with a cold forceps for histology. The Z-line was regular and was found 36 cm from the incisors. A small hiatal hernia was present. The exam was otherwise without abnormal ity. Medicines: Midazolam 4 mg IV, Fentanyl 100 microgr ams IV, Lidocaine spray Complications: No immediate complication s. Procedure Details: The patient was seen, evaluated, and history reviewed. Airway and heart and lung exa ms were performed and were satisfactory for ozzie nned sedation care. The risks, benefits and alternatives fo r the procedure and sedation were discussed a nd informed consent was obtained. A procedural paus e was conducted in the presence of assisting personnel to verify the correct patient identity and procedure to be performed. Throughout the procedure, the patient's blood pressure, pulse, and ox ygen saturations were monitored continuously . The Endoscope was introduced under dire ct vision through the mouth, and advanced to the second part of duodenum. The upper GI endoscopy was accomplished without difficulty. The patient tolerat ed the procedure well. Sedation: Moderate (conscious) sedation was admin istered by the endoscopy nurse and supervised by the endoscopist. The following parameters were monitored: oxygen saturation, heart rat e, blood pressure, and response to care. Total physician intraservice t sim was 7 minutes. Compa Blank MD 01/01/2018 1:35:57 PM This report has been signed electronical ly. Number of Addenda: 0 Note Initiated On: 01/01/2018 1:11 PM Compa Blank M.D. GI PROCEDURE ORDERABLES documented in this encounter Visit Diagnoses Diagnosis Pain Right Upper Quadrant - Primary documented in this encounter Admitting Diagnoses Diagnosis Pain Right Upper Quadrant documented in this encounter Administered Medications Inactive Administered Medications - up to 3 most recent administrations Medication Order MAR Action Action Date Dose Rate Site fentaNYL injection (SUBLIMAZE) Given 01/01/2018 1:26 PM CDT 100 mcg intravenous, Code/trauma/sedation medication, Starting on Sat01/01/18 at 1326 lactated ringers 100 mL/hr, intravenous, Continuous, Starting on Sat at 1315, Pre-Op midazolam (PF) injection (VERSED) Given 01/01/2018 1:27 PM CDT 4 mg Code/trauma/sedation medication, Starting on Sat01/01/18 at 1327 sodium chloride injection 10 mL 10 mL, intravenous, Every 8 hours scheduled (RT), Firs t dose on Sat01/01/18 at 1500, Pre-Op, Peripheral Intravenous Cat heter and Rapid Infusion Catheter, prior to blood sampling, post blood transfusion or post blood s ampling sodium chloride injection 2.5 mL 2.5 mL, intravenous, As needed, line car e, Starting on Sat01/01/18 at 1311, Pre-Op, Prior to and following infusion and betw een multiple consecutive infusions: sodium chloride 0.9 % injection sodium chloride injection 3 mL 3 mL, intravenous, Every 12 hours scheduled, First dos e on Sat01/01/18 at 2100, Pre-Op, Peripheral Intravenous Catheter and Rapid Infu fam Catheter, when no infusion to maintain patency documented in this encounter Active and Recently Administered Medications Times are shown in CDT. Scheduled Medication Order 12/30/2017 12/31/2017 01/01/2018 sodium chloride injection 10 mL 10 mL, intravenous, Every 8 hours schedu led (RT), First dose on Sat01/01/18 at 1500, Pre-Op, Peripheral Intravenous Catheter and Rapid Infusion Catheter, prior to blood sampling, post blood transfusion or post blood sampling sodium chloride injection 3 mL 3 mL, intravenous, Every 12 hours schedu led, First dose on Sat01/01/18 at 2100, Pre-Op, Peripheral Intravenous Catheter and Rapid Infusion Catheter, when no infusion to maintain patency Continuous Medication Order 12/30/2017 12/31/2017 01/01/2018 lactated ringers 1315 (Stopped - Provider: Nidia Huffman R.N.) 100 mL/hr, intravenous, at 100 mL/hr, Co ntinuous, Starting Sat01/01/18 at 1315, Pre-Op PRN Medication Order 12/30/2017 12/31/2017 01/01/2018 fentaNYL injection (SUBLIMAZE) (COMPLETED) 1326 (Given - Provider: Marie Paul R.N.) intravenous, Code/trauma/sedation medication, Starting on Sat at 1326 midazolam (PF) injection (VERSED) (COMPLETED) 1327 (Given - Provider: Marie Paul RInessa) Code/trauma/sedation medication, Starting on Sat01/01/18 at 1327 sodium chloride injection 2.5 mL 2.5 mL, intravenous, As needed, line car e, Starting 01/01/18 at 1311, Pre-Op, Prior to and following infusion and between multiple consecutive infusions: sodium chloride 0.9 % injection documented in this encounter Additional Health Concerns Assessment Noted Time PHQ-9 Depression Total Score: 16 11/25/2012 12:45 PM C DT documented as of this encounter
--- OUTSIDE RECORDS SUMMARY | 2022-05-17 14:01 | XMS_ITS | Encounter Summary ---
:1980 Author Organization [facility] Address [address] [place] [address] Care Team Providers Name Role Phone Unavailable Primary Care Provider Unavailable Reason for Visit Auth/Cert Specialty Diagnoses / Procedures Referred By Contact Refer red To Contact Diagnoses Pain Right Upper Quadrant Procedures MD EGD TRANSORAL DX ESOPHAGOGASTRODUODENOSCOPY Referral ID Status Reason Start Date Expiration Date Visits Requ ested Visits Authorized [id number] 1 1 Encounter Details Date Type Department Care Team Description 01/01/2018 Surgery Department of Compa Blank ESOPHAGOGASTRO DUODENOSCOPY Gastroenterology in [place] Alexander M.D. [address] [place] [address] [place], [place] [phone] Social History Tobacco Use Types Packs/Day Years Used Date Smoking Tobacco: Some Days Cigarettes E-cigarettes Smokeless Tobacco: Never Alcohol Use Standard Drinks/Week Comments Yes 0 (1 standard drink = 0.6 oz pure alcoho l) Sex Assigned at Date Recorded Not on file documented as of this encounter Last Filed Vital Signs Vital Sign Reading Time Taken Comments Blood Pressure 122/80 01/01/2018 2:00 PM CDT Pulse 74 01/01/2018 2:00 PM CDT Temperature 36.6 ??C (97.9 ??F) 01/01/2018 1:02 PM CDT Respiratory Rate 17 01/01/2018 1:30 PM CDT Oxygen Saturation 97% 01/01/2018 2:00 PM CDT Inhaled Oxygen Concentration - - [...] Blank M.D. - 01/01/2018 1:10 PM CDT [facility] DEPARTMENT OF GASTROENTEROLOGY IN [place], [place] Rosana Jones [phone] Reason for Exam: #1 Pain Right Upper [...] Take 75 mg by mouth daily. Yes Angelica Michaud M.D. acetaminophen (TYLENOL) 500 mg tablet Take 1,000 mg by mouth every 6 (six) hours as needed for pain.Angelica ProviderMikey ibuprofen (ADVIL,MOTRIN) 200 mg tablet Take 5 tablets by mouth every 6 (six) hours. 01/10/17 Historical Mikey Michaud OBJECTIVE Vital Signs BP 129/89 (BP Location: [...] 1:11 PM CDTAssociated Order(s): UPPER GI ENDOSCOPY [facility] [place] [facility] Patient Name: Rosana Jones Procedure Date: [...] Component Value Ref Test Analysis Performed At [facility] Range Method Time Signature PATHOLOGY Patient Name: ROSANA JONES [facility] MR#: [id number] [place] Submitting Physician: COMPA BLANK MD [id number] Specimen #[id number] Performing Lab: ??[facility] ? [address] [place] [id number] Source: Stomach antrum polyp Clinical History/Pre-Op Right [...] Address City/State/ZIP Code Phon e Number [facility] [address] [address] UPPER GI ENDOSCOPY (01/01/2018 1:11 PM CDT) Specimen (Source) Anatomical Location Collection Method / Collectio n Time Received Time / Laterality Volume Narrative This result has an attachment that is no t available. Procedure Note Compa Blank M.D. - 01/01/2018 1:11 P M CDT [facility] [place] [facility] Patient Name: Rosana Jones Procedure Date: [...] Diagnosis Pain Right Upper Quadrant - Primary Pain Right Upper Quadrant documented in this encounter Admitting Diagnoses Diagnosis [...] (COMPLETED) 1327 (Given - Provider: Marie Paul R.N.) Code/trauma/sedation medication, Starting on Sat01/01/18 at 1327 [...]
--- OUTSIDE RECORDS SUMMARY | 2022-05-17 14:01 | XMS_ITS | Encounter Summary ---
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 She went home and went to bed. A bout 2pm this afternoon she got up and was trying to text someone, and stated that her right hand did not work , she knew which buttons that she wanted to push, but was unable to push them. Encounter Details Date Type Department Care Team Description 06/27/2018 Emergency [place] [facility] Rod Alvarez, Inf ection Urinary Tract (Primary Dx); Department M.D. Slurred Speech; [address] [place] [id number] [phone] Social History Tobacco Use Types Packs/Day Years Used Date Smoking Tobacco: Some Days Cigarettes E-cigarettes Smokeless Tobacco: Never Alcohol Use Standard Drinks/Week Comments Yes 0 (1 standard drink = 0.6 oz pure alcoho l) Sex Assigned at Date Recorded Not on file documented as of this encounter Last Filed Vital Signs Vital Sign Reading Time Taken Comments Blood Pressure 146/92 06/27/2018 7:15 PM CDT Pulse 95 06/27/2018 7:15 PM CDT Temperature 37.3 ??C (99.1 ??F) 06/27/2018 7:00 PM CDT Respiratory Rate 19 06/27/2018 7:15 PM CDT Oxygen Saturation 100% 06/27/2018 7:15 PM CDT Inhaled Oxygen Concentration - - Weight 83.6 kg (184 lb 4.9 oz) 06/27/2018 4:22 PM CDT Height 162.6 cm (5' 4) 06/27/2018 4:22 PM CDT Body Mass Index 31.64 06/27/2018 4:22 PM CDT documented in this encounter Medications [...] tablet mg total) by mouth at bedtime. ibuprofen (ADVIL,MOTRIN) Take 5 tablets by 0 05/0 12/201606/30/2018 200 mg tablet mouth every 6 (six) hours. raNITIdine (ZANTAC) 75 mg Take 75 mg by mouth 0 07/02/2018 tablet daily. documented as of this encounter Procedure Notes Rod Alvarez M.D. - 06/27/2018 6:44 PM CDTAssociated Order(s): CRITICAL CARE Procedure Critical Care Performed by: ROD ALVAREZ Authorized by: ROD ALVAREZ Critical care provider statement: Critical care total time (minutes): 30 Critical care was necessary to treat or prevent imminent or life-threatening deterioration of the following conditions: RADIO TELEVISION TECHNICAL DIRECTOR failure or compromise, metabolic crisis and toxidrome Critical care was time spent personally by me on the following activities: Evaluation of patient's response to treatment, examination of patient, interpretation of cardiac output measurements, ordering and performing treatments and interventions, ordering and review of laboratory studies, ordering and review of radiographic studies, pulse oximetry, re-evaluation of patient's condition and review of old charts Comments: Please see ED course for details of patient's evaluation. Upon arrival, given the patient's age andseverity of neurologic deficits, my uninterrupted presence at the bedside as well as accompanying the patient to the CT scanner for monitoring and evaluation was required. Rod Alvarez M.D. 06/27/18 1845 documented in this encounter ED Notes Rod Alvarez M.D. - 06/27/2018 4:17 PM CDT SUBJECTIVE CHIEF COMPLAINT/REASON FOR VISIT No chief complaint on file. HISTORY OF PRESENT ILLNESS 37-year-old female with a history of polysubstance dependence, dysthymia, gastroesophageal reflux disease and biliary colic presents to the emergency department complaining of neurologic deficit. Patient states that she had a relapse and last used methamphetamine 3 days ago, though denies using any s gianluca. 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 She did not tell anyone about this, and did not leave work. After her shift, she went home and went to bed, and when she got up at approximately 14:00 this afternoon she was trying to text someone and noted that her right hand was having difficulty texting which was not her normal. Shestates that she knew which button that she wanted to push though was unable to push them, and statesshe felt that her right arm was heavy . She also notes that her speech felt somewhat slurred and that she was having difficulty finding her words. She continued to remain at home for another 2 hr prior to coming to the emergency department for evaluation. She is able to walk in from her car and ambulate without gait deviation or unsteadiness to the emergency department examination room. Upon arrival she complains of mild generalized headache, 4/10 severity and denies having taken any medication for this in the last 24 hr. She states she has been having more headaches over the last few weeks. She denies any head trauma in the last several weeks time. No aeto-ott-vvvprvy medications have been taken since symptom onset or within 24 hr prior. Here for evaluation. REVIEW OF SYSTEMS Constitutional: Negative for activity change, appetite change, chills, fatigue and fever. HENT: Positive for voice change. Negative for congestion, ear discharge, ear pain, rhinorrhea, sinuspressure, sore throat and trouble swallowing. Eyes: Negative for pain and visual disturbance. Respiratory: Negative for cough, chest tightness and shortness of breath. Cardiovascular: Negative for chest pain, palpitations and leg swelling. Gastrointestinal: Negative for abdominal distention, abdominal pain, constipation, diarrhea, nausea and vomiting. Endocrine: Negative for cold intolerance and heat intolerance. Genitourinary: Negative for dysuria, frequency and urgency. Musculoskeletal: Negative for arthralgias and joint swelling. Skin: Negative for rash. Neurological: Positive for facial asymmetry, speech difficulty, weakness and headaches. Negative fordizziness, tremors, seizures, syncope, light-headedness, numbness and loss of balance. Psychiatric/Behavioral: Negative for confusion. OBJECTIVE Initial Vitals Temp Pulse Heart Rate Resp BP SpO2 -- -- -- -- -- -- Pain Score -- PHYSICAL EXAMINATION Constitutional: She appears well-developed and well-nourished. She is cooperative. She appears distressed. Patient crying and admits to feeling anxious. Words somewhat slurred and slow HENT: Head: Normocephalic and atraumatic. There is normal jaw occlusion. Right Ear: Hearing and tympanic membrane normal. Left Ear: Hearing and tympanic membrane normal. Nose: Nose normal. Mouth/Throat: Uvula is midline and oropharynx is clear and moist. Dental: Good dentition. Patient has a barbell tongue piercing, and when asked to extend her tongue she has slight right tongue deviation. Eyes: Conjunctivae and EOM are normal. Pupils are equal, round, and reactive to light. Periorbital area normal appearing. Neck: Trachea normal, normal range of motion and full passive range of motion without pain. Neck supple. No neck adenopathy. No tenderness is present. Cardiovascular: Normal rate, regular rhythm, normal heart sounds and normal pulses. Pulmonary/Chest: Effort normal and breath sounds normal. Abdominal: Soft. Normal appearance and bowel sounds are normal. There is no tenderness. There is no rigidity, no rebound, no guarding and no CVA tenderness. Neurological: She is alert and oriented to person, place, and time. GCS eye subscore is 4. GCS verbal subscore is 5. GCS motor subscore is 6. Glossopharyngeal and vagus (IX,X) nerve function deficit: ift. Speech is slightly slurred and minimally dysarthric. Patient has mild LEFT facial droop. Remainder of cranial nerve exam shows deviation of her tongue slightly to the RIGHT when asked to extend. Sensation is intact throughout. Patient has minimal RIGHT arm motor drift though does not hit the bed, and is otherwise able to grossly move her right upper extremity though does show some difficulty with fine motor movements of her right fingers.. Patient reflexes are intact throughout. NIH stroke scale is 3, with +1 score is in right upper extremity motor drift, +1 language aphasia, and +1 dysarthria. ASSESSMENT/PLAN Impression and Plan Patient's speech has improved her time here in the emergency department, though patient right upper extremity weakness, right mild facial droop, tongue deviation persists. The patient's evaluation herein the emergency department at [facility] has been relatively negative, including a negative head CT, EKG, and majority of labs with exception of her urine which showed positive for amphetamines(the patient admits using these 3 days ago) and signs consistent with UTI. Despitethe likelihood of the patient's symptoms being caused by an ischemic CVA being slim, it remains in the differential diagnosis and is crucial that this be fully evaluated. An MRI is not able to be obtained at [facility] in [place] this evening. I have discussed this patient with my emergency medicine colleague at [facility] Dr. Tequila Haji regarding transferring the patient to the emergency department to obtain the MRI and consider discharge if negative. He has rec ommended that given her persistent though improving symptoms that she be hospitalized directly at [facility] and have the MRI completed as an inpatient with neurologic consultation as needed. I will defer to my colleagues regarding the best plan for evaluation and care at his facility given his experience within his locale. I have spoken with of the hospitalist servicewas graciously accept this patient for further evaluation. Impression: 1. Acute neurologic deficit, improving 2. UTI Plan: Patient was administered Macrobid 100 mg p.o. here in the emergency department, and urine culture was obtained to confirm sensitivities. I would recommend continuation of Macrobid for 10 days pending discharge from [facility], with evaluation of the urine culture sensitivities if available at time of discharge. Patient will be transferred by [facility] ground to [facility] upon confirmation of bed assignment.. Reviewed and summarized previous medical records including: Lab results. I personally reviewed the lab result(s) and my interpretation is: Abnormal Radiology results: Personally reviewed the radiology image and Reviewed the radiology report. Radiology interpretation: Normal ECG results: normal ECG ED Course as of Jun 27 1840SatJun 27, 2018 1633 Patient has been seen examined. Differential diagnosis includes but is not limited to TIA, CVA,alcohol intoxication, polysubstance abuse intoxication, atypical migraine and other. Patient returnsfrom CT and we await the results. Labs have been ordered, and upon their return neurology will be consulted. Patient's symptoms began 14 hr ago. Elevated blood pressure noted. This will be followed. 1638 EKG shows normal sinus rhythm and normal EKG. Await CT result. 1649 CBC is normal. Patient status unchanged. Will continue to follow. 1656 CT head shows normal noncontrast CT of the brain. Patient status unchanged. Will continue to follow. 1657 Complete metabolic profile shows ALT of 60, with normal AST. Anion gap slightly elevated at 17.CBC normal. PT INR normal. Urinalysis shows moderate leukocyte esterase. Glucose 105. Drug screen urine and ethanol level serum remain pending at this time. Patient resting comfortably. 1726 Patient ethanol negative. Urinalysis shows moderate leukocyte esterase, greater than 100 white blood cells and greater than 100 red blood cells per high-power field. 1745 Patient right facial droop persists though is slightly improved. Her right tongue deviation persists. Right hand weakness slightly improved though persists. Final Diagnoses: as of Jun 27 1840 Infection Urinary Tract Slurred Speech Weakness Arm Right Rod Alvarez M.D. 06/27/181842 documented in this encounter Plan of Treatment Not on filedocumented as of this encounter Procedures Procedure Name Priority Date/Time Associated Comments Diagnosis CRITICAL CARE Routine 06/27/2018 6:44 Results for PM CDT this procedure are in the results section. TEST, POCT, STAT 06/27/2018 4:50 Res ults for U (LAB) PM CDT this procedure are in the results section. DRUG SCREEN URINE STAT 06/27/2018 4:50 Results for PM CDT this procedure are in the results section. URINALYSIS WITH STAT 06/27/2018 4:50 Results f or MICROSCOPIC PM CDT this procedure are in the results section. GLUCOSE POCT, B Routine 06/27/2018 4:35 Results f or PM CDT this procedure are in the results section. ETHANOL, S STAT 06/27/2018 4:29 Results for PM CDT this procedure are in the results section. ACTIVATED PARTIAL STAT 06/27/2018 4:29 Results for THROMBOPLASTIN TIME PM CDT this pro cedure (APTT), P are in the results section. PROTHROMBIN TIME STAT 06/27/2018 4:29 Results for (PT), P PM CDT this procedure are in the results section. CBC WITH STAT 06/27/2018 4:29 Results for DIFFERENTIAL, B PM CDT this procedu re are in the results section. COMPREHENSIVE STAT 06/27/2018 4:29 Results for METABOLIC PANEL, S/P PM CDT this pr ocedure are in the results section. ECG STAT 06/27/2018 4:28 Results for PM CDT this procedure are in the results section. CT HEAD WITHOUT IV RAD - Semiurgent 06/27/2018 4:25 Re sults for CONTRAST (Fast; most ED PM CDT this procedur e patients; some are in the inpatients) results section. documented in this encounter Results Critical Care (06/27/2018 6:44 PM CDT) Narrative Rod Alvarez M.D. - 06/27/2018 6:44 PM CDT Rod Alvarez M.D. ? 06/27/2018 ??6:45 PM Critical Care Performed by: ROD ALVAREZ Authorized by: ROD ALVAREZ Critical care provider statement: ??Critical care total time (minutes): ? ?30 ??Critical care was necessary to treat or prevent imminent or life-threatening deterioration of the fo llowing conditions: ??RADIO TELEVISION TECHNICAL DIRECTOR failure or compromise, metabolic crisis and toxi drome ??Critical care was time spent personal ly by me on the following activities: ??Evaluation of patient's re sponse to treatment, examination of patient, interpretation of cardiac outpu t measurements, ordering and performing treatments and interventions, ordering and review of laboratory studies, ordering and review of radiogra phic studies, pulse oximetry, re-evaluation of patient's condition and review of old charts Comments: ?? Please see ED course for details of patient's evaluation. ??Upon arrival, given the patient's age and sev erity of neurologic deficits, my uninterrupted presence at the bedside as well as accompanying the patient to the CT scanner for monitoring and victor hugo luation was required. Rod Alvarez M.D. PROCEDURE/MINOR SURGICAL ORD ERABLES (ABNORMAL) Urinalysis with Microscopic (catheter) (06/27/2018 4:50 PM T) athologist Signature Source Midstream 06/27/2018 [facility] 5:05 PM [facility] Clarity Turbid (A) Clear 06/27/2018 [facility] 5:05 PM [facility] Color Yellow 06/27/2018 [facility] 5:05 PM [facility] Comment: ----REFERENCE VALUE---- Colorless Yellow Mae Blood Large (A) Negative 06/27/2018 5:05 PM T [facility] Nitrite Negative Negative 06/27/2018 5:05 PM [facility] Leukocyte Esterase Moderate (A) Negative 06/27/2018 5:05 PM [facility] Protein Trace mg/dL 06/27/2018 5:05 PM [facility] Comment: ----REFERENCE VALUE---- Negative Trace Glucose Negative Negative mg/dL 06/27/2018 5:05 PM [facility] Ketones, QI(U) Negative Negative mg/dL 06/27/2018 5:05 PM [facility] Bilirubin Negative Negative 06/27/2018 5:05 PM [facility] pH 5.5 5.0 - 8.0 06/27/2018 5:05 PM [facility] Specific [place] >=1.030 1.001 - 1.035 06/27/2018 5:05 PM [facility] Urobilinogen 0.2 0.2 - 1.0 mg/dL 06/27/2018 5:05 PM [facility] White Blood Cells >100 (A) /hpf 06/27/2018 5:19 PM [facility] Comment: ----REFERENCE VALUE---- Males: 0-3 Females: 0-10 Unknown: 0-10 Red Blood Cells >100 (A) 0 - 2 /hpf 06/27/2018 5:19 PM [facility] Dysmorphic Red <=25 <=25 % 06/27/2018 5:19 PM [facility] Blood Cells T [facility] Crystals Amorphous (A) None Seen 06/27/2018 5:19 PM [facility] /lpf [facility] Squamous Cells Occ-3 /hpf 06/27/2018 5:19 PM [facility] Bacteria Present (A) None Seen 06/27/2018 5:19 PM [facility] Specimen Anatomical Collection Method Collection Time Receive d Time (Source) Location / / Volume Laterality Urine (Urine, 06/27/2018 4:50 PM 06/27/20 4:52 Catheter) CDT PM CDT Rod Alvarez M.D. LAB URINE ORDERABLES Performing Organization Address City/[facility]/ZIP Code Phon e Number [place] [phone] [place] [address] [facility] Test, POCT, Urine (lab) (06/27/2018 4:50 PM CDT) P athologist Signature Negative 06/27/2018 [facility] Test, POCT, U 5:00 PM [facility] Specimen Anatomical Collection Method Collection Time Receive d Time (Source) Location / / Volume Laterality Urine (Urine, 06/27/2018 4:50 PM 06/27/20 4:52 Midstream) CDT PM CDT Rod Alvarez M.D. LAB POCT ORDERABLES - DEVICE Performing Organization Address City/[facility]/ZIP Code Phon e Number [place] [phone] [place] [address] [place] (ABNORMAL) Drug Screen Urine (06/27/2018 4:50 PM CDT) Patholo gist Method Time Signature Amphetamines, Unconfirmed Negative 06/27/2018 [facility] U Positive (A) 5:14 PM CDT [facility] Comment: ----ADDITIONAL INFORMATION---- Hardness Inspector's Cutoff: 500 ng/mL Barbiturates, U Negative Negative 06/27/2018 5:14 PM CDT [facility] Comment: ----ADDITIONAL INFORMATION---- Hardness Inspector's Cutoff: 200 ng/mL Benzodiazepines, U Negative Negative 06/27/2018 5:14 PM CD T [facility] Comment: ----ADDITIONAL INFORMATION---- Hardness Inspector's Cutoff: 150 ng/mL Buprenorphine, U Negative Negative 06/27/2018 5:14 PM CDT [facility] Comment: ----ADDITIONAL INFORMATION---- Hardness Inspector's Cutoff: 10 ng/mL Cocaine, U Negative Negative 06/27/2018 5:14 PM CDT [facility] Comment: ----ADDITIONAL INFORMATION---- Hardness Inspector's Cutoff: 150 ng/mL Methadone, U Negative Negative 06/27/2018 5:14 PM CDT [facility] Comment: ----ADDITIONAL INFORMATION---- Hardness Inspector's Cutoff: 200 ng/mL Methamphetamines, U Negative Negative 06/27/2018 5:14 PM CDT [facility] Comment: ----ADDITIONAL INFORMATION---- Hardness Inspector's Cutoff: 500 ng/mL Opiates, U Negative Negative 06/27/2018 5:14 PM CDT [facility] Comment: ----ADDITIONAL INFORMATION---- Hardness Inspector's Cutoff: 100 ng/mL Oxycodone, U Negative Negative 06/27/2018 5:14 PM CDT [facility] Comment: ----ADDITIONAL INFORMATION---- Hardness Inspector's Cutoff: 100 ng/mL Phencyclidine, U Negative Negative 06/27/2018 5:14 PM CDT [facility] Comment: ----ADDITIONAL INFORMATION---- Hardness Inspector's Cutoff: 25 ng/mL Propoxyphene, U Negative Negative 06/27/2018 5:[address] [facility] [facility] Comment: ----ADDITIONAL INFORMATION---- Hardness Inspector's Cutoff: 300 ng/mL Tetrahydrocannabinol, U Negative Negative 06/27/2018 5 :14 PM [facility] Comment: ----ADDITIONAL INFORMATION---- Hardness Inspector's Cutoff: 50 ng/mL Tricyclic Antidepressants, Negative Negative 06/27/2018 5: 14 PM [facility] U [facility] Comment: ----ADDITIONAL INFORMATION---- Hardness Inspector's Cutoff: 300 ng/mL THE ABOVE DRUG SCREEN PANEL IS FOR MED ICAL PURPOSES ONLY Specimen Anatomical Collection Method Collection Time Receive d Time (Source) Location / / Volume Laterality Urine (Urine, 06/27/2018 4:50 PM 06/27/20 18 4:52 Midstream) CDT PM CDT Rod Alvarez M.D. LAB URINE ORDERABLES Performing Organization Address City/[facility]/ZIP Code Phon e Number [address] [address] [place] [facility] Glucose, POCT (06/27/2018 4:35 PM CDT) athologist Signature Glucose, POCT, 100 70 - 140 06/27/2018 [facility] B mg/dL 4:35 PM CDT [facility] Specimen Anatomical Collection Method Collection Time Receive d Time (Source) Location / / Volume Laterality Blood 06/27/2018 4:35 PM 8 4:41 CDT PM CDT Generic [facility] LAB POCT ORDERABLES-MANUAL Performing Organization Address City/[facility]/ZIP [facility] Phon e Number [place] [phone] [place] [address] [facility] APTT (Activated Partial Thromboplastin Time) (06/27/2018 4:29 PM CDT) P athologist Signature APTT, P 25.2 23.7 - 36.1 06/27/2018 [facility] sec 4:53 PM CDT [facility] Specimen Anatomical Collection Method Collection Time Receive d Time (Source) Location / / Volume Laterality Blood (Blood, 06/27/2018 4:29 PM 06/27/20 4:39 Venous) CDT PM CDT Rod Alvarez M.D. LAB BLOOD ADD-ON Performing Organization Address City/[facility]/ZIP Code Phon e Number [address] [address] [place] [facility] PT (Prothrombin Time) with INR (06/27/2018 4:29 PM CDT) athologist Signature Prothrombin 9.8 8.8 - 11.9 06/27/2018 [facility] Time, P sec 4:54 PM CDT [facility] INR 1.0 0.9 - 1.2 06/27/2018 [facility] 4:54 PM CDT [facility] Comment: Standard intensity warfarin therapeutic range: 2.0 to 3.0 High intensity warfarin therapeutic rang e: 2.5 to 3.5 Specimen Anatomical Collection Method Collection Time Receive d Time (Source) Location / / Volume Laterality Blood (Blood, 06/27/2018 4:29 PM 06/27/20 4:39 Venous) CDT PM CDT Rod Alvarez M.D. LAB BLOOD ADD-ON Performing Organization Address [facility]/ZIP Code Phon e Number [address] [address] [facility] Ethanol Level, Serum (06/27/2018 4:29 PM CDT) athologist Signature Ethanol, S <10 <10 mg/dL 06/27/2018 [facility] 5:26 PM CDT [facility] Specimen Anatomical Collection Method Collection Time Receive d Time (Source) Location / / Volume Laterality Blood (Blood, 06/27/2018 4:29 PM 06/27/20 4:39 Venous) CDT PM CDT Rod Alvarez M.D. LAB BLOOD NON ADD-ON Performing Organization Address City/[facility]/ZIP Code Phon e Number [address] [address] [facility] (ABNORMAL) Comprehensive Metabolic Panel (06/27/2018 4:29 PM CDT) athologist Signature Potassium, P 3.8 3.6 - 5.2 06/27/2018 [facility] mmol/L 5:04 PM [facility] Sodium, P 142 135 - 145 06/27/2018 [facility] mmol/L 5:04 PM [facility] Chloride, P 103 98 - 107 06/27/2018 [facility] mmol/L 5:04 PM [facility] Bicarbonate, P 22 22 - 29 06/27/2018 [facility] mmol/L 5:04 PM [facility] Anion Gap, P 17 (H) 7 - 15 06/27/2018 [facility] 5:04 PM [facility] BUN (Blood Urea 18 6 - 21 06/27/2018 [facility] Nitrogen), P mg/dL 5:04 PM [facility] Creatinine 0.68 0.59 - 06/27/2018 [facility] 1.04 mg/dL 5:04 PM [facility] eGFR-Black/Afri >90 >=60 06/27/2018 [facility] can Japanese mL/min/BSA 5:04 PM [facility] Comment: ----ADDITIONAL INFORMATION---- Estimated GFR calculated using the 2009 CKD_EPI creatinine equation. eGFR Non-Black/ >90 >=60 mL/min/BSA 06/27/2018 5:04 PM [facility] Japanese [facility] [place] [facility] Comment: ----ADDITIONAL INFORMATION---- Estimated GFR calculated using the 2009 CKD_EPI creatinine equation. Calcium, Total, P 9.4 8.6 - 10.0 06/27/2018 5:04 PM [facility] mg/dL [facility] Glucose, P 105 70 - 140 mg/dL 06/27/2018 5:04 PM [facility] [place] [facility] Protein, Total, P 6.9 6.3 - 7.9 g/dL 06/27/2018 5:04 P M [facility] [place] [facility] Albumin, P 4.1 3.5 - 5.0 g/dL 06/27/2018 5:04 PM [facility] [place] [facility] Aspartate 33 8 - 43 U/L 06/27/2018 5:04 PM [facility] Amin[facility] ([facility]), P [facility] Alkaline Phosphatase, P 89 35 - 104 U/L 06/27/2018 5: 04 PM [facility] Alanine Aminotransferase 60 (H) 7 - 45 U/L 06/27/2018 5:0 4 PM [facility] (ALT), P [facility] Bilirubin, Total, P 0.3 <=1.2 mg/dL 06/27/2018 5:04 PM [facility] Specimen Anatomical Collection Method Collection Time Receive d Time (Source) Location / / Volume Laterality Blood (Blood, 06/27/2018 4:29 PM 06/27/20 18 4:39 Venous) CDT PM CDT Rod Alvarez M.D. LAB BLOOD ADD-ON Performing Organization Address City/State/ZIP Code Phon e Number [address] [address] [place] [facility] (ABNORMAL) CBC with Differential (06/27/2018 4:29 PM CDT) [facility] Method Time Signature Hemoglobin 15.0 11.6 - 06/27/2018 [facility] 15.0 g/dL 4:42 PM [facility] Hematocrit 42.3 35.5 - 06/27/2018 [facility] 44.9 % 4:42 PM [facility] Erythrocytes 4.83 3.92 - 06/27/2018 [facility] 5.13 4:42 PM [facility] x10(12)/L [facility] MCV 87.6 78.2 - 06/27/2018 [facility] 97.9 fL 4:42 PM [facility] RBC Distrib Width 12.6 12.2 - 06/27/2018 [facility] 16.1 % 4:42 PM [facility] Platelet Count 314 157 - 371 06/27/2018 [facility] x10(9)/L 4:42 PM [facility] Leukocytes 8.8 3.4 - 9.6 06/27/2018 [facility] x10(9)/L 4:42 PM CDT [facility] Neutrophils 5.23 1.56 - 06/27/2018 [facility] 6.45 4:42 PM CDT [facility] x10(9)/L [facility] Lymphocytes 2.57 0.95 - 06/27/2018 [facility] 3.07 4:42 PM CDT [facility] x10(9)/L [facility] Monocytes 0.88 (H) 0.26 - 06/27/2018 [facility] 0.81 4:42 PM CDT [facility] x10(9)/L [facility] Eosinophils 0.12 0.03 - 06/27/2018 [facility] 0.48 4:42 PM CDT [facility] x10(9)/L [facility] Basophils 0.03 0.01 - 06/27/2018 [facility] 0.08 4:42 PM CDT [facility] x10(9)/L [facility] Specimen Anatomical Collection Method Collection Time Receive d Time (Source) Location / / Volume Laterality Blood (Blood, 06/27/2018 4:29 PM 06/27/20 18 4:39 Venous) CDT PM CDT Rod Alvarez M.D. LAB BLOOD ADD-ON Performing Organization Address City/State/[facility] Code Phon e Number [address] [address] [place] [facility] ECG 12 Lead (STAT) (06/27/2018 4:28 PM CDT) P athologist Signature Ventricular Rate 97 BPM MUSE ECG/Min CA Interval 156 ms MUSE QRSD Interval 84 ms MUSE QT Interval 360 ms MUSE QTC Interval 457 ms MUSE P [place] 41 degrees MUSE R [place] 75 degrees MUSE T Wave [place] 23 degrees MUSE Specimen Anatomical Collection Method Collection Time Receive d Time (Source) Location / / Volume Laterality 06/27/2018 4:28 PM 8 4:37 CDT PM CDT Impressions MUSE - 06/27/2018 4:37 PM CDT Normal sinus rhythm Normal ECG No previous ECGs available Narrative This result has an attachment that is no t available. Rod Alvarez M.D. ECG ORDERABLES Performing Organization Address City/State/ZIP Code Phon e Number MUSE MUSE NA CT Head without IV Contrast (06/27/2018 4:25 PM CDT) Anatomical Region Laterality Modality Head, Neuroradiology RST LOS, Neuroradiology ARZ LOS, N/A Computed Tomography Neuroradiology FLA LOS Specimen (Source) Anatomical Collection Method Collection Time Re ceived Time Location / / Volume Laterality 06/27/2018 4:49 PM CDT Impressions 06/27/2018 4:51 PM CDT IMPRESSION: Normal noncontrast CT scan of the brain. Narrative 06/27/2018 4:51 PM CDT EXAM: CT HEAD WITHOUT IV CONTRAST COMPARISON: CT brain 12/10/2009 FINDINGS: The ventricles are normal in s ize and contour. There is no shift of the midline or extra-axial collection no iris. No hemorrhage, infarct or mass effect is seen. The base of the skull an d bony calvarium are intact. Procedure Note Paul Mcnamara M.D. - 06/27/2018Forma tting of this note might be different from the original. EXAM: CT HEAD WITHOUT IV CONTRAST COMPARISON: CT brain 12/10/2009 FINDINGS: The ventricles are normal in s ize and contour. There is no shift of the midline or extra-axial collection no iris. No hemorrhage, infarct or mass effect is seen. The base of the skull an d bony calvarium are intact. IMPRESSION: Normal noncontrast CT scan of the brain. Rod Alvarez M.D. IMG CT PROCEDURES documented in this encounter Visit Diagnoses Diagnosis Infection Urinary Tract - Primary Slurred Speech Weakness Arm Right documented in this encounter Administered Medications Inactive Administered Medications - up to 3 most recent administrations Medication Order MAR Action Action Date Dose Rate Site acetaminophen tablet 650 mg Given 06/27/2018 4:53 PM CDT 650 mg (TYLENOL) 650 mg, oral, Once, On Sat06/27/18 at 1651, For 1 dose NaCl 0.9% infusion Rate/Dose Change 06/27/2018 5:26 PM 999 mL/hr 999 mL/hr 100 mL/hr, intravenous, CDT Continuous, Starting on Sat06/27/18 at 1617 New Bag 06/27/2018 4:47 PM CDT 100 mL/hr 100 mL/hr NaCl 0.9% infusion New Bag 06/27/2018 6:22 PM CDT 150 mL/hr 150 mL/hr 150 mL/hr, intravenous, Continuous, Starting on Sat06/27/18 at 1821 nitrofurantoin monohydrate capsule 100 mg Given 06/27/2018 6:46 PM CDT 100 mg (MACROBID) 100 mg, oral, Once, On Sat06/27/18 at 1834, For 1 dose, Drug Monitoring Program: Pharmacist to adjust medication dosing based on indication and drug clearance factors., Indications: Lower UTI, Non-Catheter sodium chloride injection 10 mL 10 mL, intravenous, As needed, line care, Starting on Sat06/27/18 at 1614, Peripheral Intravenous Catheter and Rapid Infusion Cat heter, prior to blood sampling, post blood transfusion or post blood samplin g sodium chloride injection 3 mL 3 mL, intravenous, As needed, line care, Starting on Sat06/27/18 at 1614, Prior to and following infusion and between multi ple consecutive infusions: sodium chloride 0.9 % injection sodium chloride injection 3 mL 3 mL, intravenous, Every 12 hours schedu led, First dose on Sat06/27/18 at 2100, Peripheral Intravenous Catheter and Rapi d Infusion Catheter, when no infusion to maintain patency documented in this encounter Active and Recently Administered Medications Times are shown in CDT. Scheduled Medication Order 06/25/2018 06/26/2018 06/27/2018 acetaminophen tablet 650 mg (TYLENOL) (COMPLETED) 165 (Given - Provider: Kateryna Rawls R.N. - Comment: [place] a head ache on the right side of her head in the back on the way to the ED, but now it is gone and she has no pain.) 650 mg, oral, Once, Sat06/27/18 at 1651, For 1 dose nitrofurantoin monohydrate capsule 100 mg (MACROBID) (COMPLETED) 1846 (Given - Provider: Kateryna Rawls R.N.) 100 mg, oral, Once, Sat06/27/18 at 1834 , For 1 dose, Drug Monitoring Program: Pharmacist to adjust medication dosing based on indication and drug clearance factors., Indications: Lower UTI, Non-Catheter sodium chloride injection 3 mL 3 mL, intravenous, Every 12 hours schedu led, First dose on Sat06/27/18 at 2100, Peripheral Intravenous Catheter and Rapid Infusion Catheter, when no infusion to maintain patency Continuous Medication Order 06/25/2018 06/26/2018 06/27/2018 NaCl 0.9% infusion 1647 (New Bag - Provider: Kateryna Rawls R.N.)1726 (Rate/Dose Change - Provider: Ursula Mcneill R.N.)1821 (Stopped - Provider: Kateryna Rawls R.N.) 100 mL/hr, intravenous, at 100 mL/hr, Continuous, Star ting 06/27/18 at 1617 NaCl 0.9% infusion 1822 (New Bag - Provider: Kateryna Rawls R.N.)1920 (Continue to External Healthcare Facility - Provider: Kateryna Rawls R.N.) 150 mL/hr, intravenous, at 150 mL/hr, Continuous, Star ting 06/27/18 at 1821 PRN Medication Order 06/25/2018 06/26/2018 06/27/2018 sodium chloride injection 10 mL 10 mL, intravenous, As needed, line care , Starting 06/27/18 at 1614, Peripheral Intravenous Catheter and Rapid Infusion Catheter, prior to blood sampling, post blood transfusion or post blood sampling sodium chloride injection 3 mL 3 mL, intravenous, As needed, line care, Starting 06/27/18 at 1614, Prior to and following infusion and between multiple consecutive infusions: sodium chloride 0.9 % injection documented in this encounter Additional Health Concerns Assessment Noted Time PHQ-9 Depression Total Score: 16 11/25/2012 12:45 PM C DT documented as of this encounter Care Teams Obstetrician And Gynaecologist Relationship Specialty Start Date End Date Unassigned, Pcp PCP - General Family Medicine 01/06/18 09/27/19 documented as of this encounter
--- OUTSIDE RECORDS SUMMARY | 2022-05-17 14:01 | XMS_ITS | Encounter Summary ---
:1980 Author Organization [facility] Address [address] [place] [id number] Care Team Providers Name Role Phone Unavailable Primary Care Provider Unavailable Encounter Details Date Type Department Care Team Description 01/10/2017 Hospital Encounter HX NO MAPPING Social History Tobacco Use Types Packs/Day Years [...]
--- OUTSIDE RECORDS SUMMARY | 2022-05-17 14:01 | XMS_ITS | Encounter Summary ---
:1980 Author Organization [facility] Address [address] [place] [id number] Care Team Providers Name Role Phone Unassigned, Pcp Primary Care Provider Unavailable Reason for Visit Reason Comments Sore C/o sore on back, right side of head x4 days of unknown origin. Encounter Details Date Type Department Care Team Description 02/27/2018 Emergency [facility] Randall Lofton, Cellulitis Scalp (Primary Dx); Department M.D. Abscess Scalp [address] [place] [id number] Social History Tobacco Use Types Packs/Day Years Used Date Smoking Tobacco: Some Days Cigarettes E-cigarettes Smokeless Tobacco: Never Alcohol Use Standard Drinks/Week Comments Yes 0 (1 standard drink = 0.6 oz pure alcoho l) Sex Assigned at Date Recorded Not on file documented as of this encounter Last Filed Vital Signs Vital Sign Reading Time Taken Comments Blood Pressure 160/108 02/27/2018 6:56 PM CDT Pulse 97 02/27/2018 6:53 PM CDT Temperature 36.8 ??C (98.2 ??F) 02/27/2018 6:53 PM CDT Respiratory Rate 20 02/27/2018 6:53 PM CDT Oxygen Saturation 99% 02/27/2018 6:53 PM CDT Inhaled Oxygen Concentration - - Weight 83 kg (182 lb 15.7 oz) 02/27/2018 6:54 PM CDT Height - - Body Mass Index 34.11 01/20/2018 2:16 PM CDT documented in this encounter Discharge Instructions AttachmentsThe following attachments cannot be sent through Care Everywhere.Skin Abscess (Irish)documented in this encounter Medications at Time of Discharge Medication Sig Dispensed Refills Start Date End Date acetaminophen (TYLENOL) Take 1,000 mg by 0 500 mg tablet mouth every 6 (six) hours as needed for pain. doxycycline (MONODOX) 100 Take 1 capsule (100 20 capsule 0 0 02/27/2018 03/09/2018 mg capsule mg total) by mouth 2 (two) times a day for 10 days. ibuprofen (ADVIL,MOTRIN) Take 5 tablets by 0 05/0 12/201606/30/2018 200 mg tablet mouth every 6 (six) hours. raNITIdine (ZANTAC) 75 mg Take 75 mg by mouth 0 07/02/2018 tablet daily. documented as of this encounter ED Notes Randall Lofton M.D. - 02/27/2018 7:24 PM CDT CHIEF COMPLAINT/REASON FOR VISIT Sore (C/o sore on back, right side of head x4 days of unknown origin.) HISTORY OF PRESENT ILLNESS Shruthi Jones is a 37 y.o. female who presents to the ED for evaluation of pain to her right posterior scalp. She has what looks like an abscess that his been drained already at the right posterior scalp with several other small red punctate macular areas and complaining of pain that is ???reallyreally extreme?? with radiation down by a year and even down into the upper part of her neck. She states that yesterday her ???popped it?? and there was blood and pus that come out. She also notes that she has a history of MRSA her son also has a history of MRSA. She has a history of severe intra-abdominal infection requiring laparotomy and NICU stay. She is concerned that this might progress to that level. She denies any other fever, chills, nausea, vomiting, chest pain, dyspnea, abdominal pain, changes in bladder habits or bowel movements. This area of pain in fluctuance has been there for the past four days and getting progressively worse. She describes it as a constant aching pain that is sharp at times especially when touched. She denies any history of diabetes, cancer, chronic steroid use, or any other immunocompromise status. Past medical history: Reviewed in the EMR. Agree with nursing documentation. Pertinent past medical history noted per HPI. Past Medical History: Diagnosis Date ??? Gastroesophageal Reflux Disease NOS ??? Pain Abdominal NOS ??? Sickness Motion Personal History Patient Active Problem List Diagnosis ??? Dysthymia ??? Dependence Polysubstance (HCC) ??? Pain Right Upper Quadrant ??? Colic Biliary ??? Gastroesophageal Reflux Disease ??? Tobacco Use Family History Problem Relation Age of Onset ??? Heart disease Father ??? Hypertension Father ??? Hypertension Brother ??? Diabetes Maternal Grandfather Social history: Reviewed in the EMR. Agree with nursing documentation. Pertinent social history noted per HPI. Social History Substance Use Topics ??? Smoking status: Current Some Day Smoker Types: Cigarettes, E-cigarettes ??? Smokeless tobacco: Never Used ??? Alcohol use Yes REVIEW OF SYSTEMS Constitutional: As noted in the HPI, otherwise negative. Eyes: As noted in the HPI, otherwise negative. HEENT: As noted in the HPI, otherwise negative. CV: As noted in the HPI, otherwise negative. Resp: As noted in the HPI, otherwise negative. GI: As noted in the HPI, otherwise negative. : As noted in the HPI, otherwise negative. MSK: As noted in the HPI, otherwise negative. Skin: As noted in the HPI, otherwise negative. Neuro: As noted in the HPI, otherwise negative. PHYSICAL EXAMINATION Vitals: 02/27/18 1853 02/27/18 1854 02/27/18 1856 BP: (!) 149/109 (!) 160/108 BP Location: Left arm Patient Position: Sitting Pulse: 97 Resp: 20 Temp: 36.8 ??C TempSrc: Temporal SpO2: 99% Weight: 83 kg General: Awake, alert, oriented x3. No apparent distress. Head: Normocephalic, atraumatic. There is a 2 cm area of erythema that is tender and indurated with a central scab of about 3 mm. There are four or five other small 3 mm areas of erythema that are alsotender throughout her scalp. No mastoid tenderness or erythema. Eyes: Normal sclerae and conjunctivae, extraocular movements intact. ENT: Oropharynx is clear, moist mucus membranes. Tympanic membranes are normal. Neck: Supple, full range of motion, trachea midline. Heart: Normal rate. Lungs: No respiratory distress. Abd: Soft, nontender, nondistended. Back: Normal to inspection, nontender, no costovertebral angle tenderness. Ext: Warm, well-perfused. Skin: Warm, dry, normal color. Please see skin exam. Neuro: Awake, alert, GCS 15, cranial nerves II-XII grossly intact, normal strength/sensation x4 without focal deficits. Psych: Normal affect, concentration, and judgment. MEDICAL DECISION MAKING / ED COURSE: Differential diagnoses: Cellulitis, abscess, folliculitis, no evidence of trauma. No evidence of mastoiditis. 37-year-old woman who comes to the emergency department with what appears to be a small abscess overher right posterior scalp. This has already been drained last night at home but the pain continues. Because of the extending erythema and the significant tenderness to palpation especially with the pain coming down quite a bit inferior to that area, I did prescribe doxycycline. I also offered an occipital nerve block that she declined and she will use [id number] analgesia to help her pain. She will also follow up in a week with her primary care doctor through [facility] and I also gave her the phone number to the local [facility]. -- Nursing documentation and prior records reviewed in the medical record. Medications doxycycline capsule 100 mg (VIBRAMYCIN) (not administered) FINAL DIAGNOSIS: 1. Cellulitis Scalp 2. Abscess Scalp -- suspected MRSA Randall Lofton M.D. 02/27/181930 Philippe Sandoval R.N. - 02/27/2018 6:54 PM CDT C/o sore on back, right side of head x4 days Pt states she was squeezing it yesterday and fluid cameout that smelled and looked like infection. Also c/o right ear drainage and another bump located just inferior to the sore. Unknown origin, denies trauma. Philippe Sandoval R.N. 02/27/18 185 Philippe Sandoval R.N. 02/27/18 190 documented in this encounter Plan of Treatment Not on filedocumented as of this encounter Visit Diagnoses Diagnosis Cellulitis Scalp - Primary Abscess Scalp documented in this encounter Administered Medications Inactive Administered Medications - up to 3 most recent administrations Medication Order MAR Action Action Date Dose Rate Site doxycycline capsule 100 mg Given 02/27/2018 7:25 PM CDT 100 mg (VIBRAMYCIN) 100 mg, oral, Once, On [place] 02/27/18 at 1925, For 1 dose, Indications: Skin and soft tissue infection documented in this encounter Active and Recently Administered Medications Times are shown in CDT. Scheduled Medication Order 02/25/2018 02/26/2018 02/27/2018 doxycycline capsule 100 mg (VIBRAMYCIN) (COMPLETED) 1925 (Given - Provider: Philippe Sandoval R.N.) 100 mg, oral, Once, On [place] 02/27/18 at 19 25, For 1 dose, Indications: Skin and soft tissue infection documented in this encounter Additional Health Concerns Assessment Noted Time PHQ-9 Depression Total Score: 16 11/25/2012 12:45 PM C DT documented as of this encounter Care Teams Unit Manager Relationship Specialty Start Date End Date Unassigned, Pcp PCP - General Family Medicine 01/06/18 09/27/19 documented as of this encounter
--- OUTSIDE RECORDS SUMMARY | 2022-05-17 14:02 | XMS_ITS | Encounter Summary ---
:1980 Author Organization [facility] Address [address] [place] [id number] Care Team Providers Name Role Phone Unavailable Primary Care Provider Unavailable Encounter Details Date Type Department Care Team Description 11/25/2012 Hospital Encounter [facility] Diana Julio APRN, C.N.P., D. N.P. [address] [place] [address] (Wo rk) Social History Tobacco Use Types Packs/Day Years Used Date Smoking Tobacco: Never Assessed Sex Assigned at Date Recorded Not on file documented as of this encounter Last Filed Vital Signs Vital Sign Reading Time Taken Comments Blood Pressure 130/84 11/25/2012 10:35 AM CDT Pulse 60 11/25/2012 10:35 AM CDT Temperature - - Respiratory Rate 20 11/25/2012 10:35 AM CDT Oxygen Saturation - - Inhaled Oxygen Concentration - - Weight 72.3 kg (159 lb 6.3 oz) 11/25/2012 10:35 AM CDT Height 159 cm (5' 2.6) 11/25/2012 10:35 AM CDT Body Mass Index 28.6 11/25/2012 10:35 AM CDT documented in this encounter Progress Notes Diana Julio APRN, C.N.P. - 11/25/2012 10:32 AM CDT [id number] CHIEF COMPLAINT/REASON FOR VISIT 1. General medical exam. HISTORY OF PRESENT ILLNESS 1. General medical exam. Shruthi is a 32-year-old female comes in today for her general medical exam. She does have a few concerns that she would like to have addressed: First of all she has had the Mirena placed approximately 4years ago; for the past 3 to 5-months she has had spotting with heavy occasional heavy bleeding. In this past month she has had either spotting or heavy bleeding on every single day of this month. She states that it causes her legs to go numb at times. She denies any new partner since her last Pap smear. Her other concern is she has headaches in the past, had sinus symptoms that occurred with this. She has been having bloody noses and frontal sinus headaches with some cold symptoms also some significant rhinorrhea. 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 She has no history of allergies and she is a smoker. CURRENT MEDICATIONS New reconciled medication: 1. Zithromax Tri-Leyla. 2. Flonase nasal spray. 3. Cleocin vaginal cream. ALLERGIES No known drug allergies. SYSTEMS REVIEW Menstrual cycles are very irregular. She is having spotting as noted above. Denies any urinary symptoms. Denies any problems with constipation or diarrhea. She denies any chest pain, shortness of breath. No changes in hair or skin most recent and no changes with her weight. She denies any hot flashes,fevers, chills. No current infectious symptoms. PAST MEDICAL/SURGICAL HISTORY Please see the EMR for those details. SOCIAL HISTORY She has a history of polysubstance abuse which she denies using. She denies any use of alcohol or drug use. She continues to smoke a half-a-pack per day. She does occasionally drink some energy drinks as well as soft drinks. 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 She works the evening shift. She is not , has a boyfriend which she feels is in a monogamous relationship. FAMILY HISTORY Coronary artery disease. A mother with peripheral vascular disease. VITAL SIGNS Blood pressure: 130/84. Pulse: 60. Weight: 72.3 kilograms. BMI: 28.6. PHYSICAL EXAMINATION IN GENERAL: Patient appears non-distressed. SKI: Her skin is well hydrated. HEAD: She does have some significant submaxillary sinus tenderness noted. ENT: Ears, a little fluid noted behind her left TM but noninfectious appearing. Nose, with erythremic boggy turbinates. Throat with some postnasal drainage. LYMPH: With no cervical or supraclavicular lymphadenopathy. HEART: Heart with a regular rate and rhythm. LUNGS: Are clear to auscultation. BREASTS: No mass or abnormalities noted. ABDOMEN: Soft. No organomegaly. GENITALIA: Normal exterior appearance. I am able to visualize the cervix with the Murina string is identified at the os. She does have a very friable cervix and there is a bit of the erythema and odor that surround it. No other discharge or abnormality noted. PELVIC EXAM: Upon pelvic exam she does have some discomfort especially in the right lower quadrant to palpation. Her uterus is of normal size but quite firm also. IMPRESSION/REPORT/PLAN 1. Health maintenance exam. We will go ahead and obtain a lipid profile. Pap smear was obtained and I will call her with those results. I also did a Chlamydia screening. 2. Cervicitis. I will plan to treat with Cleocin vaginal cream daily at bedtime for 1-week which might have a relationship to her irregular bleeding. 3. Pelvic mass. Because of her uterus being firm and she had a history of fibroids I would like to get an ultrasound. 4. Headaches. Patient does have migraine headaches. I also think that she has a sinusitis. We will treat with a Zithromax Tri-Leyla. I would ask that patient would cease smoking and did discuss this with her. At this time she has no interest in this but feels that she could quit on her own, strongly advised. 5. Chronic rhinorrhea. Flonase nasal spray, 2-puffs, each nostril daily. 6. Dysthymic disorder. Discussed this with patient. Her PHQ-9 score was 16. She actually feels that she is doing quite welland does not want to make any changes at this time. I will plan to call patient with the results. Given her irregular menstrual cycles we will also obtain a TSH tomorrow when we draw her fasting lipids. We will call with those results. PATIENT EDU #1 Patient Education Ready to learn No apparent learning barriers were identified Learning preferences include listening Explained diagnosis and treatment plan Patient/Child/Caregiver expressed understanding of the content. Lorenza Baker/axel DOCID: [id number] Electronically Signed By: DIANA JULIO RN, ENERGY SALES CONSULTANT On: 11/27/2012 10:32 AM Source: [facility] MHSDOLBEYNONRADSYS Document Id: [id number] documented in this encounter Miscellaneous Notes Miscellaneous - Sari Gordon L.P.N. - 11/25/2012 12:45 PM CDT PHQ-9 PHQ-9 Entered On: 11/25/2012 12:46 CDT Performed On: 11/25/2012 12:45 CDT by SARI GORDON LPN, RT PHQ-9 Little interest or pleasure in doing things : More than half the days Feeling down, depressed, or hopeless : Several days Trouble falling or staying asleep, or sleeping too much : More than half the days Feeling tired or having little energy : More than half the days Poor appetite or overeating : More than half the days Feeling bad about yourself or that you are a failure : Several days Trouble concentrating on things : Nearly every day Moving or speaking slowly; restless or fidgety : Nearly every day Thoughts that you would be better off /hurting self : Not at all PHQ-9 Calculated Score : 16 Problems make work, home, or dealing with others : Not difficult at all SARI GORDON LPN, RT - 11/25/2012 12:45 CDT Source: [facility] POWERCHART Document Id: [id number] Miscellaneous - Diana Julio APRN, C.N.P. - 11/25/2012 11:16 AM CDT Ambulatory Patient Summary [address] [place] [address] Visit Information Name: SHRUTHI MARTINEZ [facility] Number: [id number] Current Date: 11/25/2012 11:16:55 Physicians Attending Provider: DIANA JULIO RN, CNP Primary Care Provider: DIANA JULIO RN, YENY Your Medications Here is a list of your medications. It is important to take your medications as directed. Use a pillbox or chart to help remind you to take your medications. Please let your doctor or nurse know if you have problems taking your medications. Medication/Strength Dose Route Frequency Indications/Special Instructions/Comments clindamycin topical (Cleocin 2% vaginal cream) See Instructions Vaginal Bedtime azithromycin (Zithromax TRI-LEYLA 500 mg oral tablet) 500 mg Oral once a day for 3 Days fluticasone nasal (Flonase 50 mcg/inh nasal spray) 1 spray(s) Nostrils(Both) once a day levonorgestrel (Mirena) 1 each once Attention: If you have any medications at home that are not on this list, DO NOT take them until youcontact your provider for clarification. Your Allergies & Intolerances Substance Reaction Symptoms Category Comments No Known Allergies Drug Your Problem List Problem Status Onset Comments Polysubstance dependence, unspecified Active 12/08/2006 Dysthymic Disorder Active 11/05/2011 Headache Migraine Active 11/05/2011 Your Upcoming Appointments Date Time Location Reason Provider No Appointments found Your Goals/Additional instructions: Source: [facility] POWERCHART Document Id: [id number] Miscellaneous - Diana Julio APRN, C.N.P. - 11/25/2012 11:16 AM CDT Ambulatory Depart Summary [address] [address] Visit Information Name: RUBASHRUTHI [facility] Number: [id number] Visit Date: 11/25/2012 11:16:54 Attending Provider: DIANA JULIO RN, YENY Primary Care Provider: DIANA JULIO RN, YENY RUBA SHRUTHI JC has been given the following list of medications: Your Medications It is important to take your medications as directed. Use a pill box or chart to help remind you to take your medications. Please let your doctor or nurse know if you have problems taking your medications. Medication/Strength Dose Route Frequency Indications/Special Instructions/Comments clindamycin topical (Cleocin 2% vaginal cream) See Instructions Vaginal Bedtime azithromycin (Zithromax TRI-LEYLA 500 mg oral tablet) 500 mg Oral once a day for 3 Days fluticasone nasal (Flonase 50 mcg/inh nasal spray) 1 spray(s) Nostrils(Both) once a day levonorgestrel (Mirena) 1 each once Attention: If you have any medications at home that are not on this list, DO NOT take them until youcontact your provider for clarification. Additional Information: Source: [facility] [employer] Document Id: [id number] Miscellaneous - Diana Julio APRN, C.N.P. - 11/25/2012 10:59 AM CDT Quality Measures Quality Measures Entered On: 11/25/2012 10:59 CDT Performed On: 11/25/2012 10:59 CDT by DIANA JULIO RN, CNP Depression PHQ-9 Score : 16 DIANA JULIO RN, YENY - 11/25/2012 10:59 CDT Source: [facility] [employer] Document Id: [id number] Miscellaneous - Cande Rod L.P.NChristian - 11/25/2012 10:41 AM CDT Health Assessment Health Assessment Entered On: 11/25/2012 10:42 CDT Performed On: 11/25/2012 10:41 CDT by CANDE GARSIA LPN Health Assessment Complete Health Assessment Complete or Modified : Annual Health Assessment Annual Health Assessment Completed : Yes CANDE GARSIA LPN - 11/25/2012 10:41 CDT Nutrition Nutrition Risk Factors by History Adult : None SUN, CANDE Cordon [facility] - 11/25/2012 10:41 CDT Functional Current Daily Living Assistance : None CANDE GARSIA ASHWIN - 11/25/2012 10:41 CDT Dependent Habits Tobacco Use/Currently Using : Yes Exposure to Tobacco Smoke : Patient smokes Smoking Status : Current every day smoker SUN CANDE Cordon [facility] - 11/25/2012 10:41 CDT Tobacco Use Grid Type : Cigarettes Cigarette Use Packs/Day : 0.5 SUN CANDE Cordon [facility] - 11/25/2012 10:41 CDT Caffeine Use Grid Caffeine Use : Current Type : Energy drinks, Soft drinks Frequency : Daily SUN, CANDE 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 Appliance Service Technician Intake/History Entered On: 11/25/2012 10:41 CDT Performed On: 11/25/2012 10:35 CDT by CANDE GARSIA LPN Intake Chief Complaint : physical pap questions re: mirena Temperature Core : 36.2C(Converted to: 97.2DegF) (LOW) Peripheral Pulse Rate : 60/min Respiratory Rate : 20/min Heart Rhythm : Regular Systolic Blood Pressure : 130mmHg Diastolic Blood Pressure : 84mmHg NIBP Mean : 99mmHg BP Location : Left upper extremity Blood Pressure Cuff Size : Regular Height : 159.0cm(Converted to: 5ft 3inch(es), 62.60inch(es)) Actual Weight : 72.3kg(Converted to: 159lb 6oz) Weight Source : Standing scale Dosing Weight Clinic : 72.30kg Clinic BSA : 1.79 Body Mass Index : 28.60kg/m2 CANDE GARSIA [facility] - 11/25/2012 10:35 CDT General Info Information Given By : Patient Languages : Divehi CANDE GARSIA [facility] 11/25/2012 10:35 CDT Subjective Pain Symptoms : No CANDE GARSIA [facility] - 11/25/2012 10:35 CDT Dependent Habits Tobacco Use/Currently Using : Yes Exposure to Tobacco Smoke : Patient smokes Smoking Status : Current every day smoker CANDE GARSIA [facility] 11/25/2012 10:35 CDT Tobacco Use Grid Type : Cigarettes Cigarette Use Packs/Day : 0.5 CANDE GARSIA [facility] 11/25/2012 10:35 CDT Alcohol Use : No CANDE GARSIA [facility] - 11/25/2012 10:35 CDT Caffeine Use Grid Caffeine Use : Current Type : Energy drinks, Soft drinks Frequency : Daily CANDE GARSIA [facility] 11/25/2012 10:35 CDT Recreational Drug Use Grid Drug Use : None CANDE GARSIA [facility] 11/25/2012 10:35 CDT Allergy Allergies (Active) NKA Estimated Onset Date: Unspecified ; Created By: PAOLO MARTINEZ RN; Reaction Status: Active ; Category: Drug ; Substance: NKA ; Type: Allergy ; Updated By: PAOLO MARTINEZ RN; Reviewed Date: 08/16/2012 8:29 DIRECTOR COLLEGE Source: [facility] [employer] Document Id: [id number] documented in this encounter Plan of Treatment Not on filedocumented as of this encounter Procedures Procedure Name Priority Date/Time Associated Diagnosis Comme nts N GONOR AMP SRC Routine 11/25/2012 11:28 AM Resul ts for this CDT procedure are i n the results section. N GONOR AMP DNA Routine 11/25/2012 11:28 AM Resul ts for this CDT procedure are i n the results section. C TRACH AMP SRC Routine 11/25/2012 11:28 AM Resul ts for this CDT procedure are i n the results section. C TRACH AMP RNA Routine 11/25/2012 11:28 AM Resul ts for this CDT procedure are i n the results section. HXPHYS INTERP OF Routine 11/25/2012 11:28 AM Resu lts for this THIN PREP, PAP CDT procedure are in the results section. THINPREP SCREEN HPV Routine 11/25/2012 11:28 AM R esults for this REFLEX CDT procedure are i n the results section. documented in this encounter Results HX-N gonor Amp DNA (11/25/2012 11:28 AM CDT) P athologist Signature HXN gonor Amp Negative POWERCHART DNA-[place] Specimen (Source) Anatomical Collection Method Collection Time Re ceived Time Location / / Volume Laterality 11/25/2012 11:28 AM CDT Narrative POWERCHART - 11/26/2012 3:51 PM CDT Test Performed by: [address] [address] Head Boys Golf Coach: Rito high III, M.D. Valeria Pennington APRN.N.P., D.N.P. LAB HISTORICAL ORDE RS Performing Organization Address [facility] Phon e Number POWERCHART HX-N gonor Amp Src (11/25/2012 11:28 AM CDT) Patholo gist Method Time Signature HXN gonor Amp ENDOCERVICAL POWERCHART Src-[place] Specimen (Source) Anatomical Collection Method Collection Time Re ceived Time Location / / Volume Laterality 11/25/2012 11:28 AM CDT Valeria Pennington APRN.N.P., D.N.P. LAB HISTORICAL ORDE RS Performing Organization Address [facility]/ZIP Code Phon e Number POWERCHART HX-C trach Amp RNA (11/25/2012 11:28 AM CDT) [facility] Method Time Signature Chlamydia Negative POWERCHART trachomatis amplified RNA Specimen (Source) Anatomical Collection Method Collection Time Re ceived Time Location / / Volume Laterality 11/25/2012 11:28 AM CDT Diana Julio APRN, C.N.P., D.N.P. LAB HISTORICAL ORDE RS Performing Organization Address City/[facility]/ZIP Code Phon e Number POWERCHART HX-C trach Amp Src (11/25/2012 11:28 AM CDT) [facility] Method Time Signature HXC trach Amp ENDOCERVICAL POWERCHART [facility] Specimen (Source) Anatomical Collection Method Collection Time Re ceived Time Location / / Volume Laterality 11/25/2012 11:28 AM CDT Diana Julio APRN, C.N.P., D.N.P. LAB HISTORICAL ORDE RS Performing Organization Address [facility] Code Phon e Number POWERCHART HXPHYS INTERP OF THIN PREP, PAP (11/25/2012 11:28 AM CDT) [facility] Method Time Signature Interpretation Performed POWERCHART Comment: Test Performed by: [place] [address] Head Boys Golf Coach: Rito high III, M.D. Specimen Anatomical Collection Method Collection Time Receive d Time (Source) Location / / Volume Laterality Cervix/Endocervi 11/25/2012 11:28 013 6:45 x AM CDT AM CDT Historical Provider LAB HISTORICAL ORDERS Performing Organization Address City/[facility] Code Phon e Number POWERCHART Pathology ThinPrep Screen HPV Reflex (11/25/2012 11:28 AM CDT) [facility] Method Time Signature Interpretation [id number] POWERCHART HXThPrep Scrn See Comment POWERCHART [facility] Comment: A. ??ThinPrep Pap Test Screen (Cervical/ Endocervical HPV Reflex): Satisfactory for evaluation. Scanty cellularity. Negative for intraepithelial lesion or m alignancy. Trichomonas present. Organisms consistent with actinomyces sp ecies present. HXThPrep Scrn Cyto-[place] See Comment АНДРЕЙ SMITH Comment: RESULT: Kristen Floyd, CT( ASCP) HXThPrep Scrn Path-[place] See Comment АНДРЕЙ SMITH Comment: RESULT: 12/01/2012 11:46 Interpreted by: Padmini Sanchez M.D. Report electronically signed by Padmini Sanchez M.D. Transcribed by: jnr ??12/01/2012 10:43:45 HX Spec Desc-[place] See Comment POWERCHART Comment: A. ??ThinPrep Pap Test Screen (Cervical/ Endocervical HPV Reflex): Received blood tinged specimen in ThinPr ep vial. Test Performed by: [place] [address] Head Boys Golf Coach: Rito high III, M.D. Specimen (Source) Anatomical Collection Method Collection Time Re ceived Time Location / / Volume Laterality Cervix/Endocervix 11/25/2012 11:28 AM CDT Diana Julio APRN, C.N.P., D.N.P. LAB PAP PATHDX [place] Performing Organization Address City/State/ZIP Code Phon e Number POWERCHART documented in this encounter Visit Diagnoses Not on filedocumented in this encounter Additional Health Concerns Assessment Noted Time PHQ-9 Depression Total Score: 16 11/25/2012 12:45 PM C DT documented as of this encounter
--- OUTSIDE RECORDS SUMMARY | 2022-05-17 14:02 | XMS_ITS | Encounter Summary ---
:1980 Author Organization [facility] Address [address] [place] [address] Care Team Providers Name Role Phone Unavailable Primary Care Provider Unavailable Encounter Details Date Type Department Care Team Description 06/10/[address] [facility] ME Armond Russell M.D. [address] [id number] (Wo rk) Social History Tobacco Use Types Packs/Day Years Used Date Smoking Tobacco: Never Assessed Sex Assigned at Date Recorded Not on file documented as of this encounter Last Filed Vital Signs Vital Sign Reading Time Taken Comments Blood Pressure 124/76 06/10/2012 2:25 PM CDT Pulse 88 06/10/2012 2:25 PM CDT Temperature - - Respiratory Rate 16 06/10/2012 2:25 PM CDT Oxygen Saturation - - Inhaled Oxygen Concentration - - Weight 76.1 kg (167 lb 12.3 oz) 06/10/2012 2:25 PM CDT Height 160 cm (5' 2.99) 06/10/2012 2:25 PM CDT Body Mass Index 29.73 06/10/2012 2:25 PM CDT documented in this encounter Progress Notes Chris Russell M.D. - 06/10/2012 1:59 PM CDT [id number] IMPRESSION/REPORT/PLAN 1. Carpal tunnel syndrome. 2. Preop physical as requested by Dr. Salinas for left side carpal tunnel surgery. Patient is low-risk candidate and medically optimized for the surgery. CHIEF COMPLAINT/REASON FOR VISIT Preop physical examination for left wrist carpal tunnel surgery. HISTORY OF PRESENT ILLNESS This 31-year-old female presents to the clinic for preop physical as requested by Dr. Salinas for left wrist carpal tunnel surgery scheduled for 06-17-12. Patient states she has bad carpal tunnel on bothsides but the left side is worse so the left side will be done first. She has been evaluated and seen by Dr. Salinas. Patient states she is in her usual state of health. CURRENT MEDICATIONS Mirena IUD. ALLERGIES No known drug allergies. SYSTEMS REVIEW No headache or change in vision. No chest pain. No fevers or chills. No blood in the stools or black, tarry stools. No burning on urination. Patient is complaining of feeling of electric current going through her hand and arm when she drives or does hard work such as splitting wood. No other neurological history. Musculoskeletal history is unremarkable. PAST MEDICAL HISTORY/SURGICAL HISTORY SURGICAL HISTORY: surgical history significant for appendectomy done in 1991, myomectomy October 2011. 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 She smokes about 1/2 PPD. FAMILY HISTORY Father is living at age 55. Mother is age 46 without any significant medical conditions. VITAL SIGNS BP: 124/76 PULSE: 88 O2 SAT: 99% HT: 160 cm WT: 76.1 kg PHYSICAL EXAMINATION HEENT: PERRL, EOMs are normal. Normal TMs bilaterally. Pharynx mildly erythematous tonsillar pillarsand uvula. NECK: neck no lymphadenopathy. No thyromegaly. No carotid bruits. LUNGS: chest is clear. HEART: CVS normal S1, S2, regular rate and rhythm. ABDOMEN: abdomen soft and nontender. No guarding and no bowel tenderness. EXTREMITIES: legs no edema and no erythema. NEURO: cranial nerves are intact. Sensorimotor examination is unremarkable. Patient has positive Tinel's sign on the left side. Chris Russell M.D./arnaud cc: Rosendo Salinas M.D. [address] [place] [address] Electronically Signed By: CHRIS RUSSELL MD On: 06/10/2012 04:34 PM Source: [facility] MHSDOLBEYNONRADSYS Document Id: [id number] documented in this encounter Miscellaneous Notes Miscellaneous - Frannie Monsalve L.P.N. - 06/10/2012 2:25 PM CDT Adult Supercharger Repair Supervisor Intake/History Adult Supercharger Repair Supervisor Intake/History Entered On: 06/10/2012 14:32 CDT Performed On: 06/10/2012 14:25 CDT by FRANNIE MONSALVE HEAD CONTROL CLERK Intake Respiratory Rate : 16/min FRANNIE MONSALVE LPN - 06/10/2012 14:39 CDT Chief Complaint : Pre-Op on 06/17/12. Surgery on left wrist-carpal tunnel. Temperature Core : 36.9C(Converted to: 98.4DegF) Peripheral Pulse Rate : 88/min Systolic Blood Pressure : 124mmHg Diastolic Blood Pressure : 76mmHg NIBP Mean : 92mmHg BP Location : Right upper extremity Blood Pressure Cuff Size : Regular SpO2 : 99% Oxygen Therapy : Room air Height : 160cm(Converted to: 5ft 3inch(es), 62.99inch(es)) Actual Weight : 76.1kg(Converted to: 167lb 12oz) Weight Source : Standing scale Dosing Weight Clinic : 76.10kg Clinic BSA : 1.84 Body Mass Index : 29.73kg/m2 Neck Circumference : 35.5cm(Converted to: 14inch(es)) FRANNIE MONSALVE [facility] - 06/10/2012 14:25 CDT Subjective Pain Symptoms : No FRANNIE MONSALVE LPN - 06/10/2012 14:25 CDT Dependent Habits Tobacco Use/Currently Using : Yes Exposure to Tobacco Smoke : Patient smokes Smoking Status : Current every day smoker FRANNIE MONSALVE LPN - 06/10/2012 14:25 CDT Tobacco Use Grid Type : Cigarettes Cigarette Use Packs/Day : 0.5 FRANNIE MONSALVE LPN - 06/10/2012 14:25 CDT Alcohol Use : No FRANNIE MONSALVE LPN - 06/10/2012 14:25 CDT Caffeine Use Grid Caffeine Use : Current Type : Energy drinks, Soft drinks FRANNIE MONSALVE LPN - 06/10/2012 14:25 CDT Recreational Drug Use Grid Drug Use : None FRANNIE MONSALVE LPN - 06/10/2012 14:25 CDT Allergy Allergies (Active) NKA Estimated Onset Date: Unspecified ; Created By: PAOLO MARTINEZ RN; Reaction Status: Active ; Category: Drug ; Substance: NKA ; Type: Allergy ; Updated By: PAOLO MARTINEZ RN; Reviewed Date: 06/10/2012 14:33 CDT Source: [employer] Document Id: [id number] Miscellaneous - Frannie Monsalve, L.P.N. - 06/10/2012 2:25 PM CDT Obstructive Sleep Apnea Obstructive Sleep Apnea Entered On: 06/10/2012 14:33 CDT Performed On: 06/10/2012 14:25 CDT by FRANNIE MONSALVE LPN AISHA Screening Known Obstructive Sleep Apnea : No FRANNIE MONSALVE LPN - 06/10/2012 14:25 CDT AISHA Assessment Do you have high blood pressure or have you been told to take medication for high blood pressure? : No Frequency of Snoring : Sometimes (1-2 times per month) Frequency of Gasping, Choking, Snorting : Never Neck Circumference (cm) : 34/35 Total Number of Historical Features : 0 FRANNIE MONSALVE LPN - 06/10/2012 14:25 CDT Source: [employer] Document Id: [id number] documented in this encounter Plan of Treatment Not on filedocumented as of this encounter Visit Diagnoses Not on filedocumented in this encounter Additional Health Concerns Assessment Noted Time PHQ-9 Depression Total Score: 17 11/05/2011 9:30 AM CS T documented as of this encounter
--- OUTSIDE RECORDS SUMMARY | 2022-05-17 14:02 | XMS_ITS | Encounter Summary ---
:1980 Author Organization [facility] Address [address] [place] [address] Care Team Providers Name Role Phone Unavailable Primary Care Provider Unavailable Encounter Details Date Type Department Care Team Description 11/25/2012 Hospital Encounter HX NO MAPPING Provider, Historical Social History Tobacco Use Types Packs/Day Years [...]
--- OUTSIDE RECORDS SUMMARY | 2022-05-17 14:02 | XMS_ITS | Encounter Summary ---
:1980 Author Organization [facility] Address [address] [place] [address] Care Team Providers Name Role Phone Unavailable Primary Care Provider Unavailable Encounter Details Date Type Department Care Team Description 07/01/2012 Hospital Encounter HX NO MAPPING Peterson Lutz P.A.- C. Social History Tobacco Use Types Packs/Day Years Used Date Smoking Tobacco: Never Assessed Sex Assigned at Date Recorded Not on file documented as of this encounter Last Filed Vital Signs Vital Sign Reading Time Taken Comments Blood Pressure 124/86 07/01/2012 2:25 PM CDT Pulse 92 07/01/2012 2:25 PM CDT Temperature - - Respiratory Rate 16 07/01/2012 2:25 PM CDT Oxygen Saturation - - Inhaled Oxygen Concentration - - Weight - - Height - - Body Mass Index - - documented in this encounter Consult Notes Peterson Lutz - 07/01/2012 2:05 PM CDT [id number] IMPRESSION/REPORT/PLAN Ms. Diop is a 31-year-old female status post carpal tunnel release. The patient is doing well. Ifshe has any questions, she was encouraged to call. Otherwise, she will focus on activity modification and wearing her splint for at least the next two weeks and very gradually wean out of it at that point in time and also very gradually resume activities as tolerated which she understands should be a very slow and pain free process and she should certainly limit her lifting, gripping, pushing, and pulling in the interim. She will contact us if and when she is ready to consider right carpal tunnel release based on the successful outcome of her left wrist. CHIEF COMPLAINT/REASON FOR VISIT Ms. Diop is a 31-year-old female who is here today for a follow-up of her left wrist. HISTORY OF PRESENT ILLNESS She had a carpal tunnel release performed by Dr. Salinas and is doing fairly well. She has a splint at home and is not interested in a new one today. PHYSICAL EXAM On examination, the incision is healing well with no evidence of infection. Sensation is grossly intact. Peterson Lutz P.A.-C./marcela Electronically Signed By: PETERSON LUTZ PA-C On: 07/15/2012 12:26 PM Source: [facility] MHSDOLBEYNONRADSYS Document Id: [id number] RIG SAWYER documented in this encounter Miscellaneous Notes Miscellaneous - Peterson Lutz - 07/01/2012 4:29 PM CDT Ambulatory Patient Summary [facility] [address] [address] Visit Information Name: ROSANA DIOP Current Date: 07/01/2012 16:29:40 Physicians Attending Provider: PETERSON LUTZ PA-C Primary Care Provider: LAKHWINDER JULIO RN, SLABBER Your Medications Here is a list of your medications. It is important to take your medications as directed. Use a pillbox or chart to help remind you to take your medications. Please let your doctor or nurse know if you have problems taking your medications. Medication/Strength Dose Route Frequency Indications/Special Instructions/Comments levonorgestrel (Mirena) 1 each once Attention: If [...] No Appointments found Your Goals/Additional instructions: Source: [facility] POWERCHART Document Id: [id number] Miscellaneous - Peterson Lutz - 07/01/2012 4:29 PM CDT Ambulatory Depart Summary [facility] [address] [place] [address] Visit Information Name: ROSANA DIOP Visit Date: 07/01/2012 16:29:39 Attending Provider: PETERSON LUTZ PA-C Primary Care Provider: LAKHWINDER JULIO RN, SLABBER ROSANA DIOP has been given the following list of medications: Your Medications It is important to take your medications as directed. Use a pill box or chart to help remind you to take your medications. Please let your doctor or nurse know if you have problems taking your medications. Medication/Strength Dose Route Frequency Indications/Special Instructions/Comments levonorgestrel (Mirena) 1 each once Attention: If you have any medications at home that are not on this list, DO NOT take them until youcontact your provider for clarification. Additional Information: Source: [facility] POWERCHART Document Id: [id number] Miscellaneous - Katiuska Mcnamara RInessa - 07/01/2012 2:25 PM CDT Adult Laborer Wood Preserving Plant Intake/History Adult Laborer Wood Preserving Plant Intake/History Entered On: 07/01/2012 14:28 CDT Performed On: 07/01/2012 14:25 CDT by KATIUSKA MCNAMARA base draw operator Chief Complaint : 2 weeks post lt ctr, no concerns Temperature Core : 36.8C(Converted to: 98.2DegF) Peripheral Pulse Rate : 92/min Respiratory Rate : 16/min Heart Rhythm : Regular Systolic Blood Pressure : 124mmHg Diastolic Blood Pressure : 86mmHg NIBP Mean : 99mmHg BP Location : Right upper extremity Blood Pressure Cuff Size : Regular KATIUSKA MCNAMARA RN - 07/01/2012 14:25 CDT General Info Information Given By : Patient Preferred Communication Mode : Verbal Languages : [place] Leonean KATIUSKA MCNAMARA RN - 07/01/2012 14:25 CDT Subjective Pain Symptoms : No KATIUSKA MCNAMARA RN - 07/01/2012 14:25 CDT Dependent Habits Tobacco Use/Currently Using : Yes Tobacco Use/Advised to Quit : Yes Exposure to Tobacco Smoke : Patient smokes Smoking Status : Current every day smoker KATIUSKA MCNAMARA RN - 07/01/2012 14:25 CDT Tobacco Use Grid Type : Cigarettes Cigarette Use Packs/Day : 0.5 KATIUSKA MCNAMARA RN - 07/01/2012 14:25 CDT Caffeine Use Grid Caffeine Use : Current Type : Energy drinks, Soft drinks KATIUSKA MCNAMARA RN - 07/01/2012 14:25 CDT Recreational Drug Use Grid Drug Use : None KATIUSKA MCNAMARA RN - 07/01/2012 14:25 CDT Allergy Allergies (Active) NKA Estimated Onset Date: Unspecified ; Created By: PAOLO MARTINEZ RN; Reaction Status: Active ; Category: Drug ; Substance: NKA ; Type: Allergy ; Updated By: PAOLO MARTINEZ RN; Reviewed Date: 07/01/2012 14:25 CDT Source[email or web address] Document Id: [id number] documented in this encounter Plan of Treatment Not on filedocumented as of this encounter Visit Diagnoses Not on filedocumented in this encounter Additional Health Concerns Assessment Noted Time PHQ-9 Depression Total Score: 17 11/05/2011 9:30 AM CS T documented as of this encounter
--- OUTSIDE RECORDS SUMMARY | 2022-05-17 14:02 | XMS_ITS | Encounter Summary ---
:1980 Author Organization [facility] Address [address] [place] [id number] Care Team Providers Name Role Phone Unavailable Primary Care Provider Unavailable Encounter Details Date Type Department Care Team Description 12/04/2012 Hospital Encounter HX [facility] [place] [facility] Ed Villavicencio M.D. [id number] [phone] (Wo rk) Social History Tobacco Use Types Packs/Day Years Used Date Smoking Tobacco: Never Assessed Sex Assigned at Date Recorded Not on file documented as of this encounter Progress Notes Nate Black M.D. - 12/04/2012 10:15 AM CDT [id number] S: The patient is a 32 yo who presents to clinic complaining of irregular vaginal bleeding withher Mirena IUD. Her Mirena was placed approximately 4 years ago. For years, the patient became amenorrheic with Mirena. Over the last five months, she has progressively experienced more bleeding. However, currently, she is not experiencing vaginal bleeding. She was evaluated in [place] last week.During that appointment, she had a negative GC/CT. Her TSH was wnl. Per pt, her pap was also negative. Her past surgical history is significant for a myomectomy. The patient had a TVUS 11/2012 which revealed a fibroid in the body to fundus measuring 8 X 8 X 8 cm, no larger and perhaps minimally smaller than before. Her IUD was visualized. The visualized portion of the endometrium measured about 3 mm in thickness with trace endometrial fluid. No adnexal masses were visualized. O:BP 130/86 Wt 72.666 kg (160 lb 3.2 oz) Gen-NAD A/P: 1. Abnormal uterine bleeding with the Mirena IUD -CBC -Serum HCG -Recent negative GC/CT. Recent normal TSH -Trial of OCPs X one month (The patient denies any absolute contraindications to estrogen/ progesterone containing OCPs. She understands and accepts the risks associated with estrogen/ progesterone containing OCPs.) -Doxycycline 100 mg po BID X 7 days for possible endometritis -Follow up in 6 weeks to discuss bleeding pattern. Will proceed with an endometrial biopsy if indicated at that time. The importance of proper follow up was discussed with the patient who voiced understanding. Source: [facility] [id number] Document Id: [id number] documented in this encounter Plan of Treatment Not on filedocumented as of this encounter Procedures Procedure Name Priority Date/Time Associated Diagnosis Comme nts HX U BETA HCG QL Routine 12/04/2012 11:23 AM Resu lts for this POC CDT procedure are i n the results section. RBC SYSMEX Routine 12/04/2012 11:00 AM Results for this CDT procedure are i n the results section. RBC SYSMEX Routine 12/04/2012 11:00 AM Results for this CDT procedure are i n the results section. RBC SYSMEX Routine 12/04/2012 11:00 AM Results for this CDT procedure are i n the results section. RBC SYSMEX Routine 12/04/2012 11:00 AM Results for this CDT procedure are i n the results section. AUTOMATED Routine 12/04/2012 11:00 AM Results for this DIFFERENTIAL, B CDT procedure ar e in the results section. AUTOMATED Routine 12/04/2012 11:00 AM Results for this DIFFERENTIAL, B CDT procedure ar e in the results section. AUTOMATED Routine 12/04/2012 11:00 AM Results for this DIFFERENTIAL, B CDT procedure ar e in the results section. AUTOMATED Routine 12/04/2012 11:00 AM Results for this DIFFERENTIAL, B CDT procedure ar e in the results section. AUTOMATED Routine 12/04/2012 11:00 AM Results for this DIFFERENTIAL, B CDT procedure ar e in the results section. AUTOMATED Routine 12/04/2012 11:00 AM Results for this DIFFERENTIAL, B CDT procedure ar e in the results section. AUTOMATED Routine 12/04/2012 11:00 AM Results for this DIFFERENTIAL, B CDT procedure ar e in the results section. AUTOMATED Routine 12/04/2012 11:00 AM Results for this DIFFERENTIAL, B CDT procedure ar e in the results section. AUTOMATED Routine 12/04/2012 11:00 AM Results for this DIFFERENTIAL, B CDT procedure ar e in the results section. AUTOMATED Routine 12/04/2012 11:00 AM Results for this DIFFERENTIAL, B CDT procedure ar e in the results section. AUTOMATED Routine 12/04/2012 11:00 AM Results for this DIFFERENTIAL, B CDT procedure ar e in the results section. AUTOMATED Routine 12/04/2012 11:00 AM Results for this DIFFERENTIAL, B CDT procedure ar e in the results section. AUTOMATED Routine 12/04/2012 11:00 AM Results for this DIFFERENTIAL, B CDT procedure ar e in the results section. PLATELETS, B Routine 12/04/2012 11:00 AM Results for this CDT procedure are i n the results section. CBC WITH Routine 12/04/2012 11:00 AM Results for this DIFFERENTIAL, B CDT procedure ar e in the results section. CBC WITH Routine 12/04/2012 11:00 AM Results for this DIFFERENTIAL, B CDT procedure ar e in the results section. HEMOGLOBIN, B Routine 12/04/2012 11:00 AM Results for this CDT procedure are i n the results section. HEMATOCRIT, B Routine 12/04/2012 11:00 AM Results for this CDT procedure are i n the results section. documented in this encounter Results HX U BETA HCG QL POC (12/04/2012 11:23 AM CDT) P athologist Signature HXBeta hCG Ql Negative [facility] Specimen (Source) Anatomical Collection Method Collection Time Re ceived Time Location / / Volume Laterality 12/04/2012 11:23 AM CDT Historical Provider LAB HISTORICAL ORDERS Performing Organization Address City/State/ZIP Code Phon e Number [facility] Automated Differential (12/04/2012 11:00 AM CDT) P athologist Signature HXGranulo 0.0 109L [facility] Specimen (Source) Anatomical Collection Method Collection Time Re ceived Time Location / / Volume Laterality 12/04/2012 11:00 AM CDT Historical Provider LAB BLOOD ADD-ON Performing Organization Address City/State/ZIP Code Phon e Number [facility] Automated Differential (12/04/2012 11:00 AM CDT) P athologist Signature Absolute 0.0 109L [facility] Specimen (Source) Anatomical Collection Method Collection Time Re ceived Time Location / / Volume Laterality 12/04/2012 11:00 AM CDT Historical Provider LAB BLOOD ADD-ON Performing Organization Address City/State/ZIP Code Phon e Number [facility] Automated Differential (12/04/2012 11:00 AM CDT) P athologist Signature Eosinophils 0.2 109L [facility] Specimen (Source) Anatomical Collection Method Collection Time Re ceived Time Location / / Volume Laterality 12/04/2012 11:00 AM CDT Historical Provider LAB BLOOD ADD-ON Performing Organization Address City/State/ZIP Code Phon e Number [facility] Automated Differential (12/04/2012 11:00 AM CDT) P athologist Signature Monocytes 0.7 109L [facility] Specimen (Source) Anatomical Collection Method Collection Time Re ceived Time Location / / Volume Laterality 12/04/2012 11:00 AM CDT Historical Provider LAB BLOOD ADD-ON Performing Organization Address City/State/ZIP Code Phon e Number [facility] Automated Differential (12/04/2012 11:00 AM CDT) P athologist Signature Lymphocytes 2.1 109L [facility] Specimen (Source) Anatomical Collection Method Collection Time Re ceived Time Location / / Volume Laterality 12/04/2012 11:00 AM CDT Historical Provider LAB BLOOD ADD-ON Performing Organization Address City/State/ZIP Code Phon e Number [facility] Automated Differential (12/04/2012 11:00 AM CDT) P athologist Signature Absolute 3.3 109L [facility] Specimen (Source) Anatomical Collection Method Collection Time Re ceived Time Location / / Volume Laterality 12/04/2012 11:00 AM CDT Historical Provider LAB BLOOD ADD-ON Performing Organization Address City/State/ZIP Code Phon e Number [facility] Automated Differential (12/04/2012 11:00 AM CDT) P athologist Signature Immature 0.2 [facility] Granulocytes % [facility] Specimen (Source) Anatomical Collection Method Collection Time Re ceived Time Location / / Volume Laterality 12/04/2012 11:00 AM CDT Historical Provider LAB BLOOD ADD-ON Performing Organization Address City/State/ZIP Code Phon e Number [facility] Automated Differential (12/04/2012 11:00 AM CDT) P athologist Signature HX Baso % 0.6 [facility] Specimen (Source) Anatomical Collection Method Collection Time Re ceived Time Location / / Volume Laterality 12/04/2012 11:00 AM CDT Historical Provider LAB BLOOD ADD-ON Performing Organization Address City/State/ZIP Code Phon e Number [facility] Automated Differential (12/04/2012 11:00 AM CDT) P athologist Signature HX Eos % 2.7 [facility] Specimen (Source) Anatomical Collection Method Collection Time Re ceived Time Location / / Volume Laterality 12/04/2012 11:00 AM CDT Historical Provider LAB BLOOD ADD-ON Performing Organization Address City/State/ZIP Code Phon e Number [facility] Automated Differential (12/04/2012 11:00 AM CDT) P athologist Signature HX [place] % 10.5 [facility] Specimen (Source) Anatomical Collection Method Collection Time Re ceived Time Location / / Volume Laterality 12/04/2012 11:00 AM CDT Historical Provider LAB BLOOD ADD-ON Performing Organization Address City/State/ZIP Code Phon e Number [facility] Automated Differential (12/04/2012 11:00 AM CDT) P athologist Signature Lymphocytes 33.5 [facility] Specimen (Source) Anatomical Collection Method Collection Time Re ceived Time Location / / Volume Laterality 12/04/2012 11:00 AM CDT Historical Provider LAB BLOOD ADD-ON Performing Organization Address City/State/ZIP Code Phon e Number [facility] Automated Differential (12/04/2012 11:00 AM CDT) P athologist Signature Neutro % 52.5 [facility] Specimen (Source) Anatomical Collection Method Collection Time Re ceived Time Location / / Volume Laterality 12/04/2012 11:00 AM CDT Historical Provider LAB BLOOD ADD-ON Performing Organization Address City/State/ZIP Code Phon e Number [facility] CBC with Differential (12/04/2012 11:00 AM CDT) Patholo gist Method Time Signature HXDifferentia Automated [facility] l? Method [facility] Specimen (Source) Anatomical Collection Method Collection Time Re ceived Time Location / / Volume Laterality 12/04/2012 11:00 AM CDT Historical Provider LAB BLOOD ADD-ON Performing Organization Address City/State/ZIP Code Phon e Number [facility] Platelet Count (12/04/2012 11:00 AM CDT) P athologist Signature Platelet Count 302 109L [facility] Specimen (Source) Anatomical Collection Method Collection Time Re ceived Time Location / / Volume Laterality 12/04/2012 11:00 AM CDT Historical Provider LAB BLOOD ADD-ON Performing Organization Address City/State/ZIP Code Phon e Number [facility] RBC SYSMEX (12/04/2012 11:00 AM CDT) P athologist Signature HX RDW 12.8 [facility] Specimen (Source) Anatomical Collection Method Collection Time Re ceived Time Location / / Volume Laterality 12/04/2012 11:00 AM CDT Historical Provider LAB URINE ORDERABLES Performing Organization Address City/State/ZIP Code Phon e Number [facility] RBC SYS[place]EX (12/04/2012 11:00 AM CDT) P athologist Signature MCHC 35.3 GMDL [facility] Specimen (Source) Anatomical Collection Method Collection Time Re ceived Time Location / / Volume Laterality 12/04/2012 11:00 AM CDT Historical Provider LAB URINE ORDERABLES Performing Organization Address City/State/ZIP Code Phon e Number [facility] RBC SYSMEX (12/04/2012 11:00 AM CDT) P athologist Signature MCH 30.4 PG [facility] Specimen (Source) Anatomical Collection Method Collection Time Re ceived Time Location / / Volume Laterality 12/04/2012 11:00 AM CDT Historical Provider LAB URINE ORDERABLES Performing Organization Address City/State/ZIP Code Phon e Number [facility] Automated Differential (12/04/2012 11:00 AM CDT) P athologist Signature MCV 86 FL [facility] Specimen (Source) Anatomical Collection Method Collection Time Re ceived Time Location / / Volume Laterality 12/04/2012 11:00 AM CDT Historical Provider LAB BLOOD ADD-ON Performing Organization Address City/State/ZIP Code Phon e Number [facility] Hematocrit (12/04/2012 11:00 AM CDT) P athologist Signature Hematocrit 43.4 [facility] Specimen (Source) Anatomical Collection Method Collection Time Re ceived Time Location / / Volume Laterality 12/04/2012 11:00 AM CDT Historical Provider LAB BLOOD ADD-ON Performing Organization Address City/State/ZIP Code Phon e Number [facility] Hemoglobin (12/04/2012 11:00 AM CDT) P athologist Signature Hemoglobin 15.3 GMDL [facility] Specimen (Source) Anatomical Collection Method Collection Time Re ceived Time Location / / Volume Laterality 12/04/2012 11:00 AM CDT Historical Provider LAB BLOOD ADD-ON Performing Organization Address City/State/ZIP Code Phon e Number [facility] RBC SYSMEX (12/04/2012 11:00 AM CDT) P athologist Signature Erythrocytes 5.04 X10 [facility] Specimen (Source) Anatomical Collection Method Collection Time Re ceived Time Location / / Volume Laterality 12/04/2012 11:00 AM CDT Historical Provider LAB URINE ORDERABLES Performing Organization Address City/State/ZIP Code Phon e Number [facility] CBC with Differential (12/04/2012 11:00 AM CDT) P athologist Signature Leukocytes 6.3 109L [facility] Specimen (Source) Anatomical Collection Method Collection Time Re ceived Time Location / / Volume Laterality 12/04/2012 11:00 AM CDT Historical Provider LAB BLOOD ADD-ON Performing Organization Address City/State/ZIP Code Phon e Number [facility] documented in this encounter Visit Diagnoses Not on filedocumented in this encounter Additional Health Concerns Assessment Noted Time PHQ-9 Depression Total Score: 16 11/25/2012 12:45 PM C DT documented as of this encounter
--- OUTSIDE RECORDS SUMMARY | 2022-05-17 14:02 | XMS_ITS | Encounter Summary ---
:1980 Author Organization [facility] Address [address] [place] [id number] Care Team Providers Name Role Phone Unavailable Primary Care Provider Unavailable Encounter Details Date Type Department Care Team Description 06/17/2012 Hospital Encounter HX [facility] SURGERY Bill Salinas M.D. [address] [place] [phone] (Wo rk) Social History Tobacco Use Types Packs/Day Years Used Date Smoking Tobacco: Never Assessed Sex Assigned at Date Recorded Not on file documented as of this encounter Last Filed Vital Signs Vital Sign Reading Time Taken Comments Blood Pressure 122/63 06/17/2012 3:30 PM CDT Pulse 80 06/17/2012 3:30 PM CDT Temperature - - Respiratory Rate 16 06/17/2012 3:30 PM CDT Oxygen Saturation - - Inhaled Oxygen Concentration - - Weight - - Height 161 cm (5' 3.39) 06/17/2012 11:04 AM CDT Body Mass Index - - documented in this encounter Discharge Summaries uLciana Weinstein RChristianN. - 06/17/2012 4:32 PM CDT Inpatient Discharge Instructions [id number] [place] [address] Patient Discharge Instructions Name: SHRUTHI MARTINEZ Current Date: 06/17/2012 16:32:25 : 1980 12:00 AM Patient Address: [address] [place] [phone] Patient Primary Care Provider: Name: LAKHWINDER JULIO RN, EMBEDDED SOFTWARE ARCHITECT Discharge Diagnosis: [facility] in [place] would like to thank you for allowing us to assist you withyour healthcare needs. The following includes patient education materials and information regarding your injury/illness. Comment: SHRUTHI MARTINEZE has been given the following list of follow-up instructions, medication list, and patient education materials: Follow-up Instructions Medications Medication/Strength Dose Route Frequency Indications/Special Instructions/Comments levonorgestrel (Mirena) 1 each once Attention: If you have any medications at home that are not on this list, please contact your provider for clarification. Comment: Electronically Signed By: Signed On: I, SHRUTHI MARTINEZ , have received the attached patient education materials/instructions and have verbalized understanding: Patient Signature Date/Time Provider Signature Date/Time 89442 Discharge Instructions (Adults) HOME CARE FOLLOWING [facility] HAND SURGERY Person(s) Taught: Patient and boyfriend INSTRUCTIONS: - Keep you splint on at all times. - You may rewrap the brown mark wrap if it feels tight. Rewrap loosely. - Keep it clean. - Do not get your splint wet. * Seal a plastic bag around the splint if you wash in the bathtub. * Showering is not recommended for the first week after surgery. - Elevate your wrist above your heart at all times for the first 2-3 days. - Ice in a sealed bag (to avoid leakage) may be placed on the wrist area several times per day for 20-30 minutes each time for the first 2-3 days. - Exercise your finger joints. Use your good hand to help stretch the other hands joints. - Try to begin using your hand normally (with the splint on) 3 days after surgery. - Use your pain medications as directed. For 48 hours after receiving general anesthesia your reactions are slower, you may be dizzy, nauseated, lightheaded, and/or have a headache or short term memory loss. Therefore: A. DON'T DRINK alcoholic beverages. B. DON'T DRIVE your car, operate machinery or power tools. C. DON'T MAKE any important decisions. D. You may resume your prescribed medications as directed. E. We strongly suggest you have a responsible adult with you the rest of today and also during the night for your protection and safety. DIET: No Restrictions MEDICATIONS - See Discharge Medication List FOLLOW-UP APPOINTMENTS: LAB: None XRAY: None Cuco Ceja 07/01/12 @ 1:30 pm IF ANY PROBLEMS OR CONCERNS, PLEASE CONTACT YOUR DOCTOR OR CALL THE PATIENT ADVISORY NURSE AT [phone] OR EMERGENCY ROOM AT [phone], ext: [phone]. ext: surgical services [phone], med-surge [phone] Physician: Dr. Salinas Office: You may receive a Customer Satisfaction survey in the mail from [email or web address]. If you receive this survey, we would ask that you take the time to complete it and return it. Your comments and suggestions are important to us; we are always looking for ways to improve the service we provide . [facility]. It was a pleasure to serve you. [address] [address] Name: SHRUTHI MARTINEZ Current Date: 06/17/2012 16:32:25 Source: [facility] POWERCHART Document Id: [id number] Luciana Weinstein RMarianne. - 06/17/2012 4:32 PM CDT Discharge Medication List [address] [address] Discharge Medication List Name: SHRUTHI MARTINEZ Current Date: 06/17/2012 16:32:24 : 1980 12:00 AM Patient Address: [address] [place] [phone] Patient Primary Care Provider: Name: LAKHWINDER JULIO RN, EMBEDDED SOFTWARE ARCHITECT Discharge Diagnosis: [facility] in [place] would like to thank you for allowing us to assist you withyour healthcare needs. The following includes patient education materials and information regarding your injury/illness. Medications Medication/Strength Dose Route Frequency Indications/Special Instructions/Comments levonorgestrel (Mirena) 1 each once Attention: If you have any medications at home that are not on this list, DO NOT take them until youcontact your provider for clarification. Comment: Electronically Signed By: Signed On: Source: [facility] [employer] Document Id: [id number] documented in this encounter Procedure Notes Luciana Weinstein R.N. - 06/17/2012 11:04 AM CDT Preprocedure Checklist Preprocedure Checklist Entered On: 06/17/2012 11:11 CDT Performed On: 06/17/2012 11:04 CDT by LUCIANA WEINSTEIN RN Checklist Last Fluid Intake : 06/16/2012 23:59 CDT Last Food Intake : 06/16/2012 23:59 CDT Last Void : 06/17/2012 10:00 CDT Status : Patient denies LUCIANA WEINSTEIN RN - 06/17/2012 11:04 CDT Surgery Prep Grid Contacts/Glasses Removed : NA Preop Scrub Night Prior to Surgery : Yes Prosthesis Removed : NA Surgical Prep Verified : Yes Tampon Removed : NA Wearing Patient Gown : Yes Hairpins/Hairpiecies Removed : NA Hearing Aid Removed : NA Home Prep Complete : NA Jewelry/Piercing Removed : NA Makeup/Nail Icelandic Removed : NA Oral Hygiene : NA Preop Scrub AM of Surgery : Yes (Comment: upper and lower plate currently intact [LUCIANA WEINSTEIN RN - 06/17/2012 11:04 CDT]) Patient Rights Grid Blood Consent Signed : NA Surgical/Procedure Consent Signed : Yes LUCIANA WEINSTEIN RN - 06/17/2012 11:04 CDT Family Location : [facility] LUCIANA WEINSTEIN RN - 06/17/2012 11:04 CDT Checklist II Patient Safety Grid Allergy Band on and Verified : NA ID Band on and Verified : Yes Preop Medications Sent With Patient : NA Relevant Images in Medical Record : NA Review of Labs : NA Procedure/Site Verified by Patient/Family : Yes Procedure/Site Verified by RN : Yes Procedure/Site Verified by Physician : Yes Type & Screen/Type & Cross Completed : NA Anesthesia Consult : Yes Band on for Limb Alert : NA Blood Band on and Verified : NA Current ECG in Medical Record : NA Current H&P in Medical Record : Yes Implants Verified : NA Medication Reconciliation on Chart : Yes Pacemaker/AICD Verified : LUCIANA KHOURY RN - 06/17/2012 11:04 CDT RN Who Verified Site : LUCIANA WEINSTEIN RN Physician Who Verified Site : ROSENDO SALINAS MD, GWYNNE A RN - 06/17/2012 11:04 CDT AISHA Screening Known Obstructive Sleep Apnea : No Uses Home CPAP/BiPAP : No Risk for Sleep Apnea : No LUCIANA WEINSTEIN RN - 06/17/2012 11:04 CDT AISHA Assessment Do you have high blood pressure or have you been told to take medication for high blood pressure? : No Frequency of Snoring : Sometimes (1-2 times per month) Frequency of Gasping, Choking, Snorting : Never Neck Circumference (cm) : 34/35 Total Sleep Apnea Clinical Score : 1 Total Number of Historical Features : 0 LUCIANA WEINSTEIN RN - 06/17/2012 11:04 CDT Valuables/Belongings Valuables/Belongings Grid Valuables at Bedside Clothes, Patient Valuables : Pants, Shirt, Shoes LUCIANA WEINSTEIN RN - 06/17/2012 11:04 CDT Room Orientation/Facility Policy Reviewed : Yes Home Medication Disposition : None brought in with patient LUCIANA WEINSTEIN RN - 06/17/2012 11:04 CDT Education Preprocedure Education Grid Procedure Type : left carpel tunnel release Education Topics : Anesthesia/Sedation, Plan of care Individuals Taught : Patient, Significant other Barriers to Learning : None evident Teaching Method : Explanation Teaching Evaluation : Verbalizes understanding LUCIANA WEINSTEIN RN - 06/17/2012 11:04 CDT Preop Holding Mode of Arrival : Ambulatory Preoperative Orders Complete : Yes LUCIANA WEINSTEIN RN - 06/17/2012 11:04 CDT Advance Directive Advanced Directives : No LUCIANA WEINSTEIN RN - 06/17/2012 11:04 CDT Vital Signs Temperature Core : 36.6C(Converted to: 97.9DegF) Peripheral Pulse Rate : 96/min Respiratory Rate : 16/min Systolic Blood Pressure : 112mmHg Diastolic Blood Pressure : 85mmHg NIBP Mean : 94mmHg SpO2 : 99% Oxygen Saturation Monitoring Frequency : Intermittent Oxygen Therapy : Room air Height : 161cm(Converted to: 5ft 3inch(es)) Height Source : Estimated Estimated Weight : 76kg Estimated Weight Conversion to Pounds : 167.20lb LUCIANA WEINSTEIN RN - 06/17/2012 11:04 CDT Allergy Allergies (Active) NKA Estimated Onset Date: Unspecified ; Created By: PAOLO MARTINEZ RN; Reaction Status: Active ; Category: Drug ; Substance: NKA ; Type: Allergy ; Updated By: PAOLO MARTINEZ RN; Reviewed Date: 06/10/2012 14:33 CDT Preprocedural Pause Correct Patient Identity : Patient verbalizes self, Patient wristband ID, Family/responsible green party ID, Patient verbalizes Correct Procedure Site and Side : left carpal tunnel release Correct Procedure Site/Side Verified By : Patient/responsible green party, Nurse, MD Site Marking : Yes Pre-Procedure Pause Verbal Confirm. of : Procedure, Site, Side, Patient Position, Patient ID LUCIANA WEINSTEIN RN - 06/17/2012 11:04 CDT Source: [facility] POWERCHART Document Id: [id number] documented in this encounter Nursing Notes Luciana Weinstein R.N. - 06/17/2012 11:00 AM CDT Day Surgery Admission History/Asmt Adult Document Has Been Updated Day Surgery Admission History/Asmt Adult Entered On: 06/17/2012 11:04 CDT Performed On: 06/17/2012 11:00 CDT by LUCIANA WEINSTEIN RN General Info LMP Date : 06/17/2012 Preferred Name : Kannan LUCIANA WEINSTEIN RN - 06/17/2012 11:27 CDT Mode of Arrival : Ambulatory Accompanied By : Significant other Chief Complaint : here for left carpal tunnel release Preferred Communication Mode : Verbal Information Given By : Patient Languages : Urdu Status : Patient denies Have you received chemotherapy in last 48 hours? : LUCIANA Dash RN - 06/17/2012 11:00 CDT Allergy Allergies (Active) NKA Estimated Onset Date: Unspecified ; Created By: PAOLO MARTINEZ RN; Reaction Status: Active ; Category: Drug ; Substance: NKA ; Type: Allergy ; Updated By: PAOLO MARTINEZ RN; Reviewed Date: 06/10/2012 14:33 CDT Anesth/Transfusion Anesthesia/Transfusions : Prior anesthesia LUCIANA WEINSTEIN RN - 06/17/2012 11:00 CDT ID Screen Drug Resistant Organism : LUCIANA Dash RN - 06/17/2012 11:00 CDT Nutrition Nutrition Risk Factors by History Adult : None Home Diet : Regular Feeding Ability : Complete independence Eating Difficulties : None Appetite : Excellent LUCIANA WEINSTEIN RN - 06/17/2012 11:00 CDT Home Environment Current Daily Living Assistance : None Living Situation : Home independently Home Equipment : None Sensory Deficits : None Mobility Assistance Prior to Admission : Independent Current Home Treatments : None Professional Skilled Services : None Special Services and Community Resources : None LUCIANA WEINSTEIN RN - 06/17/2012 11:00 CDT Dependent Habits Tobacco Use/Currently Using : Yes Tobacco Use/Advised to Quit : Yes Exposure to Tobacco Smoke : Patient smokes Smoking Status : Current every day smoker LUCIANA WEINSTEIN RN - 06/17/2012 11:00 CDT Tobacco Use Grid Type : Cigarettes Cigarette Use Packs/Day : 0.5 LUCIANA WEINSTEIN RN - 06/17/2012 11:00 CDT Caffeine Use Grid Caffeine Use : Current Type : Energy drinks, Soft drinks LUCIANA WEINSTEIN RN - 06/17/2012 11:00 CDT Recreational Drug Use Grid Drug Use : None LUCIANA WEINSTEIN RN - 06/17/2012 11:00 CDT Psychosocial Adult Domestic Abuse Concerns : None LUCIANA WEINSTEIN RN - 06/17/2012 11:00 CDT Advance Directive Advanced Directives : No LUCIANA WEINSTEIN RN - 06/17/2012 11:00 CDT Educ Needs Patient/Family Education Needs : Plan of care LUCIANA WEINSTEIN RN - 06/17/2012 11:00 CDT Learning Style Preference Adult Grid Patient : Verbal explanation Family : Verbal explanation LUCIANA WEINSTEIN RN - 06/17/2012 11:00 CDT Education Preprocedure Education Grid Procedure Type : left carpal tunnel release Education Topics : Anesthesia/Sedation, Plan of care Individuals Taught : Patient Barriers to Learning : None evident Teaching Method : Explanation Teaching Evaluation : Verbalizes understanding LUCIANA WEINSTEIN RN - 06/17/2012 11:00 CDT Outpatient Assessment Procedural Respiratory : Respirations unlabored, Respiratory pattern regular, Breath sounds clear all lobes, No cough Procedural Cardiovascular : Heart rhythm regular, Skin color normal for ethnicity, Skin dry and warm Procedural Neurological : Alert, Oriented x 3, Gait steady Procedural Gastrointestinal : Abdomen non-tender and soft Procedural Genitourinary : Voiding, no difficulties Procedural Integumentary : Skin integrity intact Procedural Musculoskeletal : Activity tolerance without distress LUCIANA WEINSTEIN RN - 06/17/2012 11:00 CDT Psycho/Emotional Pain Symptoms : No Affect/Behavior : Calm, Cooperative, Appropriate LUCIANA WEINSTEIN RN - 06/17/2012 11:00 CDT Peripheral IV Peripheral IV Assess/Intervention Grid Peripheral IV #1 IV Activity : Start Number of Attempts : 1 Date of Insertion : 06/17/2012 CDT IV Site : Hand Laterality : Right Catheter Size : 20 Catheter Type : Over the needle Site Condition : No complications Drainage Description : None Infiltration Score : 0 Phlebitis Score : 0 Flow/ Patency : No complications LUCIANA WEINSTEIN RN - 06/17/2012 11:00 CDT Yusef Sensory Perception Yusef : No impairment Moisture Yusef : Rarely moist Activity Yusef : Walks frequently Mobility Yusef : No limitations Nutrition Yusef : Excellent LUCIANA WEINSTEIN RN - 06/17/2012 11:00 CDT Hendrich II Fall Risk Confusion/Disorientation Hendrich : No Depression Fall Risk Hendrich : No Altered Elimination Fall Risk Hendrich : No Dizziness/Vertigo Fall Risk Hendrich : No Gender, Male Fall Risk Hendrich : No Prescribed Antiepileptics Hendrich : No Prescribed Benzodiazepines Hendrich : No Rising From Chair Fall Risk Hendrich : Able to rise in a single movement, no loss of balance with steps Fall Risk Score Hendrich II : 0 LUCIANA WEINSTEIN RN - 06/17/2012 11:00 CDT DC Needs Anticipated Discharge Date : 06/17/2012 CDT Discharge To, Anticipated : Home independently Home Treatments, Anticipated : None Home Equipment, Anticipated : None Professional Skilled Services, Anticipated : None Special Serv & Comm Res, Anticipated : None Needs Assistance with Transportation : No Needs Assistance at Home Upon Discharge : No LUCIANA WEINSTEIN RN - 06/17/2012 11:00 CDT FLACC Face FLACC : No particular expression or smile Legs FLACC : Normal position or relaxed Activity FLACC : Lying quietly, normal position, moves easily Cry FLACC : No cry, awake or asleep Consolabillity FLACC : Content, relaxed FLACC Pain Scale Score : 0 LUCIANA WEINSTEIN RN - 06/17/2012 11:00 CDT Urinary Catheter Urinary Catheter Activity Type : Other: none LUCIANA WEINSTEIN RN - 06/17/2012 11:00 CDT Integumentary Integumentary Patient Stated Symptoms : None Skin Turgor : Elastic Skin Integrity : Intact Mucous Membrane Color : [place] Mucous Membrane Description : Moist Skin Color : Normal for ethnicity Skin Description : Dry Skin Temperature : Warm [id number], LUCIANA A RN - 06/17/2012 11:00 CDT Source: [employer] POWERCHART Document Id: [id number] documented in this encounter OR Notes Op Note - Rosendo Salinas M.D. - 06/17/2012 12:00 AM CDT [id number] Preoperative Diagnosis: Left carpal tunnel syndrome. Postoperative Diagnosis: Left carpal tunnel syndrome. Procedure Performed: Left carpal tunnel release. Surgeon: Rosendo Salinas M.D. Anesthesia: [place] Block and general anesthesia. Estimated Blood Loss: Minimal. Indications: Shruthi is a [age]achae[age]ms[age]old woman who has been suffering with bilateral carpal tunnel syndrome. Despite conservative measures made no significant improvement in her symptoms. We discussed risks, benefits and alternatives to left carpal tunnel release with her; she understands these and desires to proceed with surgery. Operative Summary: Patient is brought to the operating room, placed on the operating table in the supine position, tourniquet was placed around her left arm, the left arm was then exsanguinated, James Block was placed. The left arm was then prepped and draped in sterile fashion. Attention was brought to the volar aspect of her hand in line with the radial aspect of the fourth digit, incision was then made overlying the transcarpal ligament, this is brought down through the subcutaneous tissue to the palmar fascia, the palmar fascia is divided bluntly and sharply, the transversus carpal ligament was then identified, cut sharply and first dissected distally past the wrist joint and then proximally tothe superficial arch. The incision was then irrigated and then closed using 4-0 Nylon in an interrupted fashion followed by a nonadherent dressing and splint. Tourniquet was let down and patient transferred to the recovery room in good condition. Needle, instrument and sponge counts correct at the endof the case. Rosendo Salinas M.D./axel Electronically Signed By: ROSENDO SALINAS MD On: 08/26/2012 03:40 PM Source: [facility] [email or web address] Document Id: [id number] documented in this encounter Miscellaneous Notes Miscellaneous - Izabella-MonaLuciana R.N. - 06/17/2012 4:32 PM CDT Inpatient Patient Education The following Patient Education Materials have been given to the patient: Patient Education Materials: Discharge Instructions - Adult (Custom) [id number] Discharge Instructions (Adults) HOME CARE FOLLOWING [facility] HAND SURGERY Person(s) Taught: Patient and boyfriend INSTRUCTIONS: - Keep you splint on at all times. - You may rewrap the brown mark wrap if it feels tight. Rewrap loosely. - Keep it clean. - Do not get your splint wet. * Seal a plastic bag around the splint if you wash in the bathtub. * Showering is not recommended for the first week after surgery. - Elevate your wrist above your heart at all times for the first 2-3 days. - Ice in a sealed bag (to avoid leakage) may be placed on the wrist area several times per day for 20-30 minutes each time for the first 2-3 days. - Exercise your finger joints. Use your good hand to help stretch the other hands joints. - Try to begin using your hand normally (with the splint on) 3 days after surgery. - Use your pain medications as directed. For 48 hours after receiving general anesthesia your reactions are slower, you may be dizzy, nauseated, lightheaded, and/or have a headache or short term memory loss. Therefore: A. DON'T DRINK alcoholic beverages. B. DON'T DRIVE your car, operate machinery or power tools. C. DON'T MAKE any important decisions. D. You may resume your prescribed medications as directed. E. We strongly suggest you have a responsible adult with you the rest of today and also during the night for your protection and safety. DIET: No Restrictions MEDICATIONS - See Discharge Medication List FOLLOW-UP APPOINTMENTS: LAB: None XRAY: None Cuco Ceja 07/01/12 @ 1:30 pm IF ANY PROBLEMS OR CONCERNS, PLEASE CONTACT YOUR DOCTOR OR CALL THE PATIENT ADVISORY NURSE AT [phone] OR EMERGENCY ROOM AT [phone], ext: [phone]. ext: surgical services [phone], med-surge [phone] Physician: Dr. Salinas Office: You may receive a Customer Satisfaction survey in the mail from [employer]. If you receive this survey, we would ask that you take the time to complete it and return it. Your comments and suggestions are important to us; we are always looking for ways to improve the service we provide . [facility] It was a pleasure to serve you. Source: [facility] POWERCHART Document Id: [id number] Miscellaneous - Lauren Nair R.N. - 06/17/2012 3:32 PM CDT Inpatient Patient Education The following Patient Education Materials have been given to the patient: Patient Education Materials: Custom Discharge Instructions - Adult (Custom) Custom [id number] Discharge Instructions (Adults) HOME CARE FOLLOWING [facility] HAND SURGERY Person(s) Taught: Patient and boyfriend INSTRUCTIONS: - Keep you splint on at all times. - You may rewrap the brown mark wrap if it feels tight. Rewrap loosely. - Keep it clean. - Do not get your splint wet. * Seal a plastic bag around the splint if you wash in the bathtub. * Showering is not recommended for the first week after surgery. - Elevate your wrist above your heart at all times for the first 2-3 days. - Ice in a sealed bag (to avoid leakage) may be placed on the wrist area several times per day for 20-30 minutes each time for the first 2-3 days. - Exercise your finger joints. Use your good hand to help stretch the other hands joints. - Try to begin using your hand normally (with the splint on) 3 days after surgery. - Use your pain medications as directed. For 48 hours after receiving general anesthesia your reactions are slower, you may be dizzy, nauseated, lightheaded, and/or have a headache or short term memory loss. Therefore: A. DON'T DRINK alcoholic beverages. B. DON'T DRIVE your car, operate machinery or power tools. C. DON'T MAKE any important decisions. D. You may resume your prescribed medications as directed. E. We strongly suggest you have a responsible adult with you the rest of today and also during the night for your protection and safety. DIET: No Restrictions MEDICATIONS - See Discharge Medication List FOLLOW-UP APPOINTMENTS: LAB: None XRAY: None Cuco Ceja 07/01/12 @ 1:30 pm IF ANY PROBLEMS OR CONCERNS, PLEASE CONTACT YOUR DOCTOR OR CALL THE PATIENT ADVISORY NURSE AT [phone] OR EMERGENCY ROOM AT [phone], ext: [phone]. ext: surgical services [phone], med-surge [phone] Physician: Dr. Salinas Office: You may receive a Customer Satisfaction survey in the mail from [email or web address]. If you receive this survey, we would ask that you take the time to complete it and return it. Your comments and suggestions are important to us; we are always looking for ways to improve the service we provide . [facility]. It was a pleasure to serve you. Source: [facility] POWERCHART Document Id: [id number] Miscellaneous - Luciana Weinstein RChristianN. - 06/17/2012 3:30 PM CDT Adult Postprocedure Assessment Adult Postprocedure Assessment Entered On: 06/17/2012 16:31 CDT Performed On: 06/17/2012 15:30 CDT by LUCIANA WEINSTEIN RN Vital Signs Temperature Core : 36.6C(Converted to: 97.9DegF) Peripheral Pulse Rate : 80/min Respiratory Rate : 16/min Systolic Blood Pressure : 122mmHg Diastolic Blood Pressure : 63mmHg NIBP Mean : 83mmHg SpO2 : 99% Oxygen Therapy : Room air LUCIANA WEINSTEIN RN - 06/17/2012 16:23 CDT General Level of Consciousness : Alert Orientation : Oriented x 3 Skin Color : Normal for ethnicity Skin Description : Dry Skin Temperature : Warm Pain Symptoms : No LUCIANA WEINSTEIN 06/17/2012 16:23 CDT FLACC Face FLACC : No particular expression or smile Legs FLACC : Normal position or relaxed Activity FLACC : Lying quietly, normal position, moves easily Cry FLACC : No cry, awake or asleep Consolabillity FLACC : Content, relaxed FLACC Pain Scale Score : 0 LUCIANA WEINSTEIN 06/17/2012 16:23 CDT Cardiovascular Heart Rhythm : Regular Nail Bed Color : [place] Edema : None Capillary Refill : Less than 2 seconds LUCIANA WEINSTEIN 06/17/2012 16:23 CDT Pulses Grid Radial Pulse, Right : 2+ Normal (Comment: surgical drsg intact to left wrist, dry [LUCIANA WEINSTEIN 06/17/2012 16:23 CDT] ) Cardiac Rhythm Techs Ventricular Rate : 80bpm Ventricular Rhythm : Regular IZABELLA-LUCIANA SOTO 06/17/2012 16:23 CDT Respiratory Anesthesia Type : General Airway Type : None Respiratory Pattern : Regular Respirations : Unlabored All Lobes Breath Sounds : Clear LUCIANA WEINSTEIN 06/17/2012 16:23 CDT GI/ Nausea Symptoms : No LUCIANA WEINSTEIN 06/17/2012 16:23 CDT Urinary Catheter Urinary Catheter Activity Type : Other: none LUCIANA WEINSTEIN 06/17/2012 16:23 CDT Integumentary Integumentary Patient Stated Symptoms : Other: post op left CTR Skin Turgor : Elastic Skin Integrity : Not intact Mucous Membrane Color : [place] Mucous Membrane Description : Moist Skin Color : Normal for ethnicity Skin Description : Dry Skin Temperature : Warm LUCIANA WEINSTEIN 06/17/2012 16:23 CDT Incision/Wound Incision/Wound Care Grid Activity : Assessed (Comment: surgical drsg intact and dry left wrist [DEACON SOTO LUCIANA Adams 06/17/2012 16:23 CDT] ) LUCIANA WEINSTEIN - 06/17/2012 16:23 CDT Peripheral IV Peripheral IV Assess/Intervention Grid Peripheral IV #1 IV Activity : Discontinue Number of Attempts : 1 Date of Insertion : 06/17/2012 CDT IV Site : Hand Laterality : Right Catheter Size : 20 Catheter Type : Over the needle Site Condition : No complications Drainage Description : None Infiltration Score : 0 Phlebitis Score : 0 Comments (Comment: IV discontinued with plastic cath intact upon removal, site good [IZABELLA-ALEXANDRAOHLLUCIANA RN - 06/17/2012 16:23 CDT] ) IZABELLA-MONA LUCIANA Adams - 06/17/2012 16:23 CDT I&O Other Intake : 100mL (Comment: IV LR since last notation [IZABELLA-ALEXANDRAOHLUCIANA Benjamin - 06/17/2012 16:23 CDT] ) Urine Voided : 250mL Emesis Count : 0 Stool Count : 0 IZABELLA-ALEXANDRAAALIYAH LUCIANA A - 06/17/2012 16:23 CDT Nutrition Afternoon Snack : 100% IZABELLA-BRIDGETL LUCIANA Angie - 06/17/2012 16:23 CDT Neurologic Swallowing Difficulty/Aspiration Risk : None Extremity Movement : Equal Facial Symmetry : Symmetric Characteristics of Speech : Clear IZABELLA-MONA LUCIANA Adams - 06/17/2012 16:23 CDT Neurological Strengths Grid Left Upper Extremity Right Upper Extremity Left Lower Extremity Right Lower Extremity Strength : Strong Strong Strong Strong Tone : Normal Normal Normal Normal Sensation : Intact Intact Intact Intact IZABELLA-ALEXANDRAOHL LUCIANA Adams - 06/17/2012 16:23 CDT IZABELLA-PFOHL LUCIANA Angie 06/17/2012 16:23 CDTSTETSON-PFOHL LUCIANA Angie 06/17/2012 16:23 CDT IZABELLA- PFOHL LUCIANA Angie 06/17/2012 16:23 CDT Upper Extremity Nail Bed Color Hands Grid Left Hand : [place] Right Hand : [place] IZABELLA-MONA LUCIANA A - 06/17/2012 16:23 CDT Capillary Refill Hand Grid Left Hand : < 2 seconds Right Hand : < 2 seconds LUCIANA WEINSTEIN - 06/17/2012 16:23 CDT Upper Extremity Color Grid Left : [place] Right : [place] LUCIANA WEINSTEIN RN - 06/17/2012 16:23 CDT Upper Extremity Temperature Grid Left : Warm Right : Warm LUCIANA WEINSTEIN - 06/17/2012 16:23 CDT NV Upper Extremity Pulses Grid Radial Pulse, Left : 2+ Normal Radial Pulse, Right : 2+ Normal LUCIANA WEINSTEIN - 06/17/2012 16:23 CDT PARSAP Activity Status : Moves 4 extremities voluntarily or on command Dressing : Dry and clean Respiratory Component : Able to deep breathe and cough freely Pain : Pain free Circulation Component : BP 20% of preanesthetic level Ambulation : Able to stand up and walk straight Consciousness : Fully awake Fasting and Feeding : Able to drink fluids Oxygen Saturation - Sedation : Can maintain > 92% on room air Urine Output, PARSAP : Has voided PARSAP Score : 20 LUCIANA WEINSTEIN - 06/17/2012 16:23 CDT Lynch Lynch Agitation Sedation Scale (RASS) : Alert and calm RASS Score : 0 LUCIANA WEINSTEIN - 06/17/2012 16:23 CDT Yusef Sensory Perception Yusef : No impairment Moisture Yusef : Rarely moist Activity Yusef : Walks frequently Mobility Yusef : No limitations Nutrition Yusef : Excellent Friction and Shear Yusef : Potential problem Yusef Score : 22 LUCIANA WEINSTEIN - 06/17/2012 16:23 CDT Hendrich II Fall Risk Confusion/Disorientation Hendrich : No Depression Fall Risk Hendrich : No Altered Elimination Fall Risk Hendrich : No Dizziness/Vertigo Fall Risk Hendrich : No Gender, Male Fall Risk Hendrich : No Prescribed Antiepileptics Hendrich : No Prescribed Benzodiazepines Hendrich : No Rising From Chair Fall Risk Hendrich : Pushes up, successful in one attempt Fall Risk Score Hendrich II : 1 LUCIANA WEINSTEIN - 06/17/2012 16:23 CDT Education General Patient Education [employer] Topics : Discharge instructions/Medication list Individuals Taught : Patient, Significant other Barriers to Learning : None evident Teaching Method : Explanation Teaching Evaluation : Verbalizes understanding LUCIANA WEINSTEIN RN - 06/17/2012 16:23 CDT [facility] Document Id: [id number] Miscellaneous - Luciana Weinstein RInessa - 06/17/2012 3:05 PM CDT Adult Postprocedure Assessment Adult Postprocedure Assessment Entered On: 06/17/2012 15:08 CDT Performed On: 06/17/2012 15:05 CDT by LUCIANA WEINSTEIN RN Vital Signs Temperature Core : 36.6C(Converted to: 97.9DegF) Peripheral Pulse Rate : 77/min Respiratory Rate : 16/min Systolic Blood Pressure : 121mmHg Diastolic Blood Pressure : 74mmHg NIBP Mean : 90mmHg SpO2 : 99% Oxygen Saturation Monitoring Frequency : Continuous Oxygen Therapy : Room air LUCIANA WEINSTEIN RN - 06/17/2012 15:01 CDT General Level of Consciousness : Alert Orientation : Oriented x 3 Skin Color : Normal for ethnicity Skin Description : Dry Skin Temperature : Warm Pain Symptoms : No LUCIANA WEINSTEIN RN - 06/17/2012 15:01 CDT FLACC Face FLACC : No particular expression or smile Legs FLACC : Normal position or relaxed Activity FLACC : Lying quietly, normal position, moves easily Cry FLACC : No cry, awake or asleep Consolabillity FLACC : Content, relaxed FLACC Pain Scale Score : 0 LUCIANA WEINSTEIN RN - 06/17/2012 15:01 CDT Cardiovascular Heart Rhythm : Regular Nail Bed Color : [place] Edema : None Capillary Refill : Less than 2 seconds LUCIANA WEINSTEIN RN - 06/17/2012 15:01 CDT Pulses Grid Radial Pulse, Right : 2+ Normal (Comment: excellent oximetry left fingers [LUCIANA WEINSTEIN RN - 06/17/2012 15:01 CDT] ) Cardiac Rhythm Techs Ventricular Rate : 77bpm Ventricular Rhythm : Regular LUCIANA WEINSTEIN 06/17/2012 15:01 CDT Respiratory Anesthesia Type : General Airway Type : None Respiratory Pattern : Regular Respirations : Unlabored All Lobes Breath Sounds : Clear LUCIANA WEINSTEIN 06/17/2012 15:01 CDT GI/ Nausea Symptoms : No LUCIANA WEINSTEIN 06/17/2012 15:01 CDT Urinary Catheter Urinary Catheter Activity Type : Other: none LUCIANA WEINSTEIN 06/17/2012 15:01 CDT Integumentary Integumentary Patient Stated Symptoms : Other: post op Left CTR Skin Turgor : Elastic Skin Integrity : Not intact Mucous Membrane Color : [place] Mucous Membrane Description : Moist Skin Color : Normal for ethnicity Skin Description : Dry Skin Temperature : Warm LUCIANA WEINSTEIN 06/17/2012 15:01 CDT Incision/Wound Incision/Wound Care Grid Activity : Assessed (Comment: surgical wrap dry and intact to left wrist [LUCIANA WEINSTEIN 06/17/2012 15:01 CDT] ) LUCIANA WEINSTEIN 06/17/2012 15:01 CDT Peripheral IV Peripheral IV Assess/Intervention Grid Peripheral IV #1 IV Activity : Assessment Number of Attempts : 1 Date of Insertion : 06/17/2012 CDT IV Site : Hand Laterality : Right Catheter Size : 20 Catheter Type : Over the needle Site Condition : No complications Drainage Description : None Infiltration Score : 0 Phlebitis Score : 0 Flow/ Patency : No complications LUCIANA WEINSTEIN 06/17/2012 15:01 CDT I&O Oral Intake : 100mL Other Intake : 50mL (Comment: IV LR in since last notation [LUCIANA WEINSTEIN 06/17/2012 15:01 CDT] ) Emesis Count : 0 Estimated Blood Loss : 0mL Stool Count : 0 LUCIANA WEINSTEIN 06/17/2012 15:01 CDT Neurologic Swallowing Difficulty/Aspiration Risk : None Extremity Movement : Equal Facial Symmetry : Symmetric Characteristics of Speech : Clear LUCIANA WEINSTEIN 06/17/2012 15:01 CDT Neurological Strengths Grid Left Upper Extremity Right Upper Extremity Left Lower Extremity Right Lower Extremity Strength : Strong Strong Strong Strong Tone : Normal Normal Normal Normal Sensation : Intact Intact Intact Intact LUCIANA WEINSTEIN 06/17/2012 15:01 CDT LUCIANA WEINSTEIN 06/17/2012 15:01 CDTSTETSJOVANNAOHLLUCIANA 06/17/2012 15:01 CDT LUCIANA KOROMA 06/17/2012 15:01 CDT Upper Extremity Nail Bed Color Hands Grid Left Hand : [place] Right Hand : [place] LUCIANA WEINSTEIN 06/17/2012 15:01 CDT Capillary Refill Hand Grid Left Hand : < 2 seconds Right Hand : < 2 seconds LUCIANA WEINSTEIN 06/17/2012 15:01 CDT Upper Extremity Color Grid Left : [place] Right : [place] LUCIANA WEINSTEIN 06/17/2012 15:01 CDT Upper Extremity Temperature Grid Left : Warm Right : Warm LUCIANA WEINSTEIN 06/17/2012 15:01 CDT NV Upper Extremity Pulses Grid Radial Pulse, Left : 2+ Normal Radial Pulse, Right : 2+ Normal LUCIANA WEINSTEIN 06/17/2012 15:01 CDT PARSAP Activity Status : Moves 4 extremities voluntarily or on command Dressing : Dry and clean Respiratory Component : Able to deep breathe and cough freely Pain : Pain free Circulation Component : BP 20% of preanesthetic level Ambulation : Vertigo when erect Consciousness : Arouses on calling Fasting and Feeding : Able to drink fluids Oxygen Saturation - Sedation : Can maintain > 92% on room air Urine Output, PARSAP : Not assessed PARSAP Score : 18 LUCIANA WEINSTEIN 06/17/2012 15:01 CDT Lynch Lynch Agitation Sedation Scale (RASS) : Drowsy RASS Score : -1 IZABELLA-PFOHL, LUCIANA A RN - 06/17/2012 15:01 CDT Yusef Sensory Perception Yusef : No impairment Moisture Yusef : Rarely moist Activity Yusef : Walks frequently Mobility Yusef : No limitations Nutrition Yusef : Excellent Friction and Shear Yusef : Potential problem Yusef Score : 22 LUCIANA WEINSTEIN RN - 06/17/2012 15:01 CDT Hendrich II Fall Risk Confusion/Disorientation Hendrich : No Depression Fall Risk Hendrich : No Altered Elimination Fall Risk Hendrich : No Dizziness/Vertigo Fall Risk Hendrich : No Gender, Male Fall Risk Hendrich : No Prescribed Antiepileptics Hendrich : No Prescribed Benzodiazepines Hendrich : No Rising From Chair Fall Risk Hendrich : Unable to rise without assistance Fall Risk Score Hendrich II : 4 LUCIANA WEINSTEIN RN - 06/17/2012 15:01 CDT Source: [employer] Document Id: [id number] Miscellaneous - Luciana Weinstein R.N. - 06/17/2012 2:30 PM CDT Adult Postprocedure Assessment Adult Postprocedure Assessment Entered On: 06/17/2012 14:34 CDT Performed On: 06/17/2012 14:30 CDT by LUCIANA WEINSTEIN RN Vital Signs Temperature Core : 36.6C(Converted to: 97.9DegF) Peripheral Pulse Rate : 79/min Respiratory Rate : 16/min Systolic Blood Pressure : 117mmHg Diastolic Blood Pressure : 65mmHg NIBP Mean : 82mmHg SpO2 : 100% Oxygen Saturation Monitoring Frequency : Continuous Oxygen Flow Rate : 5L/min Oxygen Therapy : Simple mask LUCIANA WEINSTEIN RN - 06/17/2012 14:28 CDT General Level of Consciousness : Drowsy Orientation : Other: drowsy Skin Color : Normal for ethnicity Skin Description : Dry Skin Temperature : Warm Pain Symptoms : No LUCIANA WEINSTEIN RN - 06/17/2012 14:28 CDT FLACC Face FLACC : No particular expression or smile Legs FLACC : Normal position or relaxed Activity FLACC : Lying quietly, normal position, moves easily Cry FLACC : No cry, awake or asleep Consolabillity FLACC : Content, relaxed FLACC Pain Scale Score : 0 LUCIANA WEINSTEIN Angie 06/17/2012 14:28 CDT Cardiovascular Heart Rhythm : Regular Nail Bed Color : [place] Edema : None Capillary Refill : Less than 2 seconds JULIO CESAR LUCIANA Angie 06/17/2012 14:28 CDT Pulses Grid Radial Pulse, Right : 2+ Normal (Comment: good oximetry fingers left hand, wrist wrapped [IZABELLADemarcusALEXANDRAAALIYAH LUCIANA Angie 06/17/2012 14:28 CDT] ) Cardiac Rhythm Techs Ventricular Rate : 79bpm Ventricular Rhythm : Regular IZABELLAMURTAZA LUCIANA A 06/17/2012 14:28 CDT Respiratory Anesthesia Type : General Airway Type : None Respiratory Pattern : Regular Respirations : Unlabored All Lobes Breath Sounds : Clear IZABELLADemarcusALEXANDRAILZETCassidy LUCIANA Angie 06/17/2012 14:28 CDT GI/ Nausea Symptoms : No IZABELLA-ALEXANDRAAALIYAH LUCIANA A 06/17/2012 14:28 CDT Urinary Catheter Urinary Catheter Activity Type : Other: none IZABELLADemarcusALEXANDRAAALIYAH LUCIANA Angie 06/17/2012 14:28 CDT Integumentary Integumentary Patient Stated Symptoms : Other: post op Left CTR Skin Turgor : Elastic Skin Integrity : Not intact Mucous Membrane Color : [place] Mucous Membrane Description : Moist Skin Color : Normal for ethnicity Skin Description : Dry Skin Temperature : Warm KAYLEEAALIYAH LUCIANA Angie 06/17/2012 14:28 CDT Incision/Wound Incision/Wound Care Grid Activity : Assessed (Comment: surgical wrap dry and intact left wrist [IZABELLAATA SOTO LUCIANA A 06/17/2012 14:28 CDT] ) LUCIANA WEINSTEIN 06/17/2012 14:28 CDT Peripheral IV Peripheral IV Assess/Intervention Grid Peripheral IV #1 IV Activity : Assessment Number of Attempts : 1 Date of Insertion : 06/17/2012 CDT IV Site : Hand Laterality : Right Catheter Size : 20 Catheter Type : Over the needle Site Condition : No complications Drainage Description : None Infiltration Score : 0 Phlebitis Score : 0 Flow/ Patency : No complications KAYLEEAALIYAH LUCIANA Angie - 06/17/2012 14:28 CDT I&O Other Intake : 50mL (Comment: IV LR since last notation [IZABELLADemarcusALEXANDRAAALIYAH LUCIANA A - 06/17/2012 14:28 CDT] ) Emesis Count : 0 Estimated Blood Loss : 0mL Stool Count : 0 IZABELLADemarcusALEXANDRAAALIYAH LUCIANA A - 06/17/2012 14:28 CDT Neurologic Swallowing Difficulty/Aspiration Risk : None Facial Symmetry : Symmetric Characteristics of Speech : Other: drowsy IZABELLAJESSICA LUCIANA A - 06/17/2012 14:28 CDT Upper Extremity Nail Bed Color Hands Grid Left Hand : [place] Right Hand : [place] IZABELLADemarcusALEXANDRAAALIYAH LUCIANA A - 06/17/2012 14:28 CDT Capillary Refill Hand Grid Left Hand : < 2 seconds Right Hand : < 2 seconds KAYLEEAALIYAH LUCIANA A - 06/17/2012 14:28 CDT Upper Extremity Color Grid Left : [place] Right : [place] LUCIANA WEINSTEIN - 06/17/2012 14:28 CDT Upper Extremity Temperature Grid Left : Warm Right : Warm IZABELLADemarcusALEXANDRAAALIYAH LUCIANA A - 06/17/2012 14:28 CDT NV Upper Extremity Pulses Grid Radial Pulse, Left : 2+ Normal Radial Pulse, Right : 2+ Normal LUCIANA WEINSTEIN Angie - 06/17/2012 14:28 CDT Modified Go Activity : Moves 2 extremities voluntarily or on command Respiratory : Able to deep breathe and cough freely Circulation : BP +/- 20% of preprocedural level or not unusually high or low Consciousness : Arouses on calling O2 Saturation : Needs oxygen to maintain > 92% Go l Score : 7 IZABELLAGISELA HAUSERYNVALERIE Adams - 06/17/2012 14:28 CDT Lynch Lynch Agitation Sedation Scale (RASS) : Drowsy RASS Score : -1 LUCIANA WEINSTEIN RN - 06/17/2012 14:28 CDT Yusef Sensory Perception Yusef : Slightly limited Moisture Yusef : Rarely moist Activity Yusef : Bedfast Mobility Yusef : Slightly limited Nutrition Yusef : Excellent Friction and Shear Yusef : Potential problem Yusef Score : 17 LUCIANA WEINSTEIN RN - 06/17/2012 14:28 CDT Hendrich II Fall Risk Confusion/Disorientation Hendrich : Yes Depression Fall Risk Hendrich : No Altered Elimination Fall Risk Hendrich : No Dizziness/Vertigo Fall Risk Hendrich : No Gender, Male Fall Risk Hendrich : No Prescribed Antiepileptics Hendrich : No Prescribed Benzodiazepines Hendrich : No Rising From Chair Fall Risk Hendrich : Unable to rise without assistance Fall Risk Score Hendrich II : 8 LUCIANA WEINSTEIN RN - 06/17/2012 14:28 CDT Source: [employer] Document Id: [id number] Miscellaneous - Luciana Weinstein RInessa - 06/17/2012 2:00 PM CDT Adult Postprocedure Assessment Adult Postprocedure Assessment Entered On: 06/17/2012 14:16 CDT Performed On: 06/17/2012 14:00 CDT by LUCIANA WEINSTEIN RN Vital Signs Temperature Core : 36.6C(Converted to: 97.9DegF) Peripheral Pulse Rate : 81/min Respiratory Rate : 16/min Systolic Blood Pressure : 124mmHg Diastolic Blood Pressure : 69mmHg NIBP Mean : 87mmHg SpO2 : 100% Oxygen Saturation Monitoring Frequency : Continuous Oxygen Flow Rate : 5L/min Oxygen Therapy : Simple mask LUCIANA WEINSTEIN RN - 06/17/2012 14:09 CDT General Level of Consciousness : Drowsy Orientation : Other: drowsy Skin Color : Normal for ethnicity Skin Description : Dry Skin Temperature : Warm Pain Symptoms : No LUCIANA WEINSTEIN 06/17/2012 14:09 CDT FLACC Face FLACC : No particular expression or smile Legs FLACC : Normal position or relaxed Activity FLACC : Lying quietly, normal position, moves easily Cry FLACC : No cry, awake or asleep Consolabillity FLACC : Content, relaxed FLACC Pain Scale Score : 0 LUCIANA WEINSTEIN 06/17/2012 14:09 CDT Cardiovascular Heart Rhythm : Regular Nail Bed Color : [place] Edema : None Capillary Refill : Less than 2 seconds LUCIANA WEINSTEIN 06/17/2012 14:09 CDT Pulses Grid Radial Pulse, Right : 2+ Normal (Comment: excellent oximetry left fingers [LUCIANA WEINSTEIN 06/17/2012 14:09 CDT] ) Cardiac Rhythm Techs Ventricular Rate : 81bpm Ventricular Rhythm : Regular LUCIANA WEINSTEIN 06/17/2012 14:09 CDT Respiratory Anesthesia Type : General Airway Type : None Respiratory Pattern : Regular Respirations : Unlabored All Lobes Breath Sounds : Clear LUCIANA WEINSTEIN 06/17/2012 14:09 CDT GI/ Nausea Symptoms : No LUCIANA WEINSTEIN 06/17/2012 14:09 CDT Urinary Catheter Urinary Catheter Activity Type : Other: none LUCIANA WEINSTEIN 06/17/2012 14:09 CDT Integumentary Integumentary Patient Stated Symptoms : Other: post op left CTR Skin Turgor : Elastic Skin Integrity : Not intact Mucous Membrane Color : [place] Mucous Membrane Description : Moist Skin Color : Normal for ethnicity Skin Description : Dry Skin Temperature : Warm LUCIANA WEINSTEIN 06/17/2012 14:09 CDT Incision/Wound Incision/Wound Care Grid Activity : Assessed (Comment: surgical drsg intact and dry left wrist [DEACON SOTO LUCIANA Adams 06/17/2012 14:09 CDT] ) JULIO CESAR LUCIANA Adams 06/17/2012 14:09 CDT Peripheral IV Peripheral IV Assess/Intervention Grid Peripheral IV #1 IV Activity : Assessment Number of Attempts : 1 Date of Insertion : 06/17/2012 CDT IV Site : Hand Laterality : Right Catheter Size : 20 Catheter Type : Over the needle Site Condition : No complications Drainage Description : None Infiltration Score : 0 Phlebitis Score : 0 Flow/ Patency : No complications GISELA WEINSTEINYNVALERIE Adams - 06/17/2012 14:09 CDT I&O Other Intake : 50mL (Comment: IV LR since last notation [LUCIANA WEINSTEIN RN - 06/17/2012 14:09 CDT] ) Emesis Count : 0 Estimated Blood Loss : 0mL Stool Count : 0 LUCIANA WEINSTEIN - 06/17/2012 14:09 CDT Neurologic Swallowing Difficulty/Aspiration Risk : None Facial Symmetry : Symmetric Characteristics of Speech : Other: sleepy LUCIANA WEINSTEIN - 06/17/2012 14:09 CDT Upper Extremity Nail Bed Color Hands Grid Left Hand : [place] Right Hand : [place] LUCIANA WEINSTEIN RN - 06/17/2012 14:09 CDT Capillary Refill Hand Grid Left Hand : < 2 seconds Right Hand : < 2 seconds LUCIANA WEINSTEIN RN - 06/17/2012 14:09 CDT Upper Extremity Color Grid Left : [place] Right : [place] LUCIANA WEINSTEIN - 06/17/2012 14:09 CDT Upper Extremity Temperature Grid Left : Warm Right : Warm LUCIANA WEINSTEIN - 06/17/2012 14:09 CDT NV Upper Extremity Pulses Grid Radial Pulse, Left : 2+ Normal Radial Pulse, Right : 2+ Normal (Comment: left wrist with dry intact surgical dressing, excellent oximetry left fingers [LUCIANA WEINSTEIN RN - 06/17/2012 14:09 CDT] ) Modified Go Activity : Moves 2 extremities voluntarily or on command Respiratory : Able to deep breathe and cough freely Circulation : BP +/- 20% of preprocedural level or not unusually high or low Consciousness : Arouses on calling O2 Saturation : Needs oxygen to maintain > 92% Go l Score : 7 LUCIANA WEINSTEIN RN - 06/17/2012 14:09 CDT Lynch Lynch Agitation Sedation Scale (RASS) : Drowsy RASS Score : -1 LUCIANA WEINSTEIN RN - 06/17/2012 14:09 CDT Yusef Sensory Perception Yusef : Slightly limited Moisture Yusef : Rarely moist Activity Yusef : Bedfast Mobility Yusef : Slightly limited Nutrition Yusfe : Excellent Friction and Shear Yusef : Potential problem Yusef Score : 17 LUCIANA WEINSTEIN RN - 06/17/2012 14:09 CDT Hendrich II Fall Risk Confusion/Disorientation Hendrich : Yes Depression Fall Risk Hendrich : No Altered Elimination Fall Risk Hendrich : No Dizziness/Vertigo Fall Risk Hendrich : No Gender, Male Fall Risk Hendrich : No Prescribed Antiepileptics Hendrich : No Prescribed Benzodiazepines Hendrich : No Rising From Chair Fall Risk Hendrich : Unable to rise without assistance Fall Risk Score Hendrich II : 8 LUCIANA WEINSTEIN RN - 06/17/2012 14:09 CDT Source: [employer] Document Id: [id number] Miscellaneous - Luciana Weinstein RChristianNChristian - 06/17/2012 1:40 PM CDT Adult Postprocedure Assessment Adult Postprocedure Assessment Entered On: 06/17/2012 14:03 CDT Performed On: 06/17/2012 13:40 CDT by LUCIANA WEINSTEIN RN Vital Signs Temperature Core : 36.4C(Converted to: 97.5DegF) (LOW) Peripheral Pulse Rate : 78/min Respiratory Rate : 16/min Systolic Blood Pressure : 113mmHg Diastolic Blood Pressure : 62mmHg NIBP Mean : 79mmHg SpO2 : 100% Oxygen Saturation Monitoring Frequency : Continuous Oxygen Flow Rate : 5L/min Oxygen Therapy : Simple mask LUCIANA WEINSTEIN RN - 06/17/2012 13:53 CDT General Level of Consciousness : Sedated Orientation : Other: sleeping Skin Color : Normal for ethnicity Skin Description : Dry Skin Temperature : Warm Pain Symptoms : No LUCIANA WEINSTEIN 06/17/2012 13:53 CDT FLACC Face FLACC : No particular expression or smile Legs FLACC : Normal position or relaxed Activity FLACC : Lying quietly, normal position, moves easily Cry FLACC : No cry, awake or asleep Consolabillity FLACC : Content, relaxed FLACC Pain Scale Score : 0 LUCIANA WEINSTEIN Angie 06/17/2012 13:53 CDT Cardiovascular Heart Rhythm : Regular Nail Bed Color : [place] Edema : None Capillary Refill : Less than 2 seconds KAYLEEAALIYAH LUCIANA Angie 06/17/2012 13:53 CDT Pulses Grid Radial Pulse, Left : 2+ Normal Radial Pulse, Right : 2+ Normal KAYLEEAALIYAH LUCIANA Angie 06/17/2012 13:53 CDT Cardiac Rhythm Techs Ventricular Rate : 78bpm Ventricular Rhythm : Regular IZABELLADemarcusALEXANDRAAALIYAH LUCIANA A 06/17/2012 13:53 CDT Respiratory Anesthesia Type : General Airway Type : None Respiratory Pattern : Regular Respirations : Unlabored All Lobes Breath Sounds : Clear JULIO CESAR LUCIANA A 06/17/2012 13:53 CDT GI/ Nausea Symptoms : No IZABELLADemarcusALEXANDRAAALIYAH LUCIANA Angie 06/17/2012 13:53 CDT Urinary Catheter Urinary Catheter Activity Type : Other: none IZABELLADemarcusALEXANDRAAALIYAH LUCIANA A 06/17/2012 13:53 CDT Integumentary Integumentary Patient Stated Symptoms : Other: left wrist with dry intact surgical wrap Skin Turgor : Elastic Skin Integrity : Intact Mucous Membrane Color : [place] Mucous Membrane Description : Moist Skin Color : Normal for ethnicity Skin Description : Dry Skin Temperature : Warm JULIO CESAR LUCIANA Angie 06/17/2012 13:53 CDT Incision/Wound Incision/Wound Care Grid Activity : Assessed (Comment: left wrist with dry, intact wurgical wrap [IZABELLAGISELA HAUSERYNVALERIE Adams 06/17/2012 13:53 CDT] ) LUCIANA WEINSTEIN - 06/17/2012 13:53 CDT Peripheral IV Peripheral IV Assess/Intervention Grid Peripheral IV #1 IV Activity : Assessment Number of Attempts : 1 Date of Insertion : 06/17/2012 CDT IV Site : Hand Laterality : Right Catheter Size : 20 Catheter Type : Over the needle Site Condition : No complications Drainage Description : None Infiltration Score : 0 Phlebitis Score : 0 Flow/ Patency : No complications MAJORCassidy LUCIANA Angie - 06/17/2012 13:53 CDT I&O Other Intake : 800mL (Comment: IV LR in OR [KAYLEEAALIYAH LUCIANA A 06/17/2012 13:53 CDT] ) Emesis Count : 0 Estimated Blood Loss : 5mL Stool Count : 0 KAYLEEAALIYAH LUCIANA Angie - 06/17/2012 13:53 CDT Neurologic Swallowing Difficulty/Aspiration Risk : None Facial Symmetry : Symmetric Characteristics of Speech : Other: sleepy IZABELLA-ALEXANDRAAALIYAH LUCIANA A - 06/17/2012 13:53 CDT Upper Extremity Nail Bed Color Hands Grid Left Hand : [place] Right Hand : [place] JULIO CESAR LUCIANA Adams 06/17/2012 13:53 CDT Capillary Refill Hand Grid Left Hand : < 2 seconds Right Hand : < 2 seconds MAJORCassidy LUCIANA Angie - 06/17/2012 13:53 CDT Upper Extremity Color Grid Left : [place] Right : [place] MAJORCassidy LUCIANA Angie - 06/17/2012 13:53 CDT Upper Extremity Temperature Grid Left : Warm Right : Warm JULIO CESAR LUCIANA Adams - 06/17/2012 13:53 CDT NV Upper Extremity Pulses Grid Radial Pulse, Right : 2+ Normal (Comment: left wrist with surgical drsg intact over radial pulse area, excellent oximetry left fingers [MAJORCassidy LUCIANA Adams 06/17/2012 13:53 CDT] ) Modified Go Activity : Unable to move extremities voluntarily or on command Respiratory : Able to deep breathe and cough freely Circulation : BP +/- 20% of preprocedural level or not unusually high or low Consciousness : Arouses on calling O2 Saturation : Needs oxygen to maintain > 92% Go l Score : 6 LUCIANA WEINSTEIN RN - 06/17/2012 13:53 CDT Lynch Lynch Agitation Sedation Scale (RASS) : Light sedation RASS Score : -2 LUCIANA WEINSTEIN RN - 06/17/2012 13:53 CDT Yusef Sensory Perception Yusef : Slightly limited Moisture Yusef : Rarely moist Activity Yusef : Bedfast Mobility Yusef : Slightly limited Nutrition Yusef : Excellent Friction and Shear Yusef : Potential problem Yusef Score : 17 LUCIANA WEINSTEIN RN - 06/17/2012 13:53 CDT Hendrich II Fall Risk Confusion/Disorientation Hendrich : Yes Depression Fall Risk Hendrich : No Altered Elimination Fall Risk Hendrich : No Dizziness/Vertigo Fall Risk Hendrich : No Gender, Male Fall Risk Hendrich : No Prescribed Antiepileptics Hendrich : No Prescribed Benzodiazepines Hendrich : No Rising From Chair Fall Risk Hendrich : Unable to rise without assistance Fall Risk Score Hendrich II : 8 LUCIANA WEINSTEIN RN - 06/17/2012 13:53 CDT Source: [employer] Document Id: [id number] documented in this encounter Plan of Treatment Not on filedocumented as of this encounter Visit Diagnoses Not on filedocumented in this encounter Additional Health Concerns Assessment Noted Time PHQ-9 Depression Total Score: 17 11/05/2011 9:30 AM CS T documented as of this encounter
--- OUTSIDE RECORDS SUMMARY | 2022-05-17 14:02 | XMS_ITS | Encounter Summary ---
:[address] [facility] Address [address] [place] [address] Care Team Providers Name Role Phone Unavailable Primary Care Provider Unavailable Encounter Details Date Type Department Care Team Description 07/01/2012 Hospital Encounter HX NO MAPPING Marcial Norwood, P.A.- C. Social History Tobacco Use Types [...]
--- OUTSIDE RECORDS SUMMARY | 2022-05-17 14:02 | XMS_ITS | Encounter Summary ---
:1980 Author Organization [facility] Address [address] [place] [address] Care Team Providers Name Role Phone Unavailable Primary Care Provider Unavailable Encounter Details Date Type Department Care Team Description 06/03/2012 Hospital Encounter HX NO MAPPING Peterson Lutz P.A.- C. Social History Tobacco Use Types Packs/Day Years Used Date Smoking Tobacco: Never Assessed Sex Assigned at Date Recorded Not on file documented as of this encounter Last Filed Vital Signs Vital Sign Reading Time Taken Comments Blood Pressure 134/84 06/03/2012 8:37 AM CDT Pulse 72 06/03/2012 8:37 AM CDT Temperature - - Respiratory Rate 16 06/03/2012 8:37 AM CDT Oxygen Saturation - - Inhaled Oxygen Concentration - - Weight - - Height - - Body Mass Index - - documented in this encounter Consult Notes Peterson Lutz - 06/03/2012 8:30 AM CDT [id number] CHIEF COMPLAINT/REASON FOR VISIT Ms. Diop is a pleasant 31-year-old female who is here for a planned subacromial cortisone injection to her left shoulder. She is known to have some significant rotator cuff tendinitis and subacromial bursitis. We talked about treatment options at her last visit and she was interested in going aheadwith a cortisone injection. Because she is going to be able to take it easy for the next two days, we decided to do it at today's visit. PROCEDURE After discussion and obtaining informed consent, the patient's left shoulder was prepared in sterilefashion. Utilizing a posterior approach, the needle was placed in the subacromial space where a small amount of 1% lidocaine along with 10 mg of Decadron was injected. The procedure was tolerated well. If she has any questions, she was encouraged to call. Otherwise, she will follow-up as discussed at her previous clinic visit. She will work with physical therapy for some time and then see us back in approximately 4-6 weeks, and if necessary we will obtain an MRI arthrogram if she is not improving, but hopefully she will get better with this conservative approach. Peterson Lutz P.A.-C./rebeca Electronically Signed By: PETERSON LUTZ PA-C On: 06/10/2012 01:12 PM Source: [facility] MHSDOLBEYNONRADSYS Document Id: [id number] documented in this encounter Miscellaneous Notes Miscellaneous - Peterson Lutz - 06/03/2012 5:03 PM CDT Ambulatory Patient Summary [address] [address] Visit Information Name: ROSANA DIOP Current Date: 06/03/2012 17:03:54 Physicians Attending Provider: PETERSON LUTZ PA-C Primary Care Provider: LAKHWINDER JULIO RN, [facility] Your Medications Here is a list of [...] Upcoming Appointments Date Time Location Reason Provider 06/06/2012 09:45 [facility] PT/OT rotator cuff tendonitis Jonna Mcnamara 06/17/2012 11:30 [facility] Surgery OP OP/DS Left CTR [id number] 07/01/2012 13:30 [facility] Spec Clin post op CTR Peterson Lutz PA-C Your Goals/Additional instructions: Source: [facility] POWERCHART Document Id: [id number] Eunicecellaneous - Peterson Lutz - 06/03/2012 5:03 PM CDT Ambulatory Depart Summary [facility] [address] [place] [address] Visit Information Name: ROSANA DIOP Visit Date: 06/03/2012 17:03:53 Attending Provider: PETERSON LUTZ PA-C Primary Care Provider: LAKHWINDER JULIO RN, BILINGUAL TRAINER ROSANA DIOP has been given the following [...] your provider for clarification. Additional Information: Source: [facility] POWERCHART Document Id: [id number] Miscellaneous - Katiuska Mcnamara RInessa - 06/03/2012 8:37 AM CDT Adult Biostatistics Professor Intake/History Adult Biostatistics Professor Intake/History Entered On: 06/03/2012 8:41 CDT Performed On: 06/03/2012 8:37 CDT by KATIUSKA MCNAMARA quality assurance coach Chief Complaint : f/u lt shoulder pain, improved since last week approx 80% with rest and icing Temperature Core : 37.4C(Converted to: 99.3DegF) Peripheral Pulse Rate : 72/min Respiratory Rate : 16/min Heart Rhythm : Regular Systolic Blood Pressure : 134mmHg Diastolic Blood Pressure : 84mmHg NIBP Mean : 101mmHg BP Location : Left upper extremity Blood Pressure Cuff Size : Large KATIUSKA MCNAMARA RN - 06/03/2012 8:37 CDT General Info Information Given By : Patient Preferred Communication Mode : Verbal Languages : Montserratian KATIUSKA MCNAMARA RN - 06/03/2012 8:37 CDT Subjective Pain Symptoms : Yes KATIUSKA MCNAMARA RN - 06/03/2012 8:37 CDT Pain Pain Assessment Grid Pain 1 Location : Shoulder Laterality : Left Intensity : 2 Time Pattern : Chronic, Intermittent KATIUSKA MCNAMARA RN - 06/03/2012 8:37 CDT Dependent Habits Tobacco Use/Currently Using : Yes Tobacco Use/Advised to Quit : Yes Exposure to Tobacco Smoke : Patient smokes Smoking Status : Current every day smoker KATIUSKA MCNAMARA RN - 06/03/2012 8:37 CDT Tobacco Use Grid Type : Cigarettes Cigarette Use Packs/Day : 0.5 KATIUSKA MCNAMARA RN - 06/03/2012 8:37 CDT Caffeine Use Grid Caffeine Use : Current Type : Soft drinks KATIUSKA MCNAMARA RN - 06/03/2012 8:37 CDT Recreational Drug Use Grid Drug Use : None KATIUSKA MCNAMARA RN - 06/03/2012 8:37 CDT Allergy Allergies (Active) NKA Estimated Onset Date: Unspecified ; Created By: PAOLO MARTINEZ RN; Reaction Status: Active ; Category: Drug ; Substance: NKA ; Type: Allergy ; Updated By: PAOLO MARTINEZ RN; Reviewed Date: 06/03/2012 8:37 CDT [facility] Document Id: [id number] documented in this encounter Plan of Treatment Not on filedocumented as of this encounter Visit Diagnoses Not on filedocumented in this encounter Additional Health Concerns Assessment Noted Time PHQ-9 Depression Total Score: 17 11/05/2011 9:30 AM CS T documented as of this encounter
--- OUTSIDE RECORDS SUMMARY | 2022-05-17 14:02 | XMS_ITS | Encounter Summary ---
:1980 Author Organization [facility] Address [address] [place] [address] Care Team Providers Name Role Phone Unavailable Primary Care Provider Unavailable Encounter Details Date Type Department Care Team Description 11/25/2012 Hospital Encounter HX [facility] Lakhwinder Julio APRN, C.N.P., D. N.P. [address] [place] [address] (Wo rk) Social History Tobacco Use Types Packs/Day Years Used Date Smoking Tobacco: Never Assessed Sex Assigned at Date Recorded Not on file documented as of this encounter Miscellaneous Notes Miscellaneous - Lakhwinder Julio APRN, C.N.P. - 12/02/2012 4:49 PM CDT Results Notification From: LAKHWINDER JULIO RN, CNA PCT To: STEPHANIE CABALLERO LPN; Sent: 12/02/2012 16:49:47 CDT Show up: 12/02/2012 16:49:00 CDT Subject: Results Notification 12-02-12 Consult: Ramon Chowdhury GEAR SHAVER SET UP OPERATOR Consult Reason: Dysfunctional uterine bleeding with IUD- significant Fibroids on US. Provider refering: Lindsey Results: Date Result Type Result Name 11/25/2012 16:06 Radiology US Pelvic Source: [facility] POWERCHART Document Id: [id number] Electronically signed by Elsy [facility] Scraper Tender [id number] at 02/06/2017 11:08 AM CDT Miscellaneous - Lakhwinder Julio, WATCH CASE POLISHER, C.N.P. - 12/02/2012 4:48 PM CDT Results Notification Document Contains Addenda Addendum by LULA PIMENTEL LPN on 03 December 2012 13:52:23 CDT Patient updated by provider From: LAKHWINDER JULIO RN, CNA PCT To: LULA PIMENTEL LPN; Sent: 12/02/2012 16:47:59 CDT Show up: 12/02/2012 16:47:00 CDT Subject: Results Notification please send Shruthi a copy of the reading of her results. but also call her and let her know there are fibroids that may be causing the bleeding with the IUD. I think she should be seen by GEAR SHAVER SET UP OPERATOR for futher Tx options. THanks Results: Date Result Type Result Name 11/25/2012 16:06 Radiology US Pelvic Source: [facility] POWERCHART Document Id: [id number] Electronically signed by Conversion, [facility] Scraper Tender [id number] at 02/06/2017 11:08 AM CDT documented in this encounter Plan of Treatment Not on filedocumented as of this encounter Visit Diagnoses Not on filedocumented in this encounter Additional Health Concerns Assessment Noted Time PHQ-9 Depression Total Score: 16 11/25/2012 12:45 PM C DT documented as of this encounter
--- OUTSIDE RECORDS SUMMARY | 2022-05-17 14:02 | XMS_ITS | Encounter Summary ---
:1980 Author Organization [facility] Address [address] [place] [address] Care Team Providers Name Role Phone Unavailable Primary Care Provider Unavailable Encounter Details Date Type Department Care Team Description 02/11/2013 Hospital En[facility] Provider, Histori fritz Social History Tobacco Use Types Packs/Day Years [...]
--- OUTSIDE RECORDS SUMMARY | 2022-05-17 14:02 | XMS_ITS | Encounter Summary ---
:1980 Author Organization [facility] Address [address] [place] [address] Care Team Providers Name Role Phone Unavailable Primary Care Provider Unavailable Encounter Details Date Type Department Care Team Description 08/16/2012 Hospital Encounter HX [facility] [place] Trinidad Dooley M.D. [address] [address] (Wo rk) Social History Tobacco Use Types Packs/Day Years Used Date Smoking Tobacco: Never Assessed Sex Assigned at Date Recorded Not on file documented as of this encounter Last Filed Vital Signs Vital Sign Reading Time Taken Comments Blood Pressure 120/72 08/16/2012 8:29 AM OFFSET LITHOGRAPHIC PRESS OPERATOR Pulse 88 08/16/2012 8:29 AM OFFSET LITHOGRAPHIC PRESS OPERATOR Temperature - - Respiratory Rate 16 08/16/2012 8:29 AM OFFSET LITHOGRAPHIC PRESS OPERATOR Oxygen Saturation - - Inhaled Oxygen Concentration - - Weight 72.4 kg (159 lb 9.8 oz) 08/16/2012 8:29 AM OFFSET LITHOGRAPHIC PRESS OPERATOR Height - - Body Mass Index 27.93 06/17/2012 11:04 AM CDT documented in this encounter Progress Notes Trinidad Paris M.D. - 08/16/2012 8:25 AM CST [id number] CHIEF COMPLAINT/REASON FOR VISIT Sore throat x 2 weeks, cannot swallow. HISTORY OF PRESENT ILLNESS This is a 32-year-old female who reports starting 2 days ago she developed a sore throat that has continued to worsen. It is to the point now that she cannot swallow. She is spitting out her spit. She has had no fevers. She has had a mild runny nose but she thinks this is from crying. She had a little bit of a cough before the sore throat started. She reports that she has migraines at baseline so she always has headaches. She has had some nausea prior to the sore throat. She has had sick contacts with colds and she has tried multiple [id number] medications without improvement. CURRENT MEDICATIONS Patient was given an IM injection of methylprednisolone 80 mg IM and Bicillin LA 1.2 million units IM. She was also given a prescription for prednisone 40 mg by mouth daily times 4 days to be started tomorrow. ALLERGIES No known drug allergies. SYSTEMS REVIEW Review of systems as per HPI. VITAL SIGNS Temperature 36.4, pulse is 88 beats per minute. Respiratory rate is 16 breaths per minute, blood pressure is 120/72. Weight is 72.4 kg. PHYSICAL EXAMINATION GENERAL: Patient is alert and oriented. She appears to be ill. HEENT: TMs are clear bilaterally. Nasal mucosa is mildly erythematous. Oral mucosa is moist. Oropharynx is significantly erythematous and swollen especially the uvula. NECK: Neck is supple. No lymphadenopathy. HEART: Cardiovascular exam with regular rate and rhythm. Normal S1 and S2 with no murmurs, rubs or gallops. LUNGS: Clear to auscultation bilaterally. LABORATORY: Rapid strep screen is positive. IMPRESSION/REPORT/PLAN Streptococcal pharyngitis. PLAN: We discussed that the patient's swelling is quite significant and I gave her the option of taking pills orally or getting an IM injection. She wanted to go with the IM injection. Therefore, she was given 80 mg Solu-Medrol and 1.2 million units of Bicillin LA IM. I also gave her a prescription for 40 mg of prednisone daily for 4 days starting tomorrow. Patient will let us know if things are worsening. PATIENT EDUCATION #1 Patient/parent/caregiver is ready to learn. No apparent learning barriers were identified. Learning preferences included listening. Explained diagnosis and treatment plan. Patient/parent/caregiver expressed understanding of the content. Trinidad Khanna M.D./arnaud Electronically Signed By: TRINIDAD CM MD On: 08/28/2012 07:51 PM Modified by and Electronically Signed by: TRINIDAD CM MD On: 08/28/2012 07:51 PM Source: [facility] MHSDOLBEYNONRADSYS Document Id: [id number] ET LITHOGRAPHIC PRESS OPERATOR documented in this encounter Miscellaneous Notes Miscellaneous - Trinidad Paris M.D. - 08/16/2012 8:45 AM OFFSET LITHOGRAPHIC PRESS OPERATOR Ambulatory Patient Summary [address] [address] Visit Information Name: ROSANA MARTINEZ [facility] Number: [id number] Current Date: 08/16/2012 08:45:01 Physicians Attending Provider: TRINIDAD CM MD Primary Care Provider: LAKHWINDER JULIO RN, EGG SORTER Your Medications Here is a list of your medications. It is important to take your medications as directed. Use a pillbox or chart to help remind you to take your medications. Please let your doctor or nurse know if you have problems taking your medications. Medication/Strength Dose Route Frequency Indications/Special Instructions/Comments predniSONE (predniSONE 20 mg oral tablet) 40 mg Oral once a day for 4 Days levonorgestrel (Mirena) 1 each once Attention: If [...] No Appointments found Your Goals/Additional instructions: Source: [facility] POWERCHART Document Id: [id number] ET LITHOGRAPHIC PRESS OPERATOR Miscellaneous - Trinidad Paris M.D. - 08/16/2012 8:45 AM OFFSET LITHOGRAPHIC PRESS OPERATOR Ambulatory Depart Summary [address] [address] Visit Information Name: ROSANA MARTINEZ [facility] Number: [id number] Visit Date: 08/16/2012 08:45:01 Attending Provider: TRINIDAD CM MD Primary Care Provider: LAKHWINDER JULIO RN, EGG SORTER ROSANA MARTINEZ has been given the following list of medications: Your Medications It is important to take your medications as directed. Use a pill box or chart to help remind you to take your medications. Please let your doctor or nurse know if you have problems taking your medications. Medication/Strength Dose Route Frequency Indications/Special Instructions/Comments predniSONE (predniSONE 20 mg oral tablet) 40 mg Oral once a day for 4 Days levonorgestrel (Mirena) 1 each once Attention: If you have any medications at home that are not on this list, DO NOT take them until youcontact your provider for clarification. Additional Information: Source: [facility] POWERCHART Document Id: [id number] ET LITHOGRAPHIC PRESS OPERATOR Miscellaneous - Tova Ca LChristianP.N. - 08/16/2012 8:29 AM CST Adult Preschool Teacher'S Assistant Intake/History Adult Preschool Teacher'S Assistant Intake/History Entered On: 08/16/2012 8:33 OFFSET LITHOGRAPHIC PRESS OPERATOR Performed On: 08/16/2012 8:29 OFFSET LITHOGRAPHIC PRESS OPERATOR by TOVA CA LPN Intake Chief Complaint : Sick x2 wks, can't swollow, Temperature Core : 36.4C(Converted to: 97.5DegF) (LOW) Peripheral Pulse Rate : 88/min Respiratory Rate : 16/min Heart Rhythm : Regular Systolic Blood Pressure : 120mmHg Diastolic Blood Pressure : 72mmHg NIBP Mean : 88mmHg BP Location : Right upper extremity Blood Pressure Cuff Size : Regular Actual Weight : 72.4kg(Converted to: 159lb 10oz) Weight Source : Standing scale Dosing Weight Clinic : 72.40kg TOVA CA LPN - 08/16/2012 8:29 OFFSET LITHOGRAPHIC PRESS OPERATOR Subjective Pain Symptoms : No TOVA CA LPN - 08/16/2012 8:29 OFFSET LITHOGRAPHIC PRESS OPERATOR Dependent Habits Tobacco Use/Currently Using : Yes Tobacco Use/Advised to Quit : Yes Exposure to Tobacco Smoke : Patient smokes Smoking Status : Current every day smoker TOVA CA [facility] - 08/16/2012 8:29 OFFSET LITHOGRAPHIC PRESS OPERATOR Tobacco Use Grid Type : Cigarettes Cigarette Use Packs/Day : 0.5 TOVA CA [facility] - 08/16/2012 8:29 OFFSET LITHOGRAPHIC PRESS OPERATOR Alcohol Use : No TOVA CA [facility] - 08/16/2012 8:29 OFFSET LITHOGRAPHIC PRESS OPERATOR Caffeine Use Grid Caffeine Use : Current Type : Energy drinks, Soft drinks Frequency : Daily TOVA CA Cassidy [facility] - 08/16/2012 8:29 OFFSET LITHOGRAPHIC PRESS OPERATOR Recreational Drug Use Grid Drug Use : None TOVA CA [facility] - 08/16/2012 8:29 OFFSET LITHOGRAPHIC PRESS OPERATOR Allergy Allergies (Active) NKA Estimated Onset Date: Unspecified ; Created By: PAOLO MARTINEZ RN; Reaction Status: Active ; Category: Drug ; Substance: NKA ; Type: Allergy ; Updated By: PAOLO MARTINEZ RN; Reviewed Date: 08/16/2012 8:29 OFFSET LITHOGRAPHIC PRESS OPERATOR Source: [facility] [employer] Document Id: [id number] ET LITHOGRAPHIC PRESS OPERATOR documented in this encounter Plan of Treatment Not on filedocumented as of this encounter Procedures Procedure Name Priority Date/Time Associated Diagnosis Comme nts RAPID STREP A Routine 08/16/2012 8:36 AM Results for this SCREEN OFFSET LITHOGRAPHIC PRESS OPERATOR procedure are i n the results section. documented in this encounter Results (ABNORMAL) Rapid Strep A Screen (08/16/2012 8:36 AM OFFSET LITHOGRAPHIC PRESS OPERATOR) [facility] gist Method Time Signature HXStrep A (POSITIVE) POWERCHART Screen Rapid HXFinal Positive for POWERCHART Group A Strep by rapid screen. Specimen (Source) Anatomical Collection Method Collection Time Re ceived Time Location / / Volume Laterality Throat 08/16/2012 8:36 AM OFFSET LITHOGRAPHIC PRESS OPERATOR Trinidad Gaffney M.D. LAB MICROBIOLOGY - GENE RAL ORDERABLES Performing Organization Address City/State/ZIP Code Phon e Number POWERCHART documented in this encounter Visit Diagnoses Not on filedocumented in this encounter Additional Health Concerns Assessment Noted Time PHQ-9 Depression Total Score: 17 11/05/2011 9:30 AM CS T documented as of this encounter
--- OUTSIDE RECORDS SUMMARY | 2022-05-17 14:02 | XMS_ITS | Encounter Summary ---
:1980 Author Organization [facility] Address [address] [place] [id number] Care Team Providers Name Role Phone Unavailable Primary Care Provider Unavailable Encounter Details Date Type Department Care Team Description 02/11/2013 Hospital Encounter HX [facility] ED Neil Barrett M.D. [address] [place] [phone] (Wo rk) Social History Tobacco Use Types Packs/Day Years Used Date Smoking Tobacco: Never Assessed Sex Assigned at Date Recorded Not on file documented as of this encounter Last Filed Vital Signs Vital Sign Reading Time Taken Comments Blood Pressure 144/83 02/11/2013 4:29 PM CDT Pulse 95 02/11/2013 4:29 PM CDT Temperature - - Respiratory Rate 18 02/11/2013 4:29 PM CDT Oxygen Saturation - - Inhaled Oxygen Concentration - - Weight - - Height 157 cm (5' 1.81) 02/11/2013 8:05 AM CDT Body Mass Index - - documented in this encounter Discharge Summaries Sana Rg RChristianNChristian - 02/11/2013 4:53 PM CDT ED Discharge Instructions [address] [address] Name: SHRUTHI MARTINEZ Date of : 1980 12:00 AM Visit Date: 02/11/2013 7:53 AM [facility] Number: [id number] Address: [address] [place] [phone] Primary Care Provider: LAKHWINDER JULIO RN, TRANSIT CLERK IMPORTANT: [facility] [place] would like to thank you for allowing us to assist you with your healthcare needs. The following includes patient education materials and informationregarding your injury/illness. Chief Complaint: Pelvic pain; Pelvic pain; STOMACH PAIN FOR TWO DAYS Follow-Up Instructions: Patient Education Materials: [id number] PELVIC INFLAMMATORY DISEASE Pelvic Inflammatory Disease (PID) is an infection of the female organs (uterus, ovary, or Fallopian tubes). This is most often the result of a sexually transmitted disease (STD). Sometimes, PID can be due to an overgrowth of normal bacteria and not caused by an STD. Whatever its cause, PID is a serious problem. It can lead to infertility (inability to become ) unless it is treated promptly. HOME CARE: 1. Take all of the medicine prescribed, even if you start to feel better before taking all the pills. 2. You may use acetaminophen (Tylenol) or ibuprofen (Motrin, Advil) to control pain, unless another pain medicine was prescribed. [NOTE: If you have chronic liver or kidney disease or ever had a stomach ulcer or GI bleeding, talk with your doctor before using these medicines.] 3. Your sexual partner should contact his own doctor or go to the Public Health Department to be examined. If his test is positive or if he is having symptoms of discharge or burning when passing urine, he should be treated, too. 4. Avoid sexual activity until both you and your partner have finished taking all of the antibiotic medicine, and your doctor has told you that you are cured. 5. Learn about safe sex practices and use these in the future. The safest sex is with a partner who has tested negative and only has sex with you. Condoms offer protection from spreading some sexually transmitted diseases including Gonorrhea, Chlamydia and HIV, but are not a guarantee. FOLLOW UP with your doctor or as advised by our staff. If a culture test was taken, you may call us in three days for the results, or as directed. Another culture test should be taken 4-6 weeks after treatment to be sure the infection has cleared. Follow up with your doctor or the Public Health Department for complete STD screening, including HIV testing. For more information about STD's, contact [facility] STD Hotline: . GET PROMPT MEDICAL ATTENTION if any of the following occur: ?? No improvement after three days of treatment ?? New or increasing lower abdominal pain or back pain ?? Unexpected vaginal bleeding ?? Weakness, dizziness or fainting ?? Repeated vomiting ?? Inability to urinate due to pain ?? Rash or joint pain ?? Painful open sores around the outer vagina Enlarged painful lymph nodes (lumps) in the groin ?? [phone] [facility] [place], [address] [place] [address], [place] [address]. All rights reserved. This information is not intended as a substitute for professional medical care. Always follow your healthcare professional's instructions. [id number] Uterine Fibroid Embolization Fibroids are benign (not cancerous) growths of muscle tissue on or inside the uterus. To shrink a fibroid, a procedure called uterine fibroid embolization can be done. It stops the fibroids blood supply. The procedure is often done by a specially trained doctor called an interventional radiologist. Before the Procedure To prepare for your procedure: ?? Do not eat or drink anything for 4 hours before the procedure. ?? Tell your doctor if you are allergic to any foods, medications, or contrast (special x-ray dye). ?? Tell your doctor about any medications, supplements, or herbs you take. Ask whether you should stop taking them before the procedure. During the Procedure ?? You lie on an x-ray table. An IV line is put into a vein in your arm or hand. This line gives youfluids and medications. You may be given medication that relaxes you and makes you sleepy. ?? Skin on your groin is numbed with local anesthetic. Then, a small incision is made. A needle attached to a thin wire is put through the incision. The wire is put into a blood vessel near the groin. ?? A catheter (long, thin, flexible tube) is placed over the guide wire into the blood vessel. ?? Contrast is injected through the catheter. This helps the blood vessels and catheter show up better on x-rays. The movement of the catheter can then be seen on a video screen. ?? Using x-ray images as a guide, the radiologist moves the catheter through the blood vessel. It ismoved into the artery that supplies blood to the uterus. ?? The catheter is moved near the fibroid. The radiologist then injects tiny grains of plastic or spongy material into the artery. These grains flow to the smaller vessels that supply the fibroid and block blood flow to them. The procedure is repeated on the other side of the uterus. ?? The entire procedure takes about 1 to 2 hours. After the Procedure You may stay in the hospital for a few hours or overnight. You will likely feel pain and cramping for up to a week. Medications will be prescribed to you to help control this pain. Some vaginal spotting is common for a few days. You may feel tired and have nausea and a fever for a few days after the procedure. During your recovery, care for the incision as directed. You may be able to return to work 1 to 2 weeks after the procedure. Your doctor will tell you more. Potential Risks and Complications Infection or bruising around the catheter insertion site Blood clot in a blood vessel Problems due to contrast, including allergic reaction or kidney damage Infertility or premature menopause Injury to the uterus, requiring a hysterectomy ?? [phone] [facility], [address] [place] [address]. All rights reserved. This information is not intended as a substitute for professional medical care. Always follow your healthcare professional's instructions. [id number] UTERINE FIBROIDS Uterine fibroids are the most common non-cancerous tumors in women of childbearing age. A fibroid lyle lump that forms within the wall of the uterus. Many women have no symptoms with fibroids. If symptoms occur, they can include: ?? Heavy bleeding and painful periods ?? Fullness or pressure in the lower abdomen ?? Urinating often ?? Pain during sex ?? Lower back pain ?? Infertility Usually, fibroids stop growing or begin to shrink after menopause. HOME CARE: 1. Maintain normal body weight for your height. Excess body weight can stimulate fibroid growth. 2. Exercise can help control your weight. It also can decrease the production of hormones that stimulate fibroid growth. 3. If you have abnormal or heavy menstrual bleeding, keep a log of your menstrual cycle. Show this to your doctor to help determine if it is related to fibroids or another cause. 4. Fibroids can cause constipation and hemorrhoids. Avoid these problems by eating more whole grains, bran, and fruit and drink plenty of water. Natural laxative products may also help. 5. You may use acetaminophen (Tylenol) or ibuprofen (Motrin, Advil) to control pain, unless another medicine was prescribed. [NOTE: If you have chronic liver or kidney disease or ever had a stomach ulcer or GI bleeding, talk with your doctor before using these medicines.] FOLLOW UP with your doctor or as advised by our staff. You may require regular pelvic exams (every 6months) to check for fibroid growth. If you are having symptoms, talk to your doctor about medical treatments that may be used to reduce fibroid size without surgery. GET PROMPT MEDICAL ATTENTION if any of the following occur: ?? Heavy periods (soaking through one pad an hour for three hours) ?? Severe or prolonged pelvic or lower abdominal pain Vaginal bleeding with dizziness or fainting ?? [phone] [facility] [place], [address] [place] [address], [place] [address]. All rights reserved. This information is not intended as a substitute for professional medical care. Always follow your healthcare professional's instructions. ED Tests and Procedures: Order Status Wet Prep Examination Completed C-Reactive Protein Completed CBC (includes Auto Differential) Completed Basic Metabolic Panel Completed Urinalysis with Microscopic if Indicated Completed Culture Urine Ordered US Pelvic Canceled Automated Diff-5 Part Completed Beta hCG Qualitative Urine Completed CT Abdomen/Pelvis w/ contrast Completed Chlamydia Gonorrhoeae Amplified RNA-Russell CGRNA Ordered Discharge Prescriptions & Home Medications: [id number]/Strength Dose Route Frequency Indications/Special Instructions/Comments metronidazole (Flagyl 500 mg oral tablet) 500 mg Oral every 8 hours for 10 Days oxycodone-acetaminophen (Percocet 5/325 oral tablet) 2 tab(s) Oral every 6 hours as needed for Pain No more than 4,000mg acetaminophen/24hrs metronidazole (Flagyl 500 mg oral tablet) 500 mg Oral every 8 hours for 10 Days acetaminophen-codeine (Tylenol with Codeine #2 oral tablet) *fluticasone nasal (Flonase 50 mcg/inh nasal spray) 1 spray(s) Nostrils(Both) once a day levonorgestrel (Mirena) 1 each once * You have let us know that you are not taking this medication as listed. Please talk with your primary care provider or the health care provider who prescribed the medication as soon as possible. Comment: Attention: If you have any medications at home not on this list, DO NOT take them until you contact your provider for clarification. Medication Reconciliation: Reconciliation is a process of identifying the most accurate list of all medications a patient is taking - including name, dosage, frequency, and route - and using this list to provide to the patient information about how to take those medications. SHRUTHI MARTINEZ or destini has reviewed the home medications you have listed with us. Review the following instructions: You have NOT received any prescriptions and you have told us you are not currently taking any home medications You have NOT received any prescriptions. You have been provided a discharge medications list and you may CONTINUE taking your medications as previously prescribed by your regular providers. You have received the listed prescriptions and BEGIN all listed prescriptions as directed. Since you have listed no home medications, please check with your family doctor if you are taking any other medications. You have received the listed prescriptions and BEGIN all listed prescriptions as directed. Youhave been provided a discharge medications list and you may CONTINUE all home medications as previously prescribed by your regular providers. You have received the listed prescriptions and BEGIN all listed prescriptions as directed. Youhave been provided a discharge medications list. The following CHANGES have been made to your medication list; Otherwise, CONTINUE all home medications as previously prescribed by your regular provider. IMPORTANT: We examined and treated you today [...] arrange a ride home with a responsible green party. I, SHRUTHI MARTINEZ , or responsible green party have received this information and my questions havebeen answered. I have discussed any challenges I see with this plan with the nurse or physician. Patient Signature or Responsible Green Party/Relationship Date Time Provider Signature Date Time Medication Reconciliation: Reconciliation is a process of identifying the most accurate list of all medications a patient is taking - including name, dosage, frequency, and route - and using this list to provide to the patient information about how to take those medications. SHRUTHI MARTINEZ or destini has reviewed the home medications you have listed with us. Review the following instructions: You have NOT received any prescriptions and you have told us you are not currently taking any home medications You have NOT received any prescriptions. You have been provided a discharge medications list and you may CONTINUE taking your medications as previously prescribed by your regular providers. You have received the listed prescriptions and BEGIN all listed prescriptions as directed. Since you have listed no home medications, please check with your family doctor if you are taking any other medications. You have received the listed prescriptions and BEGIN all listed prescriptions as directed. Youhave been provided a discharge medications list and you may CONTINUE all home medications as previously prescribed by your regular providers. You have received the listed prescriptions and BEGIN all listed prescriptions as directed. Youhave been provided a discharge medications list. The following CHANGES have been made to your medication list; Otherwise, CONTINUE all home medications as previously prescribed by your regular provider. IMPORTANT: We examined and treated you today [...] arrange a ride home with a responsible green party. I, SHRUTHI MARTINEZ , or responsible green party have received this information and my questions havebeen answered. I have discussed any challenges I see with this plan with the nurse or physician. Patient Signature or Responsible Green Party/Relationship Date Time Provider Signature Date Time This document has images extracted. Please consider using [employer] for all your patient education needs. Source: [facility] [employer] Document Id: [id number] Sana Rg R.N. - 02/11/2013 4:53 PM CDT ED Depart Summary [facility] Emergency Department Clinical Discharge Summary PERSON INFORMATION Name SHRUTHI MARTINEZ Age 32 Years 1980 12:00 AM Sex Female Language Thai PCP LAKHIWNDER JULIO RN, TRANSIT CLERK Marital Status Single N [id number] Visit Id [facility] [id number] Visit Reason Pelvic pain; Pelvic pain; STOMACH PAIN FOR TWO DAYS Specialty Enc Type Emergency Med Service Emergency Medicine Referred by [facility] ED Discharge 02/11/2013 4:53 PM Tracking Id [id number] Checkout 02/11/2013 4:53 PM Checkin 02/11/2013 7:53 AM Acuity 3 -Urgent Dispo Type * Discharged to Home or Self Care Arrival 02/11/2013 7:53 AM Reg Status Complete LOS 000 09:00 Address: [address] [place] [phone] Comment: PROVIDER INFORMATION Provider Role Provider Contact Time SANA RG RN ED Nurse 02/11/13 07:56 COURTNEY BARRETT MD ED Provider 02/11/13 08:15 DIAGNOSIS Uterine fibroids 218.9; Pelvic inflammatory disease 614.9; Pelvic pain 625.9 Comment: PATIENT EDUCATION INFORMATION Instructions: PELVIC INFLAMMATORY DISEASE; Uterine Fibroid Embolization; UTERINE FIBROIDS Follow up: Source: [facility] [employer] Document Id: [id number] documented in this encounter Nursing Notes Sana Rg R.N. - 02/11/2013 4:24 PM CDT Patient arived back from [facility] at 1515. Source: [facility] [employer] Document Id: [id number] Sana Rg R.N. - 02/11/2013 1:05 PM CDT PAtient sent to [facility] for pelvic ultra sound. Patient left at 1245 and is to return here for follow-up and IV antibiotic. Source: [facility] [employer] Document Id: [id number] Sana Rg R.N. - 02/11/2013 11:10 AM CDT ED Pain Assessment ED Pain Assessment Entered On: 02/11/2013 11:10 CDT Performed On: 02/11/2013 11:10 CDT by SANA RG RN Pain Assessment Pain Symptoms : Yes SANA RG RN - 02/11/2013 11:10 CDT Pain Pain Assessment Grid Pain 1 Location : Other: pelvic Intensity : 8 SANA RG RN - 02/11/2013 11:10 CDT Source: [facility] [employer] Document Id: [id number] CDT!8 Sana Rg R.N. - 02/11/2013 10:30 AM CDT ED Pain Assessment ED Pain Assessment Entered On: 02/11/2013 10:31 CDT Performed On: 02/11/2013 10:30 CDT by SANA RG RN Pain Assessment Pain Symptoms : Yes SANA GR RN - 02/11/2013 10:30 CDT Pain Pain Assessment Grid Pain 1 Location : Other: pelvic Intensity : 10 SANA RG RN - 02/11/2013 10:30 CDT Source: [employer] [employer] Document Id: [id number] CDT!8 Sana Rg R.N. - 02/11/2013 9:25 AM CDT ED Pain Assessment ED Pain Assessment Entered On: 02/11/2013 9:25 CDT Performed On: 02/11/2013 9:25 CDT by SANA RG RN Pain Assessment Pain Symptoms : Yes SANA RG RN - 02/11/2013 9:25 CDT Pain Pain Assessment Grid Pain 1 Location : Other: pelvic Intensity : 8 SANA RG RN - 02/11/2013 9:25 CDT Source: [facility] [employer] Document Id: [id number] CDT!8 Sana Rg R.N. 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 ; Life Cycle Status: Active ; Responsible Provider: LAKHWINDER JULIO CNP; Vocabulary: ICD-9-CM Headache Migraine (ICD-9-CM :346.90 ) Name of Problem: Headache Migraine ; Onset Date: 11/05/2011 ; Recorder: LAKHWINDER JULIO RN, CNP; Confirmation: Confirmed ; Classification: Medical ; Code: 346.90 ; Last Updated: 11/05/2011 13:33 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 ; Last Updated: 10/13/2010 11:27CST ; Life Cycle Date: 10/13/2010 ; Life Cycle Status: Active ; Responsible Provider: PAOLO MARTINEZ RN; Vocabulary: ICD-9-CM Diagnoses(Active) Pelvic pain Date: 02/11/2013 ; Diagnosis Type: Reason For Visit ; Confirmation: Complaint of ; Clinical Dx: Pelvic pain ; Classification: Medical ; Clinical Service: Emergency medicine ; Code: PNED ; Probability: 0 ; Diagnosis Code: [id number] Triage Chief Complaint Description : see triage note Mode of Arrival ED : Private vehicle Track : Medical Languages : Thai SANA RG RN - 02/11/2013 8:11 CDT Pain Assessment Pain Symptoms : Yes SANA RG RN - 02/11/2013 8:11 CDT Respiratory Airway : Patent Respirations : Unlabored Respiratory Pattern : Regular SANA RG RN - 02/11/2013 8:11 CDT Cardiovascular Heart Rhythm : Regular Skin Color : Normal for ethnicity Skin Description : Dry Skin Temperature : Warm SANA RG RN - 02/11/2013 8:11 CDT Neurological Last Well Time Known : Not applicable Level of Consciousness : Alert Orientation : Oriented x 3 Characteristics of Speech : Appropriate for age SANA RG RN - 02/11/2013 8:11 CDT ED Psychosocial Affect/Behavior : Calm Domestic Abuse Concerns : None SANA GR RN - 02/11/2013 8:11 CDT Gastrointestinal Nutrition ED : Adequate SANA RG RN - 02/11/2013 8:11 CDT Musculoskeletal Fall Prevention Education Provided : NA SANA RG RN - 02/11/2013 8:11 CDT Social Habits Tobacco Use/Currently Using : Yes Tobacco Use/Advised to Quit : Yes Exposure to Tobacco Smoke : Patient smokes Smoking Status : Current every day smoker SANA RG RN - 02/11/2013 8:11 CDT Tobacco Use Grid Type : Cigarettes Cigarette Use Packs/Day : 0.5 SANA RG RN - 02/11/2013 8:11 CDT Alcohol Use Grid Alcohol Use : No SANA RG RN - 02/11/2013 8:11 CDT Recreational Drug Use Grid Drug Use : None SANA RG RN - 02/11/2013 8:11 CDT Source: [employer] [employer] Document Id: [id number] CDT!44 documented in this encounter ED Notes Sana Rg RInessa - 02/11/2013 4:41 PM CDT ED Disposition Summary ED Disposition Summary Entered On: 02/11/2013 16:41 CDT Performed On: 02/11/2013 16:41 CDT by SANA RG RN ED Disposition Summary Accompanied By : Mother Mode of Discharge : Ambulatory Transportation : Private vehicle Discharge From ED With : Home Med List Printed Discharge Instructions Given to Patient : Yes Patient Status at Discharge from ED : Improved SANA RG RN - 02/11/2013 16:41 CDT Source: [employer] [employer] Document Id: [id number] CDT!8 Sana Rg R.N. - 02/11/2013 4:28 PM CDT ED Nurse Reassess ED Nurse Reassess Entered On: 02/11/2013 16:28 CDT Performed On: 02/11/2013 16:28 CDT by SANA RG RN Pain Assessment Pain Symptoms : No SANA RG RN - 02/11/2013 16:28 CDT Source: [employer] Document Id: [id number] CDT!3 Sana Rg R.N. - 02/11/2013 3:20 PM CDT ED Nurse Reassess ED Nurse Reassess Entered On: 02/11/2013 15:20 CDT Performed On: 02/11/2013 15:20 CDT by SANA RG RN Pain Assessment Pain Symptoms : No SANA RG RN - 02/11/2013 15:20 CDT Source: [employer] [employer] Document Id: [id number] CDT!3 Sana Rg R.N. - 02/11/2013 11:25 AM CDT ED Nurse Reassess ED Nurse Reassess Entered On: 02/11/2013 11:26 CDT Performed On: 02/11/2013 11:25 CDT by SANA RG RN Pain Assessment Pain Symptoms : Yes SANA RG RN - 02/11/2013 11:25 CDT Pain Pain Assessment Grid Pain 1 Location : Other: pelvic Intensity : 4 SANA RG RN - 02/11/2013 11:25 CDT Source: [employer] [employer] Document Id: [id number] CDT!8 Sana Rg R.N. - 02/11/2013 9:13 AM CDT ED Nurse Reassess ED Nurse Reassess Entered On: 02/11/2013 9:13 CDT Performed On: 02/11/2013 9:13 CDT by SANA RG RN Pain Assessment Pain Symptoms : Yes SANA RG RN - 02/11/2013 9:13 CDT Source: [employer] [employer] Document Id: [id number] CDT!3 Courtney Barrett M.D. - 02/11/2013 8:35 AM CDT Pelvic pain Patient: SHRUTHI MARTINEZ Age: 32 years Sex: Female : 1980 Author: COURTNEY BARRETT MD Attachments: None Associated Diagnosis: Pelvic pain 625.9; Pelvic inflammatory disease 614.9; Uterine fibroids 218.9 Basic Information Time seen: Date 02/11/2013, Immediately upon arrival. History source: Patient. Arrival mode: Private vehicle, walking. History limitation: None. Additional information: Chief Complaint from Nursing Triage Note : Chief Complaint Description. 02/11/2013 8:11 CDT Chief Complaint Description see triage note 02/11/2013 8:05 CDT Chief Complaint Description 32 year old female admitted to Er with complaints ofpelvic pain and pressure. States pain intensity causes numbness in both thighs. History of Present Illness The patient presents with pelvic pain. The onset was 1 days ago. The course/duration of symptoms is constant and worsening. Location: pelvis. Radiating pain: abdomenlegs bialterally, anteriorly. The character of symptoms is achy, dull and pressure. The degree at onset was moderate. The degree at maximum was severe. The degree at present is moderate. There are exacerbating factors including movement and walking. There are relieving factors including rest, lying down and remaining still. Risk factors consist of Has Mirena in place. Prior episodes: rare. Therapy today: none. Associated symptoms: nausea, abdominal pain, vaginal discharge and denies vaginal bleeding. Review of Systems Constitutional symptoms: No fever, no chills, no sweats or no weakness. Skin symptoms: No jaundice, no rash or no pruritus. Eye symptoms: No recent vision problems. ENMT symptoms: No ear pain or no sore throat. Respiratory symptoms: No hemoptysis or no stridor. Cardiovascular symptoms: No chest pain, no palpitations, no tachycardia or no diaphoresis. Gastrointestinal symptoms: No abdominal pain, no nausea, no vomiting or no diarrhea. Genitourinary symptoms: Vaginal discharge, but no dysuria or no vaginal bleeding. Neurologic symptoms: No altered level of consciousness or no tingling. Endocrine symptoms: No polyuria or no polyphagia. Hematologic/Lymphatic symptoms: Bleeding tendency negative or no swollen nodes. Allergy/immunologic symptoms: No impaired immunity. Additional review of systems information: All other systems reviewed and otherwise negative. Health Status Allergies: . Allergic Reactions (Selected) NKA Medications: (Selected). Prescriptions Ordered Flonase 50 mcg/inh nasal spray: 1 spray(s), Nostrils(Both), Daily, 16 gm Documented Medications Ordered Tylenol with Codeine #2 oral tablet: Immunizations: Include Immunizations. Previous diphtheria/pertussis, acel/tetanus adult: Ad hoc dose () 02/22/2010 CDT. Future No future immunizations have been selected or recorded. Menstrual history: Per nurse's notes, not menopausal, no hysterectomy. history: not currently . Past Medical/ Family/ Social History Medical history: . No active or resolved past medical history items have been selected or recorded. Surgical history: . Carpal tunnel release ([id number]) in 2011 at 31 Years. Comments: 06/17/2012 11:15 - DAVID HARRELL RN left wrist Abdomen ([id number]) in 2011 at 31 Years. Comments: 11/05/2011 13:03 - LULA PIMENTEL LPN left quad mass removed Myomectomy, excision of fibroid tumor(s) of uterus, 1 to 4 intramural myoma(s) with total weight of 250 g or less and/or removal of surface myomas; abdominal approach ([id number]) in 2012 at 31 Years. Pap smear ([id number]) in 2009 at 29 Years. Appendectomy; ([id number]). Comments: 10/13/2010 11:32 - PAOLO MARTINEZ RN date unknown Family history: Not significant. Social history: Drug use: Denies. Problem list: . All Problems Polysubstance dependence, unspecified / 304.80 / Confirmed Dysthymic Disorder / 300.4 / Confirmed Headache Migraine / 346.90 / Confirmed Physical Examination Vital Signs Vital Signs. 02/11/2013 8:05 CDT Temperature Core 37 DegC Peripheral Pulse Rate 92 /min Respiratory Rate 18 /min SpO2 99 % Systolic Blood Pressure 141 mmHg HI Diastolic Blood Pressure 84 mmHg Mean Arterial Pressure 103 mmHg BP Location Left upper SpO2. 02/11/2013 8:05 CDT SpO2 99 % General: Alert and moderate distress. Skin: Warm, dry and intact. Head: Normocephalic and atraumatic. Neck: Supple, trachea midline, no tenderness and no JVD. Eye: Extraocular movements are intact, normal conjunctiva and vision grossly normal. Ears, nose, mouth and throat: Oral mucosa moist and no pharyngeal erythema or exudate. Cardiovascular: Regular rate and rhythm, No murmur and Normal peripheral perfusion. Respiratory: Lungs are clear to auscultation and respirations are non-labored. Chest wall: No tenderness and No deformity. Back: Normal alignment. Musculoskeletal: Normal ROM. no tenderness. Gastrointestinal: Soft, Non distended and tender RLQ to point pressrue. Genitourinary: No discharge, normal external genitalia, no lesions, External genitalia: no tenderness, no swelling, no erythema, no induration, Speculum exam: Cervix open, tenderness, cervicitis, foreign body, Mirena string evident, no bleeding, no erythema, Bimanual exam: Cervix closed, adnexa, uterine, tenderness, enlarged, mass 10 cm, cervix motion tenderness, no uterus prolapsed and Groin: no femoral, no hernia mass palpated. Neurological: Alert and oriented to person, place, time, and situation, No focal neurological deficit observed, CN II-XII intact, normal sensory observed, normal motor observed, normal speech observed and normal coordination observed. Lymphatics: No lymphadenopathy. Psychiatric: Cooperative, appropriate mood & affect, normal judgment and non-suicidal. Medical Decision Making Differential Diagnosis:Pelvic pain, ovarian cyst, ectopic , urinary tract infection, pelvicinflammatory disease, uterine fibroid, venereal disease, Appenditis. OrdersLaunch Orders, Laboratory: Urine Culture (Order Processing): Stat, 02/11/2013 8:42 CDT, Once, Urine, Midstream Urinalysis with Microscopic if Indicated (Order Processing): Stat, 02/11/2013 8:42 CDT, Once, Clean Void Urine Basic Metabolic Panel (Order Processing): Stat, 02/11/2013 8:42 CDT, Once CBC (includes Auto Differential) (Order Processing): Stat, 02/11/2013 8:42 CDT, Once C-Reactive Protein (Order Processing): Stat, 02/11/2013 8:42 CDT, Once Pharmacy: NS 1000 mL Bolus and Continuous 1000 mL (Order Processing): 1,000 mL/hr, IV Radiology: US Pelvic (Order Processing): 02/11/2013 8:43 CDT, pelvic pain, Has Mirena intrauterine, Stat, Patient Bed, Once, Patient Has IV?, [facility] Orders, Laboratory: Beta hCG Qualitative Urine (Order Processing): Stat, 02/11/2013 8:45 CDT, [facility] Orders, Laboratory: Wet Prep Examination (Order Processing): Stat, 02/11/2013 8:47 CDT, Once, Vaginal Patient Care: ED Pain Management Adult (Order Processing) Vital Signs q 30 Minutes - ED (Order Processing): 02/11/2013 8:47 CDT ED Antiemetics - Adult (Order Processing) Pharmacy: ketorolac (Order Processing): 30 mg, IV Push, Once ondansetron (Order Processing): 4 mg, IV Push, [facility] Orders, Laboratory: Chlamydia Gonorrhoeae Amplified RNA-Russell CGRNA (Order Processing): Stat, 02/11/2013 8:48 CDT, Once, cervix cervix, Current LocationLaunch Orders, Radiology: CT Abdomen/Pelvis w/ contrast (Order Processing): 02/11/2013 10:20 CDT, RLQ, pelvic pain, Stat, Patient Bed, Once, [facility], Pharmacy: Zithromax (Order Processing): 500 mg, IVPB, Once Rocephin (Order Processing): 1 gm, IVPB, [facility] Orders, Pharmacy: Flagyl (Order Processing): 500 mg, PO, [facility] Orders. Pharmacy: fentanyl (Order Processing): 50 mcg, IV Push, Once test:UCG-negative. UrinalysisWhite blood cells negative. Red blood cells negative. Bacteria negative. Tests pending:Gonorrhea-Chlamydia. Results review:All Results : Results, 02/11/2013 9:25 CDT ED Nursing Note 02/11/2013 9:13 CDT ED Nurse Reassess - Text 02/11/2013 8:43 CDT US Pelvic (Canceled) 02/11/2013 8:35 CDT ED Physician Note Pelvic pain (In Progress) 02/11/2013 8:11 CDT ED Nursing Note 02/11/2013 8:05 CDT ED Triage Note - Text 02/11/2013 9:25 CDT Pain Symptoms Yes Pain 1 Location Other: pelvic Pain 1 Intensity 8 ED Pain Assessment Form ED Pain Assessment Form 02/11/2013 9:13 CDT Pain Symptoms Yes ED Nurse Reassess Form ED Nurse Reassess Form 02/11/2013 9:12 CDT Peripheral Pulse Rate 81 /min Respiratory Rate 18 /min SpO2 99 % Systolic Blood Pressure 137 mmHg Diastolic Blood Pressure 83 mmHg BP Location Right upper Vital Signs Form Vital Signs Form 02/11/2013 9:03 CDT ketorolac 30 mg mg ondansetron 4 mg mg Sodium Chloride 0.9% Begin Bag 1,000 mL mL 02/11/2013 8:53 CDT Sodium Lvl 137.6 mM/L Potassium Lvl 4.1 mmol/L Chloride 103 mmol/L CO2 25.5 mmol/L AGAP 9 mmol/L LOW Glucose Lvl 102 mg/dL Creatinine 0.53 mg/dL LOW EGFR (MDRD) >60 mL/min/1.73m2 EGFR (MDRD) >60 mL/min/1.73m2 BUN 8 mg/dL Calcium Lvl 8.9 mg/dL CRP 6.7 mg/dL HI Hgb 14.0 g/dL Hct 39.8 % WBC 10.6 x10(9)/L HI RBC 4.71 x10(12)/L MCV 84.5 fL RDW 11.9 % Platelet 278 x10(9)/L Neutro % 69.5 % Lymph % 21.0 % LOW [place] % 7.7 % Eos % 1.6 % Baso % 0.2 % Neutro Absolute 7.40 10(9)/L HI Lymph Absolute 2.24 x10(9)/L [place] Absolute 0.82 x10(9)/L Eos Absolute 0.17 x10(9)/L Baso Absolute 0.02 x10(9)/L Differential? Auto 02/11/2013 8:11 CDT Pain Symptoms Yes Heart Rhythm Regular Respirations Unlabored Respiratory Pattern Regular Airway Patent Skin Color Normal for ethnicity Skin Temperature Warm Skin Description Dry Characteristics of Speech Appropriate for age Level of Consciousness Alert Last Well Time Known Not applicable Affect/Behavior Calm Orientation Oriented x 3 Domestic Abuse Concerns None Nutrition ED Adequate Tobacco Use/Currently Using Yes Tobacco Use/Advised to Quit Yes Exposure to Tobacco Smoke Patient smokes Tobacco Use Grid Tobacco Use Grid Alcohol Use Grid Alcohol Use Grid Recreational Drug Use Grid Recreational Drug Use Grid Chief Complaint Description see triage note Mode of Arrival ED Private vehicle Track Medical Languages Thai 02/11/2013 8:05 CDT Height 157 cm Estimated Weight 72.5 kg Temperature Core 37 DegC Peripheral Pulse Rate 92 /min Respiratory Rate 18 /min SpO2 99 % Systolic Blood Pressure 141 mmHg HI Diastolic Blood Pressure 84 mmHg Mean Arterial Pressure 103 mmHg BP Location Left upper Pain Symptoms Yes Pain 1 Location Other: pelvic Pain 1 Intensity 10 Oxygen Therapy Room air Tracking Acuity 3 -Urgent Tracking Group [facility] ED Chief Complaint Description 32 year old female admitted to Er with complaints of pelvic pain and pressure. States pain intensity causes numbness in both thighs. Mode of Arrival ED Private vehicle Track Medical Accompanied by Mother Information Given by Patient Languages Thai ED Physician Notification Time 02/11/2013 8:10 FAINA Level 1 No FAINA Level 2 No FAINA Level 3 Many Vital Signs FAINA No Vital Signs Assessed Yes ED Triage Assessment Adult ([facility]) Form ED Triage Assessment Adult ([facility]) Form Interpretation Abnormal results wet prep show trichomonas, Pelvic US no torsion/ or TOA, Trichomonas: Moderate (10-25/hpf) Clue Cells: Moderate (10-25/hpf) Yeast: None Sperm: None Few WBC's (0-5/hpf) Many epithelial cells (>25/hpf) . Radiology results:Computed tomography, Large uterine fibroid 10 cm. Reexamination/ Reevaluation Vital signs results included from flowsheet : Vital Signs 02/11/2013 8:05 CDT Temperature Core 37 DegC Peripheral Pulse Rate 92 /min Respiratory Rate 18 /min SpO2 99 % Systolic Blood Pressure 141 mmHg HI Diastolic Blood Pressure 84 mmHg Mean Arterial Pressure 103 mmHg BP Location Left upper Course: unchanged. Pain status: decreased. Assessment: exam improved. Interventions: Order Profile (Selected). Inpatient Orders Ordered Chlamydia Gonorrhoeae Amplified RNA-Russell CGRNA: Flagyl: 500 mg, PO, Once NS 1000 mL Bolus and Continuous 1,000 mL: 1,000 mL/hr, IV Rocephin: 1 gm, IVPB, Once Urine Culture: Vital Signs q 30 Minutes - ED: Zithromax: 500 mg, IVPB, Once fentanyl: 50 mcg, IV Push, Once Canceled MR Joint Upper Ext w/ contrast Left: Physical Therapy - Clinic Consult: Return Visit [facility] Med: US Pelvic: Completed Automated Diff-5 Part: Basic Metabolic Panel: Beta hCG Qualitative Urine: C-Reactive Protein: CBC (includes Auto Differential): CT Abdomen/Pelvis w/ contrast: Urinalysis with Microscopic if Indicated: Wet Prep Examination: fentanyl: 50 mcg, 1 mL, IV Push, Once iohexol 300 mg/ml: 150 mL, IV Push, Once ketorolac: 30 mg, 1 mL, IV Push, Once ondansetron: 4 mg, 2 mL, IV Push, Once Prescriptions Ordered Flagyl 500 mg oral tablet: 500 mg, 1 tab(s), PO, q8hr, 30 tab(s) Percocet 5/325 oral tablet: 2 tab(s), PO, q6hr, 30 tab(s), PRN: Pain Documented Medications Ordered Tylenol with Codeine #2 oral tablet: Impression and Plan Diagnosis Pelvic pain 625.9 (Discharge, Emergency medicine, Medical) Pelvic inflammatory disease 614.9 (Discharge, Emergency medicine, Medical) Uterine fibroids 218.9 (Discharge, Emergency medicine, Medical) Plan Condition: Improved, Stable. Disposition: Discharged: to home. 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 Pharmacy: Percocet 5/325 oral tablet (Ordered): 2 tab(s), PO, q6hr, 30 tab(s), PRN, Pain Patient was given the following educational materials: PELVIC INFLAMMATORY DISEASE, Uterine Fibroid Embolization, UTERINE FIBROIDS. Follow up with: Primary Care Physician, In: As needed, See [employer]. Counseled: Patient, Regarding diagnosis, Regarding diagnostic results, Regarding treatment plan, Regarding prescription, Patient indicated understanding of instructions. Sexually transmitted disease prophylaxis: Discussed. Electronically Signed By: COURTNEY BARRETT MD On: 02/11/2013 03:38 PM Modified by and Electronically Signed by: COURTNEY BARRETT MD On: 02/11/2013 09:45 AM Source: [facility] POWERCHART Document Id: [id number]} Sana Rg RInessa - 02/11/2013 8:05 AM CDT ED Triage Assessment Document Has Been Updated ED Triage Assessment Entered On: 02/11/2013 8:11 CDT Performed On: 02/11/2013 8:05 CDT by SANA RG RN Reason For Visit (As Of: 02/11/2013 08:11:08 CDT) Problems(Active) Dysthymic Disorder (ICD-9-CM :300.4 ) Name of Problem: Dysthymic Disorder ; Onset Date: 11/05/2011 ;Recorder: LAKHWINDER JULIO RN, CNP; Confirmation: Confirmed ; Classification: Medical ; Code: 300.4 ; Last Updated: 11/05/2011 13:32 AUTO BODY 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 ; Life Cycle Status: Active ; Responsible Provider: LAKHWINDER JULIO CNP; Vocabulary: ICD-9-CM Headache Migraine (ICD-9-CM :346.90 ) Name of Problem: Headache Migraine ; Onset Date: 11/05/2011 ; Recorder: LAKHWINDER JULIO RN, CNP; Confirmation: Confirmed ; Classification: Medical ; Code: 346.90 ; Last Updated: 11/05/2011 13:33 AUTO BODY ESTIMATOR ; Life Cycle Status: Active ; Responsible Provider: LAKHWINDER JULIO CNP; Vocabulary: ICD-9-CM Polysubstance dependence, unspecified (ICD-9-CM :304.80 ) Name of Problem: Polysubstance dependence,unspecified ; Onset Date: 12/08/2006 ; Recorder: PAOLO MARTINEZ RN; Confirmation: Confirmed ; Classification: Nursing ; Code: 304.80 ; Contributor System: PowerChart ; Last Updated: 10/13/2010 11:27CST ; Life Cycle Date: 10/13/2010 ; Life Cycle Status: Active ; Responsible Provider: PAOLO MARTINEZ RN; Vocabulary: ICD-9-CM Diagnoses(Active) Pelvic pain Date: 02/11/2013 ; Diagnosis Type: Reason For Visit ; Confirmation: Complaint of ; Clinical Dx: Pelvic pain ; Classification: Medical ; Clinical Service: Emergency medicine ; Code: PNED ; Probability: 0 ; Diagnosis Code: [id number] Triage Chief Complaint Description : 32 year old female admitted to Er with complaints of pelvic pain and pressure. States pain intensity causes numbness in both thighs. Information Given By : Patient Accompanied By : Mother Mode of Arrival ED : Private vehicle Track : Medical Languages : Thai Patient Informed of Triage Location : Emergency department Vital Signs Assessed : Yes SANA RG RN - 02/11/2013 8:05 CDT Vital Signs Temperature Core : 37 DegC(Converted to: 98.6 DegF) Peripheral Pulse Rate : 92 /min Respiratory Rate : 18 /min Systolic Blood Pressure : 141 mmHg (HI) Diastolic Blood Pressure : 84 mmHg NIBP Mean : 103 mmHg BP Location : Left upper extremity SpO2 : 99 % Oxygen Therapy : Room air Height : 157 cm(Converted to: 5 ft 2 inch(es)) Estimated Weight : 72.5 kg Estimated Weight Conversion to Pounds : 159.5 lb SANA RG RN - 02/11/2013 8:05 CDT Pain Assessment Pain Symptoms : Yes SANA RG RN - 02/11/2013 8:05 CDT Pain Pain Assessment Grid Pain 1 Location : Other: pelvic Intensity : 10 SANA RG RN - 02/11/2013 8:05 CDT ED Physician Notification Time ED Physician Notification Time : 02/11/2013 8:10 CDT SANA RG RN - 02/11/2013 8:05 CDT FAINA FAINA Level 1 : No FAINA Level 2 : No FAINA Level 3 : Many Vital Signs FAINA : No SANA RG RN - 02/11/2013 8:05 CDT DCP GENERIC CODE Tracking Acuity : 3 -Urgent Tracking Group : [facility] ED SANA RG RN - 02/11/2013 8:05 CDT Allergy (As Of: 02/11/2013 08:11:08 CDT) Allergies (Active) NKA Estimated Onset Date: Unspecified ; Created By: PAOLO MARTINEZ RN; Reaction Status: Active ; Category: Drug ; Substance: NKA ; Type: Allergy ; Updated By: PAOLO MARTINEZ RN; Reviewed Date: 11/25/2012 10:59 CDT Source: [facility] [employer]Se[employer] Document Id: [id number] CDT!40 documented in this encounter Miscellaneous Notes Miscellaneous - Sana Rg R.N. - 02/11/2013 4:41 PM CDT Valuables/Belongings Valuables/Belongings Entered On: 02/11/2013 16:41 CDT Performed On: 02/11/2013 16:41 CDT by SANA RG RN Valuables/Belongings Belongings Sent Home With : patient Home Medication Disposition : None brought in with patient SANA RG RN - 02/11/2013 16:41 CDT Source: [employer] Document Id: [id number] CDT!4 Miscellaneous - Sana Rg R.N. - 02/11/2013 7:53 AM CDT Facility Charge Ticket Facility Charge Ticket Entered On: 02/11/2013 16:41 CDT Performed On: 02/11/2013 7:53 CDT by SANA RG RN Facility Charge TVL Level for Facility Charge Ticket : Level 4 Mode of Arrival ED : Private vehicle [facility] Mode of Arrival Interpreted : Standard [facility] Process Management : None [facility] Order Management : CT/MRI/Ultrasound, Lab tests 30 Minutes Critical Care : No [facility] Nursing Assessment : Triage and 3-5 nursing assessments [facility] Disposition : Discharge [facility] Total Points with Diagnosis Control : 11 [facility] Visit Level : 00033 Level 4 SANA RG RN - 02/11/2013 16:41 CDT Source: [facility] [employer] Document Id: [id number] CDT!12 documented in this encounter Plan of Treatment Not on filedocumented as of this encounter Procedures Procedure Name Priority Date/Time Associated Comments Diagnosis AUTOMATED Routine 02/11/2013 8:53 AM Results f or this DIFFERENTIAL, B CDT procedure ar e in the results section. CBC WITH Routine 02/11/2013 8:53 AM Results f or this DIFFERENTIAL, B CDT procedure ar e in the results section. C-REACTIVE PROTEIN Routine 02/11/2013 8:53 AM Res ults for this (CRP), S/P CDT procedure are i n the results section. BASIC METABOLIC Routine 02/11/2013 8:53 AM Result s for this PANEL, S/P CDT procedure are i n the results section. WET PREP EXAM, Routine 02/11/2013 8:48 AM Results for this UROGENITAL CDT procedure are i n the results section. N GONOR AMP SRC Routine 02/11/2013 8:44 AM Result s for this CDT procedure are i n the results section. N GONOR AMP DNA Routine 02/11/2013 8:44 AM Result s for this CDT procedure are i n the results section. C TRACH AMP SRC Routine 02/11/2013 8:44 AM Result s for this CDT procedure are i n the results section. C TRACH AMP RNA Routine 02/11/2013 8:44 AM Result s for this CDT procedure are i n the results section. TEST, U Routine 02/11/2013 8:44 AM Resu lts for this CDT procedure are i n the results section. URINALYSIS, ROUTINE Routine 02/11/2013 8:44 AM Re sults for this CDT procedure are i n the results section. BACTERIAL CULTURE, Routine 02/11/2013 8:44 AM Res ults for this AEROBIC, URINE CDT procedure are in the results section. documented in this encounter Results (ABNORMAL) Automated Differential (02/11/2013 8:53 AM CDT) [facility] Method Time Signature Neutro % 69.5 42.0 - POWERCHART 77.0 Lymphocytes % 21.0 (L) 23.0 - POWERCHART 44.0 HX [place] % 7.7 2.0 - 18.0 POWERCHART HX Eos % 1.6 1.0 - 5.0 POWERCHART HX Baso % 0.2 0.0 - 1.0 POWERCHART Absolute 7.40 (H) 1.70 - POWERCHART Neutrophils 7.00 109L Lymphocytes 2.24 0.90 - POWERCHART 2.90 X109L Monocytes 0.82 0.30 - POWERCHART 0.90 X109L Eosinophils 0.17 0.05 - POWERCHART 0.50 X109L Absolute 0.02 0.00 - POWERCHART Basophil 0.30 X109L Specimen Anatomical Collection Method Collection Time Receive d Time (Source) Location / / Volume Laterality Blood 02/11/2013 8:53 AM 3 8:53 CDT AM CDT Courtney Barrett M.D. LAB BLOOD ADD-ON Performing Organization Address City/State/ZIP Code Phon e Number POWERCHART (ABNORMAL) CBC with Differential (02/11/2013 8:53 AM CDT) [facility] Method Time Signature Leukocytes 10.6 (H) 3.4 - 10.5 POWERCHART X109L Erythrocytes 4.71 3.90 - POWERCHART 5.03 [id number] Hemoglobin 14.0 12.0 - POWERCHART 15.5 GDL Hematocrit 39.8 34.9 - POWERCHART 44.5 MCV 84.5 82.0 - POWERCHART 98.0 FL HX RDW 11.9 11.9 - POWERCHART 15.5 Platelet Count 278 150 - 450 POWERCHART X109L HXDifferential? Auto POWERCHART Specimen (Source) Anatomical Collection Method Collection Time Re ceived Time Location / / Volume Laterality Blood 02/11/2013 8:53 AM CDT Courtney Barrett M.D. LAB BLOOD ADD-ON Performing Organization Address City/State/ZIP Code Phon e Number POWERCHART (ABNORMAL) BMP (Basic Metabolic Panel) (02/11/2013 8:53 AM CDT) Analysis Performed At Patho logist Time Signature Sodium, S 137.6 135.0 - POWERCHART 145.0 MML Potassium, S 4.1 3.6 - 4.8 POWERCHART MMOLL Chloride, S 103 100 - 108 POWERCHART MMOLL CO2 Total 25.5 23.0 - POWERCHART 29.0 MMOLL BUN (Blood Urea 8 7 - 18 POWERCHART Nitrogen), S MGDL Creatinine 0.53 (L) 0.60 - POWERCHART 1.30 MGDL Calcium, Total, 8.9 8.6 - 10.0 POWERCHART S MGDL Anion Gap 9 (L) 10 - 20 POWERCHART MMOLL HXeGFR (MDRD) >60 >=60 POWERCHART [id number] Comment: A GFR of <60 mL/min is indicative of chr onic kidney disease. (MDRD calculation valid on patients 18-7 0 years.) eGFR Black/ >60 >=60 [id number] POWERCHART Glucose 102 70 - 139 MGDL POWERCHART Specimen (Source) Anatomical Collection Method Collection Time Re ceived Time Location / / Volume Laterality Blood 02/11/2013 8:53 AM CDT Courtney Barrett M.D. LAB BLOOD ADD-ON Performing Organization Address City/State/ZIP Code Phon e Number POWERCHART (ABNORMAL) CRP (C-Reactive Protein) (02/11/2013 8:53 AM CDT) P athologist Signature C-Reactive 6.7 (H) 0.0 - 0.8 POWERCHART Protein (CRP), MGDL S Specimen (Source) Anatomical Collection Method Collection Time Re ceived Time Location / / Volume Laterality Blood 02/11/2013 8:53 AM CDT Courtney Barrett M.D. LAB BLOOD ADD-ON Performing Organization Address City/State/ZIP Code Phon e Number POWERCHART (ABNORMAL) Wet Prep Exam, Urogenital (02/11/2013 8:48 AM CDT) Patholo gist Method Time Signature HXWet Prep (POSITIVE) POWERCHART HXFinal Trichomonas: POWERCHART Moderate (10-25/hpf) HXFinal Clue Cells: POWERCHART Moderate (10-25/hpf) HXFinal Yeast: None POWERCHART HXFinal Sperm: None POWERCHART HXFinal Few WBC's POWERCHART (0-5/hpf) HXFinal Many epithelial POWERCHART cells (>25/hpf) Specimen (Source) Anatomical Collection Method Collection Time Re ceived Time Location / / Volume Laterality Vagina 02/11/2013 8:48 AM CDT Courtney Barrett M.D. LAB MICROBIOLOGY - GENERAL O RDERABLES Performing Organization Address City/State/ZIP Code Phon e Number POWERCHART HX-N gonor Amp DNA (02/11/2013 8:44 AM CDT) P athologist Signature HXN gonor Amp Negative POWERCHART DNA-Russell Specimen (Source) Anatomical Collection Method Collection Time Re ceived Time Location / / Volume Laterality 02/11/2013 8:44 AM CDT Narrative POWERCHART - 02/12/2013 8:56 PM CDT Test Performed by: [place] [id number] Operator: Rito high III, M.D. Courtney Barrett M.D. LAB HISTORICAL ORDERS Performing Organization Address City/State/ZIP Code Phon e Number POWERCHART HX-N gonor Amp Src (02/11/2013 8:44 AM CDT) P athologist Signature HXN gonor Amp VAGINAL POWERCHART Src-Russell Specimen (Source) Anatomical Collection Method Collection Time Re ceived Time Location / / Volume Laterality 02/11/2013 8:44 AM CDT Courtney Barrett M.D. LAB HISTORICAL ORDERS Performing Organization Address City/State/ZIP Code Phon e Number POWERCHART HX-C trach Amp RNA (02/11/2013 8:44 AM CDT) [facility] gist Method Time Signature Chlamydia Negative POWERCHART trachomatis amplified RNA Specimen (Source) Anatomical Collection Method Collection Time Re ceived Time Location / / Volume Laterality 02/11/2013 8:44 AM CDT Courtney Barrett M.D. LAB HISTORICAL ORDERS Performing Organization Address City/State/ZIP Code Phon e Number POWERCHART HX-C trach Amp Src (02/11/2013 8:44 AM CDT) athologist Signature HXC trach Amp VAGINAL POWERCHART [facility] Specimen (Source) Anatomical Collection Method Collection Time Re ceived Time Location / / Volume Laterality 02/11/2013 8:44 AM CDT Courtney Barrett M.D. LAB HISTORICAL ORDERS Performing Organization Address [facility] Phon e Number POWERCHART Test, Qualitative, Urine (02/11/2013 8:44 AM CDT) [facility] Method Time Signature HXBeta-hCG Negative POWERCHART Qualitative Urine Specimen (Source) Anatomical Collection Method Collection Time Re ceived Time Location / / Volume Laterality Urine 02/11/2013 8:44 AM CDT Courtney Barrett M.D. LAB URINE ORDERABLES Performing Organization Address [facility] Phon e Number POWERCHART Urinalysis, Routine (02/11/2013 8:44 AM CDT) [facility] Method Time Signature HXUr Color Yellow Yellow POWERCHART Appearance Clear Clear POWERCHART Glucose Negative Negative POWERCHART HXBILIRUBIN Negative Negative POWERCHART Ketones, QL(U) Negative Negative POWERCHART Specific 1.020 1.000 - POWERCHART [address], POCT, U 1.030 pH, POCT, Urine 6.0 5.0 - 8.0 POWERCHART Protein, Ur, Dip Negative Negative POWERCHART Urobilinogen 0.2 POWERCHART HXNITRITE Negative Negative POWERCHART HXBLOOD Negative Negative POWERCHART Leukocyte Negative Negative POWERCHART Esterase Source Clean Void POWERCHART Urine Specimen (Source) Anatomical Collection Method Collection Time Re ceived Time Location / / Volume Laterality Urine 02/11/2013 8:44 AM CDT Courtney Barrett M.D. LAB URINE ORDERABLES Performing Organization Address [facility] Phon e Number POWERCHART Bacterial Culture, Aerobic, Urine (02/11/2013 8:44 AM CDT) [facility] Method Time Signature Bacterial POWERCHART Culture, Aerobic, Urine HXPre Continuing POWERCHART incubation HXFinal >100,000 POWERCHART cfu/mL Mixed loraine (multiple species present) HXFinal No further POWERCHART work-up. Specimen (Source) Anatomical Collection Method Collection Time Re ceived Time Location / / Volume Laterality Urine, First 02/11/2013 8:44 AM Voided CDT Courtney Barrett M.D. LAB MICROBIOLOGY - GENERAL O RDERABLES Performing Organization Address City/State/ZIP Code Phon e Number POWERCHART documented in this encounter Visit Diagnoses Not on filedocumented in this encounter Additional Health Concerns Assessment Noted Time PHQ-9 Depression Total Score: 16 11/25/2012 12:45 PM C DT documented as of this encounter
--- OUTSIDE RECORDS SUMMARY | 2022-05-17 14:02 | XMS_ITS | Encounter Summary ---
:1980 Author Organization [facility] Address [address] [place] [address] Care Team Providers Name Role Phone Unavailable Primary Care Provider Unavailable Encounter Details Date Type Department Care Team Description 02/11/2013 Hospital Encounter HX [facility] XRAY Provider[place] Social History Tobacco Use Types Packs/Day Years Used Date Smoking Tobacco: Never Assessed Sex Assigned at Date Recorded Not on file documented as of this encounter Progress Notes Conversion, Historical Provider Ser - 02/11/2013 5:00 PM CDT [id number] Quick Note: Note: These results were ordered by a Referring Physician and have not been reviewed by a physician at [facility] in [place]. FAXED TO DR. BEGUM DEL ROSARIO DOYLE ON 02/11/2013 [facility] Document Id: [id number] documented in this encounter Plan of Treatment Not on filedocumented as of this encounter Visit Diagnoses Not on filedocumented in this encounter Additional Health Concerns Assessment Noted Time PHQ-9 Depression Total Score: 16 11/25/2012 12:45 PM C DT documented as of this encounter
--- OUTSIDE RECORDS SUMMARY | 2022-05-17 14:02 | XMS_ITS | Encounter Summary ---
:1980 Author Organization [facility] Address [address] [place] [address] Care Team Providers Name Role Phone Unavailable Primary Care Provider Unavailable Encounter Details Date Type Department Care Team Description 11/26/2012 Hospital Encounter HX [facility] LAB Lakhwinder Julio AP RN, C.N.P., D.N.P. [address] [place], [place] [phone] (Wo rk) Social History Tobacco Use Types Packs/Day Years Used Date Smoking Tobacco: Never Assessed Sex Assigned at Date Recorded Not on file documented as of this encounter Miscellaneous Notes Miscellaneous - Lakhwinder Julio, AUREA, C.N.P. - 12/02/2012 7:41 PM CDT Results Notification Document Contains Addenda Addendum by FRNANIE MONSALVE LPN on 03 December 2012 12:49:06 CDT Noted. From: LAKHWINDER JULIO RN, MICROSYSTEMS ENGINEER To: LULA PIMENTEL LPN; Sent: 12/02/2012 19:41:12 CDT Show up: 12/02/2012 19:39:00 CDT Subject: Results Notification pt informed of results. pap shows Trichomonas present.. Treated with flagyl and partner treated also. They are to obstain from intercourse for 7 days after abx treatment completed. Also discussed all other lab results and uterine ultrasound. Fibroids noted and LPN RN HOSPICE suggested however, given Trichomonas infection, will treat and see if symptoms resolve. If so, no futher work up needed. if not LPN RN HOSPICE consult approprate. Results: Date Result Name Value Ref Range 11/28/2012 07:55 TSH 1.99 mcIU/mL (0.30 - 5.00) Source: [facility] [employer] Document Id: [id number] Electronically signed by Conversion, [facility] Military Pay Clerk [id number] at 02/06/2017 11:08 AM CDT Miscellaneous - Lakhwinder Julio, SOCIAL MEDIA COMMUNITY MANAGER, C.N.P. - 11/27/2012 10:13 AM CDT Results Notification Document Contains Addenda Addendum by LUAL PIMENTEL LPN on 28 November 2012 08:59:57 CDT Letter sent to patient From: LAKHWINDER JULIO RN, MICROSYSTEMS ENGINEER To: LULA PIMENTEL LPN; Sent: 11/27/2012 10:13:24 CDT Show up: 11/27/2012 09:49:00 CDT Subject: Results Notification Please let Shruthi know her lipids look excellent and her cervix cultures are normal. Thanks Results: Date Result Name Ind Value Ref Range 11/26/2012 07:55 Cholesterol 189 mg/dL (0 - 200) 11/26/2012 07:55 Trig 86 mg/dL (9 - 150) 11/26/2012 07:55 HDL (H) 71 mg/dL (35 - 60) 11/26/2012 07:55 LDL Calculated 101 mg/dL (100 - 129) 11/26/2012 07:55 Chol/HDL Ratio 3 Source: [facility] Document Id: [id number] Electronically signed by Conversion, [facility] Military Pay Clerk [id number] at 02/06/2017 11:08 AM CDT documented in this encounter Plan of Treatment Not on filedocumented as of this encounter Procedures Procedure Name Priority Date/Time Associated Diagnosis Comme nts THYROID-STIMULATING Routine 11/28/2012 7:55 AM Re sults for this HORMONE-SENSITIVE CDT procedure are in (S-TSH) the results section. LIPID PANEL, S Routine 11/26/2012 7:55 AM Results for this CDT procedure are i n the results section. documented in this encounter Results Thyroid-Stimulating Hormone-Sensitive (s-TSH) (11/28/2012 7:55 AM CDT) P athologist Signature TSH 1.99 0.30 - 5.00 POWERCHART (Thyrotropin) MCIUML Specimen (Source) Anatomical Collection Method Collection Time Re ceived Time Location / / Volume Laterality Blood 11/28/2012 7:55 AM CDT Lakhwinder Julio APRN, Valeria.N.P., D.N.P. LAB BLOOD ADD-ON Performing Organization Address City/State/[facility] Code Phon e Number POWERCHART (ABNORMAL) Lipid Panel (11/26/2012 7:55 AM CDT) P athologist Signature Cholesterol, 189 0 - 200 POWERCHART Total MGDL Comment: <200 mg/dL Desirable 200-239 mg/dL Borderline High >239 mg/dL High HX HDL 71 (H) 35 - 60 MGDL POWERCHART Comment: > 60 mg/dL Desirable 40 ? 60 mg/dL Low Risk <40 mg/dL Undesirable Triglycerides 86 9 - 150 MGDL POWERCHART Comment: <150 mg/dL Desirable 150-199 mg/dL Borderline High 200-499 mg/dL High > 499 Very High Calculated LDL 101 100 - 129 MGDL POWERCHART Total Cholesterol/HDL Ratio 3 PO WERCHART Specimen (Source) Anatomical Collection Method Collection Time Re ceived Time Location / / Volume Laterality Blood 11/26/2012 7:55 AM CDT Lakhwinder Julio APRN, C.N.P., D.N.P. LAB BLOOD ADD-ON Performing Organization Address City/State/ZIP Code Phon e Number POWERCHART documented in this encounter Visit Diagnoses Not on filedocumented in this encounter Additional Health Concerns Assessment Noted Time PHQ-9 Depression Total Score: 16 11/25/2012 12:45 PM C DT documented as of this encounter
--- OUTSIDE RECORDS SUMMARY | 2022-05-17 14:02 | XMS_ITS | Encounter Summary ---
:1980 Author Organization [facility] Address [address] [place] [address] Care Team Providers Name Role Phone Unavailable Primary Care Provider Unavailable Encounter Details Date Type Department Care Team Description 06/17/2012 Hospital Encounter HX NO MAPPING Gómez Salinas M.D. [address] [place] [phone] (Wo rk) Social History Tobacco [...]
--- OUTSIDE RECORDS SUMMARY | 2022-05-17 14:03 | XMS_ITS | Encounter Summary ---
:1980 Author Organization [facility] Address [address] [place] [address] Care Team Providers Name Role Phone Unavailable Primary Care Provider Unavailable Encounter Details Date Type Department Care Team Description 04/12/2012 Hospital Encounter [facility] ED Tam Asher M.D. [address] [place] [address] [phone] (Wo rk) Social History Tobacco Use Types Packs/Day Years Used Date Smoking Tobacco: Never Assessed Sex Assigned at Date Recorded Not on file documented as of this encounter Last Filed Vital Signs Vital Sign Reading Time Taken Comments Blood Pressure 129/77 04/12/2012 11:55 AM CDT Pulse 94 04/12/2012 11:55 AM CDT Temperature - - Respiratory Rate 16 04/12/2012 11:37 AM CDT Oxygen Saturation - - Inhaled Oxygen Concentration - - Weight 75 kg (165 lb 5.5 oz) 04/12/2012 11:37 AM CDT Height 157 cm (5' 1.81) 04/12/2012 11:37 AM CDT Body Mass Index 30.43 04/12/2012 11:37 AM CDT documented in this encounter Discharge Summaries Beltran Russo R.N. - 04/12/2012 12:48 PM CDT ED Discharge Instructions [address] [address] Name: SHRUTHI MARTINEZ Date of : 1980 12:00 AM Visit Date: 04/12/2012 11:34 AM Address: [address] [place] [phone] Primary Care Provider: LAKHWINDER JULIO RN, STEEP TENDER IMPORTANT: [facility] in [place] would like to thank you for allowing us to assist you with your healthcare needs. The following includes patient education materials and informationregarding your injury/illness. Chief Complaint: Headache; Bee sting; bee sting Follow-Up Instructions: With: Address: When: LAKHWINDER JULIO [address] [place] [address] Business (1) Within 2 weeks Comments: Patient Education Materials: [id number] SINUSITIS [Abx tx] The sinuses are air-filled spaces within the bones of the face. They connect to the inside of the nose. Sinusitis is an inflammation of the tissue lining the sinus cavity. Sinus inflammation can occur during a cold or hay-fever (allergies to pollens and other particles in the air) and cause symptoms of sinus congestion and fullness. A sinus infection causes fever, headache and facial pain. There is usually green or yellow drainage from the nose or into the back of the throat (post-nasal drip). Antibiotics are prescribed to treat this condition. HOME CARE: 1. Drink plenty of water, hot tea, and other liquids to stay well hydrated. This thins the mucus andpromotes sinus drainage. 2. Apply heat to the painful areas of the face. Use a towel soaked in hot water. Or, pricing clerk the shower and direct the hot spray onto your face. This is a good way to inhale warm water vapor and get heat on your face at the same time. (Cover your mouth and nose with your hands so you can still breathe as you do this.) 3. Use a vaporizer with products such as SRE [place] - 2 VapoRub (contains menthol) at night. Suck on peppermint, menthol or eucalyptus hard candies during the day. 4. An expectorant containing guaifenesin (such as Robitussin), helps to thin the mucus and promote drainage from the sinuses. 5. Bfio-wyb-dovfrhu decongestants may be used unless a similar medicine was prescribed. Nasal sprayswork the fastest. Use one that contains phenylephrine (Meño-synephrine, Sinex and others) or oxymetazoline (Afrin). First blow the nose gently to remove mucus, then apply the drops. Do not use these medicines more often than directed on the label or for more than three days or symptoms may worsen. You may also use tablets containing pseudoephedrine (Sudafed). Many sinus remedies combine ingredients, which may increase side effects. Read the labels or ask the pharmacist for help. NOTE: Persons with high blood pressure should not use decongestants. They can raise blood pressure. 6. Antihistamines are useful if allergies are a cause of your sinusitis. The mildest one is chlorpheniramine (available without a prescription). The dose for adults is 8-12mg three times a day. [NOTE: Do not use chlorpheniramine if you have glaucoma or if you are a man with trouble urinating due to anenlarged prostate.] Claritin (loratidine) is an antihistamine that causes less drowsiness and is a good alternative for daytime use. 7. Do not use nasal rinses or irrigation during an acute sinus infection, unless advised by your doctor. Rinsing may spread the infection to other sinuses. 8. You may use acetaminophen (Tylenol) or ibuprofen (Motrin, Advil) to control pain, unless another pain medicine was prescribed. [ NOTE: If you have chronic liver or kidney disease or ever had a stomach ulcer, talk with your doctor before using these medicines.] (Aspirin should never be used in anyone under 18 years of age who is ill with a fever. It may cause severe liver damage.) 9. Finish the full course, even if you are feeling better after a few days. FOLLOW UP with your doctor or this facility in one week or as instructed by our staff if not improving. GET PROMPT MEDICAL ATTENTION if any of the following occur: ?? Facial pain or headache becomes more severe ?? Stiff neck ?? Unusual drowsiness or confusion, or not acting like your normal self ?? Swelling of the forehead or eyelids ?? Vision problems including blurred or double vision ?? Fever over 101.5?? F (38.6 C) oral for more than three days on antibiotics Seizure ?? [id number] [employer], [address] [place] [address], [place] [address]. All rights reserved. This information is not intended as a substitute for professional medical care. Always follow your healthcare professional's instructions. [id number] SINUS HEADACHE The sinuses are air-filled spaces within the bones of the face. They connect to the inside of the nose. Sinusitis is an inflammation of the tissue lining the sinus cavity. Sinus inflammation can occur during a cold or hay fever (allergies to pollens and other particles in the air) and cause symptoms of sinus congestion and fullness and perhaps a low-grade fever. An infection is usually present when there is also facial pain or headache. There may also be green or yellow drainage from the nose or into the back of the throat (postnasal drip). Antibiotics are often prescribed to treat this condition. Sinus headache may cause pain in different locations, depending on which sinuses are infected. Theremay be pain in the temples, forehead, top of the head, behind or around the eye, across the cheekbone, or into the upper teeth. You may find that changing your position, sitting upright or lying down, will bring some relief. HOME CARE: 1. Drink plenty of water, hot tea, and other liquids to stay well hydrated. This thins the mucus andpromotes sinus drainage. 2. Apply heat to the painful areas of the face. Use a towel soaked in hot water. Or, pricing clerk the shower and direct the hot spray onto your face. This is a good way to inhale warm water vapor and get heat on your face at the same time. (Cover your mouth and nose with your hands so you can still breathe as you do this.) 3. Use a vaporizer with products such as SRE [place] - 2 VapoRub (contains menthol) at night. Suck on peppermint, menthol, or eucalyptus hard candies during the day. 4. An expectorant containing guaifenesin (such as Robitussin) helps to thin the mucus and promote drainage from the sinuses. 5. Znxt-giz-sjnkcdc decongestants may be used unless a similar medicine was prescribed. Nasal sprayswork the fastest. Use one that contains phenylephrine (Meño-Synephrine, Sinex, and others) or oxymetazoline (Afrin). First blow the nose gently to remove mucus, then apply the drops. Do not use these medicines more often than directed on the label or for more than 3 days, or symptoms may worsen. You may also use tablets containing pseudoephedrine (Sudafed). Many sinus remedies combine ingredients, which may increase side effects. Read the labels or ask the pharmacist for help. [NOTE: Persons with high blood pressure should not use decongestants. They can raise blood pressure.] 6. Antihistamines are useful if allergies are a cause of your sinusitis. The mildest one is chlorpheniramine (available without a prescription). The dose for adults is 8-12 mg three times a day. [NOTE:Do not use chlorpheniramine if you have glaucoma or if you are a man with trouble urinating due to an enlarged prostate.] Claritin (loratidine) is an antihistamine that causes less drowsiness and is a good alternative for daytime use. 7. When allergies are the cause for sinusitis, a saline nasal rinse may give relief. Saline nasal rinse reduces swelling and clears excess mucus. This allows sinuses to drain. Prepackaged kits are available at most [facility]. These contain premixed salt packets and an irrigation device. If antibiotics have been prescribed to treat an acute sinus infection, talk to your doctor before using a nasal rinse to be sure it is safe for you. 8. You may use acetaminophen (Tylenol) or ibuprofen (Motrin, Advil) to control pain, unless another pain medicine was prescribed. [NOTE: f22 If you have chronic liver or kidney disease or ever had a stomach ulcer, talk with your doctor before using these medicines.] (Aspirin should never be used in anyone under 18 years of age who is ill with a fever. It may cause severe liver damage.) 9. If antibiotics were given, finish the full course, even if you are feeling better after a few days. FOLLOW UP with your doctor or this facility in one week or as instructed by our staff if not improving. GET PROMPT MEDICAL ATTENTION if any of the following occur: ?? Facial pain or headache becomes more severe ?? Stiff neck ?? Unusual drowsiness or confusion ?? Swelling of the forehead or eyelids ?? Vision problems including blurred or double vision ?? Fever over 100.4?? F (38.0?? C) oral for more than 3 days on antibiotics ?? Bleeding from the nose or throat Seizure ?? [id number] [employer], [address] [place] [address], [place] [address]. All rights reserved. This information is not intended as a substitute for professional medical care. Always follow your healthcare professional's instructions. [id number] INSECT BITE/STING:INFECTED You have been stung or bitten by an insect. There are signs of infection with redness, itching and slight swelling. This will need treatment with antibiotics and should improve over the next ten days. HOME CARE: 1. If itching is a problem, applying ice packs to the sting area will help. 2. Wash the area with soap and water at least three times a day. Apply a topical antibiotic cream orointment (Bacitracin or Polysporin). 3. Oral Benadryl (diphenhydramine) is an antihistamine available at drug and grocery stores. Unless a prescription antihistamine was given, Benadryl may be used to reduce itching if large areas of the skin are involved. Use lower doses during the daytime and higher doses at bedtime since the drug may make you sleepy. [NOTE: Do not use Benadryl if you have glaucoma or if you are a man with trouble urinating due to an enlarged prostate.] Claritin (loratidine) is an antihistamine that causes less drowsiness and is a good alternative for daytime use. 4. If oral ANTIBIOTICS have been prescribed, then be sure to take them as directed until they are all finished. 5. You may use acetaminophen (Tylenol) or ibuprofen (Motrin, Advil) to control pain, unless another pain medicine was prescribed. [NOTE: If you have chronic liver or kidney disease or ever had a stomach ulcer or GI bleeding, talk with your doctor before using these medicines.] FOLLOW UP with your doctor as directed if you do not improve over the next two days or if your symptoms worsen. GET PROMPT MEDICAL ATTENTION if any of the following occur: ?? Spreading areas of redness or swelling ?? Swelling of the face, eyelids, mouth, throat or tongue ?? Difficulty swallowing or breathing ?? Fever over 100.0??F (37.8??C) ?? Increased local pain ?? Headache, fever, chills, muscle or joint aching, vomiting, New rash ?? [id number] [employer], [address] [place] [address], [place] [address]. All rights reserved. This information is not intended as a substitute for professional medical care. Always follow your healthcare professional's instructions. ED Tests and Procedures: Order Status Discharge Prescriptions & Home Medications: Medication/Strength Dose Route Frequency Indications/Special Instructions/Comments fluticasone nasal (Flonase 50 mcg/inh nasal spray) 2 spray(s) Nasal two times a day amoxicillin-clavulanate (amoxicillin-clavulanate 875 mg-125 mg oral tablet) 1 tab(s) Oral two times a day for 10 Days levonorgestrel (Mirena) 1 each once Comment: Attention: If you have any medications [...] arrange a ride home with a responsible republican. I, SHRUTHI MARTINEZ , or aster blas have received this information and my questions havebeen answered. I have discussed any challenges I see with this plan with the nurse or physician. Patient Signature or Responsible Republican/Relationship Date/Time Provider Signature Date/Time Medication Reconciliation: Reconciliation is a process of [...] arrange a ride home with a responsible republican. JUAN Hoyt TASHA MARIE , or responsible republican have received this information and my questions havebeen answered. I have discussed any challenges I see with this plan with the nurse or physician. Patient Signature or Responsible Republican/Relationship Date/Time Provider Signature Date/Time This document has images extracted. Please consider using [employer] for all your patient education needs. Source: [facility] POWERCHART Document Id: [id number] Beltran Russo R.N. - 04/12/2012 12:48 PM CDT ED Depart Summary [facility] Clinical Discharge Summary PERSON INFORMATION Name SHRUTHI MARTINEZ Age 31 Years 1980 12:00 AM Sex Female Language Rwandan PCP LAKHWINDER JULIO RN, STEEP TENDER Marital Status Visit Id Visit Reason Headache; Bee sting; bee sting Specialty Enc Type Emergency Med Service Emergency Medicine Referred by Track Group [facility] ED Discharge 04/12/2012 12:48 PM Tracking Id [id number] Checkout 04/12/2012 12:48 PM Checkin 04/12/2012 11:34 AM Acuity 5 -Non Urgent Dispo Type * Discharged to Home or Self Care Arrival 04/12/2012 11:34 AM Reg Status Complete LOS 000 01:14 Address: [address] [place] [phone] Comment: PROVIDER INFORMATION Provider Role Provider Contact Time SYDNEE ASHER MD ED Provider 04/12/12 11:36 BELTRAN RUSSO SALES AND MARKETING REPRESENTATIVE Nurse 04/12/12 11:36 DIAGNOSIS Acute sinusitis NOS; Insect bite w/ infection Comment: PATIENT EDUCATION INFORMATION Instructions: SINUSITIS, Abx Tx; SINUS HEADACHE; INSECT STING/BITE, Infected Follow up: With: Address: When: LAKHWINDER JULIO [address] [place] [address] Business (1) Within 2 weeks Comments: Source: [facility] [email or web address] Document Id: [id number] documented in this encounter Nursing Notes Beltran Russo RChristianNChristian - 04/12/2012 12:48 PM CDT ED Pain Assessment ED Pain Assessment Entered On: 04/12/2012 12:48 CDT Performed On: 04/12/2012 12:48 CDT by BELTRAN RUSSO RN Pain Assessment Pain Symptoms : Yes BELTRAN RUSSO RN - 04/12/2012 12:48 CDT Source: [facility] [employer] MCICHART Document Id: [id number] Beltran Russo R.N. - 04/12/2012 11:37 AM CDT ED Primary Assessment Document Has Been Updated ED Primary Assessment Entered On: 04/12/2012 11:50 CDT Performed On: 04/12/2012 11:37 CDT by BELTRAN RUSSO RN Reason For Visit Problems(Active) Dysthymic Disorder Name of Problem: Dysthymic Disorder ; Onset Date: 11/05/2011 ; Recorder: LAKHWINDER JULIO RN, CNP; Confirmation: Confirmed ; Classification: Medical ; Code: 1231 ; Last Updated: 11/05/2011 13:32 INTERNAL CONTROL ANALYST ; Life Cycle Status: Active ; Responsible Provider: LAKHWINDER JULIO RN, CNP; Vocabulary: ICD-9-CM Headache Migraine Name of Problem: Headache Migraine ; Onset Date: 11/05/2011 ; Recorder: LAKHWINDER JULIO RN, CNP; Confirmation: Confirmed ; Classification: Medical ; Code: 1231 ; Last Updated: 11/05/2011 13:33 INTERNAL CONTROL ANALYST ; Life Cycle Status: Active ; Responsible Provider: LAKHWINDER JULIO RN, CNP; Vocabulary: ICD-9-CM Polysubstance dependence, unspecified Name of Problem: Polysubstance dependence, unspecified ; OnsetDate: 12/08/2006 ; Recorder: PAOLO MARTNIEZ RN; Confirmation: Confirmed ; Classification: Nursing; Code: 1231 ; Contributor System: [employer] ; Last Updated: 10/13/2010 11:27 INTERNAL CONTROL ANALYST ; Life Cycle Date: 10/13/2010 ; Life Cycle Status: Active ; Responsible Provider: PAOLO MARTINEZ RN; Vocabulary: ICD-9-CM Diagnoses(Active) Bee sting Date: 04/12/2012 ; Diagnosis Type: Reason For Visit ; Confirmation: Complaint of ; Clinical Dx: Bee sting ; Classification: Medical ; Clinical Service: Emergency medicine ; Code: PNED ; Probability: 0 ; Diagnosis Code: [id number] Headache Date: 04/12/2012 ; Diagnosis Type: Reason For Visit ; Confirmation: Complaint of ; ClinicalDx: Headache ; Classification: Medical ; Clinical Service: Emergency medicine ; Code: PNED ; Probability: 0 ; Diagnosis Code: [id number] Triage Chief Complaint Description : 31 year old female presents with c/o migraine headache since she received a bee sting last week. Bee sting on right forearm continues to be red surrounding PERLA BELTRAN Angie RN - 04/12/2012 11:58 CDT Information Given By : Patient Mode of Arrival ED : Private vehicle Track : Medical Languages : Rwandan Vital Signs Assessed : Yes BELTRAN RUSSO RN - 04/12/2012 11:37 CDT Vital Signs Temperature Core : 36.4C(Converted to: 97.5DegF) (LOW) Peripheral Pulse Rate : 100/min Respiratory Rate : 16/min BP Location : Left upper extremity SpO2 : 100% Height : 157cm(Converted to: 5ft 2inch(es)) Actual Weight : 75kg Actual Weight Conversion to Pounds : 165.000lb Dosing Weight : 75kg Dosing Weight Conversion to Pounds : 165.000lb Body Mass Index : 30.43kg/m2 BELTRAN RUSSO RN - 04/12/2012 11:37 CDT Pain Assessment Pain Symptoms : Yes BELTRAN RUSSO RN - 04/12/2012 11:37 CDT Pain Pain Assessment Grid Pain 1 Location : Head Laterality : Bilateral Intensity : 5 Time Pattern : Intermittent Onset : Gradual Quality : Throbbing Pain Radiation : No Aggravating Factors : Light, Movement, Noise Alleviating Factors : None Associated Symptoms : Nausea, Vomiting Interventions : Medications, Rest BELTRAN RUSSO RN - 04/12/2012 11:37 CDT Comfort Measures Comfort Measures Grid Quiet Environment : Yes Rest : Yes BELTRAN RUSSO RN - 04/12/2012 11:37 CDT ED Physician Notification Time ED Physician Notification Time : 04/12/2012 11:46 CDT BELTRAN RUSSO RN - 04/12/2012 11:37 CDT FAINA DCP GENERIC CODE Tracking Group : [facility] ED Tracking Acuity : 5 -Non Urgent BELTRAN RUSSO RN - 04/12/2012 11:37 CDT Allergy Allergies (Active) NKA Estimated Onset Date: Unspecified ; Created By: PAOLO MARTINEZ RN; Reaction Status: Active ; Category: Drug ; Substance: NKA ; Type: Allergy ; Updated By: PAOLO MARTINEZ RN; Reviewed Date: 03/03/2012 12:51 CDT ID Screen Drug Resistant Organism : No BELTRAN RUSSO RN - 04/12/2012 11:37 CDT Immunizations Immunizations Current : Yes BELTRAN RUSSO RN - 04/12/2012 11:37 CDT Respiratory Airway : Patent Respirations : Unlabored Respiratory Pattern : Regular Oxygen Therapy : Room air BELTRAN RUSSO RN - 04/12/2012 11:37 CDT Cardiovascular Heart Rhythm : Regular Skin Color : Normal for ethnicity Skin Description : Dry Skin Temperature : Warm BELTRAN RUSSO RN - 04/12/2012 11:37 CDT Neurological Last Well Time Known : Not applicable Level of Consciousness : Alert Orientation : Oriented x 3 Characteristics of Speech : Appropriate for age Neuro Patient Stated Symptoms : Headache Gait : Steady Swallowing Difficulty/Aspiration Risk : None Loss of Consciousness : No BELTRAN RUSSO RN - 04/12/2012 11:37 CDT ED Psychosocial Affect/Behavior : Calm Domestic Abuse Concerns : None BELTRAN RUSSO RN - 04/12/2012 11:37 CDT Gastrointestinal Nutrition ED : Adequate BELTRAN RUSSO RN - 04/12/2012 11:37 CDT /OB Assessment Patient Stated Symptoms : None Urine Description : Clear Urine Color : Yellow Sexually Active : Yes Status : Patient denies Note : has jose BELTRAN RUSSO RN - 04/12/2012 11:37 CDT Integumentary Integumentary Patient Stated Symptoms : Itching Skin Integrity : Intact Mucous Membrane Color : [place] Mucous Membrane Description : Moist Skin Color : Normal for ethnicity Skin Description : Dry Skin Temperature : Warm BELTRAN RUSSO RN - 04/12/2012 11:37 CDT Skin Abnormality/Location Grid Location : Lower arm Laterality : Right Abnormality : Insect bites, Pruritus BELTRAN RUSSO RN - 04/12/2012 11:37 CDT Musculoskeletal Fall Prevention Education Provided : Yes BELTRAN RUSSO RN - 04/12/2012 11:37 CDT Social Habits Tobacco Use/Currently Using : Yes Tobacco Use/Advised to Quit : Yes Exposure to Tobacco Smoke : Patient smokes Smoking Status : Current every day smoker BELTRAN RUSSO RN - 04/12/2012 11:37 CDT Tobacco Use Grid Type : Cigarettes Cigarette Use Packs/Day : 0.5 Last Use : 04/12/12 BELTRAN RUSSO RN - 04/12/2012 11:37 CDT Alcohol Use Grid Alcohol Use : No BELTRAN RUSSO RN - 04/12/2012 11:37 CDT Recreational Drug Use Grid Drug Use : None PERLAMICHAELJai Adams RN - 04/12/2012 11:37 CDT Source: [facility] [email or web address] Document Id: [id number] documented in this encounter ED Notes Sydnee Asher M.D. - 04/12/2012 1:10 PM CDT sinus pain, bug bites Patient: SHRUTHI MARTINEZ Age: 31 years Sex: Female : 1980 Author: SYDNEE ASHER MD Attachments: None Associated Diagnosis: Insect bite; Insect bite w/ infection; Acute sinusitis NOS Basic Information Time seen: Date 04/12/2012. History source: Patient. Arrival mode: Walking. History limitation: None. Additional information:: Chief Complaint from Nursing Triage Note : Chief Complaint Description. 04/12/2012 11:37 CDT Chief Complaint Description 31 year old female presents with c/o migraine headache since she received a bee sting last week. Bee sting on right forearm continues to be red surrounding (Modified) History of Present Illness Has several concerns. She was stung by a bee on her right forearm about a week ago. She had forgotten about the sting until 399 today, when it started to hurt. It seems more reddened and raised. In addition, she has multiple insect bites on her posterior neck, back and arms, as well as a few on her legs. She tends to scratch them until they are open sores, and has some that are a bit weepy on the left shoulder and nape of the neck. In addition, she has had symptoms of a sinus infection for more than two weeks, and today she has quite a headache. She is a smoker, and has had recurrent infections. Last treated with antibiotics in Oct 2011. These infections trigger headaches for her. She has used a gilson pot once, and tylenol/ibuprofen as well as a topical decongestant spray without much improvement. The patient presents with skin problem. The onset wasOutside frequently, insect bites have been cumulative over past several weeks.. The character of symptoms is pain, itching, bleeding and oozing. Thedegree of symptoms is moderate. Risk factors consist of Son recently diagnosed with MRSA infection.,not diabetes mellitus. Therapy today: none. Associated symptoms: denies fever. Review of Systems Constitutional symptoms: Fatigue, no fever. Eye symptoms: no pain ENMT symptoms: Sore throat, nasal congestion, sinus pain, no ear pain. Respiratory symptoms: no cough Gastrointestinal symptoms: no nausea no vomiting. Neurologic symptoms: Headache. Additional review of systems information:All other systems reviewed and otherwise negative. Health Status Allergies: . Allergic Reactions (Selected) NKA Medications: (Selected). Documented Medications Documented Mirena: 1 each, Once Immunizations: Include Immunizations. Previous Vaccine: Tetanus every 10 years: Dose #1 () 02/22/2010 CDT. Future No future immunizations have been selected or recorded. Menstrual history: Last menstrual period: Irregular, Mirena. Irregular.. Past Medical/ Family/ Social History Medical history: Reviewed as documented in chart. Surgical history: Surgical history. Abdomen ([id number]) in 2012 at 31 Years. Comments: 11/05/2011 13:03 - LULA PIMENTEL LPN left quad mass removed Myomectomy, excision of fibroid tumor(s) of uterus, 1 to 4 intramural myoma(s) with total weight of 250 g or less and/or removal of surface myomas; abdominal approach ([id number]) in 2012 at 31 Years. Appendectomy; ([id number]). 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 Problem list: . All Problems Polysubstance dependence, unspecified / 304.80 / Confirmed Dysthymic Disorder / 300.4 / Confirmed Headache Migraine / 346.90 / Confirmed Physical Examination Vital signs: Per nurse's notes. General: Alert. mild distress. Appears tired, somewhat unkempt.. Skin: Warm. dry. Multiple insect bites in various stages of healing. Some are rice sized, red and slightly raised. Some are raisin sized, excoriated and oozing, particularly a lesion in the scalp at the nape of the neck and another on the posterior left upper shoulder. There is a raised red area the size of a golf ball on the right forearm, with a central punctate red area. No lymphangitis streaking noted.. Head: Normocephalic. Slight tenderness over frontal sinuses to percussion, also maxillary sinuses.. Neck: Supple Eye: Normal conjunctiva Ears, nose, mouth and throat: Oral mucosa moist. Mild pharyngeal redness without exudate. TMs retracted, yellow fluid behind left TM. Cardiovascular: Regular rate and rhythm Respiratory: Respirations are non-labored Back: Normal alignment Neurological: Alert and oriented to person, place, time, and situation Lymphatics: No lymphadenopathy Psychiatric: Cooperative Medical Decision Making Differential Diagnosis:Allergic reaction, cellulitis, insect bites. Documents reviewed:Prior records. Impression and Plan Diagnosis Insect bite (Discharge, Emergency medicine, Medical) Insect bite w/ infection (Discharge, Emergency medicine, Medical) Acute sinusitis NOS (Discharge, Emergency medicine, Medical) Discharge plan Condition: Stable. Dispositioned: To home. Prescriptions: AUGMENTIN 875 mg BID x10 days. FLONASE 2 squirts each nostril BID.. Patient was given the following educational materials: SINUSITIS, Abx Tx, SINUS HEADACHE, INSECT STING/BITE, Infected. Follow up with: LAKHWINDER JULIO Within 2 weeks. Counseled: Patient, Regarding diagnosis, Regarding treatment plan, Patient indicated understanding of instructions. Notes: May require CT sinuses if not improving. Obviously, smoking cessation would help. Discussed use of insect repellant, avoiding scratching, hand hygiene to avoid spreading infection from excoriated lesion to other lesions.. Electronically Signed By: SYDNEE ASHER MD On: 04/12/2012 01:54 PM Modified by and Electronically Signed by: SYDNEE ASHER MD On: 04/12/2012 01:48 PM Source: [facility] POWERCHART Document Id: [id number]} Beltran Russo R.N. - 04/12/2012 12:44 PM CDT ED Disposition Summary ED Disposition Summary Entered On: 04/12/2012 12:44 CDT Performed On: 04/12/2012 12:44 CDT by BELTRAN RUSSO RN ED Disposition Summary Accompanied By : Alone Mode of Discharge : Ambulatory Printed Discharge Instructions Given to Patient : Yes BELTRAN RUSSO RN - 04/12/2012 12:44 CDT Source: [employer] Document Id: [id number] Beltran Russo R.N. - 04/12/2012 12:44 PM CDT ED Disposition Summary ED Disposition Summary Entered On: 04/12/2012 12:45 CDT Performed On: 04/12/2012 12:44 CDT by BELTRAN RUSSO RN ED Disposition Summary Accompanied By : Alone Mode of Discharge : Ambulatory Transportation : Private vehicle Printed Discharge Instructions Given to Patient : Yes Patient Status at Discharge from ED : Unchanged BELTRAN RUSSO RN - 04/12/2012 12:44 CDT Source: [employer] Document Id: [id number] documented in this encounter Miscellaneous Notes Miscellaneous - Beltran Russo RInessa - 04/12/2012 12:48 PM CDT Valuables/Belongings Valuables/Belongings Entered On: 04/12/2012 12:48 CDT Performed On: 04/12/2012 12:48 CDT by BELTRAN RUSSO RN Valuables/Belongings Home Medication Disposition : None brought in with patient BELTRAN RUSSO RN - 04/12/2012 12:48 CDT Source: [employer] Document Id: [id number] Miscellaneous - Beltran Russo R.N. - 04/12/2012 11:34 AM CDT Facility Charge Ticket Facility Charge Ticket Entered On: 04/12/2012 12:48 CDT Performed On: 04/12/2012 11:34 CDT by BELTRAN RUSSO RN Facility Charge TVL Level for Facility Charge Ticket : Level 4 Mode of Arrival ED : Private vehicle [facility] Mode of Arrival Interpreted : Standard [facility] Process Management : None [facility] Order Management : None 30 Minutes Critical Care : No [facility] Nursing Assessment : Triage and 1-2 nursing assessments [facility] Disposition : Discharge [facility] Total Points with Diagnosis Control : 7 [facility] Visit Level : 43452 Level 3 BELTRAN RUSSO RN - 04/12/2012 12:48 CDT [facility] Document Id: [id number] documented in this encounter Plan of Treatment Not on filedocumented as of this encounter Visit Diagnoses Not on filedocumented in this encounter Additional Health Concerns Assessment Noted Time PHQ-9 Depression Total Score: 17 11/05/2011 9:30 AM CS T documented as of this encounter
--- OUTSIDE RECORDS SUMMARY | 2022-05-17 14:03 | XMS_ITS | Encounter Summary ---
:1980 Author Organization [facility] Address [address] [place] [address] Care Team Providers Name Role Phone Unavailable Primary Care Provider Unavailable Encounter Details Date Type Department Care Team Description 03/05/[address] [facility] MRI Lakhwinder Julio AP RN, C.N.P., D.N.P. [address] [place], [place] [phone] (Wo rk) Social History Tobacco Use Types Packs/Day Years Used Date Smoking Tobacco: Never Assessed Sex Assigned at Date Recorded Not on file documented as of this encounter Miscellaneous Notes Miscellaneous - Lakhwinder Julio, AUREA, C.N.P. - 03/06/2012 8:29 PM CDT Results Notification Document Contains Addenda Addendum by LULA PIMENTEL LPN on 10 March 2012 13:59:24 CDT Patient called and was updated From: ALKHWINDER JULIO RN, GLOVE CUTTER To: STEPHANIE CABALLERO LPN; Sent: 03/06/2012 20:29:30 CDT Show up: 03/06/2012 20:30:00 CDT Subject: Results Notification Actions: Notify patient-refer to General Message please report to her that her shoulder is Mild supraspinatus and infraspinatus tendinopathy. She needs to rest it. Results: Date Result Type Result Name 03/06/2012 11:23 Radiology MR Joint Upper Ext w/o contrast Left Source: [facility] POWERCHART Document Id: [id number] Electronically signed by Conversion, [facility] Digital Communications Manager [id number] at 02/09/2017 7:30 PM CDT documented in this encounter Plan of Treatment Not on filedocumented as of this encounter Visit Diagnoses Not on filedocumented in this encounter Additional Health Concerns Assessment Noted Time PHQ-9 Depression Total Score: 17 11/05/2011 9:30 AM CS T documented as of this encounter
--- OUTSIDE RECORDS SUMMARY | 2022-05-17 14:03 | XMS_ITS | Encounter Summary ---
:1980 Author Organization [facility] Address [address] [place] [address] Care Team Providers Name Role Phone Unavailable Primary Care Provider Unavailable Encounter Details Date Type Department Care Team Description 09/04/2011 Hospital Encounter HX NO MAPPING Social History Tobacco Use Types Packs/Day Years Used Date Smoking Tobacco: Never Assessed Sex Assigned at Date Recorded Not on file documented as of this encounter Plan of Treatment Not on filedocumented as of this encounter Visit Diagnoses Not on filedocumented in this encounter
--- OUTSIDE RECORDS SUMMARY | 2022-05-17 14:03 | XMS_ITS | Encounter Summary ---
:1980 Author Organization [facility] Address [address] [place] [address] Care Team Providers Name Role Phone Unavailable Primary Care Provider Unavailable Encounter Details Date Type Department Care Team Description 03/21/2005 Hospital Encounter [facility] OBGYN Monica Eid APR N, C.N.P. [address] [place], [place] [phone] (Wo rk) Social History Tobacco Use Types Packs/Day Years Used Date Smoking Tobacco: Never Assessed Sex Assigned at Date Recorded Not on file documented as of this encounter Progress Notes Monica Eid, C.N.P., R.N. - 03/21/2005 9:00 AM CDT [id number] Shruthi is here for a 6-week checkup. She had a and induced vaginal delivery of a viable girl, weight 7 pounds 11 oz., with no complications. Since delivery, she has not been breast feeding. She has no signs of infection, bleeding or other complications. She is not . We discussed contraceptions and she has chosen condoms. Complains of RUQ pain when walking more than one block, had this a few years ago and was evaluated, never improved. EXAM: HEENT: grossly normal. NECK: no lymphadenopathy or thyroidomegaly. LUNGS: CTA X 2, no rales or crackles. BACK: No spinal or CVA tenderness. HEART: RRR without murmurs clicks or gallops. ABDOMEN: soft, non tender, good bowel sounds, without masses rebound, guarding or tenderness. PELVIC: External genitalia: normal without lesion, repair well healed. Vagina: normal mucosa and rugae, no discharge. Cervix: multiparous, well healed, without lesion. Uterus: non in size, firm , mobile, no lesions. Adnexa: non tender, without masses, EXTREMITIES: Warm to touch, good pulses, no ankle edema or calf tenderness. NEUROLOGIC: grossly normal. ASSESSMENT: Normal 6-week exam after induced vaginal delivery. PLAN: Condoms for contraception. Referral to Int Med for RUQ pain Source: [facility] Document Id: [id number] documented in this encounter Plan of Treatment Not on filedocumented as of this encounter Visit Diagnoses Not on filedocumented in this encounter
--- OUTSIDE RECORDS SUMMARY | 2022-05-17 14:03 | XMS_ITS | Encounter Summary ---
:1980 Author Organization [facility] Address [address] [place] [address] Care Team Providers Name Role Phone Unavailable Primary Care Provider Unavailable Encounter Details Date Type Department Care Team Description 05/30/2012 Hospital Encounter HX NO MAPPING Marcial Norwood, [...]
--- OUTSIDE RECORDS SUMMARY | 2022-05-17 14:03 | XMS_ITS | Encounter Summary ---
:1980 Author Organization [facility] Address [address] [place] [address] Care Team Providers Name Role Phone Unavailable Primary Care Provider Unavailable Encounter Details Date Type Department Care Team Description 04/26/2010 Hospital Encounter [facility]X [facility] INPT/OBSRV Belinda Smith APRN, C.N.P., R.N. [address] [place] [phone] (Wo rk) Social History Tobacco Use Types Packs/Day Years Used Date Smoking Tobacco: Never Assessed Sex Assigned at Date Recorded Not on file documented as of this encounter Plan of Treatment Not on filedocumented as of this encounter Visit Diagnoses Not on filedocumented in this encounter
--- OUTSIDE RECORDS SUMMARY | 2022-05-17 14:03 | XMS_ITS | Encounter Summary ---
:1980 Author Organization [facility] Address [address] [place] [address] Care Team Providers Name Role Phone Unavailable Primary Care Provider Unavailable Encounter Details Date Type Department Care Team Description 12/15/2009 Hospital Encounter [facility] INPT/OBSRV Rod North M.D. [address] [place] [address] (Wo rk) Social History Tobacco Use Types Packs/Day Years Used Date Smoking Tobacco: Never Assessed Sex Assigned at Date Recorded Not on file documented as of this encounter Plan of Treatment Not on filedocumented as of this encounter Visit Diagnoses Not on filedocumented in this encounter
--- OUTSIDE RECORDS SUMMARY | 2022-05-17 14:03 | XMS_ITS | Encounter Summary ---
:1980 Author Organization [facility] Address [address] [place] [address] Care Team Providers Name Role Phone Unavailable Primary Care Provider Unavailable Encounter Details Date Type Department Care Team Description 08/06/2011 Hospital Encounter [facility]X [facility] ULTRASOUN Diana Armijo, AUREA, C.N.P., D. N.P. [address] [place] [phone] (Wo rk) Social History Tobacco Use Types Packs/Day Years Used Date Smoking Tobacco: Never Assessed Sex Assigned at Date Recorded Not on file documented as of this encounter Plan of Treatment Not on filedocumented as of this encounter Visit Diagnoses Not on filedocumented in this encounter
--- OUTSIDE RECORDS SUMMARY | 2022-05-17 14:03 | XMS_ITS | Encounter Summary ---
:1980 Author Organization [facility] Address [address] [place] [address] Care Team Providers Name Role Phone Unavailable Primary Care Provider Unavailable Encounter Details Date Type Department Care Team Description 02/29/2012 Hospital En[facility] Lee Stone III, M.D. [address] [place] [phone] (Wo rk) Social History Tobacco Use Types Packs/Day Years Used Date Smoking Tobacco: Never Assessed Sex Assigned at Date Recorded Not on file documented as of this encounter Last Filed Vital Signs Vital Sign Reading Time Taken Comments Blood Pressure 118/64 02/29/2012 10:49 AM CDT Pulse 68 02/29/2012 10:49 AM CDT Temperature - - Respiratory Rate 16 02/29/2012 10:49 AM CDT Oxygen Saturation - - Inhaled Oxygen Concentration - - Weight - - Height - - Body Mass Index - - documented in this encounter Progress Notes Yissel Stone M.D. - 02/29/2012 12:00 AM CDT [id number] CHIEF COMPLAINT/REASON FOR VISIT Shoulder pain. HISTORY OF PRESENT ILLNESS Mr. Diop is a 31-year-old white female with a past medical history significant for dysthymic disorder, migraine headaches, and polysubstance dependence. She comes in today with complaints of left shoulder pain. She describes that pain as approximately 8/10 in intensity. She states that it has been there for approximately one week. She went to a chiropractor and she feels that made her pain worse. She did go to the Emergency Room in [place] yesterday and states that she continues to have pain. She was told by the chiropractor that this may be a disc issue. She states that at its worst the pain is 10/10 in intensity. It is 8/10 in intensity at present. Breathing seems to increase her pain as does coughing. She has been taking Flexeril for the last two days with mild improvement of her symptoms. 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 She smokes about a half pack of cigarettes each day and rarely drinks alcohol. She denies recreational drug use at this time. SYSTEM REVIEW Pertinent positives and negatives are noted above. The remainder of the complete review of systems is negative. PAST MEDICAL/SURGICAL HISTORY 1. Dysthymic disorder. 2. Migraine headaches. 3. Polysubstance dependence. VITAL SIGNS TEMPERATURE: 36.4 degreesC PULSE: 68 RESPIRATIONS: 16 BLOOD PRESSURE: 118/64 PHYSICAL EXAM GENERAL: The patient is alert and cooperative. She is in no acute distress at this time. MUSCULOSKELETAL: Evaluation of her shoulder shows full range of motion. She is able to lift her arms up above her head. Any type of straining causes pain along the rhomboids and infraspinatus muscle. Palpation of the trapezius does not reproduce her pain. Internal and external rotation which require stabilization of the shoulder against the rib cage causes pain in that same area. The rotator cuff otherwise appears to be intact with the exception of pain produced by stabilization of the shoulder. Impingement signs are negative. IMPRESSION/REPORT/PLAN Muscle spasm. Plan: We discussed the risks, benefits, and alternatives of doing a trigger point injection into the rhomboid and infraspinatus muscle. Using 3 cubic centimeters of 1/2 % Marcaine, we introduced a 25 gauge needle and then injected in a wheel fashion 3 cubic centimeters in two spots, one in the inferior rhomboid and the other in the infraspinatus muscle. She got mild improvement of her symptoms at the time of her injection. If her symptoms worsen over the weekend, she can always consider following up in the Emergency Department. I am going to give her a prescription for some Flexeril. I don't think opioids are appropriate for this particular condition. Her questions were answered and reassurance was given. Yissel Stone III, M.D. /marcela Electronically Signed By: YISSEL STONE III, MD On: 03/10/2012 01:43 PM Source: [facility] MHSDOLBEYNELSA Document Id: [id number] documented in this encounter Miscellaneous Notes Eunicecellaneous - Yissel Stone M.D. - 02/29/2012 11:46 AM CDT Ambulatory Depart Summary [address] [id number] Visit Information Name: ROSANA DIOP Visit Date: 02/29/2012 11:46:08 Attending Provider: YISSEL STONE III, MD Primary Care Provider: LAKHWINDER JULIO RN, PRODUCT DESIGNER ROSANA DIOP has been given the following list of medications: Your Medications It is important to take your medications as directed. Use a pill box or chart to help remind you to take your medications. Please let your doctor or nurse know if you have problems taking your medications. Medication/Strength Dose Route Frequency Indications/Special Instructions/Comments cyclobenzaprine (Flexeril 10 mg oral tablet) 10 mg Oral three times a day as needed for Muscle spasmMuscle spasm ibuprofen (ibuprofen 200 mg oral tablet) 400 mg Oral every 4 hours as needed for Pain / Fever Take with food Attention: If you have any medications at home that are not on this list, DO NOT take them until youcontact your provider for clarification. Additional Information: Source: [facility] POWERCHART Document Id: [id number] Eunicecellaneous - Yissel Stone M.D. - 02/29/2012 11:46 AM CDT Ambulatory Patient Summary [address] [address] Visit Information Name: ROSANA DIOP Current Date: 02/29/2012 11:46:08 Physicians Attending Provider: YISSEL STONE III, MD Primary Care Provider: LAKHWINDER JULIO RN, PRODUCT DESIGNER Your Medications Here is a list of your medications. It is important to take your medications as directed. Use a pillbox or chart to help remind you to take your medications. Please let your doctor or nurse know if you have problems taking your medications. Medication/Strength Dose Route Frequency Indications/Special Instructions/Comments cyclobenzaprine (Flexeril 10 mg oral tablet) 10 mg Oral three times a day as needed for Muscle spasmMuscle spasm ibuprofen (ibuprofen 200 mg oral tablet) 400 mg Oral every 4 hours as needed for Pain / Fever Take with food Attention: If you have any medications at [...] No Appointments found Your Goals/Additional instructions: Source: [facility] POWERCHART Document Id: [id number] Miscellaneous - Ni Cyr L.P.N. - 02/29/2012 10:49 AM CDT Adult Assistant Account Manager Intake/History Adult Assistant Account Manager Intake/History Entered On: 02/29/2012 10:51 CDT Performed On: 02/29/2012 10:49 CDT by NI CYR LPN Intake Chief Complaint : consult re: left shoullder blade pain Onset of Symptoms : 5 days Temperature Core : 36.4C(Converted to: 97.5DegF) (LOW) Peripheral Pulse Rate : 68/min Respiratory Rate : 16/min Heart Rhythm : Regular Systolic Blood Pressure : 118mmHg Diastolic Blood Pressure : 64mmHg NIBP Mean : 82mmHg BP Location : Right upper extremity Blood Pressure Cuff Size : Regular Weight Source : Other: refused NI CYR LPN - 02/29/2012 10:49 CDT Subjective Pain Symptoms : Yes NI CYR LPN - 02/29/2012 10:49 CDT Pain Pain Assessment Grid Pain 1 Location : Shoulder Laterality : Left Intensity : 8 NI CYR LPN - 02/29/2012 10:49 CDT Dependent Habits Tobacco Use/Currently Using : Yes Tobacco Use/Advised to Quit : Yes Exposure to Tobacco Smoke : Patient smokes Smoking Status : Current every day smoker NI CYR [facility] - 02/29/2012 10:49 CDT Tobacco Use Grid Type : Cigarettes Cigarette Use Packs/Day : 0.5 NI CYR [facility] 02/29/2012 10:49 CDT Alcohol Use : Yes NI CYR [facility] 02/29/2012 10:49 CDT Caffeine Use Grid Caffeine Use : Current Type : Soft drinks NI CYR [facility] 02/29/2012 10:49 CDT Recreational Drug Use Grid Drug Use : None NI CYR [facility] 02/29/2012 10:49 CDT Allergy Allergies (Active) NKA Estimated Onset Date: Unspecified ; Created By: PAOLO MARTINEZ RN; Reaction Status: Active ; Category: Drug ; Substance: NKA ; Type: Allergy ; Updated By: PAOLO MARTINEZ RN; Reviewed Date: 11/05/2011 13:32 [employer] DEVELOPER Source: [facility] POWERCHART Document Id: [id number] documented in this encounter Plan of Treatment Not on filedocumented as of this encounter Visit Diagnoses Not on filedocumented in this encounter Additional Health Concerns Assessment Noted Time PHQ-9 Depression Total Score: 17 11/05/2011 9:30 AM CS T documented as of this encounter
--- OUTSIDE RECORDS SUMMARY | 2022-05-17 14:03 | XMS_ITS | Encounter Summary ---
:1980 Author Organization [facility] Address [address] [place] [address] Care Team Providers Name Role Phone Unavailable Primary Care Provider Unavailable Encounter Details Date Type Department Care Team Description 11/05/2011 Hospital Encounter HX [facility] Lakhwinder Julio APRN, C.N.P., D. N.P. [address] [place] [address] (Wo rk) Social History Tobacco Use Types Packs/Day Years Used Date Smoking Tobacco: Never Assessed Sex Assigned at Date Recorded Not on file documented as of this encounter Last Filed Vital Signs Vital Sign Reading Time Taken Comments Blood Pressure 116/70 11/05/2011 12:57 PM APARTMENT COMMUNITY MANAGER Pulse 94 11/05/2011 12:57 PM APARTMENT COMMUNITY MANAGER Temperature - - Respiratory Rate 18 11/05/2011 12:57 PM APARTMENT COMMUNITY MANAGER Oxygen Saturation - - Inhaled Oxygen Concentration - - Weight 72.8 kg (160 lb 7.9 oz) 11/05/2011 12:57 PM APARTMENT COMMUNITY MANAGER Height - - Body Mass Index 29.16 10/15/2011 7:47 AM APARTMENT COMMUNITY MANAGER documented in this encounter Progress Notes Lakhwinder Julio APRN, C.N.P. - 11/05/2011 12:00 AM CST [id number] CHIEF COMPLAINT/REASON FOR VISIT 1. Sinus infection. 2. Anxiety disorder. 3. Headaches. HISTORY OF PRESENT ILLNESS 1. Rosana is a very pleasant 31-year-old female who has a history of substance abuse and has recently noted that she has been much more irritable and feels somewhat down. She reports feeling very anxious and small things bother her significantly. Her grandmother who is a nurse had shared that she thinks she may have anxiety disorder or depression. She is here today for evaluation of that. She also has had a 3-week history of chronic frontal head pain that triggers migraine headaches for her. She has had rhinorrhea and felt very rundown. She has no fever that she is aware of. She can note postnasal drainage. The pressure is much worse when she leans forward. She has now noted yellow and green sinus drainage which provoked her for her treatment today. She does have a history of sinus infections and she is a smoker. CURRENT MEDICATIONS New reconciled medications are: Prozac 20 mg daily. Levaquin 500 mg daily for 14 days. ALLERGIES No known drug allergies. SYSTEMS REVIEW As noted above. PAST MEDICAL/SURGICAL HISTORY As noted in the EMR. SOCIAL HISTORY She is a smoker. VITAL SIGNS Her temperatures 36.7. Her weight is 72.8 kg. PHYSICAL EXAMINATION GENERAL: Patient appears nondistressed. SKIN: Skin is warm and dry. HEAD: She does have significant frontal and submaxillary sinus tenderness. ENT: Ears with fluid noted behind her TMs bilaterally. Nose with erythremic boggy turbinates. Throat with postnasal drainage noted. LYMPH: A few shoddy anterior cervical lymph nodes are noted. Thyroid assessed and negative. CARDIOVASCULAR: Heart with a regular rate and rhythm. LUNGS: Clear to auscultation. Patient's PHQ9 score was noted to be 17. IMPRESSION/REPORT/PLAN 1. Sinus infection. I do believe that this is a significant sinus infection. She has had recurrence of this in the past. She has been told that she should be on preventative medication antibiotics rotating for this. I do not feel that this is a good treatment method and instead will treat her with Levaquin 500 mg by mouth daily for 14 days. I did talk to her about a potential yeast infection, side effects of the medication, and correct administration and she will report if no improvement or any worsening symptoms. We did discuss nasal irrigation which I think will be a mccullough for her to prevent this from reoccurring. 2. Dysthymic disorder. I will start her Prozac 20 mg by mouth daily and plan to see her back in about 6-8 weeks for a recheck. She is agreeable to that. 3. Migraine headaches. I think they are being triggered by her sinus infection. I do not want to start any treatment for that until this has cleared. Patient agrees with that plan. PATIENT EDUCATION: Ready to learn No apparent learning barriers were identified Learning preferences include listening Explained diagnosis and treatment plan Patient/Child/Caregiver expressed understanding of the content Lakhwinder Julio N.P. /marcela Electronically Signed By: LAKHWINDER JULIO RN, CNP On: 11/09/2011 07:57 AM Source: [facility] [id number] Document Id: [id number] TMENT COMMUNITY MANAGER documented in this encounter Nursing Notes Lula Duarte L.P.N. - 02/26/2012 8:32 AM CDT Orders for follow up office visit 01/04/12 cancelled per provider Electronically Signed By: LULA DUARTE LPN On: 02/26/2012 08:33 AM Source: [facility] POWERCHART Document Id: [id number] documented in this encounter Miscellaneous Notes Miscellaneous - Lakhwinder Julio APRN, C.N.P. - 11/05/2011 9:48 PM CST Ambulatory Patient Summary [address] [address] Visit Information Name: ROSANA MARTINEZ Current Date: 11/05/2011 21:48:09 Physicians Attending Provider: LAKHWINDER JULIO RN, DIRECTOR VALIDATION Primary Care Provider: LAKHWINDER JULIO RN, YENY Your Medications Here is a list of your medications. It is important to take your medications as directed. Use a pillbox or chart to help remind you to take your medications. Please let your doctor or nurse know if you have problems taking your medications. Medication/Strength Dose Route Frequency Indications/Special Instructions/Comments levofloxacin (Levaquin 500 mg oral tablet) 500 mg Oral once a day for 14 Days fluoxetine (Prozac 20 mg oral capsule) 20 mg Oral once a day Attention: If you have any medications at home that are not on this list, DO NOT take them until youcontact your provider for clarification. Your Allergies & Intolerances Substance Reaction Symptoms Category Comments NKA Drug Your Problem List Problem Status Onset Comments Polysubstance dependence, unspecified Active 12/08/2006 Dysthymic Disorder Active 11/05/2011 Headache Migraine Active 11/05/2011 Your Recommendations We want to make sure you get the tests, immunizations, and guidance you need to stay healthy. Here is a customized list of recommendations, based on information we have in your medical record. Your doctor may have additional recommendations for you, based on your personal medical history and risk factors. You can help us by calling us to make an appointment when you are due for your tests. Additional information regarding recommendations: Test/Treatment Last Done Next Due Additional Information Depression: PHQ-9 every 6 months 11/05/2011 Health Assessment every 1 year 11/05/2011 11/04/2012 Screening Pap Smear every 3 years Women 21-65 11/05/2011 Checks for signs of cancer of the cervix. Lipid Panel every 5 years Age 20-75 11/05/2011 Checks blood for good (HDL) and bad (LDL) cholesterol. Know your numbers, they are one indicator of your risk for heart attack and stroke. Vaccine: Tetanus every 10 years 11/05/2011 Immunization to help prevent you from getting the seriousdisease Tetanus (Lockjaw). Your Upcoming Appointments Date Time Location Reason Provider No Appointments found Your Goals/Additional instructions: Source: [facility] POWERCHART Document Id: [id number] TMENT COMMUNITY MANAGER Miscellaneous - Lakhwinder Julio APRN, C.N.P. - 11/05/2011 9:48 PM CST Ambulatory Depart Summary [address] [address] Visit Information Name: ROSANA MARTINEZ Visit Date: 11/05/2011 21:48:08 Attending Provider: LAKHWINDER JULIO RN, DIRECTOR VALIDATION Primary Care Provider: LAKHWINDER JULIO RN, DIRECTOR VALIDATION ROSANA MARTINEZ has been given the following list of medications: Your Medications It is important to take your medications as directed. Use a pill box or chart to help remind you to take your medications. Please let your doctor or nurse know if you have problems taking your medications. Medication/Strength Dose Route Frequency Indications/Special Instructions/Comments levofloxacin (Levaquin 500 mg oral tablet) 500 mg Oral once a day for 14 Days fluoxetine (Prozac 20 mg oral capsule) 20 mg Oral once a day Attention: If you have any medications at home that are not on this list, DO NOT take them until youcontact your provider for clarification. Additional Information: Source: [facility] POWERCHART Document Id: [id number] TMENT COMMUNITY MANAGER Miscellaneous - Lula Duarte L.P.N. - 11/05/2011 1:01 PM CST Health Assessment Health Assessment Entered On: 11/05/2011 13:02 APARTMENT COMMUNITY MANAGER Performed On: 11/05/2011 13:01 APARTMENT COMMUNITY MANAGER by LULA DUARTE LPN Health Assessment Complete Health Assessment Complete or Modified : Annual Health Assessment Annual Health Assessment Completed : Yes LULA DUARTE LPN - 11/05/2011 13:01 APARTMENT COMMUNITY MANAGER Nutrition Nutrition Risk Factors by History Adult : None LULA DUARTE LPN - 11/05/2011 13:01 APARTMENT COMMUNITY MANAGER Functional Current Daily Living Assistance : None LULA DUARTE LPN - 11/05/2011 13:01 APARTMENT COMMUNITY MANAGER Dependent Habits Tobacco Use/Currently Using : Yes Exposure to Tobacco Smoke : Patient smokes Smoking Status : Current every day smoker LULA DUARTE LPN - 11/05/2011 13:01 APARTMENT COMMUNITY MANAGER Tobacco Use Grid Type : Cigarettes Cigarette Use Packs/Day : 0.5 LULA DUARTE LPN - 11/05/2011 13:01 APARTMENT COMMUNITY MANAGER Caffeine Use Grid Caffeine Use : Current Type : Soft drinks LULA DUARTE LPN - 11/05/2011 13:01 APARTMENT COMMUNITY MANAGER Recreational Drug Use Grid Drug Use : None LULA DUARTE LPN - 11/05/2011 13:01 APARTMENT COMMUNITY MANAGER Psychosocial Domestic Abuse Concerns : None LULA DUARTE LPN - 11/05/2011 13:01 APARTMENT COMMUNITY MANAGER Advance Directive Advanced Directives : No LULA DUARTE LPN - 11/05/2011 13:01 APARTMENT COMMUNITY MANAGER Educ Needs Learning Style Preference Adult Grid Patient : [place] Family : None LULA DUARTE LPN - 11/05/2011 13:01 APARTMENT COMMUNITY MANAGER Source: [facility] POWERCHART Document Id: [id number] APARTMENT COMMUNITY MANAGER!31 TMENT COMMUNITY MANAGER Miscellaneous - Lula Duarte L.PChristianNChristian - 11/05/2011 12:57 PM CST Adult Matrix Repairer Intake/History Adult Matrix Repairer Intake/History Entered On: 11/05/2011 13:01 APARTMENT COMMUNITY MANAGER Performed On: 11/05/2011 12:57 APARTMENT COMMUNITY MANAGER by LULA DUARTE LPN Intake Chief Complaint : sinus infection not going away migraines questions anxiety Onset of Symptoms : couple weeks Temperature Core : 37C(Converted to: 98.6DegF) Peripheral Pulse Rate : 94/min Respiratory Rate : 18/min Heart Rhythm : Regular Systolic Blood Pressure : 116mmHg Diastolic Blood Pressure : 70mmHg NIBP Mean : 85mmHg BP Location : Left upper extremity Blood Pressure Cuff Size : Regular SpO2 : 99% Oxygen Therapy : Room air Actual Weight : 72.8kg(Converted to: 160lb 8oz) Weight Source : Standing scale Dosing Weight Clinic : 72.80kg LULA DUARTE LPN - 11/05/2011 12:57 APARTMENT COMMUNITY MANAGER Subjective Pain Symptoms : Yes LULA DUARTE LPN - 11/05/2011 12:57 APARTMENT COMMUNITY MANAGER Pain Pain Assessment Grid Pain 1 Location : Head Laterality : Bilateral Intensity : 6 LULA DUARTE LPN - 11/05/2011 12:57 APARTMENT COMMUNITY MANAGER Dependent Habits Tobacco Use/Currently Using : Yes Tobacco Use/Advised to Quit : Yes Exposure to Tobacco Smoke : Patient smokes Smoking Status : Current every day smoker LULA DUARTE LPN - 11/05/2011 12:57 APARTMENT COMMUNITY MANAGER Tobacco Use Grid Type : Cigarettes Cigarette Use Packs/Day : 0.5 LULA DUARTE LPN - 11/05/2011 12:57 APARTMENT COMMUNITY MANAGER Alcohol Use : Yes LULA DUARTE LPN - 11/05/2011 12:57 APARTMENT COMMUNITY MANAGER Caffeine Use Grid Caffeine Use : Current Type : Soft drinks LULA DUARTE LPN - 11/05/2011 12:57 APARTMENT COMMUNITY MANAGER Recreational Drug Use Grid Drug Use : None LULA DUARTE LPN - 11/05/2011 12:57 APARTMENT COMMUNITY MANAGER Allergy Allergies (Active) NKA Estimated Onset Date: Unspecified ; Created By: PAOLO MARTINEZ RN; Reaction Status: Active ; Category: Drug ; Substance: NKA ; Type: Allergy ; Updated By: PAOLO MARTINEZ RN; Reviewed Date: 08/01/2011 13:23 APARTMENT COMMUNITY MANAGER Source: [employer] Document Id: [id number] APARTMENT COMMUNITY MANAGER!43 TMENT COMMUNITY MANAGER Miscellaneous - Lula Duarte LChristianP.NChristian - 11/05/2011 9:30 AM CST PHQ-9 PHQ-9 Entered On: 11/07/2011 9:31 APARTMENT COMMUNITY MANAGER Performed On: 11/05/2011 9:30 APARTMENT COMMUNITY MANAGER by LULA DUARTE LPN PHQ-9 Little interest or pleasure in doing things : More than half the days Feeling down, depressed, or hopeless : More than half the days Trouble falling or staying asleep, or sleeping too much : More than half the days Feeling tired or having little energy : Nearly every day Poor appetite or overeating : More than half the days Feeling bad about yourself or that you are a failure : More than half the days Trouble concentrating on things : More than half the days Moving or speaking slowly; restless or fidgety : More than half the days Thoughts that you would be better off /hurting self : Not at all PHQ-9 Calculated Score : 17 Problems make work, home, or dealing with others : Somewhat difficult LULA DUARTE LPN - 11/07/2011 9:30 APARTMENT COMMUNITY MANAGER Source: [employer] Document Id: [id number] APARTMENT COMMUNITY MANAGER!13 TMENT COMMUNITY MANAGER documented in this encounter Plan of Treatment Not on filedocumented as of this encounter Visit Diagnoses Not on filedocumented in this encounter Additional Health Concerns Assessment Noted Time PHQ-9 Depression Total Score: 17 11/05/2011 9:30 AM CS T documented as of this encounter
--- OUTSIDE RECORDS SUMMARY | 2022-05-17 14:03 | XMS_ITS | Encounter Summary ---
:1980 Author Organization [facility] Address [address] [place] [address] Care Team Providers Name Role Phone Unavailable Primary Care Provider Unavailable Encounter Details Date Type Department Care Team Description 02/15/2009 Hospital Encounter HX [facility] IN[facility]BSRV Geetha Mckeon M.D. [address] [place], [place] [address] (Wo rk) Social History Tobacco Use Types Packs/Day Years Used Date Smoking Tobacco: Never Assessed Sex Assigned at Date Recorded Not on file documented as of this encounter Plan of Treatment Not on filedocumented as of this encounter Visit Diagnoses Not on filedocumented in this encounter
--- OUTSIDE RECORDS SUMMARY | 2022-05-17 14:03 | XMS_ITS | Encounter Summary ---
:[address] [facility] Address [address] [place] [address] Care Team Providers Name Role Phone Unavailable Primary Care Provider Unavailable Encounter Details Date Type Department Care Team Description 08/01/2011 Hospital Encounter HX [facility] Diana Armijo, MARITO N, C.N.P., D.N.P. [address] [place], [place] [address] (Wo rk) Social History Tobacco Use Types Packs/Day Years Used Date Smoking Tobacco: Never Assessed Sex Assigned at Date Recorded Not on file documented as of this encounter Procedure Notes [place] RInessa - 08/01/2011 3:35 PM CST Peripheral IV Peripheral IV Entered On: 08/01/2011 15:43 ENTERPRISE SERVICES MANAGER Performed On: 08/01/2011 15:35 ENTERPRISE SERVICES MANAGER by EL GILL RN Peripheral IV Peripheral IV Assess/Intervention Grid Peripheral IV #1 IV Activity : Discontinue Number of Attempts : 2 Date of Insertion : 08/01/2011 ENTERPRISE SERVICES MANAGER IV Site : Cephalic vein Laterality : Right Catheter Size : 18 Catheter Type : Over the needle Site Condition : No complications Drainage Description : None Site/Line Care : Secured with tape Dressing/ Activity : Dry, Intact, Transparent Flow/ Patency : No complications IV Equipment/Supplies : Extension, set Comments (Comment: IV DC CANNULA INTACT [EL GILL RN - 08/01/2011 15:43 ENTERPRISE SERVICES MANAGER] ) EL GILL RN - 08/01/2011 15:43 ENTERPRISE SERVICES MANAGER Source: [facility] POWERCHART Document Id: [id number] ENTERPRISE SERVICES MANAGER!17 RPRISE SERVICES MANAGER [place] R.N. - 08/01/2011 2:20 PM CST Peripheral IV Peripheral IV Entered On: 08/01/2011 15:05 ENTERPRISE SERVICES MANAGER Performed On: 08/01/2011 14:20 ENTERPRISE SERVICES MANAGER by EL GILL RN Peripheral IV Peripheral IV Assess/Intervention Grid Peripheral IV #1 IV Activity : Start Number of Attempts : 2 Date of Insertion : 08/01/2011 ENTERPRISE SERVICES MANAGER IV Site : Cephalic vein Laterality : Right Catheter Size : 18 Catheter Type : Over the needle Site Condition : No complications Drainage Description : None Site/Line Care : Secured with tape Dressing/ Activity : Dry, Intact, Transparent Flow/ Patency : No complications IV Equipment/Supplies : Extension, set EL GILL RN - 08/01/2011 15:03 ENTERPRISE SERVICES MANAGER Source: [facility] POWERCHART Document Id: [id number] ENTERPRISE SERVICES MANAGER!17 RPRISE SERVICES MANAGER documented in this encounter Plan of Treatment Not on filedocumented as of this encounter Visit Diagnoses Not on filedocumented in this encounter
--- OUTSIDE RECORDS SUMMARY | 2022-05-17 14:03 | XMS_ITS | Encounter Summary ---
:1980 Author Organization [facility] Address [address] [place] [address] Care Team Providers Name Role Phone Unavailable Primary Care Provider Unavailable Encounter Details Date Type Department Care Team Description 10/15/2011 Hospital Encounter HX NO MAPPING Social History Tobacco Use Types Packs/Day Years Used Date Smoking Tobacco: Never Assessed Sex Assigned at Date Recorded Not on file documented as of this encounter Last Filed Vital Signs Vital Sign Reading Time Taken Comments Blood Pressure 110/68 10/15/2011 4:07 PM SOFTWARE IMPLEMENTATION PROJECT MANAGER Pulse - - Temperature - - Respiratory Rate 18 10/15/2011 4:07 PM SOFTWARE IMPLEMENTATION PROJECT MANAGER Oxygen Saturation - - Inhaled Oxygen Concentration - - Weight - - Height 158 cm (5' 2.21) 10/15/2011 7:47 AM SOFTWARE IMPLEMENTATION PROJECT MANAGER Body Mass Index - - documented in this encounter Plan of Treatment Not on filedocumented as of this encounter Visit Diagnoses Not on filedocumented in this encounter
--- OUTSIDE RECORDS SUMMARY | 2022-05-17 14:03 | XMS_ITS | Encounter Summary ---
:1980 Author Organization [facility] Address [address] [place] [address] Care Team Providers Name Role Phone Unavailable Primary Care Provider Unavailable Encounter Details Date Type Department Care Team Description 08/01/2011 Hospital Encounter HX [facility] Lakhwinder Julio, AUREA, C.N.P., D. N.P. [address] [place] [phone] (Wo rk) Social History Tobacco Use Types Packs/Day Years Used Date Smoking Tobacco: Never Assessed Sex Assigned at Date Recorded Not on file documented as of this encounter Progress Notes Lakhwinder Julio APRN, C.N.P. - 08/01/2011 12:00 AM CST [id number] CHIEF COMPLAINT/REASON FOR VISIT 1. Abdominal lump. HISTORY OF PRESENT ILLNESS Shruthi is a 31-year-old female who about a month ago was in a tanning singh noted kind of a lump on her left abdomen. She had been monitoring it for an additional half a month for a couple of weeks when her grandmother and her mother have encouraged her to come in and have it evaluated. She states it does not cause her any pain but she definitely notes a lump on that left side. She denies any weight loss other than she has been trying to lose weight. She denies any night sweats. No fevers. She has an IUD and is amenorrheic. She denies any chest pain or shortness of breath. She also denies any urinary symptoms other than a bit of urinary frequency. She states it just feels like it is swollen on that left side. Sometimes it will cause her little bit of discomfort when she is active but when she rests it will seem to alleviate and go away. The discomfort does not seem to be related to eating. She first noticed it about one and a half to two months ago. Patient also noted that just recently she has had more reflux type symptoms and drank some Coke and it seemed to burn down her throat. MEDICATIONS Patient is on no medications. ALLERGIES Patient denies any allergies. SYSTEMS REVIEW Patient recently had an IUD placed in October 252010 by [employer], Dr. Rocio Putnam. Then the rest of Review of Systems as noted above. PAST MEDICAL/SURGICAL HISTORY Past medical history: 1) Polysubstance abuse history. 2) Appendectomy. 3) She did have a colposcopy due to some abnormal cervical cells. SOCIAL HISTORY She is a smoker. Denies any use of alcohol. She is and does have children. VITAL SIGNS Blood pressure is 122/64. Heart rate of 90. Temperature is 36.4-degrees Centigrade. Pulse is 90. Weight is 74.6 kilograms. PHYSICAL EXAM IN GENERAL: Patient appears non-distressed. SKIN: Her skin is warm and dry. HEAD: Her head is normocephalic. LUNGS: Are clear to auscultation. HEART: With regular rate and rhythm. ABDOMEN: She has some slight discomfort in the mid epigastric area just at the umbilicus and just slightly below on her left side, she has a large mass that feels at least 6-8 centimeters that is palpable. I am able to mobiley move it from almost across the midline, it does cause her little bit of discomfort. She also has a little bit of suprapubic fullness, I did not do an additional pelvic exam. IMPRESSION/REPORT/PLAN IMPRESSION & PLAN 1. Abdominal mass. I did order some laboratory studies including CBC, a SED rate, a complete metabolic panel which were all unremarkable. Also did order a CAT scan of her abdomen. The radiology report port is not available but she has a large mass in her left pelvic region that appears to possibly be originating from her left ovary. Her uterus was also significantly enlarged and rotated. We will go ahead and order a CA-125 in addition to her laboratory studies which will now be pending and I will further refer her to [employer] surgery for further evaluation of this. Her IUD is visible but does sit laterally also. PATIENT EDU #1 Patient Education Ready to learn. No apparent learning barriers were identified. Learning preferences include listening. Explained diagnosis and treatment plan. Patient/Child/Caregiver expressed understanding of the content. Lakhwinder Julio N.P. /axel Electronically Signed By: LAKHWINDER JULIO RN, CONFERENCE DIRECTOR On: 08/14/2011 10:34 PM Source: [facility] MHSDOLBEYNONRADSYS Document Id: [id number] ORIAN LITERATURE PROFESSOR documented in this encounter Nursing Notes Tova Ca L.P.N. - 08/03/2011 11:03 AM CST Referral Referral made to [place] with Assistant Basketball Coach/Surg. Appt 08/09/11 at 9am. Ultrasound appt in at 830am. Patient notified and states understanding. Electronically Signed By: TOVA CA LPN On: 08/03/2011 11:06 AM Source: [facility] POWERCHART Document Id: [id number] ORIAN LITERATURE PROFESSOR documented in this encounter Miscellaneous Notes Miscellaneous - Cande Rod L.PChristianNChristian - 08/01/2011 1:19 PM CST Adult Greenhouse Staff Intake/History Adult Greenhouse Staff Intake/History Entered On: 08/01/2011 13:23 VICTORIAN LITERATURE PROFESSOR Performed On: 08/01/2011 13:19 VICTORIAN LITERATURE PROFESSOR by CANDE GARSIA LPN Intake Chief Complaint : lump on left lower abdomen Temperature Core : 36.4C(Converted to: 97.5DegF) (LOW) Peripheral Pulse Rate : 90/min Respiratory Rate : 18/min Systolic Blood Pressure : 122mmHg Diastolic Blood Pressure : 64mmHg NIBP Mean : 83mmHg BP Location : Right upper extremity Heart Rhythm : Regular Actual Weight : 74.6kg(Converted to: 164lb 7oz) Weight Source : Standing scale Dosing Weight Clinic : 74.60kg CANDE GARSIA LPN - 08/01/2011 13:19 VICTORIAN LITERATURE PROFESSOR Subjective Pain Symptoms : No SUNHECTOR DRIVERDARIUS Cordon [facility] - 08/01/2011 13:19 VICTORIAN LITERATURE PROFESSOR Dependent Habits Tobacco Use/Currently Using : Yes Tobacco Use/Advised to Quit : Yes Smoking Status : Current every day smoker HECTOR GARSIADARIUS Cordon [facility] - 08/01/2011 13:19 VICTORIAN LITERATURE PROFESSOR Tobacco Use Grid Type : Cigarettes Cigarette Use Packs/Day : 0.5 CANDE GARSIA [facility] 08/01/2011 13:19 VICTORIAN LITERATURE PROFESSOR Alcohol Use : No CANDE GARSIA [facility] - 08/01/2011 13:19 VICTORIAN LITERATURE PROFESSOR Caffeine Use Grid Caffeine Use : Current Type : Soft drinks CANDE GARSIA [facility] 08/01/2011 13:19 VICTORIAN LITERATURE PROFESSOR Allergy Allergies (Active) NKA Estimated Onset Date: Unspecified ; Created By: PAOLO MARTINEZ RN; Reaction Status: Active ; Category: Drug ; Substance: NKA ; Type: Allergy ; Updated By: PAOLO MARTINEZ RN; Reviewed Date: 10/25/2010 11:24 VICTORIAN LITERATURE PROFESSOR Source: [facility] TyrosCHART Document Id: [id number] VICTORIAN LITERATURE PROFESSOR!29 ORIAN LITERATURE PROFESSOR documented in this encounter Plan of Treatment Not on filedocumented as of this encounter Visit Diagnoses Not on filedocumented in this encounter
--- OUTSIDE RECORDS SUMMARY | 2022-05-17 14:03 | XMS_ITS | Encounter Summary ---
:1980 Author Organization [facility] Address [address] [place] [address] Care Team Providers Name Role Phone Unavailable Primary Care Provider Unavailable Encounter Details Date Type Department Care Team Description 07/23/2011 Hospital Encounter HX [facility] OBKia Monae, L.P.N. [address] [place], [place] [phone] Social History Tobacco Use Types Packs/Day Years Used Date Smoking Tobacco: Never Assessed Sex Assigned at Date Recorded Not on file documented as of this encounter Plan of Treatment Not on filedocumented as of this encounter Visit Diagnoses Not on filedocumented in this encounter
--- OUTSIDE RECORDS SUMMARY | 2022-05-17 14:03 | XMS_ITS | Encounter Summary ---
:1980 Author Organization [facility] Address [address] [place] [address] Care Team Providers Name Role Phone Unavailable Primary Care Provider Unavailable Encounter Details Date Type Department Care Team Description 02/26/2012 Hospital Encounter HX NO MAPPING Chris Pittman P .A.-C. Social History Tobacco Use Types Packs/Day Years Used Date Smoking Tobacco: Never Assessed Sex Assigned at Date Recorded Not on file documented as of this encounter Progress Notes Chris Pittman - 02/26/2012 6:30 PM CDT [id number] SUBJECTIVE: Left shoulder pain for the past couple of days. No known trauma. Some occasional tingling from her neck to the left hand. She saw a chiropractor who said there was a couple of ribs out of place and possibly some slipped discs. PHYSICAL EXAMINATION: Ears and throat clear. Tenderness over the left rhomboid with reproduction of pain with utilization of this muscle group. Range of motion of the neck is generally normal. A little bit tender on the left side of the neck. She's got a good integration manager and sensation in the left hand at this time. Good pulse. Lungs clear. Heart tones are normal. Not dyspneic, otherwise good mood. ASSESSMENT: Left rhomboid pain. PLAN: Prescription for Percocet 5 milligram tablets 1 q.i.d. p.r.n. #10. Flexeril 5 t.i.d. p.r.n. spasm #15. I did recommend she follow up with her PCP in [place], Dr. Ortiz, for a discussion if problems persist or increase. Expect this to take at least a week to resolve. Recheck p.r.n. any worsening. MAGGY Valente/kristen Source: [facility] RWMCHXTRANSXRTFSYS Document Id: [id number] documented in this encounter Plan of Treatment Not on filedocumented as of this encounter Visit Diagnoses Not on filedocumented in this encounter Additional Health Concerns Assessment Noted Time PHQ-9 Depression Total Score: 17 11/05/2011 9:30 AM CS T documented as of this encounter
--- OUTSIDE RECORDS SUMMARY | 2022-05-17 14:03 | XMS_ITS | Encounter Summary ---
:1980 Author Organization [facility] Address [address] [place] [address] Care Team Providers Name Role Phone Unavailable Primary Care Provider Unavailable Encounter Details Date Type Department Care Team Description 09/23/2008 Hospital Encounter HX [facility] INPT/OBSRV Elina Gonzalez M.D. [address] [place], [place] [address] (Wo rk) Social History Tobacco Use Types Packs/Day Years Used Date Smoking Tobacco: Never Assessed Sex Assigned at Date Recorded Not on file documented as of this encounter Plan of Treatment Not on filedocumented as of this encounter Visit Diagnoses Not on filedocumented in this encounter
--- OUTSIDE RECORDS SUMMARY | 2022-05-17 14:03 | XMS_ITS | Encounter Summary ---
:1980 Author Organization [facility] Address [address] [place] [address] Care Team Providers Name Role Phone Unavailable Primary Care Provider Unavailable Encounter Details Date Type Department Care Team Description 05/30/2012 Hospital Encounter HX NO MAPPING Peterson Lutz P.A.- C. Social History Tobacco Use Types Packs/Day Years Used Date Smoking Tobacco: Never Assessed Sex Assigned at Date Recorded Not on file documented as of this encounter Last Filed Vital Signs Vital Sign Reading Time Taken Comments Blood Pressure 132/86 05/30/2012 8:34 AM CDT Pulse 88 05/30/2012 8:34 AM CDT Temperature - - Respiratory Rate 16 05/30/2012 8:34 AM CDT Oxygen Saturation - - Inhaled Oxygen Concentration - - Weight - - Height - - Body Mass Index - - documented in this encounter Consult Notes Peterson Lutz - 05/30/2012 8:24 AM CDT [id number] IMPRESSION/REPORT/PLAN 1. Bilateral carpal tunnel syndrome. 2. Left shoulder impingement and rotator cuff tendinitis. PLAN: we talked extensively about treatment options and after thorough discussion I suggested a cortisone injection and some formal physical therapy for her left shoulder pain. She will follow up in the near future to undergo the injection because she would rather wait a few days when things work out a bit better for her to undergo such a procedure. Then she will work with physical therapy once she gives things a chance to kick in. Then she should see us back in 4-6 weeks to ensure things are looking good and, hopefully, gradually improving. In regards to her carpal tunnel syndrome, we talked abouttreatment options including the possibility of splinting versus more definitive management in the form of surgery. Because her history and physical examination are fairly classic, I do not think a nerve conduction study is warranted. All this information was discussed with the patient. She was interested in going ahead with carpal tunnel release. So will set her up for the most symptomatic wrist to be done first and then follow up with the contralateral side a few weeks later. This will be performedby Dr. Salinas. We talked about the surgery itself as well as the approximate postop recovery timeframe. If she has any questions or concerns, she is encouraged to call, otherwise she will follow up as discussed above or sooner if necessary. TOTAL TIME: much greater than 25 minutes was spent with this patient today of which greater than half of that time was spent in direct ofju-ih-[id number] counseling in educating the patient about this condition as well as treatment options that exist. The patient was discussed with Dr. Salinas and he is aware of this course of action. HISTORY OF PRESENT ILLNESS This pleasant 31-year-old female is here today for evaluation of left-sided shoulder pain that has been ongoing for a number of months. She does not recall any distinct mechanism of injury but was rather of an insidious onset but does hurt quite a bit from time to time. It is mostly activity-related. When she is able to take a few days off from work, this typically feels a bit better but otherwise her pain can be quite severe. She had a trigger point injection performed by Dr. Stone recently and,unfortunately, this actually made her pain dramatically worse for a couple days. She is a smoker. She is also complaining about hand dysesthesia which wakes her up in the middle of the night. This has been getting progressively worse for her and it seems to affect the whole hand. She does have an MRI scan of her shoulder available for review. She has not worked with physical therapy too much but doeshave severe pain and has no previous surgical history either. PHYSICAL EXAMINATION EXTREMITIES/JOINTS: on examination, she has fairly good active and passive motion of the shoulder but has very positive impingement sign particularly when assessing the supraspinatus and even when checking out her active motion. Passive external rotation is symmetric. She does have quite a bit of tenderness when palpating about the subacromial space. Horizontal adduction does not seem to cause her significant amount of pain. Tinel's maneuver is positive bilaterally and compressive Phalen's maneuver reproduces significant dysesthesias primarily about the median nerve distribution but also throughout the whole hand after a very short period time, in the range of 5-10 seconds, in both hands. IMAGING: Review of her MRI scan does seem to show some fluid in the subacromial space but nothing else acutely concerning. The images do appear to be flipped a bit. The actual images appear to show theleft shoulder but the coronal seems to show a right shoulder but I suspect this is simply mirror images. Peterson Lutz P.A.-C./arnaud Electronically Signed By: PETERSON LUTZ PA-C On: 06/10/2012 01:12 PM Source: [facility] MHSDOLBEYNONRADSYS Document Id: [id number] documented in this encounter Miscellaneous Notes Miscellaneous - Peterson Lutz - 05/30/2012 12:34 PM CDT Ambulatory Patient Summary [facility] [address] [address] Visit Information Name: ROSANA MARTINEZ Current Date: 05/30/2012 12:34:10 Physicians Attending Provider: PETERSON LUTZ PA-C Primary Care Provider: LAKHWINDER JULIO RN, HOME CARE AND HOME HEALTH AIDES TEACHER Your Medications Here is a list of [...] Upcoming Appointments Date Time Location Reason Provider 06/02/2012 12:15 [facility] Family Med LEFT CARPAL TUNNEL Nadine RICH, Jennifer Benjamin 06/03/2012 08:45 [facility] Follow up Peterson Lutz PA-C 06/06/2012 09:45 [facility] PT/OT rotator cuff tendonitis Jonna Mcnamara 06/17/2012 11:30 [facility] Surgery OP OP/DS Left CTR [id number] Your Goals/Additional instructions: Source: [facility] [employer]ART Document Id: [id number] Miscellaneous - Peterson Lutz - 05/30/2012 12:34 PM CDT Ambulatory Depart Summary [facility] [address] [address] Visit Information Name: ROSANA MARTINEZ Visit Date: 05/30/2012 12:34:09 Attending Provider: PETERSON LUTZ PA-C Primary Care Provider: LAKHWINDER JULIO RN, HOME CARE AND HOME HEALTH AIDES TEACHER ROSANA MARTINEZ has been given the following [...] your provider for clarification. Additional Information: Source: [facility] [employer] Document Id: [id number] Miscellaneous - Katiuska Mcnamara, R.N. - 05/30/2012 8:34 AM CDT Adult [employer] Intake/History Adult [employer] Intake/History Entered On: 05/30/2012 8:39 CDT Performed On: 05/30/2012 8:34 CDT by KATIUSKA MCNAMARA surg rn Chief Complaint : lt shoulder pain and decreased rom, had mri in February, also numbness both hands Temperature Core : 37.1C(Converted to: 98.8DegF) Peripheral Pulse Rate : 88/min Respiratory Rate : 16/min Heart Rhythm : Regular Systolic Blood Pressure : 132mmHg Diastolic Blood Pressure : 86mmHg NIBP Mean : 101mmHg BP Location : Left upper extremity Blood Pressure Cuff Size : Regular KATIUSKA MCNAMARA RN - 05/30/2012 8:34 CDT General Info Information Given By : Patient Preferred Communication Mode : Verbal Languages : Slovenian KATIUSKA MCNAMARA RN - 05/30/2012 8:34 CDT Subjective Pain Symptoms : Yes KATIUSKA MCNAMARA RN - 05/30/2012 8:34 CDT Pain Pain Assessment Grid Pain 1 Location : Shoulder Laterality : Left Intensity : 8 Time Pattern : Chronic, Intermittent KATIUSKA MCNAMARA RN - 05/30/2012 8:34 CDT Dependent Habits Tobacco Use/Currently Using : Yes Tobacco Use/Advised to Quit : Yes Exposure to Tobacco Smoke : Patient smokes Smoking Status : Current every day smoker KATIUSKA MCNAMARA RN - 05/30/2012 8:34 CDT Tobacco Use Grid Type : Cigarettes Cigarette Use Packs/Day : 0.5 KATIUSKA MCNAMARA RN - 05/30/2012 8:34 CDT Caffeine Use Grid Caffeine Use : Current Type : Soft drinks KATIUSKA MCNAMARA RN - 05/30/2012 8:34 CDT Recreational Drug Use Grid Drug Use : None KATIUSKA MCNAMARA RN - 05/30/2012 8:34 CDT Allergy Allergies (Active) NKA Estimated Onset Date: Unspecified ; Created By: PAOLO MARTINEZ RN; Reaction Status: Active ; Category: Drug ; Substance: NKA ; Type: Allergy ; Updated By: PAOLO MARTINEZ RN; Reviewed Date: 05/30/2012 8:33 CDT [facility]: [facility] Document Id: [id number] documented in this encounter Plan of Treatment Not on filedocumented as of this encounter Visit Diagnoses Not on filedocumented in this encounter Additional Health Concerns Assessment Noted Time PHQ-9 Depression Total Score: 17 11/05/2011 9:30 AM CS T documented as of this encounter
--- OUTSIDE RECORDS SUMMARY | 2022-05-17 14:03 | XMS_ITS | Encounter Summary ---
:1980 Author Organization [facility] Address [address] [place] [address] Care Team Providers Name Role Phone Unavailable Primary Care Provider Unavailable Encounter Details Date Type Department Care Team Description 07/02/2011 Hospital [facility] Provider, Alek egan Social History Tobacco Use Types Packs/Day Years Used Date Smoking Tobacco: Never Assessed Sex Assigned at Date Recorded Not on file documented as of this encounter Miscellaneous Notes Telephone Encounter - Conversion, Historical Provider Ser - 07/02/2011 12:00 AM CDT [id number] Patient called to schedule a test, she is not sure what test she needs to schedule. [id number] Source: [facility] Document Id: [id number] Telephone Encounter - Conversion, Historical Provider Ser - 07/02/2011 12:00 AM CDT [id number] Talked with Shruthi, she had a colposcopy done in [place] in 10/20. She was to return for repeat Pap with ? Colpo. Tried transferring to scheduling, however, was busy at this time. Will have Bebe call and schedule with the patient. BR Source: [facility] Document Id: [id number] Telephone Encounter - Conversion, Historical Provider Ser - 07/02/2011 12:00 AM CDT [id number] Patient scheduled for appointment. Bebe Source: [facility] Document Id: [id number] documented in this encounter Plan of Treatment Not on filedocumented as of this encounter Visit Diagnoses Not on filedocumented in this encounter
--- OUTSIDE RECORDS SUMMARY | 2022-05-17 14:03 | XMS_ITS | Encounter Summary ---
:1980 Author Organization [facility] Address [address] [place] [address] Care Team Providers Name Role Phone Unavailable Primary Care Provider Unavailable Encounter Details Date Type Department Care Team Description 09/29/2008 Hospital Encounter HX [facility] INPT/OBS[facility] Elina Gonzalez M.D. [address] [place], [place] [address] (Wo rk) Social History Tobacco Use Types Packs/Day Years Used Date Smoking Tobacco: Never Assessed Sex Assigned at Date Recorded Not on file documented as of this encounter Plan of Treatment Not on filedocumented as of this encounter Visit Diagnoses Not on filedocumented in this encounter
--- OUTSIDE RECORDS SUMMARY | 2022-05-17 14:03 | XMS_ITS | Encounter Summary ---
:1980 Author Organization [facility] Address [address] [place] [address] Care Team Providers Name Role Phone Unavailable Primary Care Provider Unavailable Encounter Details Date Type Department Care Team Description 01/14/2009 Hospital Encounter [facility]X [facility] Provider, Historic al Social History Tobacco Use Types Packs/Day Years Used Date Smoking Tobacco: Never Assessed Sex Assigned at Date Recorded Not on file documented as of this encounter Plan of Treatment Not on filedocumented as of this encounter Visit Diagnoses Not on filedocumented in this encounter
--- OUTSIDE RECORDS SUMMARY | 2022-05-17 14:03 | XMS_ITS | Encounter Summary ---
:1980 Author Organization [facility] Address [address] [place] [address] Care Team Providers Name Role Phone Unavailable Primary Care Provider Unavailable Encounter Details Date Type Department Care Team Description 03/03/2012 Hospital Encounter HX [facility] Lakhwinder Julio APRN, C.N.P., D. N.P. [address] [place] [phone] (Wo rk) Social History Tobacco Use Types Packs/Day Years Used Date Smoking Tobacco: Never Assessed Sex Assigned at Date Recorded Not on file documented as of this encounter Last Filed Vital Signs Vital Sign Reading Time Taken Comments Blood Pressure 122/80 03/03/2012 12:09 PM CDT Pulse 106 03/03/2012 12:09 PM CDT Temperature - - Respiratory Rate 18 03/03/2012 12:09 PM CDT Oxygen Saturation - - Inhaled Oxygen Concentration - - Weight 76.4 kg (168 lb 6.9 oz) 03/03/2012 12:09 PM CDT Height - - Body Mass Index 30.6 02/29/2012 6:23 PM CDT documented in this encounter Progress Notes Lakhwinder Julio APRN, C.N.P. - 03/03/2012 12:00 AM CDT [id number] CHIEF COMPLAINT/REASON FOR VISIT 1. Left shoulder pain. HISTORY OF PRESENT ILLNESS 1. Left shoulder pain. Rosana is a 31-year-old female who comes in today with acute onset of 1-week history of left shoulder pain. She describes it as a constant throbbing pain that causes her to have difficulty breathing or coughing. She states that progressively on Saturday when it began it progressed throughout the day. On Saturday, she went to the chiropractor for an adjustment and it made her left shoulder even worse. She ended up in the Emergency Room in the [place] [facility] on Saturday night. She was given Flexeril and Percocet diagnosed with a muscle spasm. She did not have any relief in her symptoms and did not use the Percocet until the following Saturday. She was seen by Dr. Stone in [place] and was given a pressure point injections which she states seemed to make the pain worse and did not improve it. She was in the emergency room later that evening and was given a chest x-ray, EKG, and told to continue with the current regimen. She is here today for followup. She states that it seems like it is coming and going at times it will cause her left arm to go completely numb. There are not certain movements that seem to aggravate it, but the pain can be so intense she describes it a 10 out of 10. CURRENT MEDICATIONS Please see the EMR. New reconciled medication is a dose Medrol pack. ALLERGIES Please see the EMR. VITAL SIGNS Please see EMR. PHYSICAL EXAMINATION GENERAL: Patient appears nondistressed. MUSCULOSKELETAL/NEUROMUSCULAR: On her left shoulder, she has some pain in the posterior aspect of her shoulder. There is no AC pain. She has full range of motion. She is able to lift her arms above her head. She has pain at the infraspinous muscle. Palpation of the trapezius muscle does not reproduce the pain. Internal and external rotation causes the pain to somewhat reoccur. Rotator cuff otherwise appears negative. She has a negative Ulloa sign. No neurologic symptoms. She has bilateral strength of her hand grasps. Spine is in alignment. There is no pain to palpation and no swelling noted of that left lower extremity her left. Left upper extremity. IMPRESSION/REPORT/PLAN 1. Left continued shoulder pain. I am going to have her avoid NSAIDs, give her a shot of 60 mg of Toradol start her on a dose Medrol pack, and order an MRI. She will need a creatinine prior. We did talk about an EMG if her symptoms do not seem to improve. PATIENT EDUCATION: Ready to learn No apparent learning barriers were identified Learning preferences include listening Explained diagnosis and treatment plan Patient/Child/Caregiver expressed understanding of the content Lakhwinder Julio N.P. /ls Electronically Signed By: LAKHWINDER JULIO RN, HAMPER MAKER MACHINE On: 03/05/2012 07:41 AM Source: [facility] Document Id: [id number] documented in this encounter Miscellaneous Notes Miscellaneous - Katiuska Mcnamara RInessa - 03/03/2012 1:17 PM CDT MRI Screening Questionnaire MRI Screening Questionnaire Entered On: 03/03/2012 13:21 CDT Performed On: 03/03/2012 13:17 CDT by KATIUSKA MCNAMARA RN MRI Questionnaire Previous MRI, CT, or X-rays Done : Yes Location of previous MRI, CTor X-ray : [facility] KATIUSKA MCNAMARA RN - 03/03/2012 13:17 CDT MRI Cannot be Done Grid Automated Internal Cardiac Defibrillator : No Brain aneurysm clips : No Cochlear implant : No History of pacemaker : No Implants with a magnet : Yes Internal electrodes/wires : No Neurostimulator/Biostimulator : No Eldred berta catheter : No KATIUSKA MCNAMARA RN - 03/03/2012 13:17 CDT MRI Risk Factors Grid Age 65 or Older : No Diabetes (document medication) : No History of Kidney/Liver Transplant : No History of Renal Disease : No Hypertension : No Receiving Dialysis : No KATIUSKA MCNAMARA RN - 03/03/2012 13:17 CDT Creatinine/GFR Results Completed : Pending KATIUSKA MCNAMARA RN - 03/03/2012 13:17 CDT MRI Implants, Devices, Conditions Grid Aneurysm clip : No Bullets/BB's/Shrapnel in Body : No Tattoos/Perm Make-Up/Body Jewelry : No Hearing Aids/Dentures/Partial Plates : Yes History of cancer : No Eye Surgery/Implant : No Inner Ear Surgery/Implant : No Transdermal Med or EKG Patches : No Shunt : No Penile Implant : No Breast Tissue Automotive Refinish Technician/Implant : No Control Implants (IUD, diaphragm) : No : No (document number of weeks in Comment) : No Surgery : No Intravascular Coil, Filter or Stent : No Drug Infusion Pump : No External Pain Control Device : No Intravascular Catheter/Port : No Magnetic/Elec/Mech Activated Implant : No Prosthesis/Metal Implanted Surgical : No Metal Fragments in Body : No KATIUSKA MCNAMARA RN - 03/03/2012 13:17 CDT Claustrophobic : No Pain/Unable to Lay Still : No Metal In or Removed from Eyes Ever : No Form Completed : Yes Education Materials Provided : Yes KATIUSKA MCNAMARA RN - 03/03/2012 13:17 CDT Source: [facility] [employer] Document Id: [id number] Miscellaneous - Lakhwinder Julio APRN, C.N.P. - 03/03/2012 1:05 PM CDT Ambulatory Depart Summary [address] [address] Visit Information Name: RUBAROSANA Visit Date: 03/03/2012 13:05:04 Attending Provider: LAKHWINDER JULIO RN, HAMPER MAKER MACHINE Primary Care Provider: LAKHWINDER JULIO RN, HAMPER MAKER MACHINE ROSANA MARTINEZ has been given the following list of medications: Your Medications It is important to take your medications as directed. Use a pill box or chart to help remind you to take your medications. Please let your doctor or nurse know if you have problems taking your medications. Medication/Strength Dose Route Frequency Indications/Special Instructions/Comments methylPREDNISolone (Medrol Dosepak 4 mg oral tablet) See special instructions Oral as directed for 6Days oxycodone-acetaminophen (Percocet 5/325 oral tablet) 1 to 2 tablets Oral every 6 hours as needed forPain Already has this prescription from [place] provider / No more than 4,000mg acetaminophen/24hrs cyclobenzaprine (Flexeril 10 mg oral tablet) 10 mg Oral three times a day as needed for Muscle spasmMuscle spasm Attention: If you have any medications at home that are not on this list, DO NOT take them until youcontact your provider for clarification. Additional Information: Source: [facility] POWERCHART Document Id: [id number] Miscellaneous - Lakhwinder Julio APRN, C.N.P. - 03/03/2012 1:05 PM CDT Ambulatory Patient Summary [address] [address] Visit Information Name: ROSANA MARTINEZ Current Date: 03/03/2012 13:05:04 Physicians Attending Provider: LAKHWINDER JULIO RN, HAMPER MAKER MACHINE Primary Care Provider: LAKHWINDER JULIO RN, HAMPER MAKER MACHINE Your Medications Here is a list of your medications. It is important to take your medications as directed. Use a pillbox or chart to help remind you to take your medications. Please let your doctor or nurse know if you have problems taking your medications. Medication/Strength Dose Route Frequency Indications/Special Instructions/Comments methylPREDNISolone (Medrol Dosepak 4 mg oral tablet) See special instructions Oral as directed for 6Days oxycodone-acetaminophen (Percocet 5/325 oral tablet) 1 to 2 tablets Oral every 6 hours as needed forPain Already has this prescription from [place] provider / No more than 4,000mg acetaminophen/24hrs cyclobenzaprine (Flexeril 10 mg oral tablet) 10 mg Oral three times a day as needed for Muscle spasmMuscle spasm Attention: If you have any medications at [...] No Appointments found Your Goals/Additional instructions: Source: [facility] POWERCHART Document Id: [id number] Miscellaneous - Tova Ca LChristianP.NChristian - 03/03/2012 12:09 PM CDT Adult Rides Supervisor Intake/History Adult Rides Supervisor Intake/History Entered On: 03/03/2012 12:15 CDT Performed On: 03/03/2012 12:09 CDT by TOVA CA LPN Intake Chief Complaint : Pain below left shoulder pain Onset of Symptoms : Started last Saturday Temperature Core : 36.4C(Converted to: 97.5DegF) (LOW) Peripheral Pulse Rate : 106/min (HI) Respiratory Rate : 18/min Heart Rhythm : Regular Systolic Blood Pressure : 122mmHg Diastolic Blood Pressure : 80mmHg NIBP Mean : 94mmHg BP Location : Right upper extremity Blood Pressure Cuff Size : Regular SpO2 : 98% Oxygen Therapy : Room air Actual Weight : 76.4kg(Converted to: 168lb 7oz) Weight Source : Standing scale Dosing Weight Clinic : 76.40kg TOVA CA LPN - 03/03/2012 12:09 CDT Subjective Pain Symptoms : Yes TOVA CA LPN - 03/03/2012 12:09 CDT Pain Pain Assessment Grid Pain 1 Location : Upper back (Comment: Shoulder blade area [TOVA CA LPN - 03/03/2012 12:09 CDT] ) Laterality : Left Intensity : 10 Time Pattern : Constant Onset : Sudden Quality : Sharp, Throbbing Pain Radiation : No Aggravating Factors : Movement Alleviating Factors : None Associated Symptoms : Nausea Interventions : Medications, Repositioning TOVA CA LPN - 03/03/2012 12:09 CDT Dependent Habits Alcohol Use : No TOVA CA LPN - 03/03/2012 12:15 CDT Tobacco Use/Currently Using : Yes Tobacco Use/Advised to Quit : Yes Exposure to Tobacco Smoke : Patient smokes Smoking Status : Current every day smoker TOVA CA LPN - 03/03/2012 12:09 CDT Tobacco Use Grid Type : Cigarettes Cigarette Use Packs/Day : 0.5 TOVA CA LPN - 03/03/2012 12:09 CDT Caffeine Use Grid Caffeine Use : Current Type : Soft drinks TOVA CA LPN - 03/03/2012 12:09 CDT Recreational Drug Use Grid Drug Use : None TOVA CA LPN - 03/03/2012 12:09 CDT Allergy Allergies (Active) NKA Estimated Onset Date: Unspecified ; Created By: PAOLO MARTINEZ RN; Reaction Status: Active ; Category: Drug ; Substance: NKA ; Type: Allergy ; Updated By: PAOLO MARTINEZ RN; Reviewed Date: 03/03/2012 12:09 CDT Source: [facility] POWERCHART Document Id: [id number] documented in this encounter Plan of Treatment Not on filedocumented as of this encounter Procedures Procedure Name Priority Date/Time Associated Comments Diagnosis CREATININE WITH Routine 03/03/2012 1:18 PM Result s for this EGFR, S/P CDT procedure are i n the results section. documented in this encounter Results (ABNORMAL) Creatinine with eGFR (03/03/2012 1:18 PM CDT) P athologist Signature Creatinine 0.60 0.60 - POWERCHART 1.30 MGDL HXeGFR (MDRD) >60 (H) <=61 POWERCHART [id number] Comment: A GFR of <60 mL/min is indicative of chr onic kidney disease. (MDRD calculation valid on patients 18 - 70 years.) eGFR Black/ >60 MLMIN PO WERCHART Specimen (Source) Anatomical Collection Method Collection Time Re ceived Time Location / / Volume Laterality Blood 03/03/2012 1:18 PM CDT Lakhwinder Julio APRN, C.N.P., D.N.P. LAB BLOOD ADD-ON Performing Organization Address City/State/ZIP Code Phon e Number POWERCHART documented in this encounter Visit Diagnoses Not on filedocumented in this encounter Additional Health Concerns Assessment Noted Time PHQ-9 Depression Total Score: 17 11/05/2011 9:30 AM CS T documented as of this encounter
--- OUTSIDE RECORDS SUMMARY | 2022-05-17 14:03 | XMS_ITS | Encounter Summary ---
:1980 Author Organization [facility] Address [address] [place] [id number] Care Team Providers Name Role Phone Unavailable Primary Care Provider Unavailable Encounter Details Date Type Department Care Team Description 08/16/2006 Hospital Encounter HX [facility] Bebe Rodríguez M.D. [address] [place] [phone] (Wo rk) Social History Tobacco Use Types Packs/Day Years Used Date Smoking Tobacco: Never Assessed Sex Assigned at Date Recorded Not on file documented as of this encounter Plan of Treatment Not on filedocumented as of this encounter Visit Diagnoses Not on filedocumented in this encounter
--- OUTSIDE RECORDS SUMMARY | 2022-05-17 14:03 | XMS_ITS | Encounter Summary ---
:1980 Author Organization [facility] Address [address] [place] [address] Care Team Providers Name Role Phone Unavailable Primary Care Provider Unavailable Encounter Details Date Type Department Care Team Description 03/27/2005 Hospital Encounter HX NO MAPPING Provider, Historical Social History Tobacco Use Types Packs/Day Years Used Date Smoking Tobacco: Never Assessed Sex Assigned at Date Recorded Not on file documented as of this encounter Plan of Treatment Not on filedocumented as of this encounter Visit Diagnoses Not on filedocumented in this encounter
--- OUTSIDE RECORDS SUMMARY | 2022-05-17 14:03 | XMS_ITS | Encounter Summary ---
:1980 Author Organization [facility] Address [address] [place] [address] Care Team Providers Name Role Phone Unavailable Primary Care Provider Unavailable Encounter Details Date Type Department Care Team Description 09/09/2010 Hospital Encounter HX NO MAPPING Provider, Historical Social History Tobacco Use Types Packs/Day Years Used Date Smoking Tobacco: Never Assessed Sex Assigned at Date Recorded Not on file documented as of this encounter Miscellaneous Notes Miscellaneous - Conversion, Historical Provider Ser - 09/09/2010 12:00 AM CUSTODIAL OFFICER [id number] 07/13/2011 - Patient signed up for [employer] access/proxy. This access was launched via an office visit. Source: [facility] [email or web address] Document Id: [id number] documented in this encounter Plan of Treatment Not on filedocumented as of this encounter Visit Diagnoses Not on filedocumented in this encounter
--- OUTSIDE RECORDS SUMMARY | 2022-05-17 14:03 | XMS_ITS | Encounter Summary ---
:1980 Author Organization [facility] Address [address] [place] [id number] Care Team Providers Name Role Phone Unavailable Primary Care Provider Unavailable Encounter Details Date Type Department Care Team Description 02/29/2012 Hospital Encounter HX [facility] ED Tam Asher M.D. [address] [place] [address] [phone] (Wo rk) Social History Tobacco Use Types Packs/Day Years Used Date Smoking Tobacco: Never Assessed Sex Assigned at Date Recorded Not on file documented as of this encounter Last Filed Vital Signs Vital Sign Reading Time Taken Comments Blood Pressure 144/84 02/29/2012 6:23 PM CDT Pulse 100 02/29/2012 6:23 PM CDT Temperature - - Respiratory Rate 20 02/29/2012 6:23 PM CDT Oxygen Saturation - - Inhaled Oxygen Concentration - - Weight - - Height 158 cm (5' 2.21) 02/29/2012 6:23 PM CDT Body Mass Index - - documented in this encounter Discharge Summaries Rafa Crews, RChristianN. - 02/29/2012 7:53 PM CDT ED Depart Summary [facility] Emergency Department Clinical Discharge Summary PERSON INFORMATION Name SHRUTHI MARTINEZ Age 31 Years 1980 12:00 AM Sex Female Language New Zealander PCP LAKHWINDER JULIO RN, PERFORMANCE TEST ENGINEER Marital Status Visit Id Visit Reason painful area where she had shots today Specialty Enc Type Emergency Med Service Emergency Medicine Referred by Track Group [facility] ED Discharge 02/29/2012 7:53 PM Tracking Id [id number] Checkout 02/29/2012 7:53 PM Checkin 02/29/2012 6:09 PM Acuity Dispo Type * Discharged to Home or Self Care Arrival 02/29/2012 6:09 PM Reg Status LOS 000 01:44 Address: [address] [place] [phone] Comment: PROVIDER INFORMATION Provider Role Provider Contact Time SYDNEE ASHER MD ED Provider 02/29/12 18:21 VIKA MCNAMARA FACILITY PRACTICE SPECIALIST Nurse 02/29/12 18:23 RAFA CREWS FACILITY PRACTICE SPECIALIST Nurse 02/29/12 19:36 DIAGNOSIS scapular strain Comment: PATIENT EDUCATION INFORMATION Instructions: SHOULDER PAIN (Uncertain Cause) Follow up: With: Address: When: LAKHWINDER JULIO [address] [place] [id number] [employer] (1) Within As Soon As Possible Comments: [facility] Document Id: [id number] Rafa Crews R.N. - 02/29/2012 7:53 PM CDT ED Discharge Instructions [address] [address] Name: SHRUTHI MARTINEZ Date of : 1980 12:00 AM Visit Date: 02/29/2012 6:09 PM Address: [address] [place] [phone] Primary Care Provider: LAKHWINDER JULIO RN, PERFORMANCE TEST ENGINEER IMPORTANT: [facility] in [place] would like to thank you for allowing us to assist you with your healthcare needs. The following includes patient education materials and informationregarding your injury/illness. Chief Complaint: painful area where she had shots today Follow-Up Instructions: With: Address: When: LAKHWINDER JULIO [address] [place] [id number] [employer] (4) Within As Soon As Possible Comments: Patient Education Materials: [id number] SHOULDER PAIN (Uncertain Cause) Shoulder pain often arises from the structures that surround the shoulder joint (the joint capsule, ligaments, tendons, muscles, and bursa). The joint itself contains cartilage that can become worn outor injured and can also be a source of pain. The correct treatment requires knowing the cause of thepain. Sometimes it is difficult to diagnose the exact cause of shoulder pain and referral to a specialist may be required. You may eventually need special tests such as CT scan, MRI, or arthroscopy (a procedure that uses special instruments to look inside the joint through a small incision). Shoulder pain can be treated initially with a sling or shoulder immobilizer and anti-inflammatory medicines such as ibuprofen. Special shoulder exercises may be needed. Follow-up with a specialist is important when pain is severe or does not go away after a few weeks. HOME CARE: ?? If a sling was provided, leave it in place for the time advised by your doctor. If you are unsurehow long to wear it, ask for advice. If the sling becomes loose, adjust it so that your forearm is level with the ground and the shoulder feels well supported. ?? Apply an ice pack (ice cubes in a plastic bag, wrapped in a towel) over the injured area for 20 minutes every 1 to 2 hours the first day for pain relief. Continue this 3 to 4 times a day until the pain and swelling go away. ?? You may use acetaminophen (Tylenol) or ibuprofen (Motrin, Advil) to control pain, unless another pain medicine was prescribed. NOTE: If you have chronic liver or kidney disease or ever had a stomachulcer or GI bleeding, talk with your doctor before using these medicines. ?? Shoulder pain may seem worse at night, when there is less to distract you from the pain. If you sleep on your side, try to keep your weight off your painful shoulder. Propping pillows behind you mayprevent you from rolling over onto that shoulder during. ?? Shoulder joints become stiff if left in a sling for too long. Mvofg-py-pyxmsf exercises should usually be started within the first 10 days after injury. Consult your doctor on what type of exercisesto do and how soon to start. You may remove the sling to shower or bathe. FOLLOW UP with your doctor, or as advised by our staff, if you are not starting to improve within the next 5 days. NOTE: If x-rays were taken, they will be reviewed by a radiologist. You will be notified of any new findings that may affect your care. GET PROMPT MEDICAL ATTENTION if any of the following occur: ?? Pain or swelling increases ?? Hand or fingers becomes cold, blue, numb, or tingly Large amount of bruising of the shoulder or upper arm ?? [id number] [email or web address], [address] [place] [address], [place] [address]. All rights reserved. This information is not intended as a substitute for professional medical care. Always follow your healthcare professional's instructions. ED Tests and Procedures: Order Status XR Chest 2 Views Completed CBC (includes Auto Differential) Completed C-Reactive Protein Completed DDimer Completed Troponin T Completed Automated Diff-5 Part Completed Discharge Prescriptions & Home Medications: Medication/Strength Dose Route Frequency Indications/Special Instructions/Comments oxycodone-acetaminophen (Percocet 5/325 oral tablet) 1 to 2 tablets Oral every 6 hours as needed forPain Already has this prescription from [facility] provider / No more than 4,000mg acetaminophen/24hrs cyclobenzaprine (Flexeril 10 mg oral tablet) 10 mg Oral three times a day as needed for Muscle spasmMuscle spasm ibuprofen (ibuprofen 200 mg oral tablet) 400 mg Oral every 4 hours as needed for Pain / Fever Take with food Comment: Attention: If you have any medications [...] ride home with a responsible green party. IJUAN TASHA MARIE , or responsible green party have received this information and my questions havebeen answered. I have discussed any challenges I see with this plan with the nurse or physician. Patient Signature or Responsible Libertarian/Relationship Date/Time Provider Signature Date/Time Medication Reconciliation: Reconciliation is a process of identifying the most accurate list of all medications a patient is taking - including name, dosage, frequency, and route - and using this list to provide to the patient information about how to take those medications. SHRUTHI MARTINEZ or designee has reviewed the home medications you have [...] ride home with a responsible green party. JUAN Hoyt TASHA MARIE , or responsible green party have received this information and my questions havebeen answered. I have discussed any challenges I see with this plan with the nurse or physician. Patient Signature or Responsible Libertarian/Relationship Date/Time Provider Signature Date/Time Source: [employer] Document Id: [id number] documented in this encounter Nursing Notes Vika Mcnamara R.N. - 02/29/2012 7:38 PM CDT ED Pain Assessment ED Pain Assessment Entered On: 02/29/2012 19:39 CDT Performed On: 02/29/2012 19:38 CDT by VIKA MCNAMARA RN Pain Assessment Pain Symptoms : Yes Pain Medication Requested : No VIKA MCNAMARA RN - 02/29/2012 19:38 CDT Pain Pain Assessment Grid Pain 1 Location : Shoulder Laterality : Left Intensity : 7 Acceptable Intensity : 3 VIKA MCNAMARA RN - 02/29/2012 19:38 CDT Source: [employer] Document Id: [id number] Vika Mcnamara R.N. - 02/29/2012 6:43 PM CDT ED Primary Assessment ED Primary Assessment Entered On: 02/29/2012 18:45 CDT Performed On: 02/29/2012 18:43 CDT by VIKA MCNAMARA RN Reason For Visit Problems(Active) Dysthymic Disorder Name of Problem: Dysthymic Disorder ; Onset Date: 11/05/2011 ; Recorder: LAKHWINDER JULIO RN, PERFORMANCE TEST ENGINEER; Confirmation: Confirmed ; Classification: Medical ; Code: 1231 ; Last Updated: 11/05/2011 13:32 IT SECURITY ARCHITECT ; Life Cycle Status: Active ; Responsible Provider: LAKHWINDER JULIO RN, PERFORMANCE TEST ENGINEER; Vocabulary: ICD-9-CM Headache Migraine Name of Problem: Headache Migraine ; Onset Date: 11/05/2011 ; Recorder: LAKHWINDER JULIO RN, PERFORMANCE TEST ENGINEER; Confirmation: Confirmed ; Classification: Medical ; Code: 1231 ; Last Updated: 11/05/2011 13:33 IT SECURITY ARCHITECT ; Life Cycle Status: Active ; Responsible Provider: LAKHWINDER JULIO RN, YENY; Vocabulary: ICD-9-CM Polysubstance dependence, unspecified Name of Problem: Polysubstance dependence, unspecified ; OnsetDate: 12/08/2006 ; Recorder: PAOLO MARTINEZ RN; Confirmation: Confirmed ; Classification: Nursing; Code: 1231 ; Contributor System: Night Out ; Last Updated: 10/13/2010 11:27 IT SECURITY ARCHITECT ; Life Cycle Date: 10/13/2010 ; Life Cycle Status: Active ; Responsible Provider: PAOLO MARTINEZ RN; Vocabulary: ICD-9-CM Diagnoses(Active) Joint pain, shoulder Date: 02/29/2012 ; Diagnosis Type: Reason For Visit ; Confirmation: Complaint of ; Clinical Dx: Joint pain, shoulder ; Classification: Medical ; Clinical Service: Emergency medicine ; Code: ICD-9-CM ; Probability: 0 ; Diagnosis Code: 719.41 Triage Chief Complaint Description : see triage note Information Given By : Patient Mode of Arrival ED : Private vehicle Track : Medical Languages : New Zealander VIKA MCNAMARA RN - 02/29/2012 18:43 CDT Pain Assessment Pain Symptoms : Yes VIKA MCNAMARA RN - 02/29/2012 18:43 CDT Allergy Allergies (Active) NKA Estimated Onset Date: Unspecified ; Created By: PAOLO MARTINEZ RN; Reaction Status: Active ; Category: Drug ; Substance: NKA ; Type: Allergy ; Updated By: PAOLO MARTINEZ RN; Reviewed Date: 02/29/2012 10:51 CDT Respiratory Airway : Patent Respirations : Unlabored Respiratory Pattern : Regular VIKA MCNAMARA RN - 02/29/2012 18:43 CDT Cardiovascular Heart Rhythm : Regular Skin Color : Normal for ethnicity Skin Description : Dry Skin Temperature : Warm VIKA MCNAMARA RN - 02/29/2012 18:43 CDT Neurological Last Well Time Known : Not applicable Level of Consciousness : Alert Orientation : Oriented x 3 Characteristics of Speech : Clear Neuro Patient Stated Symptoms : Other: numbness in left arm at times Gait : Steady Swallowing Difficulty/Aspiration Risk : None VIKA MCNAMARA RN - 02/29/2012 18:43 CDT ED Psychosocial Affect/Behavior : Calm, Cooperative, Appropriate Domestic Abuse Concerns : None VIKA MCNAMARA RN - 02/29/2012 18:43 CDT Gastrointestinal Nutrition ED : Adequate VIKA MCNAMARA RN - 02/29/2012 18:43 CDT Musculoskeletal Fall Prevention Education Provided : VIKA BAUER RN - 02/29/2012 18:43 CDT Social Habits Tobacco Use/Currently Using : Yes Tobacco Use/Advised to Quit : Yes Exposure to Tobacco Smoke : Patient smokes Smoking Status : Current every day smoker VIKA MCNAMARA RN - 02/29/2012 18:43 CDT Tobacco Use Grid Type : Cigarettes Cigarette Use Packs/Day : 0.5 VIKA MCNAMARA RN - 02/29/2012 18:43 CDT Alcohol Use Grid Alcohol Use : No VIKA MCNAMARA RN - 02/29/2012 18:43 CDT Recreational Drug Use Grid Drug Use : None VIKA MCNAMARA RN - 02/29/2012 18:43 CDT Source: [facility] [employer] Document Id: [id number] documented in this encounter ED Notes Sydnee Asher M.D. - 02/29/2012 8:24 PM CDT scapular pain Document Contains Addenda Addendum by SYDNEE ASHER MD on 29 February 2012 21:04 CDT EKG normal. Tariq Asher Electronically Signed By: SYDNEE ASHER MD On: 02/29/2012 09:03 PM Modified by and Electronically Signed by: SYDNEE ASHER MD On: 02/29/2012 09:04 PM scapular pain Patient: SHRUTHI MARTINEZ Age: 31 years Sex: Female : 1980 Author: SYDNEE ASHER MD Attachments: None Associated Diagnosis: Shoulder sprain Basic Information Time seen: Date 02/29/2012. History source: Patient. Arrival mode: Walking. History limitation: None. Additional information:: Chief Complaint from Nursing Triage Note : Chief Complaint Description. 02/29/2012 18:23 CDT Chief Complaint Description States she was pulling weeds in garden 4 days ago and feltsomething give in left shoulder when she bent over and has been having increased pain since. Seen in [facility] ER 2 days ago and rec'kayce [place].Saw in clinic [id number] today and rec'd an injectiion (Modified) History of Present Illness Developed left shoulder pain after gardening. She was seen on February 25, initially by a chiropractor, and manipulation made her pain worse. She went to the [facility] ED that same day, had an examination, and was given a prescription for Percoset 5/325 #10. She has not used that. She has been using a combination of ibuprofen, tylenol, and flexeril. Today she was seen at the local clinic by Dr. Stone and had local injections of bupivacaine, and states she has had no relief. She does have some cough and is a smoker. She has produced sputum, but no hemoptysis. She has not had a fever or wheezing. She has not noticed any palpitations, and has not had dizziness. She is able to use her left arm without difficulty. The course/duration of symptoms is constant. Type of injury:Pulling weeds. Did not seem painful at the time.. Location: Left scapula. Radiating pain: none. The character of symptoms is dull and achy. The degree of pain is severe and 10 /10. . The degree of swelling is none. Exacerbating factors consist of movement palpation. The relieving factor is rest. Risk factors consist of Past history of overuse of narcotics.. The dominant hand is the right hand. Prior episodes: none. Therapy today: doctor's office visit. Review of Systems Constitutional symptoms: no fever no sweats. Skin symptoms: Multiple insect bites in various stages of healing. Primary on arms, neck.. Eye symptoms: Negative except as documented in HPI. ENMT symptoms: Negative except as documented in HPI. Respiratory symptoms: Cough, Sputum production Clear. Cardiovascular symptoms: no palpitations no peripheral edema. Gastrointestinal symptoms: no abdominal pain Genitourinary symptoms: no dysuria no hematuria. Neurologic symptoms: no headache Additional review of systems information:All other systems reviewed and otherwise negative. Health Status Allergies: . Allergic Reactions (Selected) NKA Medications: (Selected). Prescriptions Ordered Flexeril 10 mg oral tablet: 10 mg, 1 tab(s), PO, 3xDay, Muscle spasm, 30 tab(s), PRN: Muscle spasm Percocet 5/325 oral tablet: 1 to 2 tablets, PO, q6hr, Already has this prescription from [facility] provider, 10 tab(s), PRN: Pain Documented Medications Documented ibuprofen 200 mg oral tablet: 400 mg, 2 tab(s), PO, q4hr, Take with food, 60 tab(s), PRN: Pain / Fever Past Medical/ Family/ Social History Surgical history: Surgical history. Abdomen ([id number]) in 2012 at 31 Years. Comments: 11/05/2011 13:03 - LULA PIMENTEL LPN left quad mass removed Appendectomy; ([id number]). Comments: 10/13/2010 11:32 - PAOLO MARTINEZ RN date unknown Social history: Tobacco use: Regularly, 4 cigarettes per day, Family/social situation: Intact family. Problem list: . All Problems Polysubstance dependence, unspecified / 304.80 / Confirmed Dysthymic Disorder / 300.4 / Confirmed Headache Migraine / 346.90 / Confirmed Physical Examination Vital signs: Per nurse's notes. General: Alert. anxious. Tearful at times.. Skin: Warm. dry. Multiple insect bites on arms, neck and upper chest in various stages of healing.. Head: Normocephalic Neck: Supple. no tenderness. With downward pressure on head with neck straight, no radicular pain.. Eye: Pupils are equal, round and reactive to light. normal conjunctiva. Ears, nose, mouth and throat: Tympanic membranes clear. Oral mucosa moist. No pharyngeal erythema orexudate. Cardiovascular: Regular rate and rhythm. Normal peripheral perfusion. No edema. Respiratory: Lungs are clear to auscultation. respirations are non-labored. Chest wall: Tender over lower and mid scapula. Back: Normal alignment. no step-offs. Gastrointestinal: Soft. Nontender. Neurological: Alert and oriented to person, place, time, and situation. CN II- XII intact. normal motor observed. Lymphatics: No lymphadenopathy Psychiatric: Cooperative Medical Decision Making Differential Diagnosis:Sprain, strain, unstable angina, pulmonary embolism. Documents reviewed:Prior records. Results review:Lab results : Lab View, 02/29/2012 19:05 CDT D-Dimer 0.39 mg/L FEU CRP 0.54 mg/dL Troponin-T <0.01 ng/mL CBC normal.. Radiology results:X-ray, Chest, Chest; 2 views: Negative chest. . Impression and Plan Diagnosis Shoulder sprain (Discharge, Emergency medicine, Medical) Discharge plan Condition: Stable. Dispositioned: To home. Prescriptions: May add percoset. Already using ibuprofen and flexeril. Continue heat/ice modalities.. Patient was given the following educational materials: SHOULDER PAIN (Uncertain Cause). Follow up with: LAKHWINDER JULIO Within As Soon As Possible. Counseled: Patient, Regarding diagnosis, Regarding diagnostic results, Regarding treatment plan, Patient indicated understanding of instructions. Electronically Signed By: SYDNEE ASHER MD On: 02/29/2012 09:03 PM [facility] Document Id: [id number]} Vika Mcnamara R.N. - 02/29/2012 7:36 PM CDT ED Disposition Summary ED Disposition Summary Entered On: 02/29/2012 19:38 CDT Performed On: 02/29/2012 19:36 CDT by VIKA MCNAMARA RN ED Disposition Summary Accompanied By : Alone Mode of Discharge : Ambulatory Transportation : Private vehicle Printed Discharge Instructions Given to Patient : Yes Patient Status at Discharge from ED : Unchanged VIKA MCNAMARA RN - 02/29/2012 19:36 CDT Source: [facility] [employer] Document Id: [id number] Vika Mcnamara R.N. - 02/29/2012 6:23 PM CDT ED Triage Assessment Document Has Been Updated ED Triage Assessment Entered On: 02/29/2012 18:42 CDT Performed On: 02/29/2012 18:23 CDT by VIKA MCNAMARA RN Reason For Visit Problems(Active) Dysthymic Disorder Name of Problem: Dysthymic Disorder ; Onset Date: 11/05/2011 ; Recorder: LAKHWINDER JULIO RN, PERFORMANCE TEST ENGINEER; Confirmation: Confirmed ; Classification: Medical ; Code: 1231 ; Last Updated: 11/05/2011 13:32 IT SECURITY ARCHITECT ; Life Cycle Status: Active ; Responsible Provider: LAKHWINDER JULIO RN, CNP; Vocabulary: ICD-9-CM Headache Migraine Name of Problem: Headache Migraine ; Onset Date: 11/05/2011 ; Recorder: LAKHWINDER JULIO RN, CNP; Confirmation: Confirmed ; Classification: Medical ; Code: 1231 ; Last Updated: 11/05/2011 13:33 IT SECURITY ARCHITECT ; Life Cycle Status: Active ; Responsible Provider: LAKHWINDER JULIO RN, CNP; Vocabulary: ICD-9-CM Polysubstance dependence, unspecified Name of Problem: Polysubstance dependence, unspecified ; OnsetDate: 12/08/2006 ; Recorder: PAOLO MARTINEZ RN; Confirmation: Confirmed ; Classification: Nursing; Code: 1231 ; Contributor System: Night Out ; Last Updated: 10/13/2010 11:27 IT SECURITY ARCHITECT ; Life Cycle Date: 10/13/2010 ; Life Cycle Status: Active ; Responsible Provider: PAOLO MARTINEZ RN; Vocabulary: ICD-9-CM Diagnoses(Active) Joint pain, shoulder Date: 02/29/2012 ; Diagnosis Type: Reason For Visit ; Confirmation: Complaint of ; Clinical Dx: Joint pain, shoulder ; Classification: Medical ; Clinical Service: Emergency medicine ; Code: ICD-9-CM ; Probability: 0 ; Diagnosis Code: 719.41 Triage Chief Complaint Description : States she was pulling weeds in garden 4 days ago and feltsomething give in left shoulder when she bent over and has been having increased pain since. Seen in [facility] ER 2 days ago and rec'd Flexeril.Saw in clinic [id number] today and rec'd an injectiion VIKA MCNAMARA RN - 02/29/2012 18:49 CDT Information Given By : Patient Mode of Arrival ED : Private vehicle Track : Medical Languages : New Zealander Vital Signs Assessed : Yes VIKA MCNAMARA RN - 02/29/2012 18:23 CDT Vital Signs Temperature Core : 36.4C(Converted to: 97.5DegF) (LOW) Peripheral Pulse Rate : 100/min Respiratory Rate : 20/min Systolic Blood Pressure : 144mmHg (HI) Diastolic Blood Pressure : 84mmHg NIBP Mean : 104mmHg BP Location : Left upper extremity SpO2 : 100% Oxygen Therapy : Room air Height : 158cm(Converted to: 5ft 2inch(es)) Height Source : Stated Estimated Weight : 75kg Estimated Weight Conversion to Pounds : 165.00lb VIKA MCNAMARA RN - 02/29/2012 18:23 CDT Pain Assessment Pain Symptoms : Yes Pain Medication Requested : Yes VIKA MCNAMARA RN - 02/29/2012 18:23 CDT Pain Pain Assessment Grid Pain 1 Location : Shoulder Laterality : Left Intensity : 10 Onset : Sudden Comments (Comment: pain become worse after injection today [VIKA MCNAMARA RN - 02/29/2012 18:23 CDT] ) VIKA MCNAMARA RN - 02/29/2012 18:23 CDT ED Physician Notification Time ED Physician Notification Time : 02/29/2012 18:20 CDT VIKA MCNAMARA RN - 02/29/2012 18:23 CDT Allergy Allergies (Active) NKA Estimated Onset Date: Unspecified ; Created By: PAOLO MARTINEZ RN; Reaction Status: Active ; Category: Drug ; Substance: NKA ; Type: Allergy ; Updated By: PAOLO MARTINEZ RN; Reviewed Date: 02/29/2012 10:51 CDT Immunizations Last Tetanus : < 5 years Pneumovac : None Influenza : None VIKA MCNAMARA RN - 02/29/2012 18:23 CDT [facility] Document Id: [id number] documented in this encounter Miscellaneous Notes Miscellaneous - Vika Mcnamara RMarianne. - 02/29/2012 7:39 PM CDT Valuables/Belongings Valuables/Belongings Entered On: 02/29/2012 19:40 CDT Performed On: 02/29/2012 19:39 CDT by VIKA MCNAMARA RN Valuables/Belongingromana Home Medication Disposition : None brought in with patient VIKA MCNAMARA RN - 02/29/2012 19:39 CDT Source: [facility] [employer] Document Id: [id number] Miscellaneous - Vika Mcnamara R.N. - 02/29/2012 6:09 PM CDT Facility Charge Ticket Facility Charge Ticket Entered On: 02/29/2012 19:41 CDT Performed On: 02/29/2012 18:09 CDT by VIKA MCNAMARA RN Facility Charge Mode of Arrival ED : Private vehicle [facility] Mode of Arrival Interpreted : Standard [facility] Process Management : None [facility] Order Management : Xray - plain films, Lab tests 30 Minutes Critical Care : No [facility] Nursing Assessment : Triage and 1-2 nursing assessments [facility] Disposition : Discharge VIKA MCNAMARA RN - 02/29/2012 19:40 CDT Chief Complaint 8.50.02 Reason For Visit Category : Musculoskeletal non-traumatic ED Chief Complaint Non-Traumatic 8.5 : Shoulder pain - swelling TVL Calc : 8 TVL for Facility Charge Ticket Dx : Level 3 VIKA MCNAMARA RN - 02/29/2012 19:40 CDT Source: [employer] Document Id: [id number] Miscellaneous - Conversion, Historical Provider Ser - 02/29/2012 6:09 PM CDT Facility Charge Ticket Facility Charge Ticket Entered On: 03/11/2012 13:28 CDT Performed On: 02/29/2012 18:09 CDT by SAMMI HATHAWAY Facility Charge TVL Level for Facility Charge Ticket : Level 3 Mode of Arrival ED : Private vehicle [facility] Mode of Arrival Interpreted : Standard [facility] Process Management : None [facility] Order Management : Xray - plain films, Lab tests 30 Minutes Critical Care : No [facility] Nursing Assessment : Triage and 1-2 nursing assessments [facility] Disposition : Discharge [facility] Total Points with Diagnosis Control : 7 [facility] Visit Level : 22900 Level 3 SAMMI HATHAWAY - 03/11/2012 13:28 CDT Source: [employer] Document Id: [id number] documented in this encounter Plan of Treatment Not on filedocumented as of this encounter Procedures Procedure Name Priority Date/Time Associated Diagnosis Comme nts AUTOMATED Routine 02/29/2012 7:05 PM Results f or this DIFFERENTIAL, B CDT procedure ar e in the results section. D-DIMER, P Routine 02/29/2012 7:05 PM Results f or this CDT procedure are i n the results section. CBC WITH Routine 02/29/2012 7:05 PM Results f or this DIFFERENTIAL, B CDT procedure ar e in the results section. C-REACTIVE PROTEIN Routine 02/29/2012 7:05 PM Res ults for this (CRP), S/P CDT procedure are i n the results section. TROPONIN T, 5TH Routine 02/29/2012 7:05 PM Result s for this GEN, P CDT procedure are i n the results section. documented in this encounter Results Automated Differential (02/29/2012 7:05 PM CDT) P athologist Signature Neutro % 69.3 42.0 - POWERCHART 77.0 Lymphocytes % 23.3 23.0 - POWERCHART 44.0 HX [place] % 5.7 2.0 - 18.0 POWERCHART HX Eos % 1.5 1.0 - 5.0 POWERCHART HX Baso % 0.2 0.0 - 1.0 POWERCHART Absolute 6.58 1.70 - POWERCHART Neutrophils 7.00 109L Lymphocytes 2.21 0.90 - POWERCHART 2.90 X109L Monocytes 0.54 0.30 - POWERCHART 0.90 X109L Eosinophils 0.14 0.05 - POWERCHART 0.50 X109L Absolute 0.02 0.00 - POWERCHART Basophil 0.30 X109L Specimen Anatomical Collection Method Collection Time Receive d Time (Source) Location / / Volume Laterality Blood 02/29/2012 7:05 PM 2 7:05 CDT PM CDT Sydnee Asher M.D. LAB BLOOD ADD-ON Performing Organization Address City/State/ZIP Code Phon e Number POWERCHART CBC with Differential (02/29/2012 7:05 PM CDT) P athologist Signature Leukocytes 9.5 3.4 - 10.5 POWERCHART X109L Erythrocytes 4.71 3.90 - POWERCHART 5.03 [id number] Hemoglobin 14.2 12.0 - POWERCHART 15.5 GDL Hematocrit 39.3 34.9 - POWERCHART 44.5 MCV 83.4 82.0 - POWERCHART 98.0 FL HX RDW 12.3 11.9 - POWERCHART 15.5 Platelet Count 290 150 - 450 POWERCHART X109L HXDifferential? Auto POWERCHART Specimen (Source) Anatomical Collection Method Collection Time Re ceived Time Location / / Volume Laterality Blood 02/29/2012 7:05 PM CDT Sydnee Asher M.D. LAB BLOOD ADD-ON Performing Organization Address City/State/ZIP Code Phon e Number POWERCHART D-Dimer (02/29/2012 7:05 PM CDT) P athologist Signature D-Dimer, P 0.39 0.19 - 0.50 POWERCHART MGLFEU Specimen (Source) Anatomical Collection Method Collection Time Re ceived Time Location / / Volume Laterality Blood 02/29/2012 7:05 PM CDT Sydnee Asher M.D. LAB BLOOD ADD-ON Performing Organization Address City/[facility] Code Phon e Number POWERCHART Troponin T (02/29/2012 7:05 PM CDT) P athologist Signature Troponin T, S <0.01 0.00 - 0.10 POWERCHART NGML Comment: 0.03 ? 0.1 ng/mL Intermediate Zone Specimen (Source) Anatomical Collection Method Collection Time Re ceived Time Location / / Volume Laterality Blood 02/29/2012 7:05 PM CDT Sydnee Asher M.D. LAB BLOOD ADD-ON Performing Organization Address City/State/ZIP Code Phon e Number POWERCHART CRP (C-Reactive Protein) (02/29/2012 7:05 PM CDT) P athologist Signature C-Reactive 0.54 0.00 - 0.80 POWERCHART Protein (CRP), MGDL S Specimen (Source) Anatomical Collection Method Collection Time Re ceived Time Location / / Volume Laterality Blood 02/29/2012 7:05 PM CDT Sydnee Asher M.D. LAB BLOOD ADD-ON Performing Organization Address City/State/ZIP Code Phon e Number POWERCHART documented in this encounter Visit Diagnoses Not on filedocumented in this encounter Additional Health Concerns Assessment Noted Time PHQ-9 Depression Total Score: 17 11/05/2011 9:30 AM CS T documented as of this encounter
--- OUTSIDE RECORDS SUMMARY | 2022-05-17 14:03 | XMS_ITS | Encounter Summary ---
:1980 Author Organization [facility] Address [address] [place] [address] Care Team Providers Name Role Phone Unavailable Primary Care Provider Unavailable Encounter Details Date Type Department Care Team Description 12/10/2009 Hospital Encounter [facility] INPT/OBSRV Rod North M.D. [address] [place] [address] (Wo rk) Social History Tobacco Use Types Packs/Day Years Used Date Smoking Tobacco: Never Assessed Sex Assigned at Date Recorded Not on file documented as of this encounter Plan of Treatment Not on filedocumented as of this encounter Visit Diagnoses Not on filedocumented in this encounter
--- OUTSIDE RECORDS SUMMARY | 2022-05-17 14:03 | XMS_ITS | Encounter Summary ---
:1980 Author Organization [facility] Address [address] [place] [address] Care Team Providers Name Role Phone Unavailable Primary Care Provider Unavailable Encounter Details Date Type Department Care Team Description 07/13/2011 Hospital Encounter [facility] OBSarah Bright M.D. [address] [place] [phone] (Wo rk) Social History Tobacco Use Types Packs/Day Years Used Date Smoking Tobacco: Never Assessed Sex Assigned at Date Recorded Not on file documented as of this encounter Progress Notes Genet Sanchez M.D. - 07/13/2011 3:00 PM CDT [id number] CC: repeat Pap smear and check IUD HPI: Shruthi Diop is a 30 year old who presents for complaint of repeat Pap smear. 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 She reports doing well overall. Denies any bleeding with intercourse. She is smoker and not ready to quit. She also has Mirena IUD for control and very happy with it. She would like evaluated. She does not feel sutures well. No LMP recorded. Patient is not currently having periods (Reason: IUD). No bleeding on with IUD. ALLERGIES: No known allergies No current outpatient prescriptions on file. 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 Kind Congenital Brother Microcephalic REVIEW OF SYSTEMS: NEUROLOGIC: negative. GI: negative. : negative. AD OPERATIONS INTERN: normal menses, no abnormal bleeding, pelvic pain or discharge, no breast pain or new or enlarging lumps on self exam. CV: negative. PULMONARY: No shortness of breath, dyspnea on exertion, cough, or hemoptysis. MUSCULOSKELETAL: negative. PSYCH: negative. PHYSICAL EXAM: This is a well-developed, well-nourished female in no apparent distress. Vitals: BP 134/84 BMI= There is no height or weight on file to calculate BMI. NECK: Supple, no adenopathy and thyroid normal. ABDOMEN: Benign, Soft, flat, non-tender, No masses, organomegaly, No inguinal nodes and Bowel soundsnormoactive. GYNECOLOGIC EXAM: Gyne Exam: Lymph: no enlarged groin nodes External genitlaia: normal development, normal BUS, no lesions Perineum: normal skin, no lesions, good support Urethra meatus: normal , no lesion or caruncle Urethra: normal, nontender, no cystocele, normal pelvic muscle tone Bladder: nontender, no masses, not enlarged Vagina:normal mucosa and rugae Cervix:multiparous, sutures present Uterus: smooth, firm, mobile, without irregularities Adnexa: non tender, 2 x 3 bilateral without abnormality RV: not indicated Rectum: no hemorrhoids, no bleeding ASSESSMENT/PLAN: 1. LSIL (low grade squamous intraepithelial lesion) on Pap smear (795.03G) PAP imaged thin layer, diagnostic 2. IUD surveillance (V25.42) I will call her with results of Pap smear. If Pap is normal then repeat in 6 months. If Pap abnormal then would need colposcopy. She understands plan. Reassured patient that IUD in place. Villa Sanchez MD 07/13/2011 KICK PRESS SETTER [place] Source: [facility] Document Id: [id number] Electronically signed by Conversion, [facility] Shaker Repairer [id number] at 02/09/2017 9:58 PM CDT documented in this encounter Miscellaneous Notes Miscellaneous - Kia Guerrero L.P.N. - 07/13/2011 3:00 PM CDT [id number] [facility] --AppknoxHART ACCESS Thank you for your interest in Krossover??. We are pleased to offer this service to our adult patients, over the age of 18. Patients must have an e-mail address and a primary care provider to participatein Krossover. Those enrolled in this new service can use the fully-secure Internet site to schedule appointments, send messages to your care team at any time, request prescription renewals and receive test results electronically. If you have questions about filling out the form, contact your [facility] [employer] Environmental Solutionshart lead generation representative. When the clinic receives your release form, you will be mailed your startup information, which includes: your access code, answers to frequently asked question, a guide to compatible computer and Internet operating systems and reference guide for software operation. 1. Your information: (Please Print Clearly) X New User ?Request Proxy User ?Renew Proxy Your Name: Shruthi Diop Previous Names: Social Security #: [id number] Birthdate: 1980 Phone numbers: [phone] (home) Email address: [email or web address] Primary Physician: David Blanco Primary Clinic: [facility] AUTHORIZATION TO RELEASE PROTECTED HEALTH INFORMATION I allow [facility] to release medical information through Krossover to: X Myself ? Parent or Legal Guardian ? Proxy Please release the following details: All information as allowed through Krossover I ask that you release this information for the following: X Personal use ? Other: I understand that: Krossover access includes access to all Krossover information available from visits to [facility]. If I change my mind, I may tell my clinic at any time. I may do this verbally or in writing. This will not apply to records that have already been released. Once records are released, [place] cannot prevent them from being released to a third green party. To be valid, this form must be completely filled out, signed and dated. A copy that has not been altered is as valid as the original. To be valid, this form must be completely filled out, and signed and dated. A copy that has not been altered is as valid as an original. If I do not sign this form, I will still be treated. 1 Signature of Patient/Authorized Person Authorized Persons Authority to Sign DATE* (parent, guardian, power of corporate associate attorney, etc.) Reason patient is unable to sign: ? Minor ?Other: * Please make sure the date is filled in. This Form is invalid without a date. Source: [facility] RWMCHXTRANSXRTFSYS Document Id: [id number] documented in this encounter Plan of Treatment Not on filedocumented as of this encounter Visit Diagnoses Not on filedocumented in this encounter
--- OUTSIDE RECORDS SUMMARY | 2022-05-17 14:03 | XMS_ITS | Encounter Summary ---
:1980 Author Organization [facility] Address [address] [place] [address] Care Team Providers Name Role Phone Unavailable Primary Care Provider Unavailable Encounter Details Date Type Department Care Team Description 12/09/2009 Hospital Encounter HX [facility] INPT/OBSRV Rod North M.D. [address] [place] [address] (Wo rk) Social History Tobacco Use Types Packs/Day Years Used Date Smoking Tobacco: Never Assessed Sex Assigned at Date Recorded Not on file documented as of this encounter Plan of Treatment Not on filedocumented as of this encounter Visit Diagnoses Not on filedocumented in this encounter
--- OUTSIDE RECORDS SUMMARY | 2022-05-17 14:03 | XMS_ITS | Encounter Summary ---
:1980 Author Organization [facility] Address [address] [place] [address] Care Team Providers Name Role Phone Unavailable Primary Care Provider Unavailable Encounter Details Date Type Department Care Team Description 10/25/2010 Hospital Encounter HX NO MAPPING Rocio Beasley M.D. Social History Tobacco Use Types Packs/Day Years Used Date Smoking Tobacco: Never Assessed Sex Assigned at Date Recorded Not on file documented as of this encounter Plan of Treatment Not on filedocumented as of this encounter Visit Diagnoses Not on filedocumented in this encounter
--- OUTSIDE RECORDS SUMMARY | 2022-05-17 14:03 | XMS_ITS | Encounter Summary ---
:1980 Author Organization [facility] Address [address] [place] [address] Care Team Providers Name Role Phone Unavailable Primary Care Provider Unavailable Encounter Details Date Type Department Care Team Description 09/28/2010 Hospital Encounter HX [facility] INPT/OBSRV Rickie Armijo, AUREA, C.N.P., D.N.P. [address] [place] [address] (Wo rk) Social History Tobacco Use Types Packs/Day Years Used Date Smoking Tobacco: Never Assessed Sex Assigned at Date Recorded Not on file documented as of this encounter Plan of Treatment Not on filedocumented as of this encounter Visit Diagnoses Not on filedocumented in this encounter
--- OUTSIDE RECORDS SUMMARY | 2022-05-17 14:03 | XMS_ITS | Encounter Summary ---
:1980 Author Organization [facility] Address [address] [place] [address] Care Team Providers Name Role Phone Unavailable Primary Care Provider Unavailable Encounter Details Date Type Department Care Team Description 06/03/2012 Hospital Encounter HX NO MAPPING Marcial Norwood, [...]
--- OUTSIDE RECORDS SUMMARY | 2022-05-17 14:04 | XMS_ITS | Encounter Summary ---
:1980 Author Organization [facility] Address [address] [place] [address] Care Team Providers Name Role Phone Unavailable Primary Care Provider Unavailable Encounter Details Date Type Department Care Team Description 02/06/2005 Hospital Encounter HX NO MAPPING Provider, Historical Social History Tobacco Use Types Packs/Day Years Used Date Smoking Tobacco: Never Assessed Sex Assigned at Date Recorded Not on file documented as of this encounter Plan of Treatment Not on filedocumented as of this encounter Visit Diagnoses Not on filedocumented in this encounter
--- OUTSIDE RECORDS SUMMARY | 2022-05-17 14:04 | XMS_ITS | Encounter Summary ---
:1980 Author Organization [facility] Address [address] [place] [address] Care Team Providers Name Role Phone Unavailable Primary Care Provider Unavailable Encounter Details Date Type Department Care Team Description 01/19/2005 Hospital Encounter HX [facility] Jorgito Avendano M.D. [address] [place] [phone] (Wo rk) Social History Tobacco Use Types Packs/Day Years Used Date Smoking Tobacco: Never Assessed Sex Assigned at Date Recorded Not on file documented as of this encounter Progress Notes Tu Frazier M.D. - 01/19/2005 10:30 AM CDT [id number] brayden 02/11/2005,feels okELIS 24 hr urine in lab today cont bed rest at home wds Source: [facility]XTRANSXRTFSYS Document Id: [id number] documented in this encounter Plan of Treatment Not on filedocumented as of this encounter Visit Diagnoses Not on filedocumented in this encounter
--- OUTSIDE RECORDS SUMMARY | 2022-05-17 14:04 | XMS_ITS | Encounter Summary ---
:1980 Author Organization [facility] Address [address] [place] [address] Care Team Providers Name Role Phone Unavailable Primary Care Provider Unavailable Encounter Details Date Type Department Care Team Description 12/19/2004 Hospital Encounter HX [facility] Bebe Rodríguez M.D. [address] [place], [place] [phone] (Wo rk) Social History Tobacco Use Types Packs/Day Years Used Date Smoking Tobacco: Never Assessed Sex Assigned at Date Recorded Not on file documented as of this encounter Progress Notes Lucia Cannon M.D. - 12/19/2004 2:00 PM CDT [id number] Will be in inpatient treatment program tomorrow for 10-20days to complete the treatment program she started. Can come out for doctors visits. complaining low pelvic pressure, will try belt. KG Source: [facility] GULFPORTHXTRANSXRTFSYS Document Id: [id number] documented in this encounter Plan of Treatment Not on filedocumented as of this encounter Visit Diagnoses Not on filedocumented in this encounter
--- OUTSIDE RECORDS SUMMARY | 2022-05-17 14:04 | XMS_ITS | Encounter Summary ---
:1980 Author Organization [facility] Address [address] [place] [address] Care Team Providers Name Role Phone Unavailable Primary Care Provider Unavailable Encounter Details Date Type Department Care Team Description 01/22/2005 Hospital Encounter HX [facility] Bebe Rodríguez M.D. [address] [place], [place] [phone] (Wo rk) Social History Tobacco Use Types Packs/Day Years Used Date Smoking Tobacco: Never Assessed Sex Assigned at Date Recorded Not on file documented as of this encounter Progress Notes Lucia Cannon M.D. - 01/22/2005 11:15 AM CDT [id number] Has had RUQ pain X 1 month, no BUSH, no mod BR at home. O: cervix 2/long/very high. S>>D very tender on right lateral abd, not really in the upper quadrant or epigastrium 24hr protein is 300mg/24 hrs. LTD US done for S>D. EFW 7#0oz. JULIO=9.8 cm BPP 8/8 A/P PIH, BPs down now, recheck AST/CBC plts . pain likely musc/skeletal RTC 3 days for f/u, cont mod BR. S/S PIH reviewed. KG Source: [facility] Document Id: [id number] Electronically signed by Conversion, [facility] Post Office Markup Clerk [id number] at 02/11/2017 8:01 PM CDT documented in this encounter Miscellaneous Notes Miscellaneous - Lucia Cannon M.D. - 01/22/2005 11:15 AM CDT [id number] Shruthi Diop [address] [place] [address] January 22, 2005 Dear Shruthi: I am writing to inform you the results of the laboratory tests you had done during your recent visitto the clinic. Your liver test and platelets were normal The results of your recent lab(s) were: CBC results: WBC 8.2 01/22/2005 HGB 13.5 01/22/2005 RBC 4.74 01/22/2005 HCT 39.5 01/22/2005 PLT 243 01/22/2005 (platelets. normal is greater than 150) Your AST (liver enzyme test) is: AST 17 01/22/2005 normal 0-37 It was a pleasure to see you in the clinic. If you have any further questions or problems, please contact our office at [phone]. Sincerely, Lucia Cannon MD, KNIT GOODS MENDER Department [facility] Source: [facility] Document Id: [id number] Electronically signed by Conversion, [facility] Post Office Markup Clerk [id number] at 02/11/2017 8:01 PM CDT documented in this encounter Plan of Treatment Not on filedocumented as of this encounter Visit Diagnoses Not on filedocumented in this encounter
--- OUTSIDE RECORDS SUMMARY | 2022-05-17 14:04 | XMS_ITS | Encounter Summary ---
:1980 Author Organization [facility] Address [address] [place] [address] Care Team Providers Name Role Phone Unavailable Primary Care Provider Unavailable Encounter Details Date Type Department Care Team Description 02/06/2005 - Hospital Encounter HX NO MAPPING Lucia Cannon, 02/09/2005 [place] [address] (Wo rk) Social History Tobacco Use Types Packs/Day Years Used Date Smoking Tobacco: Never Assessed Sex Assigned at Date Recorded Not on file documented as of this encounter Plan of Treatment Not on filedocumented as of this encounter Visit Diagnoses Not on filedocumented in this encounter
--- OUTSIDE RECORDS SUMMARY | 2022-05-17 14:04 | XMS_ITS | Encounter Summary ---
:1980 Author Organization [facility] Address [address] [place] [address] Care Team Providers Name Role Phone Unavailable Primary Care Provider Unavailable Encounter Details Date Type Department Care Team Description 02/11/2005 Hospital Encounter HX NO MAPPING Provider, Historical Social History Tobacco Use Types Packs/Day Years Used Date Smoking Tobacco: Never Assessed Sex Assigned at Date Recorded Not on file documented as of this encounter Plan of Treatment Not on filedocumented as of this encounter Visit Diagnoses Not on filedocumented in this encounter
--- OUTSIDE RECORDS SUMMARY | 2022-05-17 14:04 | XMS_ITS | Encounter Summary ---
:1980 Author Organization [facility] Address [address] [place] [address] Care Team Providers Name Role Phone Unavailable Primary Care Provider Unavailable Encounter Details Date Type Department Care Team Description 02/15/2005 Hospital Encounter HX [facility] Monica Eid APR N, C.N.P. [address] [place], [place] [phone] (Wo rk) Social History Tobacco Use Types Packs/Day Years Used Date Smoking Tobacco: Never Assessed Sex Assigned at Date Recorded Not on file documented as of this encounter Progress Notes Monica Eid, C.N.P., R.N. - 02/15/2005 1:30 PM CDT [id number] Shruhti is here today to f/u . See exam from 02-12-05. She is still on antibiotics. She statesshe is feeling better, has more energy. Minimal bleeding. No fevers or chills noted. She does have some R sided abdominal pain with walking, otherwise minimal pain. Cbc repeated, Hgb increased to 10.5. O; Abdominal exam: BS +, no guarding, no rebound tenderness, uterus nontender A/P: continue antibiotics, if any further questions or problems to call or RTC Source: [facility] Document Id: [id number] Electronically signed by [facility] Mechanical Systems Design Engineer [id number] at 02/11/2017 6:51 PM CDT documented in this encounter Plan of Treatment Not on filedocumented as of this encounter Visit Diagnoses Not on filedocumented in this encounter
--- OUTSIDE RECORDS SUMMARY | 2022-05-17 14:04 | XMS_ITS | Encounter Summary ---
:1980 Author Organization [facility] Address [address] [place] [address] Care Team Providers Name Role Phone Unavailable Primary Care Provider Unavailable Encounter Details Date Type Department Care Team Description 01/18/2005 Hospital Encounter HX [facility] Monica Eid APR N, C.N.P. [address] [place], [place] [phone] (Wo rk) Social History Tobacco Use Types Packs/Day Years Used Date Smoking Tobacco: Never Assessed Sex Assigned at Date Recorded Not on file documented as of this encounter Progress Notes Monica Eid, C.N.P., R.N. - 01/18/2005 10:00 AM CDT [id number] Gestational Age: 36w 4d Continues on BR, Does state she feels better today. Weight remains unchanged, b/p is elevated from last visit. Edema remains. B/P recheck 140/90. Unsure of presentation. Discussed with MD. Will admit to L and D for observation. NOAM Source: [facility] Document Id: [id number] documented in this encounter Plan of Treatment Not on filedocumented as of this encounter Visit Diagnoses Not on filedocumented in this encounter
--- OUTSIDE RECORDS SUMMARY | 2022-05-17 14:04 | XMS_ITS | Encounter Summary ---
:1980 Author Organization [facility] Address [address] [place] [address] Care Team Providers Name Role Phone Unavailable Primary Care Provider Unavailable Encounter Details Date Type Department Care Team Description 02/06/2005 Hospital Encounter HX [facility] OBGYN Provider, Histor ical Social History Tobacco Use Types Packs/Day Years Used Date Smoking Tobacco: Never Assessed Sex Assigned at Date Recorded Not on file documented as of this encounter Progress Notes Conversion, Historical Provider Ser - 02/06/2005 2:00 PM CDT [id number] Comment: Licensed Mental Health Professional The patient is 24 years old, 2, Para 1-0-0-1, she is due on February 11. She is 39 weeks and 2 days. She is here for headache and her blood pressure is 162/100. Blood pressure last week was 118/80. She gained 5 pounds from last week. She has 2+ edema and reflexes 1+. Fundosopic: I think I saw change in vessel. She does have any blurred vision. She doesn't complain of epigastric pain and fundal height is 41 centimeters. Her baby is large and rate is 140-154, cervix is closed, soft, 50% effaced, vertex presentation, -3 station. The patient denies taking any medication. She is HPV positive. We talked about the possibility of drug screen, urine tox screen during labor because she had a history of drug abuse and so she agreed with that and she is going to go [facility] Labor and Delivery Room for Cervicil tonight and induction tomorrow. Veronica Kruger M.D./marisa [facility] Document Id: [id number] Conversion, Historical Provider Ser - 02/06/2005 2:00 PM CDT [id number] This office note has been dictated. [facility] Document Id: [id number] Conversion, Historical Provider Ser - 02/06/2005 2:00 PM CDT [id number] pt is going to FOR INDUCTION TONIGHT . PRE ECLAMPSIA . T . Source: [facility] Document Id: [id number] documented in this encounter Plan of Treatment Not on filedocumented as of this encounter Visit Diagnoses Not on filedocumented in this encounter
--- OUTSIDE RECORDS SUMMARY | 2022-05-17 14:04 | XMS_ITS | Encounter Summary ---
:1980 Author Organization [facility] Address [address] [place] [address] Care Team Providers Name Role Phone Unavailable Primary Care Provider Unavailable Encounter Details Date Type Department Care Team Description 01/08/2005 Hospital Encounter HX [facility] OBBebe Key M.D. [address] [place] [phone] (Wo rk) Social History Tobacco Use Types Packs/Day Years Used Date Smoking Tobacco: Never Assessed Sex Assigned at Date Recorded Not on file documented as of this encounter Progress Notes Lucia Cannon M.D. - 01/08/2005 10:45 AM CDT [id number] c/o genital warts over the last few weeks, hasn't had sex for months (since negative GC/Chl 11/11). 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 A/P 35 weeks, condyloma treated. GBS obtained. weekly appts for HPV treatment. Gets weekly tox screens done with military source operations officer. KG Source[facility] Document Id: [id number] Electronically signed by Conversion, [facility] Rotogravure Press Operator [id number] at 02/11/2017 8:01 PM CDT documented in this encounter Miscellaneous Notes Miscellaneous - Lucia Cannon M.D. - 01/08/2005 10:45 AM CDT [id number] Shruthi Catherine Chikis [address] [place] [address] January 12, 2005 Dear Shruthi: I am writing to inform you the results of the laboratory tests you had done during your recent visitto the clinic. The results of your recent lab(s) were: Your Group B Stept test was negative, you are not a carrier for this bacteria. It was a pleasure to see you in the clinic. If you have any further questions or problems, please contact our office at [phone]. Sincerely, Lucia Cannon MD, SAFETY SITTER Department [facility] Source: [facility] Document Id: [id number] Electronically signed by Conversion, [facility] Rotogravure Press Operator [id number] at 02/11/2017 8:01 PM CDT documented in this encounter Plan of Treatment Not on filedocumented as of this encounter Visit Diagnoses Not on filedocumented in this encounter
--- OUTSIDE RECORDS SUMMARY | 2022-05-17 14:04 | XMS_ITS | Encounter Summary ---
:1980 Author Organization [facility] Address [address] [place] [address] Care Team Providers Name Role Phone Unavailable Primary Care Provider Unavailable Encounter Details Date Type Department Care Team Description 12/13/2004 Hospital Encounter HX [facility] Jorgito Avendano M.D. [address] [place] [phone] (Wo rk) Social History Tobacco Use Types Packs/Day Years Used Date Smoking Tobacco: Never Assessed Sex Assigned at Date Recorded Not on file documented as of this encounter Progress Notes Tu Frazier M.D. - 12/13/2004 3:00 PM CDT [id number] Pt concerned that there has been little movement today. movement is palpated and with doptone it is heard. FHR increased with stimulation. repeat BP 132/80 wds [facility]: [facility] Document Id: [id number] Electronically signed by Elsy [facility] Retail Loss Prevention Specialist [id number] at 02/11/2017 10:08 PM CDT documented in this encounter Plan of Treatment Not on filedocumented as of this encounter Visit Diagnoses Not on filedocumented in this encounter
--- OUTSIDE RECORDS SUMMARY | 2022-05-17 14:04 | XMS_ITS | Encounter Summary ---
:1980 Author Organization [facility] Address [address] [place] [address] Care Team Providers Name Role Phone Unavailable Primary Care Provider Unavailable Encounter Details Date Type Department Care Team Description 01/29/2005 Hospital Encounter HX [facility] Bebe Rodríguez M.D. [address] [place], [place] [phone] (Wo rk) Social History Tobacco Use Types Packs/Day Years Used Date Smoking Tobacco: Never Assessed Sex Assigned at Date Recorded Not on file documented as of this encounter Progress Notes Lucia Cannon M.D. - 01/29/2005 10:45 AM CDT [id number] No contractions, doing well. KG Source: [facility] Document Id: [id number] Electronically signed by Conversion, [facility] Flat Lock Machine Operator [id number] at 02/11/2017 8:01 PM CDT documented in this encounter Plan of Treatment Not on filedocumented as of this encounter Visit Diagnoses Not on filedocumented in this encounter
--- OUTSIDE RECORDS SUMMARY | 2022-05-17 14:04 | XMS_ITS | Encounter Summary ---
:1980 Author Organization [facility] Address [address] [place] [address] Care Team Providers Name Role Phone Unavailable Primary Care Provider Unavailable Encounter Details Date Type Department Care Team Description 12/01/2004 Hospital Encounter HX [facility] Rocio Miller M.D. Social History Tobacco Use Types Packs/Day Years Used Date Smoking Tobacco: Never Assessed Sex Assigned at Date Recorded Not on file documented as of this encounter Progress Notes Rocio Putnam M.D. - 12/01/2004 8:15 AM CST [id number] Test of cure for GC/chlamydia. Many large warts noted - she was going to have these removed. BP much beter, urine tox screen sent. KD Source: [facility] Document Id: [id number] Electronically signed by Conversion, [facility] Paid Search Marketing Analyst [id number] at 02/11/2017 9:14 PM CDT documented in this encounter Miscellaneous Notes Miscellaneous - Rocio Putnam M.D. - 12/01/2004 8:15 AM CST [id number] Shruthi Diop [address] [place] [id number] December 04, 2004 Dear Ms. Diop: I am writing to inform you the results of the laboratory tests you had done during your recent visitto the clinic. Your results included (normal values are in parenthesis): STD tests (GC and chalmydia) were both negative. It was a pleasure to see you in the clinic. If you have any further questions or problems, please contact our office at [phone]. Sincerely, Rocio Putnam MD Dept. DIRECTOR OF DIGITAL MARKETING [facility] Source: [facility] RWHXTRANSXRTFSYS Document Id: [id number] Electronically signed by Conversion, [facility] Paid Search Marketing Analyst [id number] at 02/11/2017 9:14 PM CDT documented in this encounter Plan of Treatment Not on filedocumented as of this encounter Visit Diagnoses Not on filedocumented in this encounter
--- OUTSIDE RECORDS SUMMARY | 2022-05-17 14:04 | XMS_ITS | Encounter Summary ---
:1980 Author Organization [facility] Address [address] [place] [address] Care Team Providers Name Role Phone Unavailable Primary Care Provider Unavailable Encounter Details Date Type Department Care Team Description 01/25/2005 Hospital Encounter [facility] OBGYN Provider, Histor ical Social History Tobacco Use Types Packs/Day Years Used Date Smoking Tobacco: Never Assessed Sex Assigned at Date Recorded Not on file documented as of this encounter Progress Notes Conversion, Historical Provider Ser - 01/25/2005 8:30 AM CDT [id number] Comment: transcripition SUBJECTIVE: The patient is a 24-year-old gravid 2, para 1, 0, 0, 1. She is due on February 11. She is 37 weeksand four days. She is here for a follow-up and she is also complaining of right flank pain. This pain has been there for a long time and has been followed. The patient has had an appendectomyand she does not complain of any nausea or vomiting. The patient is aggrvated by moving, standing up, sitting down, and moving side by side. She does not have any diarrhea, no epigastric pain, no sign of cholecystitis. She does not have any urinary tract infection and no sign of dysuria. ON EXAMINATION: Vitals Signs: Stable. Blood pressure 128/76 and her weight is 224.5 pounds. Pelvic: Fundus is 39 centimeters. Vertex presentation. heart is 140 regular and strong. There is some tenderness on the right upper quadrant of the uterus and just exactly the site of the round ligament. The patient is especially expressing that the pain is incresaed by moving, standing up, and s itting down, and moving to right and left side. The patient cannot remember having this kind of painher first and especially she remembered the patient is more severe in the evening then in the morning. The patient has a 4-year-old daughter at home,she has to take care of her this task cause her more dyscomfort and pain . She does not have any CVA tenderness. ASSESSMENT: The patient has round ligament pain. Round ligament pain was explained to the patient. I james a picture and explained to the patient so she understood. PLAN: Home, rest, and lots of fluid. Keep the area warm and dressed in the afternoon in the or mid day. I explained this pain will be there until delivery. The patient will come back to see us in one week. Veronica Kruger M.D./ivory Source: [facility] Document Id: [id number] Conversion, Historical Provider Ser - 01/25/2005 8:30 AM CDT [id number] rlg pain , cx isclosed , 50% ,vtx -3 ,no bleedin , not leaking . explain the cause pain , round ligament pain . rest , fluid , rtc in aweek .t.e Source: [facility] Document Id: [id number] documented in this encounter Plan of Treatment Not on filedocumented as of this encounter Visit Diagnoses Not on filedocumented in this encounter
--- OUTSIDE RECORDS SUMMARY | 2022-05-17 14:04 | XMS_ITS | Encounter Summary ---
:1980 Author Organization [facility] Address [address] [place] [address] Care Team Providers Name Role Phone Unavailable Primary Care Provider Unavailable Encounter Details Date Type Department Care Team Description 01/15/2005 Hospital Encounter HX [facility] OBGYN Monica Eid APR N, C.N.P. [address] [place], [place] [phone] (Wo rk) Social History Tobacco Use Types Packs/Day Years Used Date Smoking Tobacco: Never Assessed Sex Assigned at Date Recorded Not on file documented as of this encounter Progress Notes Monica Eid, C.N.P., R.N. - 01/15/2005 3:15 PM CDT [id number] Shruthi is here at Gestational Age: 36w 1d She states that she is getting ready at home. Preregistration: Sent in. Childbirth Ed. Classes attended: none Carseat: Has one ready to go, knows how to use it. Plans to breastfeed her baby Baby Doctor: Arjun Circumcision: na Control plans: unsure, plans abstinence Financial issues: No problems, will be checking on WIC Understands signs and symptoms of labor, knows phone numbers to call, where to go when in labor, etc. plan discussed. yes Discussed warning signs of . Referral status: none Assessment and Plan: Group B strep, Hgb. Will notify of results. Weekly visits with MD until delivery. Enc. to call with any concerns. [facility]: [facility] Document Id: [id number] Electronically signed by Elsy [facility] Apple Press Operator [id number] at 02/11/2017 8:01 PM CDT Monica Eid C.N.P., R.N. - 01/15/2005 3:15 PM CDT [id number] Gestational Age: 36w 1d GBS done last visit which was negative. plan and hospital arrival information given to patient. Wt up 6 lbs since last week,b/p slightly elevated also. Will check CBC, ALT, AST. Recheck on . Warning signs of discussed. HPV treated today with TCA, multiple areas around anus and on labia. NOAM Source: [facility] Document Id: [id number] Electronically signed by Conversion, [facility] Apple Press Operator [id number] at 02/11/2017 8:01 PM CDT documented in this encounter Plan of Treatment Not on filedocumented as of this encounter Visit Diagnoses Not on filedocumented in this encounter
--- OUTSIDE RECORDS SUMMARY | 2022-05-17 14:04 | XMS_ITS | Encounter Summary ---
:1980 Author Organization [facility] Address [address] [place] [address] Care Team Providers Name Role Phone Unavailable Primary Care Provider Unavailable Encounter Details Date Type Department Care Team Description 02/12/2005 Hospital Encounter HX [facility] OBGYN Monica Eid APR N, C.N.P. [address] [place], [place] [phone] (Wo rk) Social History Tobacco Use Types Packs/Day Years Used Date Smoking Tobacco: Never Assessed Sex Assigned at Date Recorded Not on file documented as of this encounter Progress Notes Monica Eid, C.N.P., R.N. - 02/12/2005 1:30 PM CDT [id number] Shruthi is here today, she is , [birth year]. She was induced d/t PIH. She is here today complaining of fever, fatigue and abdominal pain. On Saturday she was at home and passed a large, stringy piece of clear tissue.She had also noted fever, fatigue. She was seen yesterday by Dr. Lowe and Keflex was started r/o infection. Since starting antibiotics Shruthi has been feeling a little better. She is taking Ibuprofen every 4 hours for fever and pain. Her Hgb on 02-08-05 was 9.4. Repeat today was 8.9. Current outpatient prescriptions: KEFLEX 500 MG OR CAPS 1 CAPSULE EVERY 12 HOURS ZANTAC OR 1 CAPSULE AT BEDTIME VITAMINS OR TABS 1 TABLET DAILY Previous Medical History: NO ACTIVE PROBLEMS O; CBC done today: see results Gynecological Exam: EXTERNAL GENITALIA: normal development, normal BUS, no lesions and repair healing VAGINA: normal mucosa and rugae, blood noted in vagina CERVIX: multiparous and bleeding per os noted, negative CMT UTERUS: smooth, firm, mobile, without irregularities,approx 14 week size ADNEXA: non tender RECTO-VAGINAL: not indicated A/P: R/O post infection: Discussed with Dr. Frazier: instructed to RTC on for a recheck, continue antibiotics as directed. If any changes noted prior to , to call or RTC sooner Source: [facility] Document Id: [id number] Electronically signed by Conversion, [facility] Supervisor Conditioning Yard [id number] at 02/11/2017 6:51 PM CDT documented in this encounter Plan of Treatment Not on filedocumented as of this encounter Visit Diagnoses Not on filedocumented in this encounter
--- OUTSIDE RECORDS SUMMARY | 2022-05-17 14:05 | XMS_ITS | Encounter Summary ---
:[address] [facility] Address [address] [place] [address] Care Team Providers Name Role Phone Unavailable Primary Care Provider Unavailable Encounter Details Date Type Department Care Team Description 08/22/[address] [facility] OBGYN Monica Eid APR N, C.N.P. [address] [place], [place] [phone] (Wo rk) Social History Tobacco Use Types Packs/Day Years Used Date Smoking Tobacco: Never Assessed Sex Assigned at Date Recorded Not on file documented as of this encounter Progress Notes Moniac Eid, C.N.P., R.N. - 08/22/2004 2:00 PM CST [id number] Ob check, has abcess in tooth, needs surgery to have it pulled. On Keflex and taking Vicodin for pain which is not working well. Rx for Tylenol with codeine given Positive GC, Rocephin given today IM. Partner Rx given also. Abstain for one week, test of cure with next visit. Sono in one month. NOAM Source[facility] Document Id: [id number] Electronically signed by Conversion, [facility] Acetylene Gas Compressor [id number] at 02/11/2017 6:23 PM CDT documented in this encounter Plan of Treatment Not on filedocumented as of this encounter Visit Diagnoses Not on filedocumented in this encounter
--- OUTSIDE RECORDS SUMMARY | 2022-05-17 14:05 | XMS_ITS | Encounter Summary ---
:1980 Author Organization [facility] Address [address] [place] [address] Care Team Providers Name Role Phone Unavailable Primary Care Provider Unavailable Encounter Details Date Type Department Care Team Description 02/09/2001 Hospital Encounter HX NO MAPPING Provider, Historical Social History Tobacco Use Types Packs/Day Years Used Date Smoking Tobacco: Never Assessed Sex Assigned at Date Recorded Not on file documented as of this encounter Miscellaneous Notes Miscellaneous - Conversion, Historical Provider Ser - 02/09/2001 12:00 AM CDT [id number] Abstracted by Jose traffic clerk on 03/26/[address] [phone] SUMMARYPAT IENT: ROSANA MARTINEZ - : 84 ADMIT: [id number] RECORD NUMBER: [id number] DISCHARGE: [id number] DIAGNOSES:1. Intrauterine at term.2. Active labor.DISCHARGE DIAG NOSIS: Viable female infant.PROCEDURE: Spontaneous vaginal delivery.The patient is a 24-year-ol d 1, para 0, who was admitted in active labor at 38 weeks gestational age. She progressed th rough a normal labor curve to complete and delivered a viable female via spontaneous vaginal d mikey. The infant's weight was 7 pounds 10 ounces with Apgars at 8 and 9 at 1 and 5 minutes respec tively. Placenta was delivered spontaneously intact with a three-vessel cord noted. Estimated blood loss was less than 500 cc. There were no delivery complications.The patient's course w as unremarkable and she was discharged to home on day #2. At that time, her he moglobin was 10.2. Physical activities and restrictions were discussed with the patient prior to dis charge. She was instructed to follow up with Dr. Le in 6 weeks. Her discharge medications inc luded Tylenol 3, Colace, and vitamins.RAFAELN:Laurel: 03-[birth year]01T: 03-21-01 Tammy Schrader MD [facility] Document Id: [id number] documented in this encounter Plan of Treatment Not on filedocumented as of this encounter Visit Diagnoses Not on filedocumented in this encounter
--- OUTSIDE RECORDS SUMMARY | 2022-05-17 14:05 | XMS_ITS | Encounter Summary ---
:1980 Author Organization [facility] Address [address] [place] [address] Care Team Providers Name Role Phone Unavailable Primary Care Provider Unavailable Encounter Details Date Type Department Care Team Description 10/05/2004 Hospital Encounter HX NO MAPPING Provider, Historical Social History Tobacco Use Types Packs/Day Years Used Date Smoking Tobacco: Never Assessed Sex Assigned at Date Recorded Not on file documented as of this encounter Plan of Treatment Not on filedocumented as of this encounter Visit Diagnoses Not on filedocumented in this encounter
--- OUTSIDE RECORDS SUMMARY | 2022-05-17 14:05 | XMS_ITS | Encounter Summary ---
:1980 Author Organization [facility] Address [address] [place] [address] Care Team Providers Name Role Phone Unavailable Primary Care Provider Unavailable Encounter Details Date Type Department Care Team Description 07/27/2004 Hospital Encounter HX [facility] Monica Mitchell, MARITO N, C.N.P. [address] [place], [place] [phone] (Wo rk) Social History Tobacco Use Types Packs/Day Years Used Date Smoking Tobacco: Never Assessed Sex Assigned at Date Recorded Not on file documented as of this encounter Miscellaneous Notes Telephone Encounter - Conversion, Historical Provider Ser - 07/27/2004 12:00 AM CST [id number] >> MONICA MISTRY Eulalia Jul 27, 2004 9:33 AM GENEVIEVE changed based on early usg. Letter sent to pt. [facility] Document Id: [id number] documented in this encounter Plan of Treatment Not on filedocumented as of this encounter Visit Diagnoses Not on filedocumented in this encounter
--- OUTSIDE RECORDS SUMMARY | 2022-05-17 14:05 | XMS_ITS | Encounter Summary ---
:1980 Author Organization [facility] Address [address] [place] [address] Care Team Providers Name Role Phone Unavailable Primary Care Provider Unavailable Encounter Details Date Type Department Care Team Description 07/23/2001 Hospital Encounter HX NO MAPPING Provider, Historical Social History Tobacco Use Types Packs/Day Years Used Date Smoking Tobacco: Never Assessed Sex Assigned at Date Recorded Not on file documented as of this encounter Miscellaneous Notes Miscellaneous - Conversion, Historical Provider Ser - 07/23/2001 12:00 AM CUTTER HELPER [id number] *-*-*-*-* SEE SCANNED REPORT *-*-*-*-* Source: [facility] RWHXTRANSXSYS Document Id: [id number] documented in this encounter Plan of Treatment Not on filedocumented as of this encounter Visit Diagnoses Not on filedocumented in this encounter
--- OUTSIDE RECORDS SUMMARY | 2022-05-17 14:05 | XMS_ITS | Encounter Summary ---
:1980 Author Organization [facility] Address [address] [place] [address] Care Team Providers Name Role Phone Unavailable Primary Care Provider Unavailable Encounter Details Date Type Department Care Team Description 03/09/2002 Hospital Encounter [facility]X [facility] Provider, Alek egan Social History Tobacco Use Types Packs/Day Years Used Date Smoking Tobacco: Never Assessed Sex Assigned at Date Recorded Not on file documented as of this encounter Miscellaneous Notes Telephone Encounter - Conversion, Angelica Provider Ser - 03/09/2002 12:00 AM CDT [id number] >> MATT Contreras Mar 10, 2002 11:48 AM Discussed elevated liver enzymes with patient. Still having the right upper quadrant pain with acti vity, but the epigastric pain is much improved. Scheduled for right upper quadrant ultrasound in Counts include [facility] beds at the [facility] at 9 am on March 13. Patient notified. She will call the radiology department to reschedule if she can't make this appt. Results will be faxed to family practice department. >> AYDEN FAROOQ SatMar 09, 2002 2:58 PM WE are to call her cell phone number at [phone]. >> AYDEN FAROOQ SatMar 09, 2002 1:32 PM >> CALL RECEIVED. Contact: She is calling to get the lab test results. Same number as computer. Source: [facility] Document Id: [id number] documented in this encounter Plan of Treatment Not on filedocumented as of this encounter Visit Diagnoses Not on filedocumented in this encounter
--- OUTSIDE RECORDS SUMMARY | 2022-05-17 14:05 | XMS_ITS | Encounter Summary ---
:1980 Author Organization [facility] Address [address] [place] [address] Care Team Providers Name Role Phone Unavailable Primary Care Provider Unavailable Encounter Details Date Type Department Care Team Description 08/18/2004 Hospital Encounter HX [facility] Monica Mitchell, APR N, C.N.P. [address] [place], [place] [phone] (Wo rk) Social History Tobacco Use Types Packs/Day Years Used Date Smoking Tobacco: Never Assessed Sex Assigned at Date Recorded Not on file documented as of this encounter Miscellaneous Notes Telephone Encounter - Conversion, Historical Provider Ser - 08/18/2004 12:00 AM CST [id number] >> MONICA MISTRY Fri Aug 18, 2004 1:18 PM PC from pt. Having very bad toothache, Tylenol is not helping, has been trying to get into a dentist . Wants something for pain in the mean time. Rx for Vicodin faxed to [facility]. Aware of positive GC, needs treatment with visit on Saturday. [facility] Document Id: [id number] documented in this encounter Plan of Treatment Not on filedocumented as of this encounter Visit Diagnoses Not on filedocumented in this encounter
--- OUTSIDE RECORDS SUMMARY | 2022-05-17 14:05 | XMS_ITS | Encounter Summary ---
:1980 Author Organization [facility] Address [address] [place] [address] Care Team Providers Name Role Phone Unavailable Primary Care Provider Unavailable Encounter Details Date Type Department Care Team Description 06/27/2004 Hospital Encounter HX [facility] OBGYN Provider, Histor ical Social History Tobacco Use Types Packs/Day Years Used Date Smoking Tobacco: Never Assessed Sex Assigned at Date Recorded Not on file documented as of this encounter Plan of Treatment Not on filedocumented as of this encounter Visit Diagnoses Not on filedocumented in this encounter
--- OUTSIDE RECORDS SUMMARY | 2022-05-17 14:05 | XMS_ITS | Encounter Summary ---
:1980 Author Organization [facility] Address [address] [place] [address] Care Team Providers Name Role Phone Unavailable Primary Care Provider Unavailable Encounter Details Date Type Department Care Team Description 07/25/2004 Hospital Encounter HX NO MAPPING Monica Eid APRN, C.N.P. [address] [place], [place] [phone] (Wo rk) Social History Tobacco Use Types Packs/Day Years Used Date Smoking Tobacco: Never Assessed Sex Assigned at Date Recorded Not on file documented as of this encounter Plan of Treatment Not on filedocumented as of this encounter Visit Diagnoses Not on filedocumented in this encounter
--- OUTSIDE RECORDS SUMMARY | 2022-05-17 14:05 | XMS_ITS | Encounter Summary ---
:1980 Author Organization [facility] Address [address] [place] [address] Care Team Providers Name Role Phone Unavailable Primary Care Provider Unavailable Encounter Details Date Type Department Care Team Description 03/03/2002 Hospital Encounter HX [facility] Provider, [facility] Social History Tobacco Use Types Packs/Day Years Used Date Smoking Tobacco: Never Assessed Sex Assigned at Date Recorded Not on file documented as of this encounter Progress Notes Conversion, Historical Provider Ser - 03/03/2002 2:30 PM CDT [id number] S: Shruthi is a 21 year old female who presents for evaluation of 2 separate cases of abdominal pain. C haracteristics of the pain are as follows:Location: epigastric and RUQ without radiationQuality: p ressure in the epigastrium, sharp in RUQQuantity: 5/10 in intensity epigastric, 9-10/10 for RUQ with walkingChronicity: Onset 1 year ago, intermitent sinceAggravating factors: movement/walking for RU Q pain, eating for epigastric foods - no certain foods. Alleviating factors: inactivity for a perio d of time will resolve RUQ pain after 30-60 minutes, Zantac does help epigastric pain as well as ibup rofen Associated symptoms: nausea with RUQ painFamily history: positive for ulcers in mother.LMP : Patient's last menstrual period was 02/17/2002.1 year history of severe, sharp RUQ with activity and epigastric usually post prandial. Was evaluated with CT at [facility]- results negative last year by Dr. Carol Lugo. Appreciated on exam at that time was enlarged liver and r ectus diasthesis. CT confirmed this. Rectus defect has improved with some weight loss, but she felix nues to have the RUQ and epigastric pain. She does not believe that blood was checked last year lucie hurst this evaluation. Review of patient's past medical history indicates: NO ACTIVE PROBLEMS Review of patient's past surgical history indicates: APPENDECT KRISTI 06/09/92 Meds reviewed Social History Marital Status: Catherine ram Spouse Name: David Years of Education: Number of ch ildren: 1 Social History Main Topics Tobacco Use: Yes Packs/Day: Years: Comment: socially - 4 cigarettes per week. Alcohol Use: No Drug Use: No Sexually Active: Yes Partners with: Male Control/Protection: PillOt her Topics ConcernEXERCISE Yes Comment: 3-4 times per week, lifts weigh ts and uses exercise machines.Review of systems:Constitutional: negativeCV: negative Respitatory: negativeGI: negative for, dysphagia, vomiting, hematemesis, melena, hematochezia, const ipation and diarrheaGU: negativeO: Vitals: as chartedGeneral: Patient is well nourished, alert an d oriented in no acute distress. Normal mood and affect. Appropiate judgement and insight.Eyes: no rmal lids and conjunctiva.Ears: normal tympanic membranes and extra-auditory canals.Throat: normal mucosa without any lesions or erythema.Neck: supple without any masses or lymphadenopathy. Normal t hyroid.Lungs: normal respiratory effort. Clear to auscultation and percussion throughout.Cardiac: normal S1 and S2 without any murmur, gallops or rubs. No carotid bruits. No edema or cyanosis.Abdo men:On inspection the abdomen is rounded with RLQ incisional scars. Auscultation reveals normal bowel sounds and no bruit. On palpation the abdomen is soft with mild epigastric and RUQ tenderness and wi thout rebound. Further palpation reveals ? hepatomegaly with liver edge 4cm below the costal marginm - my exam is somewhat limited in this respect due to experience with this. ASSESSMENT:789.06 ABD OMINAL PAIN EPIGASTRICNote: ?gastroesophageal reflux diseasePlan: ACIPHEX 20 MG OR TBEC, HEMOGRAM, A.M.A. BASIC METABOLIC PANEL, A.M.A. HEPATIC PANEL (RW), VENIPUNC FNGR,HEEL,EAR, H. PYL RICHY AB (QUAL.), CONSULT TO GASTROENTEROLOGY Discussed GERD precautions and behavioral mo difications: elevating head of bed, avoiding ETOH, tobacco, caffiene and spicy foods. Increase exer cise. Have 3 hour time frame in between eating and laying down. Given information in writing on con dition and treatment. Take medication for 1 month, then follow up as to success of treatment and fur ther plan. Return for worsening of symptoms or failure to improve. Given referral to Dr. Soler for further evaluation and possible scoping. Will trial a PPI in the meantime and GERD precautions. 789.01 ABDOMINAL PAIN RUQPlan: HEMOGRAM, A.M.A. BASIC METABOLIC PANEL, A.M.A. HEPATIC PANEL ( RW), VENIPUNC FNGR,HEEL,EAR, H. PYLORI AB (QUAL.), CONSULT TO GASTROENTEROLOGY Unsure of etiology. Will check labs and follow up with Gastroenterology. [facility] Document Id: [id number] documented in this encounter Plan of Treatment Not on filedocumented as of this encounter Visit Diagnoses Not on filedocumented in this encounter
--- OUTSIDE RECORDS SUMMARY | 2022-05-17 14:05 | XMS_ITS | Encounter Summary ---
:1980 Author Organization [facility] Address [address] [place] [address] Care Team Providers Name Role Phone Unavailable Primary Care Provider Unavailable Encounter Details Date Type Department Care Team Description 07/19/2004 Hospital Encounter HX [facility] Monica Mitchell, MARITO N, C.N.P. [address] [place], [place] [phone] (Wo rk) Social History Tobacco Use Types Packs/Day Years Used Date Smoking Tobacco: Never Assessed Sex Assigned at Date Recorded Not on file documented as of this encounter Miscellaneous Notes Telephone Encounter - Conversion, Historical Provider Ser - 07/19/2004 12:00 AM CST [id number] >> MONICA MISTRY Eulalia Jul 20, 2004 1:43 PM Pt notified of positive GC results, will be in to clinic 07-25-04 for treatment, will get Rx for par tner at that time >> MONICA MISTRY Wed Jul 19, 2004 3:28 PM Positive GC, pt phoned.msg left to return call to clinic. [facility] Document Id: [id number] documented in this encounter Plan of Treatment Not on filedocumented as of this encounter Visit Diagnoses Not on filedocumented in this encounter
--- OUTSIDE RECORDS SUMMARY | 2022-05-17 14:05 | XMS_ITS | Encounter Summary ---
:1980 Author Organization [facility] Address [address] [place] [address] Care Team Providers Name Role Phone Unavailable Primary Care Provider Unavailable Encounter Details Date Type Department Care Team Description 09/27/2004 Hospital Encounter HX NO MAPPING Monica Eid APRN, C.N.P. [address] [place], [place] [phone] (Wo rk) Social History Tobacco Use Types Packs/Day Years Used Date Smoking Tobacco: Never Assessed Sex Assigned at Date Recorded Not on file documented as of this encounter Plan of Treatment Not on filedocumented as of this encounter Visit Diagnoses Not on filedocumented in this encounter
--- OUTSIDE RECORDS SUMMARY | 2022-05-17 14:05 | XMS_ITS | Encounter Summary ---
:1980 Author Organization [facility] Address [address] [place] [address] Care Team Providers Name Role Phone Unavailable Primary Care Provider Unavailable Encounter Details Date Type Department Care Team Description 11/27/2004 Hospital Encounter HX [facility] OBGYN Monica Eid APR N, C.N.P. [address] [place], [place] [phone] (Wo rk) Social History Tobacco Use Types Packs/Day Years Used Date Smoking Tobacco: Never Assessed Sex Assigned at Date Recorded Not on file documented as of this encounter Progress Notes Monica Eid, C.N.P., R.N. - 11/27/2004 1:30 PM CST [id number] Gestational Age: 29w 1d BP recheck 118/76. Pt does have increased edema. RTC Saturday for recheck. Mod. BR. Has history of increased bp with last and was on bedrest for 2 months. FKC discussed along with warning signsof . NOAM [facility] Document Id: [id number] documented in this encounter Plan of Treatment Not on filedocumented as of this encounter Visit Diagnoses Not on filedocumented in this encounter
--- OUTSIDE RECORDS SUMMARY | 2022-05-17 14:05 | XMS_ITS | Encounter Summary ---
:1980 Author Organization [facility] Address [address] [place] [address] Care Team Providers Name Role Phone Unavailable [...] Provider Ser - 02/09/2001 12:00 AM CDT [id number] Abstracted by Jose predator control trapper on 03/25/[address] [id number]. Catherine Dahl No. [id number].Rec.No. [id number] MARTINEZ - : [id number] AND PHYSICALThe patient is a 24-year-old 1, para 0, who is admitted to labor and delivery at approximately 38-1/2 w eeks gestational age. She is admitted secondary to complaints of contractions that were occurring ap proximately every 2-3 minutes. She denied any rupture of membranes.During her care, she h ad been cared for by Dr. Geetha Le in [place]. Her was unremarkable. Her pren atal labs included a blood type of B positive, antibody negative, rubella immune, hepatitis negative, RPR negative. Her GCT was 101.PAST MEDICAL HISTORY: Noncontributory.MEDICATIONS: vit amins.ALLERGIES: No known drug allergies.REVIEW OF SYSTEMS: She smokes 1-2 packs of cigarettes per day. She quite smoking on November 21, 2000. Review of systems is negative for HEENT, cardiovascula r, respiratory, GI, , skin, neuro, and psych. On admission, her blood pressure was 121/92 with a pulse of 100 and temp of 97.5. HEENT is within normal limits. CARDIOVASCULAR: Regular rate and rh ythm without murmur. LUNGS: Clear to auscultation bilaterally. ABDOMEN: Soft, nontender, gravid, vertex per Edgardo's.CERVIX: 4-5 cm dilated, 90% effaced. HEART TONES: Reactive. TOCO: Co ntractions were occurring approximately every 2-3 minutes. EXTREMITIES: Without cyanosis, clubbing, or edema.ASSESSMENT: 1. Intrauterine 38-1/2 weeks.2. Active labor.PLAN: Anticipa te spontaneous vaginal delivery.KRN:Laurel: 03-20-01T: 03-21-01 Tammy Schrader MD [facility] Document Id: [id number] documented in this encounter Plan of Treatment Not on filedocumented as of this encounter Visit Diagnoses Not on filedocumented in this encounter
--- OUTSIDE RECORDS SUMMARY | 2022-05-17 14:05 | XMS_ITS | Encounter Summary ---
:1980 Author Organization [facility] Address [address] [place] [address] Care Team Providers Name Role Phone Unavailable Primary Care Provider Unavailable Encounter Details Date Type Department Care Team Description 03/17/[address] [facility]NM[facility] Provider, Alek egan Social History Tobacco Use Types Packs/Day Years Used Date Smoking Tobacco: Never Assessed Sex Assigned at Date Recorded Not on file documented as of this encounter Progress Notes Conversion, Historical Provider Ser - 03/17/2002 11:10 AM CDT [id number] Addended by: MATHEW HOLLINS on: 03/24/2002,6:02 PM Comment: ultrasound was reviewed and demonstrat es diffuse, exrensive fatty infiltration of the liver. She needs aggessive weight management and rech dusty of liver enzymes in 3 months.Modules accepted: Progress NotesAddended by: AMAYA CALLEJAS on: 03/18/2002,9:40 AM Comment: TranscriptionModules accepted: Progress NotesSUBJECTIVE: The virgilio ent is a 21 y/o sent for consultation by Trang JARAMILLO because of abdominal pain. She complains of epigastric pain, usually 30 minutes after eating a meal. The type of food does not seem to matter. She us unable to predict what might cause the pain. She has had some nausea. No vomiting, hematemesi s, melena or hematochezia. She was seen by Trang JARAMILLO, placed on Aciphex and over a period of a week, the symptoms have subsided and pretty much have quieted down although she still has occasional pain. She has no documented history of peptic ulcer disease but her mother does have peptic ulcer disease. The patient has had a negative H. Pylori titer. She has no history of gallbladder disease, hepatitis, jaundice, dark urine, light colored stool. She does have elevated [facility] of the abdomen done in [place] was reported to the patient as negative, and an ultr asound was done last Saturday but the report is not available to me at the time of this dictation. Binh haynes has had occasional chills with the abdominal pain bur no fevers. She has no known exposure to hepa titis. She has no pets at home. She has not traveled outside the . She has 2 tattoos, one in and one in 2000. She has a tongue piercing done in September of this year. She has never had a tra nsfusion. She andre any illicit drug use, IV drug use or snorting of cocaine.In addition, she comp lains of pain whenever she walks or exercises. Swimming can also bring it on. If she walks more ted n 2 or 3 blocks, she is doubled over in pain. She describes a swelling in the right upper abdomen jus t below the rib cage associated with cramping pain. She states she has one bowel movement daily. It is usually soft, formed and she denies any history of constipation, melena or hematochezia. She has had no weight loss. Her maximum weight was 220 at the time of her a year ago. She does c omplain of some heartburn which has been relieved with the Aciphex. She has no dysphagia, odynophagi a, history of coughing, choking or aspiration. The patient denies any history of pancreatitis or a bdominal injuries.PAST MEDICAL HISTORY: Negative for hypertension, diabetes, pneumonia, asthma or hay fever.PAST SURGICAL HISTORY: Appendectomy as a child.ALLERGIES: None known.MEDICATIONS: Ort ho Tri-Cyclen and Aciphex. FAMILY HISTORY: Mother is alive, history of PUD. Father is living and well. 2 brothers living and well. Maternal grandfather has diabetes, adult onset. REVIEW OF SYST EMS:HEENT - no headache, dizziness, diplopia.Respiratory - no chronic cough, shortness of breath, h emoptysis, asthma or hay fever.Cardiovascular - negative.GI - see present illness. - no dysuria, frequency, hematuria, nocturia.SOCIAL HISTORY: The patient is , G-1 P-1 with a 1 y/o child . Does not use tobacco or alcohol. PHYSICAL EXAMINATION: Reveals an obese woman in no distress. Vitals per Epic and they are stable. Head - normocephalic. Eyes - PERRL. EOM's intact. Sclerae tesfaye r. Conjunctivae normal. Lids normal. Mouth, tongue and buccal mucosa - normal. Neck - supple. Th yroid - not enlarged. Carotids - equal without bruits. No neck vein distension. No cervical or supr aclavicular adenopathy. Lungs - clear to auscultation. Heart - regular rate and rhythm. No murmurs , gallops or rubs. Abdomen - obese. Liver edge is down 4 cm, mildly tender, smooth without nodulari ty. Spleen - not palpable. No masses or tenderness. Bowel sounds are normal. No venous hums or bru its. Extremities - joint exam is unremarkable. No clubbing or edema noted. Skin - clear. No spide r angioma noted.Review of her labs: She had a negative hepatitis screen. Normal basic metabolic p carlos. Her hepatic panel was normal except for an ALT of 117 and AST of 71. H. Pylori antibody was ne gative. CBC, TSH were normal.IMPRESSION:1. Fatty infiltration of the liver is the most likely di agnosis. The patient had an adequate screen for hepatitis in that all of her risk factors, i.e. tatt oos and body piercing occurred at least 6 months prior to the hepatitis screen being drawn. She has no history suggestive of [place] recently and that she is obese which is a risk factor for fatty infiltr ation. There is no family history of inflammatory bowel disease, and with a normal Alk Phos and bili brink, PSC seemed very unlikely. 2. Right sided abdominal pain precipitated by exercise though th e patient does not give a history consistent with constipation. A hepatic flexure syndrome seems to b e a likely cause for this. The patient was instructed to take Milk of Magnesia, 1 oz daily for 2 wee ks to loosen her stools and then try walking to see if her pain is better. 3. Presumed peptic ulc er disease and/or GERD. Essentially asymptomatic on Aciphex. I do not feel the patient needs upper endoscopy at this time but if her symptoms recur after discontinuing the medication in 2 months, I wo uld then consider upper endoscopy. If the ultrasound confirms fatty liver, I would suggest working o n the patient in regard to exercise and diet. She was also advised that she is at increased risk for developing diabetes in the future because of her obesity and family history. I would suggest a dieta ry consultation for weight reduction diet. An LUCITA is drawn to screen for autoimmune hepatitis.Ted nk you for this consultation.Mathew Hollins M.D./Silvana: 03/17/2002T: 03/18/2002 Source[facility] Document Id: [id number] documented in this encounter Miscellaneous Notes Miscellaneous - Conversion, Historical Provider Ser - 03/17/2002 11:10 AM CDT [id number] Shruthi Alexander angela [facility] [place] [address] [id number] March 19, 2002 Dear Chikis : I am writing to inform you of the results of the laboratory tests you had performed during your recent visit to the clinic. The test(s) LUCITA. These results are NORMAL. I have asked radiology to review the ultrasound in regard to fatty liver changes. It was a pleasure to see you in the clinic. If you have any further questions or problems, please contact our office at . Sincerely, Mathew Hollins MD Internal Medicine Department [facility] Source: [facility] Document Id: [id number] documented in this encounter Plan of Treatment Not on filedocumented as of this encounter Visit Diagnoses Not on filedocumented in this encounter
--- OUTSIDE RECORDS SUMMARY | 2022-05-17 14:05 | XMS_ITS | Encounter Summary ---
:1980 Author Organization [facility] Address [address] [place] [address] Care Team Providers Name Role Phone Unavailable Primary Care Provider Unavailable Encounter Details Date Type Department Care Team Description 02/10/2001 Hospital Encounter HX NO MAPPING Provider, Historical Social History Tobacco Use Types Packs/Day Years Used Date Smoking Tobacco: Never Assessed Sex Assigned at Date Recorded Not on file documented as of this encounter Plan of Treatment Not on filedocumented as of this encounter Visit Diagnoses Not on filedocumented in this encounter
--- OUTSIDE RECORDS SUMMARY | 2022-05-17 14:05 | XMS_ITS | Encounter Summary ---
:1980 Author Organization [facility] Address [address] [place] [address] Care Team Providers Name Role Phone Unavailable Primary Care Provider Unavailable Encounter Details Date Type Department Care Team Description 03/20/2001 Hospital Encounter HX NO MAPPING Provider, Historical Social History Tobacco Use Types Packs/Day Years Used Date Smoking Tobacco: Never Assessed Sex Assigned at Date Recorded Not on file documented as of this encounter Miscellaneous Notes Miscellaneous - Conversion, Historical Provider Ser - 03/20/2001 12:00 AM CDT [id number] Abstracted by Jose plastic process technician on 03/25/[address] [id number]. DEAN Dahloom Elina watters [id number].Rec.No. [id number], TASHA - : [id number] NOTEThe patient is a 24-year o ld 1, para 0 who was admitted to labor and delivery in active labor. At that time, her bag o f lorenz was intact and the cervix was approximately 4-5 cm dilated. Her fetus was reactive and cont ractions were occurring approximately every 2-3 minutes. She was admitted at approximately 2200 hour s on 02-19-01. Amniotomy was performed at 2330. At that time, she was 8 cm dilated. Clear fluid w as noted. She then progressed quickly to complete. She became complete and then proceeded to push f or approximately 2 hours. She then delivered via spontaneous vaginal delivery from a vertex presenta tion a viable female infant. The time of the was 4-27 on 02-10-01. Apgars were 8 and 9 at 1 and 5 minutes respectively. The infant weighed 7 pounds 10 ounces. There was no episiotomy, but there was a 3rd-degree vaginal laceration. This was repaired in the usual fashion with a #3-0 Vicryl sutu re. The anal sphincter muscles were reapproximated with interrupted #3-0 suture.Placenta was deliv ered spontaneously intact. There was a three-vessel cord noted. Estimated blood loss was less than 500 cc. There were no delivery complications. Both baby and Mom were doing well in the immediate period.JAYDEN:Laurel: 03-20-01T: 03-21-01 Tammy Schrader MD [facility]: [facility] Document Id: [id number] documented in this encounter Plan of Treatment Not on filedocumented as of this encounter Visit Diagnoses Not on filedocumented in this encounter
--- OUTSIDE RECORDS SUMMARY | 2022-05-17 14:05 | XMS_ITS | Encounter Summary ---
:1980 Author Organization [facility] Address [address] [place] [address] Care Team Providers Name Role Phone Unavailable Primary Care Provider Unavailable Encounter Details Date Type Department Care Team Description 10/30/2004 Hospital Encounter HX [facility] OBGYMonica Estes APR N, C.N.PChristian [address] [place], [place] [phone] (Wo rk) Social History Tobacco Use Types Packs/Day Years Used Date Smoking Tobacco: Never Assessed Sex Assigned at Date Recorded Not on file documented as of this encounter Progress Notes Monica Eid C.N.Wilmar, R.N. - 10/30/2004 10:30 AM CST [id number] Quick Note: letter sent [facility] Document Id: [id number] Monica Eid C.N.P., R.N. - 10/30/2004 10:30 AM CST [id number] Shruthi is here for her 26 week visit. She is Gestational Age: 25w 1d weeks today. 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 Shruthi understands the following: Definition of labor: Yes Warning signs of labor: Yes Palpatation of uterine contractions: Yes Warning signs of complications: Yes Weight gain: Yes Nutrition choices (review intake and risks): Yes Prevention/treatment of constipation (increase fluids/fiber): Yes Discontinue smoking, drug use, ETOH use: Yes Decrease strenuous activities (increase rest): Yes Consider work/activity/environmental hazards: Yes Travel recommendations: Yes Sexual activity/intercourse: Yes Avoid nipple stimulation: Yes Infant feeding plans: Yes Inverted nipple treatment: Not Asked Car seat: Yes Other topics discussed: none [facility] Document Id: [id number] Monica Eid C.N.P., R.N. - 10/30/2004 10:30 AM CST [id number] 1 hr gtt and hgb done today. Preadmission and certificate forms given. Patient states that repeat GC test done in [place] last visit was positive. Patient retreated today with Rocephin, Rx for partner treatment. Importance stressed of abstaining 1 week after treatment. Continues to have tooth pain and is seeing oral surgeon on Saturday. Refill given for Tylenol with Codeine. USG results given, normal anatomic survey. PTL, FKC discussed. NOAM Source: [facility] Document Id: [id number] documented in this encounter Miscellaneous Notes Miscellaneous - Monica Eid C.N.P., R.N. - 10/30/2004 10:30 AM CST [id number] Shruthi Diop [address] [place] [address] October 30, 2004 [id number] Dear Ms. Diop: I am writing to inform you the results of the laboratory tests you had done during your recent visitto the clinic. The tests that are checked were performed and are satisfactory, unless otherwise noted. The results of your recent lab(s) were: Office Visit on 10/30/2004 Gl,Gest Sc, 1 hr,50g (mg/dL) Date: 10/30/2004 Value: 115 Low: 60 High: 140 Status: Final HGB (g/dL) Date: 10/30/2004 Value: 13.2 Low: 11.0 High: 15.7 Status: Final It was a pleasure to see you in the clinic. If you have any further questions or problems, please contact our office at [phone]. Sincerely, Monica Eid RN, APPOINTMENT SPECIALIST Obstetrics and Gynecology Department [facility] Source: [facility] Document Id: [id number] documented in this encounter Plan of Treatment Not on filedocumented as of this encounter Visit Diagnoses Not on filedocumented in this encounter
--- OUTSIDE RECORDS SUMMARY | 2022-05-17 14:05 | XMS_ITS | Encounter Summary ---
:1980 Author Organization [facility] Address [address] [place] [address] Care Team Providers Name Role Phone Unavailable Primary Care Provider Unavailable Encounter Details Date Type Department Care Team Description 07/18/2004 Hospital Encounter HX [facility] OBMonica Strauss, MARITO N, C.N.P. [address] [place], [place] [phone] (Wo rk) Social History Tobacco Use Types Packs/Day Years Used Date Smoking Tobacco: Never Assessed Sex Assigned at Date Recorded Not on file documented as of this encounter Progress Notes Conversion, Historical Provider Ser - 07/18/2004 11:00 AM CST [id number] Genetic Screening: microcephalic: brother Infectious Diseases: Denies any history of sexually transmitted infections except positive HSV at age 19 Pap smears have been normal. Sexual History to David for 4 years S: Shruthi is a 24 year old y/o, G 2, P 1. She is 8 weeks today. She lives in [place] with parents, and family. Shruthi has been feeling stressed, and nauseated. She works at [employer]. Family is close and supportive. [facility] [place]. Assessment: vitamins: Is taking them. Diet: Regular diet, no history of an eating disorder. Adequate calcium intake discussed. 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 Transportation issues: none Safe relationship: She feels safe in current relationship. She has no history of abusive relationhips. Financial Concerns: doing OK Insurance: [employer] Social Service/Public Health: [employer] She is a smoker. Trying to quit has decreased to 2 cigs per day She is planning to breastfeed her baby. Discussed wt. gain and exercise, caffeine, cat litter, choosing a baby doctor, toxic substances. O: Physical Exam: Appropriate affect and grooming. Good eye contact during interview. There is no Lymph adenopathy, or thyromegaly. Lungs are clear bilaterally, heart has regular rate and rhythm. Breasts are slightly tender, related to the and are without masses. Abdomen is soft without masses. External genitalia is without lesions, discharge is WNL. Pap smear obtained. . CT/G C obtained. Cervix appeared normal. Fundal height is not consistant with dates, no adenexal masses, approx 10 week size. Early dating US was not obtained at an earlier date. A: 1. Appropriate and health seeking behaviors toward her 2. Verbalizes understanding of care schedule, and the importance of coming to each visit as scheduled. 3. Supportive relationship with her and family 4. Prior drug use Plan:1. Discussed materials in the new OB folder, proper diet, exercise and enc. her to abstain fromalcohol. We also discussed childbirth ed. classes, she was given dates today. 2. Her next appointment will be in 4 weeks with OB MD. She was enc. to call with any questions. Referrals: none, SW as needed Quick Note by: MONICA EID. on 07/20/04 at 11:54 AM. attempt to notify pt of + GC, unable to reach by phone two times, letter sent today [facility] Document Id: [id number] Monica Eid, C.N.P., R.N. - 07/18/2004 11:00 AM CST [id number] New OB Visit at 8 weeks, Positive home test. Having some nausea. 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 Has not used for about 4 months, having withdrawl symptoms, irritability. HasRx for Prozac but has not taken it. Encouraged to start. Having nausea, suggested brown ,Unisom, OTC Zantac. Unsure of LMP, will get USG for dates. First she was monitored closely, watching kidney development in baby, everything was fine. NOAM Source: [facility] Document Id: [id number] Electronically signed by Conversion, [facility] Risk Consultant [id number] at 02/11/2017 10:13 PM CDT documented in this encounter Miscellaneous Notes Miscellaneous - Monica Eid C.N.P., R.N. - 07/18/2004 11:00 AM CST [id number] Shruthi Diop [address] [place] [address] July 20, 2004 MR#: [id number] Dear Shruthi, I am happy to inform you of the results of the lab work we did at your recent OB visit. Please transfer this information to your Care Card. Blood Type - B Rh Status - Positive Hemoglobin - 14 Normal is 11.0 - 16.0 Rubella Status - Immune Hepatitis B screen - Negative HIV screen - Negative Syphilis screen - Negative Chlamydia Screen: Negative Gonorrhea Screen -Positive, you need to call the clinic and schedule a time to come in and get treatment. Your partner will also need to be treated. Urine test - Negative If you have any questions about your results feel free to give me a call at [phone]. Sincerely, Monica Eid RN, DEVOPS ARCHITECT forest pathologist [facility] Source: [facility] Document Id: [id number] Electronically signed by Conversion, [facility] Risk Consultant [id number] at 02/11/2017 10:13 PM CDT Miscellaneous - Conversion, Historical Provider Ser - 07/18/2004 11:00 AM PEDIATRIC IMMUNOLOGIST [id number] Shruthi Diop [address] [place] [address] July 26, 2004 Dear Shruthi Diop, I am happy to inform you that your recent cervical cancer screening test (PAP smear) was normal. Preventative screening such as this helps insure your health for years to come. Congratulations for taking care of yourself! Please contact my office if you have any further questions. [phone]. Sincerely, Monica Eid RN, DEVOPS ARCHITECT OBSTETRICS/GYNECOLOGY [facility] Source: [facility] Document Id: [id number] documented in this encounter Plan of Treatment Not on filedocumented as of this encounter Visit Diagnoses Not on filedocumented in this encounter
--- OUTSIDE RECORDS SUMMARY | 2022-05-17 14:05 | XMS_ITS | Encounter Summary ---
:1980 Author Organization [facility] Address [address] [place] [address] Care Team Providers Name Role Phone Unavailable Primary Care Provider Unavailable Encounter Details Date Type Department Care Team Description 02/09/2001 - Hospital Encounter HX NO MAPPING Provider, Historical 02/12/2001 Social History Tobacco Use Types Packs/Day Years Used Date Smoking Tobacco: Never Assessed Sex Assigned at Date Recorded Not on file documented as of this encounter Plan of Treatment Not on filedocumented as of this encounter Visit Diagnoses Not on filedocumented in this encounter
--- OUTSIDE RECORDS SUMMARY | 2022-05-17 14:05 | XMS_ITS | Encounter Summary ---
:1980 Author Organization [facility] Address [address] [place] [address] Care Team Providers Name Role Phone Unavailable Primary Care Provider Unavailable Encounter Details Date Type Department Care Team Description 08/30/2004 Hospital Encounter HX NO MAPPING Provider, Historical Social History Tobacco Use Types Packs/Day Years Used Date Smoking Tobacco: Never Assessed Sex Assigned at Date Recorded Not on file documented as of this encounter Plan of Treatment Not on filedocumented as of this encounter Visit Diagnoses Not on filedocumented in this encounter
--- OUTSIDE RECORDS SUMMARY | 2022-05-17 14:05 | XMS_ITS | Encounter Summary ---
:1980 Author Organization [facility] Address [address] [place] [address] Care Team Providers Name Role Phone Unavailable Primary Care Provider Unavailable Encounter Details Date Type Department Care Team Description 05/05/2001 Hospital Encounter HX NO MAPPING Provider, Historical Social History Tobacco Use Types Packs/Day Years Used Date Smoking Tobacco: Never Assessed Sex Assigned at Date Recorded Not on file documented as of this encounter Miscellaneous Notes Miscellaneous - Conversion, Historical Provider Ser - 05/05/2001 12:00 AM CDT [id number] *-*-*-*-* SEE SCANNED REPORT *-*-*-*-* Source: [facility] Document Id: [id number] documented in this encounter Plan of Treatment Not on filedocumented as of this encounter Visit Diagnoses Not on filedocumented in this encounter
== END 2022-05-17 13:58 | disposition home or self-care (01) ==
PROVIDERS: PCP Nurse Practitioner Family; Visit Provider Nurse Practitioner Family
DX: I10 Essential (primary) hypertension (principal)
CPT/HCPCS: 93306

== ENCOUNTER 2023-10-29 08:54 | Outpatient (CLI) | payer SELFPAY | END 2023-10-29 08:55 | disposition home or self-care (01) | PROVIDERS: PCP Nurse Practitioner Family; Visit Provider Nurse Practitioner Family | DX: I10 Essential (primary) hypertension (principal); R07.89 Other chest pain; E78.2 Mixed hyperlipidemia | CPT/HCPCS: 80053; 80061; 84484; 85025 ==

== ENCOUNTER 2023-11-13 15:44 | Outpatient (CLI) | payer SELFPAY ==
--- NOTE | 2023-11-13 16:00 | US_ITS ---
Patient: ROSANA HERNANDEZ Facility:?[facility] Patient ID:?[id number] Site Patient ID:?[id number]. Site :?1980 Study:?US-Abdomen RUQ-11/13/2023 4:12:40 PM Ordering Physician:LALO RAMIRES Final Report: INDICATION: Enlarged liver COMPARISON: none TECHNIQUE: Real time guerra scale imaging and color Doppler analysis was performed of the right upper quadrant. FINDINGS: The patient`s liver is of normal size and has diffusely increased echogenicity. The liver measures 14.8 cm. There is a normal appearance of the hepatic IVC and proximal abdominal aorta. There is no evidence of ascites. The gallbladder is of normal size and there is a calcified and shadowing stone within the gallbladder lumen measuring 2 cm. The gallbladder wall measures 1 mm in thickness. The common bile duct is of normal size and measures 6 mm in diameter at the level of the lior hepatis. The pancreas appears normal. There is no evidence of a stone or hydronephrosis within the right kidney. The right kidney measures 11.3 cm in length. IMPRESSION: Diffuse hepatic steatosis. Nonmobile 2 cm stone in the gallbladder. Liver is normal in size. No ascites. Dictated by Paul Martinez MD @ 11/14/2023 9:22:55 AM Signed by:?Paul Martinez MD @11/14/2023 9:22:55 AM (Electronic Signature)
== END 2023-11-13 15:45 | disposition home or self-care (01) ==
PROVIDERS: PCP Nurse Practitioner Family; Visit Provider Nurse Practitioner Family
DX: R16.0 Hepatomegaly, not elsewhere classified (principal); K76.0 Fatty (change of) liver, not elsewhere classified
CPT/HCPCS: 76705